=== PATIENT | male | born 1950 | race African-American/Black ===

== ENCOUNTER 2017-06-16 17:49 | Inpatient (IN) | payer MEDICAID, OTHER ==
[~2017-06-16] VITALS: Ht 182.9 cm; Wt 95.0 kg
[2017-06-16] VITALS (16 sets, daily range): BP systolic 156–216; BP diastolic 71–97; PULSE 94–122; RESP 14–18; TEMP 98.1; O2SAT 94–100
[~2017-06-16 17:49] MED LIST: CUTI0.05 TOP; PROT40TA PO; Z.0.NO CURRENT MEDS
[2017-06-16] MEDS ORDERED: IOHEXOL 350 MG/ML 10 ML VIAL (for RAD DIAG) IVCONTRAST ONE (17:50)
[2017-06-16] MEDS ORDERED: SODIUM CHLOR 0.9% 1000 ML INJ 1,000 ML IV ONE (17:59)
--- NOTE | 2017-06-16 18:22 | RADRPT ---
EXAM DATE/TIME: 06/16/2017 17:58 [facility] COMPARISON: No previous studies available for comparison. INDICATIONS : Found unresponsive left side gaze RADIATION DOSE: 56.35 CTDIvol (mGy) This report was called by Dr. Pérez to Dr. Beltran at 6: 19 PM MEDICAL HISTORY : Non-responsive. SURGICAL HISTORY : Non-responsive. ENCOUNTER: Initial ACUITY: 1 day PAIN SCALE: Non-responsive LOCATION: cranial TECHNIQUE: Multiple contiguous axial images were obtained of the head. Using automated exposure control and adj ustment of the mA and/or kV according to patient size, radiation dose was kept as low as reasonably a chievable to obtain optimal diagnostic quality images. DICOM format image data is available electro nically for review and comparison. FINDINGS: CEREBRUM: There is low density seen throughout the left middle cerebral artery territory involving portions of the left frontal, temporal, and parietal lobes. There is effacement of the sulci in these regions. Si gnificant mass effect on the ventricles or midline shift is not seen. No hemorrhage is seen. There is an old area of infarction seen in the right parietal lobe. No extra-axial fluid collections are seen . POSTERIOR FOSSA: The cerebellum and brainstem are intact. The 4th ventricle is midline. The cerebellopontine angle i s unremarkable. EXTRACRANIAL: The visualized portion of the orbits is intact. SKULL: The calvaria is intact. No evidence of skull fracture. CONCLUSION: Recent acute to subacute area of infarction involving the left middle cerebral artery territory. No h emorrhage is seen. Polo Pérez MD on June 16, 2017 at 18:15 Board Certified Radiologist. This report was verified electronically.
[2017-06-16 18:39] LABS: APTT (PATIENT) 25.1 SEC (24.3-30.1); PROTHROMBIN TIME - PATIENT 11.2 SEC (9.8-11.6)
[2017-06-16 18:42] LABS: AUTOMATED NEUTROPHIL # 12.5 TH/MM3 (1.8-7.7); BASOPHIL % 0.3 % (0.0-2.0); HEMATOCRIT 43.1 % (39.0-51.0); HEMO FLAGS DIFF FINAL; LYMPH % 7.8 % (9.0-44.0); LYMPHOCYTE # 1.1 TH/MM3 (1.0-4.8); MEAN CELL VOLUME 79.8 FL (80.0-100.0); MEAN CORPUSCULAR HEMOGLOBIN 25.8 PG (27.0-34.0); MEAN CORPUSCULAR HGB CONC 32.3 % (32.0-36.0); MONO % 5.6 % (0.0-8.0); NEUT % 86.3 % (16.0-70.0); PLATELET COUNT 147 TH/MM3 (150-450); WHITE BLOOD COUNT 14.4 TH/MM3 (4.0-11.0)
--- NOTE | 2017-06-16 18:49 | RADRPT ---
EXAM DATE/TIME: 06/16/2017 18:13 [facility] COMPARISON: CT BRAIN W/O CONTRAST, September 07, 2012, 4:18. CT BRAIN W/O CONTRAST, June 16, 2017, 17:58. INDICATIONS : Found unresponsive. IV CONTRAST: 89 cc Omnipaque 350 (iohexol) IV ; Cumulative dose for multiple exams. RADIATION DOSE: 16.02 CTDIvol (mGy) ; Combined studies MEDICAL HISTORY : Non-responsive. SURGICAL HISTORY : Non-responsive. ENCOUNTER: Initial ACUITY: 1 day PAIN SCALE: Non-responsive LOCATION: CTA HEAD TECHNIQUE: Volumetric scanning was performed using a multi-row detector CT scanner. The data was post processed with a variety of visualization algorithms including full volume maximum intensity projection, multi -planar sliding thin slab reformation, curved planar reformation, and surface rendering techniques. Using automated exposure control and adjustment of the mA and/or kV according to patient size, radiat ion dose was kept as low as reasonably achievable to obtain optimal diagnostic quality images. DICO M format image data is available electronically for review and comparison. FINDINGS: There is excellent visualization of the major intracranial arteries out to the second-order branch ve ssels. There is no evidence for aneurysm, vessel truncation or stenosis, and no evidence for vascula r malformation. Calcifications are seen at the supraclinoid portions of the internal carotid arteries bilaterally. Th e internal carotid arteries are seen to bifurcate into the anterior and middle cerebral arteries. The right A1 segment appears small, this is a normal variant. The A2 segments appear symmetric. The midd le cerebral arteries appear symmetric. There is increased flow on the left side which may reflect selma e hyperperfusion following an infarct. There is a subacute infarct seen on recent CT examination in t he left middle cerebral artery territory. The basilar is formed from the 2 vertebral arteries. The ba silar artery is seen to normally bifurcate into the posterior cerebral arteries. CONCLUSION: No area of occlusion is seen. There appears to be hyperperfusion in the left middle cerebral artery t erritory. There is a subacute area of infarction seen on the recent CT examination. Polo Pérez MD on June 16, 2017 at 18:42 Board Certified Radiologist. This report was verified electronically.
[2017-06-16 18:57] LABS: CKMB 12.2 NG/ML (0.5-3.6)
[2017-06-16 19:10] LABS: BLOOD, URINE NEG (NEG); GLUCOSE,URINE NEG (NEG); KETONE, URINE 10 mg/dL (NEG); NITRITE,URINE NEG (NEG); PH, URINE 5.5 (5.0-8.5); URINE COLOR YELLOW (YELLW/STRAW)
--- NOTE | 2017-06-16 19:20 | PD ---
HPI Chief Complaint: Altered Mental Status Time Seen by Provider: 17:57 Travel History International Travel<30 days: No Contact w/Intl Traveler<30days: No Traveled to known affect area: No History of Present Illness HPI This is a 66-year-old male with a history of reported polysubstance abuse, who presents here with altered mental status. When paramedics arrived, they found the patient to be obtunded with a GCS of 11. Friends who are at the patient's residence stated that they last saw him at 3:30. The patient arrived at roughly 5 PM. Patient was made a stroke alert as he was still in the window. Patient was unable to give any history regarding his visits secondary to his altered mental status. Patient had a left sided gaze with spasticity to his right upper extremity and clonus of his right lower shimmy. PFSH Past Medical History Asthma: No Autoimmune Disease: No Blood Disorders: No Cancer: No Cardiovascular Problems: No Chemotherapy: No COPD: No Cerebrovascular Accident: Yes Endocrine: No Gastrointestinal Disorders: No Genitourinary: No Immune Disorder: No Musculoskeletal: No Neurologic: Yes Psychiatric: No Reproductive: No Respiratory: No Radiation Therapy: No Sleep Apnea: No ?: Unknown Past Surgical History AICD: No Arteriovenous Shunt: No Insulin Pump: No Joint Replacement: No Pacemaker: No Other Surgery: Yes Social History Alcohol Use: Yes (2 BEERS A DAY) Tobacco Use: Yes (3-4 CIGARETTS A DAY) Substance Use: Yes (CRACK PIPE IN POCKET) Allergies-Medications (Allergen,Severity, Reaction): Coded Allergies: No Known Allergies (Verified , 03/22/15) Reported Meds & Prescriptions Reported Meds & Active Scripts Active Cutivate (Fluticasone Propionate) 0.05 % Cre 0.05 % TOP TID Reported Protonix (Pantoprazole Sodium) 40 Mg Tabdr 40 Mg PO BID No Current Meds (Miscellaneous Medication) Misc Review of Systems ROS Limitations: Clinical Condition (unable to obtain review of systems) Except as stated in HPI: all other systems reviewed are Neg Physical Exam Narrative GENERAL: Well-developed male in no obvious respiratory distress. The patient had a left sided lateral gaze. He would not answer questions or follow commands. SKIN: Focused skin assessment warm/dry. HEAD: Atraumatic. Normocephalic. EYES: Pupils appeared to be 2 bilaterally No scleral icterus. No injection or drainage. ENT: No nasal bleeding or discharge. Mucous membranes pink and moist. NECK: Trachea midline. No JVD. CARDIOVASCULAR: Regular rate and rhythm. No murmur appreciated. RESPIRATORY: No accessory muscle use. Clear to auscultation. Breath sounds equal bilaterally. GASTROINTESTINAL: Abdomen soft, non-tender, nondistended. No pulsatile masses were appreciated. MUSCULOSKELETAL: No obvious deformities. No clubbing. No cyanosis. No edema. NEUROLOGICAL: Awake with a left lateral gaze. Patient was observed moving his left upper and left lower extremity however not to command. The patient had spasticity and rigidity to his right upper extremity. There was clonus appreciated in his right lower extremity. GCS was estimated at roughly a 10-11. Data Data Last Documented VS Vital Signs Date Time Temp Pulse Resp B/P (MAP) Pulse Ox O2 Delivery O2 Flow Rate FiO2 06/16/17 18:51 103 18 177/84 (115) 99 Nasal Cannula 3.00 06/16/17 17:56 98.1 Orders Orders Diet Npo (06/16/17 Dinner) Activity Bed Rest (06/16/17 ) Electrocardiogram (06/16/17 ) I-Stat Creatinine (06/16/17 17:59) I-Stat Profile (06/16/17 17:59) Prothrombin Time / Inr (Pt) (06/16/17 17:59) Act Partial Throm Time (Ptt) (06/16/17 17:59) Complete Blood Count With Diff (06/16/17 17:59) Fibrinogen (06/16/17 17:59) Creatine Kinase (Cpk) (06/16/17 17:59) Troponin I (06/16/17 17:59) Ua Includes Microscopic (06/16/17 17:59) Drug Screen, Random Urine (06/16/17 17:59) Type And Screen (06/16/17 17:59) Ct Brain W/O Iv Contrast(Rout) (06/16/17 ) Cta Brain W Iv Contrast W 3d (06/16/17 17:59) Consult Neurology (06/16/17 ) Blood Glucose (06/16/17 17:59) Ecg Monitoring (06/16/17 17:59) Neuro Checks Q2HX12,Q4H (06/16/17 17:59) Nursing Bedside Swallow Assess .ONCE (06/16/17 17:59) Iv Access Insert/Monitor (06/16/17 17:59) NPO (06/16/17 17:59) Oximetry (06/16/17 17:59) Oxygen Administration (06/16/17 17:59) Sodium Chlor 0.9% 1000 Ml Inj (Ns 1000 M (06/16/17 17:59) Resp Oxygen [place] C Titrat 1-4 L (06/16/17 17:59) Cath For Specimen (06/16/17 17:59) Cta Neck W Iv Contrast W 3d (06/16/17 18:19) Iohexol 350 Inj (Omnipaque 350 Inj) (06/16/17 17:50) CKMB (06/16/17 17:57) CKMB% (06/16/17 17:57) Labs Laboratory Tests Test 06/16/17 17:57 06/16/17 19:00 White Blood Count 14.4 TH/MM3 Red Blood Count 5.40 MIL/MM3 Hemoglobin 13.9 GM/DL Bedside Hemoglobin 15.6 G/DL Hematocrit 43.1 % Bedside Hematocrit 46.0 % Mean Corpuscular Volume 79.8 FL Mean Corpuscular Hemoglobin 25.8 PG Mean Corpuscular Hemoglobin Concent 32.3 % Red Cell Distribution Width 15.0 % Platelet Count 147 TH/MM3 Mean Platelet Volume 9.0 FL Neutrophils (%) (Auto) 86.3 % Lymphocytes (%) (Auto) 7.8 % Monocytes (%) (Auto) 5.6 % Eosinophils (%) (Auto) 0.0 % Basophils (%) (Auto) 0.3 % Neutrophils # (Auto) 12.5 TH/MM3 Lymphocytes # (Auto) 1.1 TH/MM3 Monocytes # (Auto) 0.8 TH/MM3 Eosinophils # (Auto) 0.0 TH/MM3 Basophils # (Auto) 0.0 TH/MM3 CBC Comment DIFF FINAL Differential Comment Prothrombin Time 11.2 SEC Prothromb Time International Ratio 1.0 RATIO Activated Partial Thromboplast Time 25.1 SEC Fibrinogen 284 mg/dL Bedside Sodium 139 MMOL/L Bedside Potassium 5.0 MMOL/L Bedside Chloride 107 MMOL/L Bedside Blood Urea Nitrogen 25 MG/DL Bedside Creatinine 1.2 MG/DL Bedside Glucose 150 MG/DL Total Creatine Kinase 733 U/L Creatine Kinase MB 12.2 NG/ML Creatine Kinase MB % 1.7 % Troponin I 0.02 NG/ML Urine Color YELLOW Urine Turbidity CLEAR Urine pH 5.5 Urine Specific [place] 1.032 Urine Protein TRACE mg/dL Urine Glucose (UA) NEG mg/dL Urine Ketones 10 mg/dL Urine Occult Blood NEG Urine Nitrite NEG Urine Bilirubin NEG Urine Urobilinogen LESS THAN 2.0 MG/DL Urine Leukocyte Esterase NEG Urine WBC 1 /hpf MDM Medical Screen Exam Complete: Yes Emergency Medical Condition: Yes Differential Diagnosis Hemorrhagic versus embolic stroke versus metabolic derangement Narrative Course 66-year-old male presents with altered mental status. The patient was made a stroke alert when he arrived here. The patient's NIH stroke scale was definitely greater than 22. He had left sided gaze, spasticity/rigidity of his right upper extremity. There is clonus noted in his right lower extremity. The radiologist called me and stated he had a large left sided MCA stroke. He states it was definitely greater than 6 hours if not close to 12 hours old. Given this, the patient will not be a TPA candidate. The case was discussed with Dr. Siddiqi originally when he arrived. She is in agreement that he is not a stroke alert TPA candidate. Given his findings, he is also not a interventional radiology candidate. The patient be admitted to the intensive care unit. He's been discussed with Dr. Zaldivar, avionics shop supervisor to admit the patient to the intensive care service. Critical Care Narrative Aggregate critical care time was 45 minutes. Time to perform other separately billable procedures was not included in the critical care time. My time did not include minutes spent treating any other patients simultaneously or on activities that did not directly contribute to the patient's treatment. The services I provided to this patient were to treat and/or prevent clinically significant deterioration that could result in: I provided critical care services requiring my management, as noted below: Chart data review, documentation time, medication orders and management, vital sign assessments/reviewing monitor data, ordering and reviewing lab tests, ordering and interpreting/reviewing x-rays and diagnostic studies, care of the patient and discussion of the patient with the admitting physicians. Stroke Alert NIHSS NIH Stroke Scale Result: 25 NIHSS Time Completed: 17:00 Diagnosis Diagnosis: Primary Impression: large left MCA stroke Walter Hearn MD Jun 16, 2017 19:20
--- NOTE | 2017-06-16 19:35 | RADRPT ---
EXAM DATE/TIME: 06/16/2017 18:11 [facility] COMPARISON: No previous studies available for comparison. INDICATIONS : Found unresponsive IV CONTRAST: 89 cc Omnipaque 350 (iohexol) IV ; Cumulative dose for multiple exams. RADIATION DOSE: 16.02 CTDIvol (mGy) ; Combined studies MEDICAL HISTORY : Non-responsive. SURGICAL HISTORY : Non-responsive. ENCOUNTER: Initial ACUITY: 1 day PAIN SCALE: Non-responsive LOCATION: CTA NECK Elevated flow velocities and ICA/CCA ratios have been found to correlate with increased degrees of vessel stenosis, calculated as percentage of diameter relative to a normal segment of distal ICA/CCA. TECHNIQUE: Volumetric scanning was performed using a multirow detector CT scanner. The data was post processed with a variety of visualization algorithms including full-volume maximum intensity projection, multip lanar sliding thin-slab reformation, curved-planar reformation, and surface-rendering techniques. Us ing automated exposure control and adjustment of the mA and/or kV according to patient size, radiatio n dose was kept as low as reasonably achievable to obtain optimal diagnostic quality images. DICOM f ormat image data is available electronically for review and comparison. FINDINGS: AORTIC ARCH: There is a three-vessel origin of the great vessels from the aorta. No evidence of ostial narrowing. RIGHT CAROTID: The common carotid artery is intact. The carotid bulb has a normal configuration without ulceration o r narrowing. The internal carotid artery lumen is smooth without stenosis. The external carotid merrill ry is intact. LEFT CAROTID: The common carotid artery is intact. The carotid bulb has a normal configuration without ulceration or narrowing. The internal carotid artery lumen is smooth without stenosis. There is a mild calcifi ed plaque of the proximal left internal carotid artery without significant stenosis. The external car otid artery is intact. VERTEBRALS: The vertebral arteries have a symmetric diameter. No stenotic lesions are seen. OTHER: There is a focal area of low density seen between the hyoid bone and thyroid cartilage measuring 2.8 x 2.5 x 2.5 cm. In this location, a thyroglossal duct cyst should be suspected. CONCLUSION: No significant stenosis is seen. Polo Pérez MD on June 16, 2017 at 19:27 Board Certified Radiologist. This report was verified electronically.
[2017-06-16] MEDS ORDERED: PROPOFOL 1000 MG/100 ML INJ 100 ML ONE (20:10)
[2017-06-16] MEDS ORDERED: MIDAZOLAM HCL 5 MG/ML VIAL (1 ML) ONE (20:11)
[2017-06-16] MEDS ORDERED: CHLORHEXIDINE GLUCONATE 2 % 1 PACK (2 CLOTHS) TOP PRN (20:15)
[2017-06-16] MEDS ORDERED: MISCELLANEOUS NURSING INFORMATION XX SCH (20:15)
[2017-06-16] MEDS ORDERED: SODIUM CHLORIDE 0.9% FLUSH 10 ML FLUSH IV FLUSH PRN (20:15)
[2017-06-16] MEDS ORDERED: ONDANSETRON HCL 4 MG/2 ML VIAL IV PUSH PRN (20:15)
[2017-06-16] MEDS ORDERED: LACTULOSE SYRUP 20 GM/30 ML CUP PO PRN (20:15)
[2017-06-16] MEDS ORDERED: MAGNESIUM HYDROXIDE SUSP 30 ML CUP PO PRN (20:15)
[2017-06-16] MEDS ORDERED: MORPHINE SULFATE 4 MG/ML INJ IV PUSH PRN (20:15)
[2017-06-16] MEDS ORDERED: SENNOSIDES 8.6 MG TAB PO PRN (20:15)
[2017-06-16] MEDS ORDERED: MIDAZOLAM HCL 2 MG/2 ML VIAL IV PUSH PRN (20:15)
[2017-06-16] MEDS ORDERED: BISACODYL 10 MG SUPP RECTAL PRN (20:15)
[2017-06-16] MEDS: SODIUM CHLOR 0.9% 1000 ML INJ 1,000 ML IV SCH (20:20)
[2017-06-16] MEDS ORDERED: ROCURONIUM INJ 50 MG/5 ML VIAL ONE (20:34)
[2017-06-16] MEDS: DOCUSATE SODIUM 50 MG/SENNA 8.6 MG TAB PO SCH (21:00)
[2017-06-16] MEDS ORDERED: levETIRAcetam 1000 MG INJ 100 ML IV ONE (21:30)
[2017-06-16] MEDS: PROPOFOL 1000 MG/100 ML INJ 100 ML IV PRN (21:47)
[2017-06-16] MEDS: HEPARIN SODIUM - SQ 10,000 UNITS/ML VIAL SQ SCH (21:48)
[2017-06-16] MEDS: SODIUM CHLORIDE 0.9% FLUSH 10 ML FLUSH IV FLUSH SCH (21:50)
[2017-06-16] MEDS: RESP: ALBUTEROL 2.5 MG/IPRATROPIUM 0.5 MG NEB (SCH) INH (22:07)
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
--- NOTE | 2017-06-16 23:09 | PD.PROCEDR ---
Procedure Note Procedure Endotracheal Intubation A time-out was completed verifying correct patient, procedure, site, positioning , and special equipment if applicable. The patient was placed in a flat position. Sedation was obtained using Etomidate 20mg. The patient was easily ventilated using an ambu bag. The [employer]/ MAC 4 BLADE was used and inserted into the oropharynx at which time there was a Grade 1 view of the vocal cords. A 8-welsh endotracheal tube was inserted and visualized going through the vocal cords. The stylette was removed. Colorimetric change was visualized on the CO2 meter. Breath sounds were heard in both lung mcbride equally. The endotracheal tube was placed at 23 cm, measured at the teeth. A chest x-ray was ordered to assess for pneumothorax and verify endotrachealtube placement. Estimated Blood Loss: 0 The patient tolerated the procedure well and there were no complications. Henrik Zaldivar MD Jun 16, 2017 23:09
--- NOTE | 2017-06-16 23:10 | PD.PROCEDR ---
Procedure Note Procedure Centerline placement A time-out was completed verifying correct patient, procedure, site, positioning , and special equipment if applicable. The patient was placed in a dependent position appropriate for central line placement based on the vein to be cannulated. The patients right neck was prepped and draped in sterile fashion. 1% Lidocaine was used to anesthetize the surrounding skin area. A triple lumen 9 -[place] Cordis catheter was introduced into the the internal jugular vein using the Seldinger technique and under ultrasound guidance. The catheter was threaded smoothly over the guide wire and appropriate blood return was obtained. Each lumen of the catheter was evacuated of air and flushed with sterile saline. The catheter was then sutured in place to the skin and a sterile dressing applied. Perfusion to the extremity distal to the point of catheter insertion was checked and found to be adequate. Estimated Blood Loss: 1ml The patient tolerated the procedure well and there were no complications. Henrik Zaldivar MD Jun 16, 2017 23:10
[2017-06-16] MEDS ORDERED: POTASSIUM PHOSPHATE MONOBASIC 500 MG TAB PO PRN (23:15)
[2017-06-16] MEDS ORDERED: POTASSIUM CHLORIDE 25 MEQ EFFERVESCENT TAB PO PRN (23:15)
[2017-06-16] MEDS ORDERED: MAGNESIUM SULFATE INJ 2 GM in SODIUM CHLORIDE 0.9% INJ 96 ML IV PRN (23:15)
[2017-06-16] MEDS ORDERED: POTASSIUM CHLOR 40 MEQ PREMIX 100 ML IV PRN ×2 (23:15)
[2017-06-16] MEDS ORDERED: POTASSIUM PHOSPHATE MONOBASIC 500 MG TAB PO/TUBE PRN (23:15)
[2017-06-16] MEDS ORDERED: MAGNESIUM OXIDE 400 MG TAB PO PRN (23:15)
[2017-06-16] MEDS ORDERED: MAGNESIUM SULFATE INJ 4 GM in SODIUM CHLORIDE 0.9% INJ 92 ML IV PRN (23:15)
[2017-06-16] MEDS ORDERED: SODIUM PHOSPHATE INJ 30 MMOL in SODIUM CHLOR 0.9% 250 ML INJ 240 ML IV PRN (23:15)
[2017-06-16] MEDS ORDERED: POTASSIUM PHOSPHATE INJ 30 MMOL in SODIUM CHLOR 0.9% 250 ML INJ 250 ML IV PRN (23:15)
[2017-06-16] MEDS ORDERED: POTASSIUM CHLOR 20 MEQ PREMIX 100 ML IV PRN ×2 (23:15)
--- NOTE | 2017-06-16 23:39 | RADRPT ---
EXAM DATE/TIME: 06/16/2017 23:32 [facility] COMPARISON: No previous studies available for comparison. INDICATIONS : Post central line placement. MEDICAL HISTORY : Unresponsive. SURGICAL HISTORY : Unresponsive. ENCOUNTER: Initial ACUITY: 1 day PAIN SCORE: Non-responsive. LOCATION: Bilateral chest FINDINGS: Mild, basilar predominant bilateral parenchymal consolidation noted. Small, bilateral pleural effusio ns are also suspected. I don't see a pneumothorax. Heart size upper limits of normal. Endotracheal tube tip is approximately 4 cm above the joe. Nasogastric tube has its tip in the sto mach, sidehole just below the GE junction. There is a right internal jugular central venous catheter with tip at atriocaval junction. CONCLUSION: Mild bibasilar consolidation and small effusions. Line and tube positions as above. No pneumothorax. Polo Sosa MD on June 16, 2017 at 23:36 Board Certified Radiologist. This report was verified electronically.
[2017-06-16 23:47] LABS: ALT (GPT) 42 U/L (12-78); ANION GAP 7 MEQ/L (5-15); AST (GOT) 67 U/L (15-37); BICARBONATE 21.8 MEQ/L (21.0-32.0); BLOOD UREA NITROGEN 18 MG/DL (7-18); CHLORIDE 108 MEQ/L (98-107); GLOMERULAR FILTRATION RATE 77 ML/MIN (>89); POTASSIUM 4.2 MEQ/L (3.5-5.1); SODIUM (NA) 137 MEQ/L (136-145)
[2017-06-16 23:48] LABS: ALKALINE PHOSPHATASE 62 U/L (45-117); CREATINE KINASE 675 U/L (39-308); TOTAL BILIRUBIN ADULT 0.5 MG/DL (0.2-1.0)
[2017-06-17] VITALS (26 sets, daily range): BP systolic 106–166; BP diastolic 56–86; PULSE 88–119; RESP 19–38; TEMP 99.5–102.7; O2SAT 95–100
[2017-06-17 00:05] LABS: CKMB 9.1 NG/ML (0.5-3.6)
[2017-06-17 00:17] LABS: BLOOD GAS CARBOXYHEMOGLOBIN 0.6 % (0-4); BLOOD GAS HCO3 24 mmol/L (22-26); BLOOD GAS METHEMOGLOBIN 0.8 % (0-2); BLOOD GAS O2 HGB SATURATION 98 % (90-100); BLOOD GAS PCO2 34 mmHg (38-42); BLOOD GAS PO2 228 mmHG (61-120); BLOOD GAS TOTAL HGB 13.4 G/DL (12.0-16.0); CRITICAL VALUE NO; OXYGEN DEVICE VENT; TEMP CORR TO 98.6
[2017-06-17 00:18] LABS: DRAW SITE RT RADIAL; FIO2 100 %; NUMBER OF ARTERIAL PUNCTURES 1
[2017-06-17 00:19] LABS: STAT YES; ULNAR PULSE PRESENT
[2017-06-17] MEDS: CHLORHEXIDINE GLUCONATE 2 % 1 PACK (2 CLOTHS) TOP SCH (04:00)
[2017-06-17] MEDS: RESP: ALBUTEROL 2.5 MG/IPRATROPIUM 0.5 MG NEB (SCH) INH ×4 (04:17→20:15)
[2017-06-17] MEDS: HEPARIN SODIUM - SQ 10,000 UNITS/ML VIAL SQ SCH ×3 (05:11→20:59)
[2017-06-17 07:15] LABS: BLOOD GAS BASE EXCESS -2.4 mmol/L (-2-2); BLOOD GAS HCO3 20 mmol/L (22-26); BLOOD GAS METHEMOGLOBIN 1.4 % (0-2); BLOOD GAS O2 HGB SATURATION 96 % (90-100); BLOOD GAS OXYGEN CONTENT 17.8 Vol % (12.0-20.0); BLOOD GAS PCO2 25 mmHg (38-42); BLOOD GAS PO2 94 mmHg (61-120); BLOOD GAS TOTAL HGB 13.2 G/DL (12.0-16.0); CRITICAL VALUE YES; OXYGEN DEVICE VENTILATOR; TEMP CORR TO 98.6
[2017-06-17 07:16] LABS: DRAW SITE RT RADIAL; FIO2 80 %; NUMBER OF ARTERIAL PUNCTURES 1; STAT NO; ULNAR PULSE PRESENT; VENT SETTINGS 550/14/+5
[2017-06-17] MEDS: PROPOFOL 1000 MG/100 ML INJ 100 ML IV PRN ×5 (07:41→23:33)
[2017-06-17] MEDS ORDERED: MULTIVITAMIN INJ 10 ML, THIAMINE INJ 100 MG, FOLIC ACID INJ 1 MG in SODIUM CHLOR 0.45% ... IV ONE (07:45)
[2017-06-17] MEDS: levETIRAcetam 1000 MG INJ 100 ML IV SCH ×2 (09:00→20:58)
[2017-06-17] MEDS: ARTIFICIAL TEARS OPTH SOLN 15 ML BTL EACH EYE SCH ×3 (09:00→18:00)
[2017-06-17] MEDS: SODIUM CHLORIDE 0.9% FLUSH 10 ML FLUSH IV FLUSH SCH ×2 (09:00→20:58)
[2017-06-17] MEDS: DOCUSATE SODIUM 50 MG/SENNA 8.6 MG TAB PO SCH ×2 (09:00→20:59)
[2017-06-17] MEDS: SODIUM CHLOR 0.9% 1000 ML INJ 1,000 ML IV SCH ×2 (09:00→20:59)
--- NOTE | 2017-06-17 11:04 | RADRPT ---
EXAM DATE/TIME: 06/17/2017 10:46 [facility] COMPARISON: CTA BRAIN W 3D RECON, June 16, 2017, 18:13. CT BRAIN W/O CONTRAST, June 16, 2017, 17:58. INDICATIONS : Follow up for stroke. RADIATION DOSE: 64.32 CTDIvol (mGy) MEDICAL HISTORY : Stroke. SURGICAL HISTORY : None. ENCOUNTER: Subsequent ACUITY: 2 days PAIN SCALE: Non-responsive LOCATION: cranial TECHNIQUE: Multiple contiguous axial images were obtained of the head. Using automated exposure control and adj ustment of the mA and/or kV according to patient size, radiation dose was kept as low as reasonably a chievable to obtain optimal diagnostic quality images. DICOM format image data is available electro nically for review and comparison. FINDINGS: Evolving left MCA and DAIN stroke is again noted. There is moderate effacement of hemispheric cortical sulci. No significant brain shift. Minimal compressive deformity of the left lateral ventricle. Basa l cisterns are patent. An old high convexity right parietal occipital stroke is again noted. There ar e patchy areas of spontaneous increased density within the left MCA territory consistent with petechi al parenchymal hemorrhage. No drainable hemorrhagic collection is noted. CONCLUSION: Evolving left MCA and DAIN stroke as described Polo Mathur MD on June 17, 2017 at 10:59 Board Certified Radiologist. This report was verified electronically.
[2017-06-17] MEDS: fentaNYL 2,500 MCG/NS 250 ML IV PRN ×2 (12:14→23:31)
[2017-06-17] MEDS: ACETAMINOPHEN 325 MG TAB PO PRN (12:27)
[2017-06-17 12:28] LABS: AUTOMATED NEUTROPHIL # 4.9 TH/MM3 (1.8-7.7); BASOPHIL % 0.1 % (0.0-2.0); HEMATOCRIT 39.4 % (39.0-51.0); HEMO FLAGS DIFF FINAL; LYMPH % 12.2 % (9.0-44.0); LYMPHOCYTE # 0.7 TH/MM3 (1.0-4.8); MEAN CELL VOLUME 78.3 FL (80.0-100.0); MEAN CORPUSCULAR HEMOGLOBIN 25.1 PG (27.0-34.0); NEUT % 79.7 % (16.0-70.0); PLATELET COUNT 130 TH/MM3 (150-450); RED BLOOD COUNT 5.04 MIL/MM3 (4.50-5.90); RED CELL DISTRIBUTION WIDTH 14.1 % (11.6-17.2); WHITE BLOOD COUNT 6.2 TH/MM3 (4.0-11.0)
[2017-06-17 13:06] LABS: ALT (GPT) 40 U/L (12-78); ANION GAP 11 MEQ/L (5-15); AST (GOT) 59 U/L (15-37); BICARBONATE 20.9 MEQ/L (21.0-32.0); BLOOD UREA NITROGEN 16 MG/DL (7-18); CHLORIDE 107 MEQ/L (98-107); GLOMERULAR FILTRATION RATE 85 ML/MIN (>89); POTASSIUM 3.9 MEQ/L (3.5-5.1); SODIUM (NA) 139 MEQ/L (136-145)
[2017-06-17 13:08] LABS: ALKALINE PHOSPHATASE 50 U/L (45-117); TOTAL BILIRUBIN ADULT 0.5 MG/DL (0.2-1.0)
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
--- NOTE | 2017-06-17 14:18 | EKG ---
Date Performed: 06/16/2017 Time Performed: 20:09:36 PTAGE: 66 years EKG: Sinus rhythm POSSIBLE RIGHT ATRIAL ENLARGEMENT POSSIBLE LEFT ATRIAL ENLARGEMENT POSSIBLE RIGHT VENTRICULAR CONDUC TION DELAY NONSPECIFIC T-WAVE ABNORMALITY BORDERLINE ECG PREVIOUS TRACING : 09/07/2012 17.28 Since prior tracing, sinus rate is slower. DOCTOR: Joon Escobedo Interpretating Date/Time 06/17/2017 14:16:52
--- NOTE | 2017-06-17 14:19 | HHI.HCSW ---
Casing Tier Visit Advance Directive Asked by palliative BUSINESS OPERATIONS MANAGER for assistance to locate patient's sister to identify health care proxy decision maker. Step father, Chandra Prajapati ([phone]) reports Mr. Thompson has a sister, Liset Prajapati, last known in the [facility]. Step father has no contact information for Liset. Google search produced potential match ([phone]-- just rings and -- same number as sathya nieves). Accurints requested to better identify potential contact information so appropriate health care proxy can be established. Awaiting results. . Yasemin Amezquita, UI DEVELOPER WITH ANGULAR JS Jun 17, 2017 14:19
--- NOTE | 2017-06-17 14:53 | HHI.CCPN ---
Subjective Remarks/Hospital Course 06/16: 66-year-old unfortunate gentleman with a history of polysubstance abuse, presents here with altered mental status. When paramedics arrived, they found the patient to be obtunded with a GCS of 11. Friends who are at the patient's residence stated that they last saw him at 3:30. The patient arrived at roughly 5 PM. Patient was made a stroke alert as he was still in the window. Patient was unable to give any history regarding his visits secondary to his altered mental status. Patient had a left sided gaze with spasticity to his right upper extremity and clonus of his right lower shimmy. The CT of the head showed acute/subacute CVA at the left MCA territory and decision and not to administer TPA was made. While in the emergency department patient developed tonic-clonic seizures and was intubated by me for an airway protection. 06/17: Remains sedated, orally intubated on mechanical ventilation. Objective Vital Signs Date Time Temp Pulse Resp B/P (MAP) Pulse Ox O2 Delivery O2 Flow Rate FiO2 06/17/17 12:00 101.4 119 37 137/69 (91) 96 06/17/17 12:00 50 06/17/17 01:35 Ventilator 06/16/17 18:51 3.00 Intake and Output 06/17/17 06/17/17 06/18/17 08:00 16:00 00:00 Intake Total 234 ml 674 ml Output Total 700 ml Balance -466 ml 674 ml Result Diagram: 06/17/17 1200 06/17/17 1200 Other Results Laboratory Tests Test 06/16/17 23:58 06/17/17 06:55 Blood Gas Puncture Site RT RADIAL RT RADIAL Blood Gas Patient Temperature 98.6 98.6 Blood Gas HCO3 24 mmol/L (22-26) 20 mmol/L (22-26) Blood Gas Base Excess 0.0 mmol/L (-2-2) -2.4 mmol/L (-2-2) Blood Gas Oxygen Saturation 98 % (90-100) 96 % (90-100) Arterial Blood pH 7.45 (7.380-7.420) 7.52 (7.380-7.420) Arterial Blood Partial Pressure CO2 34 mmHg (38-42) 25 mmHg (38-42) Arterial Blood Partial Pressure O2 228 mmHG (61-120) 94 mmHg (61-120) Arterial Blood Oxygen Content 19.0 Vol % (12.0-20.0) 17.8 Vol % (12.0-20.0) Arterial Blood Carboxyhemoglobin 0.6 % (0-4) 1.0 % (0-4) Arterial Blood Methemoglobin 0.8 % (0-2) 1.4 % (0-2) Blood Gas Hemoglobin 13.4 G/DL (12.0-16.0) 13.2 G/DL (12.0-16.0) Oxygen Delivery Device VENT VENTILATOR Blood Gas Ventilator Setting 550/14/+5 Blood Gas Inspired Oxygen 100 % 80 % Imaging Last Impressions Head CT 06/17/17 1000 Signed Impressions: Service Date/Time: June 10:46 - CONCLUSION: Evolving left MCA and DAIN stroke as described Polo Mathur MD Neck CTA 06/16/17 1819 Signed Impressions: Service Date/Time: Friday, June 16, 2017 18:11 - CONCLUSION: No significant stenosis is seen. Polo Pérez MD Head CTA 06/16/17 1759 Signed Impressions: Service Date/Time: Friday, June 16, 2017 18:13 - CONCLUSION: No area of occlusion is seen. There appears to be hyperperfusion in the left middle cerebral artery territory. There is a subacute area of infarction seen on the recent CT examination. Polo Pérez MD Chest X-Ray 06/16/17 0000 Signed Impressions: Service Date/Time: Friday, June 16, 2017 23:32 - CONCLUSION: Mild bibasilar consolidation and small effusions. Line and tube positions as above. No pneumothorax. Polo Sosa MD Objective Remarks GENERAL: Elderly appearing gentleman sedated and intubated SKIN: Warm and dry. HEAD: Normocephalic.Left sided gaze EYES: No scleral icterus. No injection or drainage. NECK: Supple, trachea midline. No JVD or lymphadenopathy. CARDIOVASCULAR: Regular rate and rhythm without murmurs, gallops, or rubs. RESPIRATORY: Breath sounds equal bilaterally. No accessory muscle use. GASTROINTESTINAL: Abdomen soft, non-tender, nondistended. MUSCULOSKELETAL: No cyanosis, or edema. Spasticity to his right upper extremity and clonus of his right lower shimmy BACK: Nontender without obvious deformity. NEURO EXAM: GCS: M 5 on left V T E4 Mental Status: The patient is sedated and intubated Pupils are round, reactive to light. spasticity to his right upper extremity and clonus of his right lower extremity A/P Assessment and Plan Respiratory failure - Intubated for airway protection - No weaning until neurologically improved - Palliative care consult - Most likely will need a trach and peg if family requests aggressive management Acute CVA - Left MCA territory - Extremely poor prognosis - Not a candidate for TPA - MRI brain stroke protocol - Repeat CT head if indicated - Aspirin and Plavix - Neurology consult - PT and OT treatment as tolerated Hypertension - Hydralazine and labetalol when necessary to keep SBP less than 220 - Three-day permissive hypertension Peptic ulcer disease/GERD - IV Pepcid Alcohol and polysubstance abuse - Thiamine folate and multivitamins - Monitor for withdrawal History of Hepatitis C positive - Supportive care Seizure - Keppra DVT GI prophylaxis - Teds SCDs - Subcutaneous heparin - IV Pepcid Critical Care: The total critical care time was 35 minutes. Time to perform other separately billable procedures was not included in the critical care time. Dewey Cartwright MD Jun 17, 2017 14:53
--- NOTE | 2017-06-17 15:05 | ECHRPT ---
Indication: cva/tia CONCLUSIONS The left ventricular systolic function is moderately reduced with an estimated ejection fraction in the range of 40-45%. Normal left ventricular size. Trace mitral valve regurgitation. There is mild tricuspid valve regurgitation. The estimated pulmonary arterial pressure is 39.4 mmHg. BP: / HR: Rhythm: MEASUREMENTS (Male / Female) Normal Values Technical Quality:Fair 2D ECHO LV Diastolic Diameter PLAX 4.8 cm 4.2 - 5.9 / 3.9 - 5.3 cm LV Systolic Diameter PLAX 3.9 cm IVS Diastolic Thickness 1.2 cm 0.6 - 1.0 / 0.6 - 0.9 cm LVPW Diastolic Thickness 1.3 cm 0.6 - 1.0 / 0.6 - 0.9 cm LV Relative Wall Thickness 0.5 RV Internal Dim ED PLAX 1.9 cm M-MODE Aortic Root Diameter MM 3.1 cm LA Systolic Diameter MM 3.1 cm LA Ao Ratio MM 1.0 AV Cusp Separation MM 2.3 cm DOPPLER Mitral E Point Velocity 55.8 cm/s Mitral A Point Velocity 71.1 cm/s Mitral E to A Ratio 0.8 LV E' Lateral Velocity 5.4 cm/s Mitral E to LV E' Lateral Ratio 10.4 LV E' Septal Velocity 6.5 cm/s Mitral E to LV E' Septal Ratio 8.5 TR Peak Velocity 271.0 cm/s TR Peak Gradient 29.4 mmHg Right Atrial Pressure 10.0 mmHg Pulmonary Artery Systolic Pressu 39.4 mmHg Right Ventricular Systolic Press 39.4 mmHg FINDINGS LEFT VENTRICLE The left ventricular systolic function is moderately reduced with an estimated ejection fraction in the range of 40-45%. Normal left ventricular size. RIGHT VENTRICLE Normal right ventricular size and systolic function. LEFT ATRIUM The left atrial size is normal. RIGHT ATRIUM The right atrial size is normal. ATRIAL SEPTUM Normal atrial septal thickness without atrial level shunting by limited color doppler interrogation. AORTA The aortic root and proximal ascending aorta are normal in size on limited imaging. MITRAL VALVE Structurally normal mitral valve. Trace mitral valve regurgitation. AORTIC VALVE Trileaflet aortic valve. No aortic valve stenosis or regurgitation. TRICUSPID VALVE Structurally normal tricuspid valve. There is mild tricuspid valve regurgitation. The estimated pulmonary arterial pressure is 39.4 mmHg. PULMONARY VALVE No pulmonary valve regurgitation or stenosis. VESSELS The inferior vena cava is normal in size. PERICARDIUM No pericardial effusion. Miguel Lantigua MD, FACC (Electronically Signed) Final Date:17 June 2017 15:04
[2017-06-17] MEDS ORDERED: SODIUM CHLORIDE 0.9% FLUSH 5 ML FLUSH IV FLUSH PRN (19:00)
[2017-06-17] MEDS ORDERED: DEXTROSE 50% IN WATER 50 ML SYRINGE IV PUSH PRN (19:00)
[2017-06-17] MEDS ORDERED: GLUCAGON 1 MG/ML VIAL OTHER PRN (19:00)
--- NOTE | 2017-06-17 20:32 | MB ---
cc: LAURA BOLAND PHD DATE OF CONSULTATION 06/17/17 REASON FOR CONSULTATION Stroke HISTORY OF PRESENT ILLNESS Mr. Thompson is a 66-year-old man who came into the emergency room yesterday as a stroke alert. At that time, he was found to have left gaze. He was obtunded and was spastic in the right upper extremity and right lower extremity. CT scan of brain revealed a large left MCA stroke which appeared to be greater than six hours old, if not close was 12 hours old. Therefore was not considered a TPA candidate. He also underwent CT angiogram to see if there was any LVO and this was unremarkable. The neck CTA was normal. The brain CTA was negative for LVO. MEDICATIONS Current 1. Fentanyl. 2. Keppra 500 mg b.i.d. 3. Chlorhexidine potassium. 4. Magnesium sulfate. 5. Albuterol neb. 6. Heparin 5000 units subcu q.8 h 7. Propofol. 8. Tylenol. 9. Morphine p.r.n. 10. Zofran p.r.n. 11. Versed. NEUROLOGIC EXAMINATION Patient is sedated. Blood pressure is 114/56, pulse is 105, respirations are 25, temperature is 102 degrees. Higher cortical function - he is sedated. Cranial nerves: He has a left gaze. The pupils are equal and reactive. On motor exam, he does not withdraw the right side but does withdraw the left according to the nurse, but I could not get withdrawal at this time. Reflexes are symmetric. IMAGING STUDIES CT of the brain done today shows an evolving left MCA and DAIN stroke. No evidence of any hemorrhage is identified. There is effacement of the cortical sulci. There is no [id number]-[id number] shift. There is an old right parietal occipital stroke as well. LABORATORY DATA The white count is 6200, hemoglobin 12.6, hematocrit 39%, platelet count 130,000. Sodium is 139, potassium 3.9, chloride 107,even, CO2 20. The BUN is 25, creatinine 1.16, AST 67, ALT 42. Tox screen positive for cocaine and cannabis. IMPRESSION Large left MCA stroke. I agree that the patient was not a TPA candidate given the age of the infarct and the completed nature of the infarct on the CT scan. Furthermore, there is no evidence for any LVO that could be amendable to endovascular therapy. RECOMMENDATIONS Would start aspirin suppository 3 mg rectally. Check lipid panel and echocardiogram. MD BRIAN Boyle/ /6:55 PM /8:19 PM
[2017-06-17] MEDS: SODIUM CHLORIDE 0.9% FLUSH 5 ML FLUSH IV FLUSH SCH (20:58)
[2017-06-17] MEDS: INSULIN ASPART SUPPLEMENTAL SCALE SQ SCH (21:00)
[2017-06-17] MEDS: ASPIRIN 300 MG SUPP RECTAL SCH (21:21)
[2017-06-18] VITALS (20 sets, daily range): BP systolic 87–119; BP diastolic 51–61; PULSE 82–122; RESP 15–19; TEMP 98.7–100; O2SAT 91–100
[2017-06-18] MEDS: RESP: ALBUTEROL 2.5 MG/IPRATROPIUM 0.5 MG NEB (SCH) INH ×4 (03:31→20:35)
[2017-06-18] MEDS: CHLORHEXIDINE GLUCONATE 2 % 1 PACK (2 CLOTHS) TOP SCH ×2 (04:00→21:04)
[2017-06-18] MEDS: HEPARIN SODIUM - SQ 10,000 UNITS/ML VIAL SQ SCH ×3 (05:27→21:08)
[2017-06-18] MEDS: PROPOFOL 1000 MG/100 ML INJ 100 ML IV PRN ×4 (05:27→21:09)
[2017-06-18 05:45] LABS: HDL CHOLESTEROL 50.8 MG/DL (40.0-60.0)
[2017-06-18] MEDS: INSULIN ASPART SUPPLEMENTAL SCALE SQ SCH ×4 (08:00→21:00)
[2017-06-18] MEDS: ASPIRIN 300 MG SUPP RECTAL SCH (08:23)
[2017-06-18] MEDS: levETIRAcetam 1000 MG INJ 100 ML IV SCH ×2 (08:23→21:06)
[2017-06-18] MEDS: DOCUSATE SODIUM 50 MG/SENNA 8.6 MG TAB PO SCH ×2 (08:23→21:00)
[2017-06-18] MEDS: ARTIFICIAL TEARS OPTH SOLN 15 ML BTL EACH EYE SCH ×3 (08:24→17:04)
[2017-06-18] MEDS: SODIUM CHLORIDE 0.9% FLUSH 10 ML FLUSH IV FLUSH SCH ×2 (08:24→21:07)
[2017-06-18] MEDS: SODIUM CHLOR 0.9% 1000 ML INJ 1,000 ML IV SCH ×2 (08:45→20:40)
[2017-06-18] MEDS: fentaNYL 2,500 MCG/NS 250 ML IV PRN ×2 (08:59→22:01)
[2017-06-18] MEDS: SODIUM CHLORIDE 0.9% FLUSH 5 ML FLUSH IV FLUSH SCH ×2 (09:00→21:00)
[2017-06-18 11:35] LABS: HEMOGLOBIN A1a 1.4 %; HEMOGLOBIN A1b 1.6 %; HEMOGLOBIN F 0.4 %
--- NOTE | 2017-06-18 11:51 | HHI.HCPN ---
Reason for visit a. To assist with evaluation and management of symptoms including: dyspnea, encephalopathy, pain b. To assist medical decision maker(s) with: better understanding of current medical conditions; weighing benefits/burdens of medical treatment options; making medical treatment decisions. . Subjective/Interval History Patient is a 66 year old male who presented to the ED via EVAC on 06/16/17 for altered mental status, patient's last known well time was approximately 1530, the patient arrived to the ED at 1700 and was deemed a stroke alert. Upon arrival patient had a left sided gaze with spasticity to his right upper extremity and clonus in his right lower extremity. CT head: Recent acute to subacute area of infarction involving the left middle cerebral artery. CXR: Mild bibasilar consolidation and small effusions.06/17/17: Follow up Head CT: Evolving left MCA and DAIN stroek noted. There is moderate effacement of hemispheric cortical sulci. No significant brain shift. An old high convexity occipital stroke again noted. There are patchy areas of spontaneous increased density within the left MCA territory consistent with petechial parenchymal hemorrhage. Patient remains intubated, mechanically ventilated, sedated on propofol and fentanyl. Per RN sedation has been reduced in half today. Ventilator settings: AC/Rate 14/ FiO2 40%/Tidal Volume 500/PEEP 5. Patient sedated, occasionally withdraws to deep noxious stimuli. Family update via telephone. Family plans to visit patient tomorrow to further discuss goals of care. Palliative care consulted to assist with goals of care to provide support/ guidance regarding medical treatment benefit/burden medical treatment options. Family/friend interactions Telephone conversation with patient's brother Chandra Prajapati Jr., followed by a separate phone call update to patient's brother Kashif Thompson. Both were updated on: * Palliative care role, purpose, approach * Patient/family understanding of the current medical problems * Patient/family understanding of prognosis * Current medical treatment options and benefits/burdens of those options * Questions answered to the best of my ability * Palliative care contact information provided Advance Directives Living Will: Never completed Health Care Surrogate: Never completed Durable Power of Upper Shaper: Never completed Objective Vital Signs Date Time Temp Pulse Resp B/P (MAP) Pulse Ox O2 Delivery O2 Flow Rate FiO2 06/18/17 10:57 100 40 06/18/17 10:00 97 06/18/17 08:00 97 06/18/17 08:00 99.2 97 17 95/53 (67) 100 06/18/17 08:00 40 06/18/17 07:54 99 40 06/18/17 07:31 99 Ventilator 40 06/18/17 06:00 109 06/18/17 04:00 98.7 106 18 99/60 (73) 97 06/18/17 04:00 106 06/18/17 04:00 50 06/18/17 03:29 94 40 06/18/17 02:00 114 06/18/17 00:05 94 40 06/18/17 00:00 100.0 122 15 119/61 (80) 93 06/18/17 00:00 122 06/18/17 00:00 50 06/17/17 22:22 98 40 06/17/17 22:00 117 06/17/17 20:00 102.7 116 19 126/63 (84) 96 06/17/17 20:00 95 50 06/17/17 20:00 50 06/17/17 20:00 116 06/17/17 18:00 114 06/17/17 16:00 105 06/17/17 16:00 102.1 105 25 114/56 (75) 97 06/17/17 16:00 50 06/17/17 15:32 97 50 06/17/17 15:00 116 33 148/75 (99) 96 06/17/17 14:00 110 06/17/17 14:00 110 26 130/62 (84) 97 06/17/17 13:00 106 28 137/70 (92) 95 06/17/17 12:00 101.4 119 37 137/69 (91) 96 06/17/17 12:00 50 06/17/17 12:00 119 06/17/17 11:54 96 50 Intake & Output 06/18/17 06/18/17 07:00 19:00 Intake Total 1382 ml Output Total 400 ml Balance 982 ml Intake IV Total 1382 ml Output Urine Total 400 ml # Bowel Movements 0 . Physical Exam CONSTITUTIONAL/GENERAL: This is an elderly male patient, intubated, mechanically ventilated, and sedated. TUBES/LINES/DRAINS: ETT, CLV RIJ, PIV x 1, soft wrist restraints, abebe catheter SKIN: No jaundice, rashes, or lesions. No wounds seen anteriorly. Skin temperature appropriate. Not diaphoretic. EYES: Pupils equal and round and reactive. No injection or drainage. Fundi not examined. ENT: Unable to assess secondary to clinical condition. Nose without bleeding or purulent drainage. CARDIOVASCULAR: Tachycardic, without murmurs, gallops, or rubs. No JVD. Peripheral pulses symmetric. RESPIRATORY/CHEST: Symmetric, mechanically ventilated. Clear, diminished to auscultation. Breath sounds equal bilaterally. No wheezes, rales, or rhonchi. GASTROINTESTINAL: Abdomen soft, nondistended. Bowel sounds present. GENITOURINARY: Without palpable bladder distension. Abebe catheter in place. MUSCULOSKELETAL: Extremities without clubbing, cyanosis, or edema. No mottling or clubbing. NEUROLOGICAL: Sedated and intubated. Withdraws to noxious stimuli. PSYCHIATRIC: Unable to assess secondary to clinical condition. . Diagnostic Tests Laboratory Laboratory Tests Test 06/16/17 17:57 06/16/17 19:00 06/16/17 22:55 06/16/17 23:58 White Blood Count 14.4 TH/MM3 (4.0-11.0) Red Blood Count 5.40 MIL/MM3 (4.50-5.90) Hemoglobin 13.9 GM/DL (13.0-17.0) Bedside Hemoglobin 15.6 G/DL (12.0-17.0) Hematocrit 43.1 % (39.0-51.0) Bedside Hematocrit 46.0 % (38.0-51.0) Mean Corpuscular Volume 79.8 FL (80.0-100.0) Mean Corpuscular Hemoglobin 25.8 PG (27.0-34.0) Mean Corpuscular Hemoglobin Concent 32.3 % (32.0-36.0) Red Cell Distribution Width 15.0 % (11.6-17.2) Platelet Count 147 TH/MM3 (150-450) Mean Platelet Volume 9.0 FL (7.0-11.0) Neutrophils (%) (Auto) 86.3 % (16.0-70.0) Lymphocytes (%) (Auto) 7.8 % (9.0-44.0) Monocytes (%) (Auto) 5.6 % (0.0-8.0) Eosinophils (%) (Auto) 0.0 % (0.0-4.0) Basophils (%) (Auto) 0.3 % (0.0-2.0) Neutrophils # (Auto) 12.5 TH/MM3 (1.8-7.7) Lymphocytes # (Auto) 1.1 TH/MM3 (1.0-4.8) Monocytes # (Auto) 0.8 TH/MM3 (0-0.9) Eosinophils # (Auto) 0.0 TH/MM3 (0-0.4) Basophils # (Auto) 0.0 TH/MM3 (0-0.2) CBC Comment DIFF FINAL Differential Comment Prothrombin Time 11.2 SEC (9.8-11.6) Prothromb Time International Ratio 1.0 RATIO Activated Partial Thromboplast Time 25.1 SEC (24.3-30.1) Fibrinogen 284 mg/dL (227-377) Bedside Sodium 139 MMOL/L (138-146) Bedside Potassium 5.0 MMOL/L (3.5-4.9) Bedside Chloride 107 MMOL/L (98-109) Bedside Blood Urea Nitrogen 25 MG/DL (8-26) Bedside Creatinine 1.2 MG/DL (0.8-1.3) Bedside Glucose 150 MG/DL (60-95) Total Creatine Kinase 733 U/L (39-308) 675 U/L (39-308) Creatine Kinase MB 12.2 NG/ML (0.5-3.6) 9.1 NG/ML (0.5-3.6) Creatine Kinase MB % 1.7 % (0.0-4.0) 1.3 % (0.0-4.0) Troponin I 0.02 NG/ML (0.02-0.05) Urine Color YELLOW (YELLW/STRAW) Urine Turbidity CLEAR (CLEAR) Urine pH 5.5 (5.0-8.5) Urine Specific [place] 1.032 (1.002-1.035) Urine Protein TRACE mg/dL (NEG-TRACE) Urine Glucose (UA) NEG mg/dL (NEG) Urine Ketones 10 mg/dL (NEG) Urine Occult Blood NEG (NEG) Urine Nitrite NEG (NEG) Urine Bilirubin NEG (NEG) Urine Urobilinogen LESS THAN 2.0 MG/DL (LESS Urine Leukocyte Esterase NEG (NEG) Urine WBC 1 /hpf (0-5) Urine Opiates Screen NEG (NEG) Urine Barbiturates Screen NEG (NEG) Urine Amphetamines Screen NEG (NEG) Urine Benzodiazepines Screen NEG (NEG) Urine Cocaine Screen POS (NEG) Urine Cannabinoids Screen POS (NEG) Blood Urea Nitrogen 18 MG/DL (7-18) Creatinine 1.16 MG/DL (0.60-1.30) Random Glucose 120 MG/DL (74-106) Total Protein 7.6 GM/DL (6.4-8.2) Albumin 2.9 GM/DL (3.4-5.0) Calcium Level 8.5 MG/DL (8.5-10.1) Phosphorus Level 2.6 MG/DL (2.5-4.9) Magnesium Level 2.0 MG/DL (1.5-2.5) Alkaline Phosphatase 62 U/L (45-117) Aspartate Amino Transf (AST/SGOT) 67 U/L (15-37) Alanine Aminotransferase (ALT/SGPT) 42 U/L (12-78) Total Bilirubin 0.5 MG/DL (0.2-1.0) Sodium Level 137 MEQ/L (136-145) Potassium Level 4.2 MEQ/L (3.5-5.1) Chloride Level 108 MEQ/L (98-107) Carbon Dioxide Level 21.8 MEQ/L (21.0-32.0) Anion Gap 7 MEQ/L (5-15) Estimat Glomerular Filtration Rate 77 ML/MIN (>89) Blood Gas Puncture Site RT RADIAL Blood Gas Patient Temperature 98.6 Blood Gas HCO3 24 mmol/L (22-26) Blood Gas Base Excess 0.0 mmol/L (-2-2) Blood Gas Oxygen Saturation 98 % (90-100) Arterial Blood pH 7.45 (7.380-7.420) Arterial Blood Partial Pressure CO2 34 mmHg (38-42) Arterial Blood Partial Pressure O2 228 mmHG (61-120) Arterial Blood Oxygen Content 19.0 Vol % (12.0-20.0) Arterial Blood Carboxyhemoglobin 0.6 % (0-4) Arterial Blood Methemoglobin 0.8 % (0-2) Blood Gas Hemoglobin 13.4 G/DL (12.0-16.0) Oxygen Delivery Device VENT Blood Gas Ventilator Setting Blood Gas Inspired Oxygen 100 % Test 06/17/17 01:30 06/17/17 06:55 06/17/17 12:00 06/18/17 04:45 Nasal Screen MRSA (PCR) MRSA NOT DETECTED (NOT Blood Gas Puncture Site RT RADIAL Blood Gas Patient Temperature 98.6 Blood Gas HCO3 20 mmol/L (22-26) Blood Gas Base Excess -2.4 mmol/L (-2-2) Blood Gas Oxygen Saturation 96 % (90-100) Arterial Blood pH 7.52 (7.380-7.420) Arterial Blood Partial Pressure CO2 25 mmHg (38-42) Arterial Blood Partial Pressure O2 94 mmHg (61-120) Arterial Blood Oxygen Content 17.8 Vol % (12.0-20.0) Arterial Blood Carboxyhemoglobin 1.0 % (0-4) Arterial Blood Methemoglobin 1.4 % (0-2) Blood Gas Hemoglobin 13.2 G/DL (12.0-16.0) Oxygen Delivery Device VENTILATOR Blood Gas Ventilator Setting 550/14/+5 Blood Gas Inspired Oxygen 80 % White Blood Count 6.2 TH/MM3 (4.0-11.0) Red Blood Count 5.04 MIL/MM3 (4.50-5.90) Hemoglobin 12.6 GM/DL (13.0-17.0) Hematocrit 39.4 % (39.0-51.0) Mean Corpuscular Volume 78.3 FL (80.0-100.0) Mean Corpuscular Hemoglobin 25.1 PG (27.0-34.0) Mean Corpuscular Hemoglobin Concent 32.0 % (32.0-36.0) Red Cell Distribution Width 14.1 % (11.6-17.2) Platelet Count 130 TH/MM3 (150-450) Mean Platelet Volume 8.5 FL (7.0-11.0) Neutrophils (%) (Auto) 79.7 % (16.0-70.0) Lymphocytes (%) (Auto) 12.2 % (9.0-44.0) Monocytes (%) (Auto) 8.0 % (0.0-8.0) Eosinophils (%) (Auto) 0.0 % (0.0-4.0) Basophils (%) (Auto) 0.1 % (0.0-2.0) Neutrophils # (Auto) 4.9 TH/MM3 (1.8-7.7) Lymphocytes # (Auto) 0.7 TH/MM3 (1.0-4.8) Monocytes # (Auto) 0.5 TH/MM3 (0-0.9) Eosinophils # (Auto) 0.0 TH/MM3 (0-0.4) Basophils # (Auto) 0.0 TH/MM3 (0-0.2) CBC Comment DIFF FINAL Differential Comment Blood Urea Nitrogen 16 MG/DL (7-18) Creatinine 1.06 MG/DL (0.60-1.30) Random Glucose 124 MG/DL (74-106) Total Protein 7.1 GM/DL (6.4-8.2) Albumin 2.8 GM/DL (3.4-5.0) Calcium Level 8.0 MG/DL (8.5-10.1) Phosphorus Level 2.3 MG/DL (2.5-4.9) Magnesium Level 2.0 MG/DL (1.5-2.5) Alkaline Phosphatase 50 U/L (45-117) Aspartate Amino Transf (AST/SGOT) 59 U/L (15-37) Alanine Aminotransferase (ALT/SGPT) 40 U/L (12-78) Total Bilirubin 0.5 MG/DL (0.2-1.0) Sodium Level 139 MEQ/L (136-145) Potassium Level 3.9 MEQ/L (3.5-5.1) Chloride Level 107 MEQ/L (98-107) Carbon Dioxide Level 20.9 MEQ/L (21.0-32.0) Anion Gap 11 MEQ/L (5-15) Estimat Glomerular Filtration Rate 85 ML/MIN (>89) Triglycerides Level 109 MG/DL (42-150) Cholesterol Level 81 MG/DL (120-200) LDL Cholesterol 8 MG/DL (0-99) HDL Cholesterol 50.8 MG/DL (40.0-60.0) Cholesterol/HDL Ratio 1.59 RATIO Result Diagram: 06/17/17 1200 06/17/17 1200 Imaging Last [address] 06/17/17 1000 Signed Impressions: Service Date/Time: June 10:46 - CONCLUSION: Evolving left MCA and DAIN stroke as described Polo Mathur MD Neck CTA 06/16/17 1819 Signed Impressions: Service Date/Time: Friday, June 16, 2017 18:11 - CONCLUSION: No significant stenosis is seen. Polo Pérez MD Head CTA 06/16/17 1759 Signed Impressions: Service Date/Time: Friday, June 16, 2017 18:13 - CONCLUSION: No area of occlusion is seen. There appears to be hyperperfusion in the left middle cerebral artery territory. There is a subacute area of infarction seen on the recent CT examination. Polo Pérez MD Head CT 06/16/17 0000 Signed Impressions: Service Date/Time: Friday, June 16, 2017 17:58 - CONCLUSION: Recent acute to subacute area of infarction involving the left middle cerebral artery territory. No hemorrhage is seen. Polo Pérez MD Chest X-Ray 06/16/17 0000 Signed Impressions: Service Date/Time: Friday, June 16, 2017 23:32 - CONCLUSION: Mild bibasilar consolidation and small effusions. Line and tube positions as above. No pneumothorax. Polo Sosa MD Assessment and Plan Disease Oriented Problem List: (1) CVA (cerebral vascular accident) (2) Hypertension (3) Polysubstance abuse (4) Seizure Symptom Scale: (1) Encephalopathy (2) Dyspnea (3) Pain Pertinent Non-Medical Issues Psychosocial: Spiritual: Judaism. Legal: Unable to locate any family to designate legal decision maker at this time. Ethical issues impacting care: None known. Important Contacts Chandra Prajapati Jr (brother):[phone] Kashif Thompson(brother): [phone] Liset Alo (sister): [phone] Shawna Delia (friend) [phone] Chandra Prajapati (step father) [phone] Prognosis Patient admitted for large MCA stroke, unfortunately he was not a candidate for TPA due to prolonged time duration before presentation to the ED. The patient experienced tonic-clonic seizures during the ED course and was intubated for airway protection. Patient has a history of a previous CVA, seizures, polysubstance abuse, and hepatitis C. Patient is at an ongoing risk for complications and setbacks secondary to current clinical status and past medical history. . Code Status: Full Code Plan * Legal decision maker: Patient does not have the capacity to make his own health care decisions. It is unclear at this time if he will regain the capacity to make his own health care decisions. Patient potentially has a son although it has not been confirmed, legal decision making would first fall to the patient's adult children since he is no longer , pending locating son 's information. In absence of adult children legal decision making would fall to the patient's siblings Chandra Prajapati Jr, Liset Prajapati, and Kashif Thompson as the patient has no living biological parents. * * Patient has a son Naman Thompson who is somewhere in his late 30s early 40s, last known residence was in [place], car[facility] center report to locate son in process. Patient has been estranged from his son for some time, patient's family was unable to provide any contact information. * Brief bedside meeting with patient's step father Chandra Prajapati, who provided limited information regarding the patient, he stated the patient is not , his mother is , the patient does have a sister, and could potentially have adult children. Mr. Prajapati was unable to provide any telephone numbers for any family contacts. Contact Shawna Lin was contacted regarding patient, it was stated she was the niece of the patient however, upon further conversation she stated she is not related to the patient and is a friend to the patient. * CODE STATUS: FULL CODE. * GOALS: Pending confirmation of HCP/legal decision maker. * Telephone conference with patient's brother Chandra Prajapati Jr, updated on patient 's clinical status, educated on the process to determine legal decision maker in the setting where an individual is unable to make informed health care decisions independently. Mr. Prajapati is still awaiting a return call from his sister Liset Prajapati, he has updated their brother Kashif, all siblings plan to visit Mr. Thompson tomorrow, WednesdayJune 19. * Voicemail message left for Liset Prajapati [phone] and palliative contact information provided. * SYMPTOM MANAGEMENT: * --pain: Patient at ongoing risk for pain secondary to intubation, mechanical ventilation, and bedbound status. Patient is currently sedated on propofol and fentanyl. No recommendations at this time, further recommendations pending hospital course. * --dyspnea: Patient is intubated and mechanically ventilated, duonebs q 2hr PRN ordered. No recommendations at this time. * --encephalopathy: Secondary to recent MCA stroke, history of previous CVA, history of polysubstance abuse, now with active seizures. Continue to monitor, no recommendations at this time. * Palliative care will continue to follow during hospital course as condition evolves, to assist patient/family/decision-maker with understanding of medical conditions, weighing benefit/burdens of treatment options, for clarification of goals of treatment. Additionally will assist with symptoms of palliative concern. Attestation To help prompt me to consider important information that might be impacting today's encounter and assessment, information from prior notes written by myself or my colleagues may have been "brought forward" into today's note. My signature on this note, however, is an attestation that I personally performed the exam, history, and/or decision-making noted today, and, unless otherwise indicated, the interactions with patient, family, and staff as well as the review of records all occurred today. I also attest that the listed assessment and stated plan reflect my best clinical judgment today based on the combination of historical information, prior notes, and today's exam/ interactions. When time spent is documented, it refers only to time spent today by the signer, or if indicated, combined time spent today by collaborating physician/nurse practitioner. Ellyn Mercado Jun 18, 2017 11:51
--- NOTE | 2017-06-18 17:05 | HHI.PR ---
Review/Management Diagnosis large left MCA stroke prognosis guarded. Diagnosis/Plan: Subjective Subjective Comments No acute events reported Active Medications Current Medications Medications (Trade) Dose Ordered Sig/[place] Route Start Time Stop Time Status Last Admin Sodium Chloride 1,000 ml @ 84 mls/hr [id number] IV 06/16/17 21:00 06/18/17 08:45 (NS Flush) 2 ml UNSCH PRN IV FLUSH 06/16/17 20:15 (NS Flush) 2 ml BID IV FLUSH 06/16/17 21:00 06/18/17 08:24 (Tylenol) 650 mg Q6H PRN PO 06/16/17 20:15 06/17/17 12:27 (Morphine Inj) 2 mg Q2H PRN IV PUSH 06/16/17 20:15 (Versed Inj) 2 mg Q1H PRN IV PUSH 06/16/17 20:15 06/16/17 21:51 (Tears Naturale Opth Soln) 1 drop TID EACH EYE 06/17/17 09:00 06/18/17 12:48 (Zofran Inj) 4 mg Q6H PRN IV PUSH 06/16/17 20:15 (Duoneb Neb) 1 ampule Q6HR NEB INH 06/16/17 22:00 06/18/17 14:40 (Duoneb Neb) 1 ampule Q2HR NEB PRN INH 06/16/17 20:15 (Heparin Inj) 5,000 units Q8H SQ 06/16/17 21:00 06/18/17 12:48 Miscellaneous Information 1 [id number] XX 06/16/17 20:15 (Chlorhexidine 2% Cloth) 3 pack Taper DAILY@04 TOP 06/17/17 04:00 06/13/18 03:59 06/18/17 04:00 (Chlorhexidine 2% Cloth) 3 pack UNSCH PRN TOP 06/16/17 20:15 (Cheryl-Colace) 1 tab BID PO 06/16/17 21:00 06/18/17 08:23 (Milk Of Magnesia Liq) 30 ml Q12H PRN PO 06/16/17 20:15 (Senokot) 17.2 mg Q12H PRN PO 06/16/17 20:15 (Dulcolax Supp) 10 mg DAILY PRN RECTAL 06/16/17 20:15 (Lactulose Liq) 30 ml DAILY PRN PO 06/16/17 20:15 Propofol 100 ml @ 2.106 mls/ hr TITRATE PRN IV 06/16/17 21:00 06/18/17 16:34 Levetriacetam 100 ml @ 400 mls/hr Q12HR IV 06/17/17 09:00 06/18/17 08:23 Potassium Chloride 100 ml @ 50 mls/hr Q2H PRN IV 06/16/17 23:15 Potassium Chloride 100 ml @ 50 mls/hr Q2H PRN IV 06/16/17 23:15 (K-Lyte Cl Eff) 50 meq UNSCH PRN PO 06/16/17 23:15 Potassium Chloride 100 ml @ 25 mls/hr UNSCH PRN IV 06/16/17 23:15 Potassium Chloride 100 ml @ 50 mls/hr Q2H PRN IV 06/16/17 23:15 Magnesium Sulfate 4 gm/Sodium Chloride 100 ml @ 50 mls/hr UNSCH PRN IV 06/16/17 23:15 (Mag-Ox) 800 mg UNSCH PRN PO 06/16/17 23:15 Magnesium Sulfate 2 gm/Sodium Chloride 100 ml @ 50 mls/hr UNSCH PRN IV 06/16/17 23:15 (K-Phos) 2,000 mg Q4H PRN PO 06/16/17 23:15 Sodium Phosphate 30 mmol/Sodium Chloride 250 ml @ 42 mls/hr UNSCH PRN IV 06/16/17 23:15 06/17/17 14:51 (K-Phos) 2,000 mg UNSCH PRN PO/TUBE 06/16/17 23:15 Potassium Phosphate 30 mmol/ Sodium Chloride 260 ml @ 42 mls/hr UNSCH PRN IV 06/16/17 23:15 Fentanyl Citrate 250 ml @ 5 mls/hr TITRATE PRN IV 06/17/17 12:15 06/18/17 08:59 (NS Flush) 2 ml BID IV FLUSH 06/17/17 21:00 (NS Flush) 2 ml UNSCH PRN IV FLUSH 06/17/17 19:00 (Aspirin Supp) 300 mg DAILY RECTAL 06/17/17 19:00 06/18/17 08:23 (NovoLOG SUPPLEMENTAL SCALE) 1 ACHS SQ 06/17/17 21:00 (D50w (Syr) Inj) 50 ml UNSCH PRN IV PUSH 06/17/17 19:00 (Glucagon Inj) 1 mg UNSCH PRN OTHER 06/17/17 19:00 Allergies Allergies Coded Allergies No Known Allergies (Verified03/22/15) Exam I&O / VS 06/18/17 06/18/17 06/19/17 15:00 23:00 07:00 Intake Total 100 ml Balance 100 ml Intake IV Total 100 ml Vital Signs Date Time Temp Pulse Resp B/P (MAP) Pulse Ox O2 Delivery O2 Flow Rate FiO2 06/18/17 16:00 95 06/18/17 16:00 40 06/18/17 16:00 99.3 95 18 87/51 (63) 96 06/18/17 14:40 100 40 06/18/17 14:00 91 06/18/17 12:00 40 06/18/17 12:00 91 06/18/17 12:00 99.8 91 19 99/55 (70) 91 06/18/17 10:57 100 40 06/18/17 10:00 97 06/18/17 08:00 97 06/18/17 08:00 99.2 97 17 95/53 (67) 100 06/18/17 08:00 40 06/18/17 07:54 99 40 06/18/17 07:31 99 Ventilator 40 06/18/17 06:00 109 06/18/17 04:00 98.7 106 18 99/60 (73) 97 06/18/17 04:00 106 06/18/17 04:00 50 06/18/17 03:29 94 40 06/18/17 02:00 114 06/18/17 00:05 94 40 06/18/17 00:00 100.0 122 15 119/61 (80) 93 06/18/17 00:00 122 06/18/17 00:00 50 06/17/17 22:22 98 40 06/17/17 22:00 117 06/17/17 20:00 102.7 116 19 126/63 (84) 96 06/17/17 20:00 95 50 06/17/17 20:00 50 06/17/17 20:00 116 06/17/17 18:00 114 Exam Comments sedated on ventilator pupils 2 mm bialterally , eom intact motor--no spontaneous limb movement and no withdrawal Objective Micro and Labs Laboratory Tests Test 06/18/17 04:45 Triglycerides Level 109 Cholesterol Level 81 LDL Cholesterol 8 HDL Cholesterol 50.8 Cholesterol/HDL Ratio 1.59 Diagnostic Tests ECHO --EF 40-45 % Cas Powell PhD Jun 18, 2017 17:05
--- NOTE | 2017-06-18 19:52 | HHI.CCPN ---
Subjective Remarks/Hospital Course 06/16: 66-year-old unfortunate gentleman with a history of polysubstance abuse, presents here with altered mental status. When paramedics arrived, they found the patient to be obtunded with a GCS of 11. Friends who are at the patient's residence stated that they last saw him at 3:30. The patient arrived at roughly 5 PM. Patient was made a stroke alert as he was still in the window. Patient was unable to give any history regarding his visits secondary to his altered mental status. Patient had a left sided gaze with spasticity to his right upper extremity and clonus of his right lower shimmy. The CT of the head showed acute/subacute CVA at the left MCA territory and decision and not to administer TPA was made. While in the emergency department patient developed tonic-clonic seizures and was intubated by me for an airway protection. 06/17: Remains sedated, orally intubated on mechanical ventilation. 06/18: Remains sedated, orally intubated on mechanical ventilation. Objective Vital Signs Date Time Temp Pulse Resp B/P (MAP) Pulse Ox O2 Delivery O2 Flow Rate FiO2 06/18/17 19:33 100 40 06/18/17 18:00 95 06/18/17 16:00 99.3 18 87/51 (63) 06/18/17 07:31 Ventilator 06/16/17 18:51 3.00 Intake and Output 06/18/17 06/18/17 06/19/17 08:00 16:00 00:00 Intake Total 1282 ml 100 ml 1706 ml Output Total 400 ml 650 ml Balance 882 ml 100 ml 1056 ml Result Diagram: 06/17/17 1200 06/17/17 1200 Imaging Last Impressions Head CT 06/17/17 1000 Signed Impressions: Service Date/Time: June 10:46 - CONCLUSION: Evolving left MCA and DAIN stroke as described Polo Mathur MD Neck CTA 06/16/171818 Signed Impressions: Service Date/Time: Friday, June 16, 2017 18:11 - CONCLUSION: No significant stenosis is seen. Polo Pérez MD Head CTA 06/16/17 1701 Signed Impressions: Service Date/Time: Friday, June 16, 2017 18:13 - CONCLUSION: No area of occlusion is seen. There appears to be hyperperfusion in the left middle cerebral artery territory. There is a subacute area of infarction seen on the recent CT examination. Polo Pérez MD Chest X-Ray 06/16/17 0000 Signed Impressions: Service Date/Time: Friday, June 16, 2017 23:32 - CONCLUSION: Mild bibasilar consolidation and small effusions. Line and tube positions as above. No pneumothorax. Polo Sosa MD Objective Remarks GENERAL: Elderly appearing gentleman sedated and intubated SKIN: Warm and dry. HEAD: Normocephalic.Left sided gaze EYES: No scleral icterus. No injection or drainage. NECK: Supple, trachea midline. No JVD or lymphadenopathy. CARDIOVASCULAR: Regular rate and rhythm without murmurs, gallops, or rubs. RESPIRATORY: Breath sounds equal bilaterally. No accessory muscle use. GASTROINTESTINAL: Abdomen soft, non-tender, nondistended. MUSCULOSKELETAL: No cyanosis, or edema. Spasticity to his right upper extremity and clonus of his right lower shimmy BACK: Nontender without obvious deformity. NEURO EXAM: GCS: M 5 on left V T E4 Mental Status: The patient is sedated and intubated Pupils are round, reactive to light. spasticity to his right upper extremity and clonus of his right lower extremity A/P Assessment and Plan Acute Respiratory failure on mechanical ventilation - Intubated for airway protection - No weaning until neurologically improved - Palliative care consult - Most likely will need a trach and peg if family requests aggressive management Acute CVA - Left MCA territory - Extremely poor prognosis - Not a candidate for TPA - MRI brain stroke protocol - Repeat CT head if indicated - Aspirin and Plavix - Neurology consult - PT and OT treatment as tolerated Hypertension - Hydralazine and labetalol when necessary to keep SBP less than 220 - Three-day permissive hypertension Peptic ulcer disease/GERD - IV Pepcid Alcohol and polysubstance abuse - Thiamine folate and multivitamins - Monitor for withdrawal History of Hepatitis C positive - Supportive care Seizure - Keppra DVT GI prophylaxis - Teds SCDs - Subcutaneous heparin - IV Pepcid Critical Care: The total critical care time was 35 minutes. Time to perform other separately billable procedures was not included in the critical care time. Dewey Cartwright MD Jun 18, 2017 19:52
[2017-06-19] VITALS (15 sets, daily range): BP systolic 100–148; BP diastolic 40–79; PULSE 79–110; RESP 16–18; TEMP 98.5–101.9; O2SAT 94–100
[2017-06-19] MEDS: RESP: ALBUTEROL 2.5 MG/IPRATROPIUM 0.5 MG NEB (SCH) INH ×4 (03:03→19:49)
[2017-06-19] MEDS: HEPARIN SODIUM - SQ 10,000 UNITS/ML VIAL SQ SCH ×3 (05:39→20:35)
[2017-06-19] MEDS: INSULIN ASPART SUPPLEMENTAL SCALE SQ SCH ×4 (08:00→21:00)
[2017-06-19] MEDS: fentaNYL 2,500 MCG/NS 250 ML IV PRN ×2 (08:10→21:44)
[2017-06-19] MEDS: PROPOFOL 1000 MG/100 ML INJ 100 ML IV PRN ×3 (08:11→21:43)
[2017-06-19] MEDS: SODIUM CHLOR 0.9% 1000 ML INJ 1,000 ML IV SCH ×3 (08:35→17:42)
[2017-06-19] MEDS: SODIUM CHLORIDE 0.9% FLUSH 5 ML FLUSH IV FLUSH SCH ×2 (09:00→20:36)
[2017-06-19] MEDS: ASPIRIN 300 MG SUPP RECTAL SCH (09:59)
[2017-06-19] MEDS: DOCUSATE SODIUM 50 MG/SENNA 8.6 MG TAB PO SCH ×2 (09:59→20:35)
[2017-06-19] MEDS: levETIRAcetam 1000 MG INJ 100 ML IV SCH ×2 (09:59→20:36)
[2017-06-19] MEDS: SODIUM CHLORIDE 0.9% FLUSH 10 ML FLUSH IV FLUSH SCH ×2 (10:00→20:35)
[2017-06-19] MEDS: ARTIFICIAL TEARS OPTH SOLN 15 ML BTL EACH EYE SCH ×3 (10:01→17:43)
--- NOTE | 2017-06-19 14:17 | HHI.CCPN ---
Subjective Remarks/Hospital Course 06/16: 66-year-old unfortunate gentleman with a history of polysubstance abuse, presents here with altered mental status. When paramedics arrived, they found the patient to be obtunded with a GCS of 11. Friends who are at the patient's residence stated that they last saw him at 3:30. The patient arrived at roughly 5 PM. Patient was made a stroke alert as he was still in the window. Patient was unable to give any history regarding his visits secondary to his altered mental status. Patient had a left sided gaze with spasticity to his right upper extremity and clonus of his right lower shimmy. The CT of the head showed acute/subacute CVA at the left MCA territory and decision and not to administer TPA was made. While in the emergency department patient developed tonic-clonic seizures and was intubated by me for an airway protection. 06/17: Remains sedated, orally intubated on mechanical ventilation. 06/18: Remains sedated, orally intubated on mechanical ventilation. 06/19: no improvements. remains encephalopathic. intubated and mechanically ventilated. Objective Vital Signs Date Time Temp Pulse Resp B/P (MAP) Pulse Ox O2 Delivery O2 Flow Rate FiO2 06/19/17 12:00 50 06/19/17 10:39 98 06/19/17 08:30 101.9 06/19/17 06:00 88 06/19/17 04:00 18 100/40 (60) 06/18/17 07:31 Ventilator 06/16/17 18:51 3.00 Intake and Output 06/19/17 06/19/17 06/20/17 08:00 16:00 00:00 Intake Total 1007 ml Output Total 450 ml Balance 557 ml Result Diagram: 06/17/17 1200 06/17/17 1200 Imaging Last Impressions Head CT 06/17/17 1000 Signed Impressions: Service Date/Time: June 10:46 - CONCLUSION: Evolving left MCA and DAIN stroke as described Polo Mathur MD Neck CTA 06/16/171818 Signed Impressions: Service Date/Time: Friday, June 16, 2017 18:11 - CONCLUSION: No significant stenosis is seen. Polo Pérez MD Head CTA 06/16/17 5331 Signed Impressions: Service Date/Time: Friday, June 16, 2017 18:13 - CONCLUSION: No area of occlusion is seen. There appears to be hyperperfusion in the left middle cerebral artery territory. There is a subacute area of infarction seen on the recent CT examination. Polo Pérez MD Chest X-Ray 06/16/17 0000 Signed Impressions: Service Date/Time: Friday, June 16, 2017 23:32 - CONCLUSION: Mild bibasilar consolidation and small effusions. Line and tube positions as above. No pneumothorax. Polo Sosa MD Objective Remarks GENERAL: Elderly appearing gentleman sedated and intubated SKIN: Warm and dry. HEAD: Normocephalic.Left sided gaze EYES: No scleral icterus. No injection or drainage. NECK: trachea midline. No JVD CARDIOVASCULAR: Regular rate and rhythm RESPIRATORY: Breath sounds equal bilaterally. No accessory muscle use. GASTROINTESTINAL: Abdomen soft, non-tender, nondistended. MUSCULOSKELETAL: No cyanosis, or edema. Spasticity to his right upper extremity and clonus of his right lower extremity NEURO EXAM: RASS -4, w/d to pain on left. right contracted. minimal cough and gag. A/P Assessment and Plan Assessment: 66yM with massive Left MCA infarct with associated severe encephalopathy and deficits, along with acute hypoxic and hypercarbic respiratory failure. Poor prognosis. palliative care following. Acute Hypoxic and Hypercarbic Respiratory failure on mechanical ventilation - No weaning until neurologically improved - Palliative care consult - Most likely will need a trach and peg if family requests aggressive management Acute Left MCA CVA - Left MCA territory - Extremely poor prognosis - Not a candidate for TPA - Aspirin and Plavix - Neurology consult - PT and OT treatment as tolerated Hypertension - Hydralazine and labetalol when necessary to keep SBP less than 220 - Three-day permissive hypertension, today is day 3 of 3. Peptic ulcer disease/GERD - IV Pepcid Alcohol and polysubstance abuse - Thiamine folate and multivitamins - Monitor for withdrawal History of Hepatitis C positive - Supportive care Seizure - Keppra DVT GI prophylaxis - Teds SCDs - Subcutaneous heparin - IV Pepcid Atul Adames MD Jun 19, 2017 14:17
[2017-06-19] MEDS: ACETAMINOPHEN 325 MG TAB PO PRN (20:37)
[2017-06-20] VITALS (12 sets, daily range): BP systolic 107–111; BP diastolic 56–57; PULSE 71–93; RESP 14–16; TEMP 99.3; O2SAT 93–100
[2017-06-20] MEDS: RESP: ALBUTEROL 2.5 MG/IPRATROPIUM 0.5 MG NEB (SCH) INH ×4 (03:45→19:46)
[2017-06-20] MEDS: CHLORHEXIDINE GLUCONATE 2 % 1 PACK (2 CLOTHS) TOP SCH (04:00)
[2017-06-20] MEDS: PROPOFOL 1000 MG/100 ML INJ 100 ML IV PRN ×2 (04:42→10:33)
[2017-06-20] MEDS: HEPARIN SODIUM - SQ 10,000 UNITS/ML VIAL SQ SCH ×3 (04:43→22:19)
[2017-06-20] MEDS: fentaNYL 2,500 MCG/NS 250 ML IV PRN (06:52)
[2017-06-20] MEDS: INSULIN ASPART SUPPLEMENTAL SCALE SQ SCH ×4 (08:00→21:00)
[2017-06-20] MEDS: SODIUM CHLORIDE 0.9% FLUSH 5 ML FLUSH IV FLUSH SCH ×2 (09:00→21:00)
[2017-06-20] MEDS: ARTIFICIAL TEARS OPTH SOLN 15 ML BTL EACH EYE SCH ×3 (10:34→18:00)
[2017-06-20] MEDS: levETIRAcetam 1000 MG INJ 100 ML IV SCH ×2 (10:34→22:19)
[2017-06-20] MEDS: DOCUSATE SODIUM 50 MG/SENNA 8.6 MG TAB PO SCH ×2 (10:35→22:19)
[2017-06-20] MEDS: SODIUM CHLORIDE 0.9% FLUSH 10 ML FLUSH IV FLUSH SCH ×2 (10:35→22:20)
[2017-06-20] MEDS: ASPIRIN 300 MG SUPP RECTAL SCH (10:36)
[2017-06-20] MEDS: SODIUM CHLOR 0.9% 1000 ML INJ 1,000 ML IV SCH (10:36)
--- NOTE | 2017-06-20 10:37 | HHI.CCPN ---
Subjective Remarks/Hospital Course 06/16: 66-year-old unfortunate gentleman with a history of polysubstance abuse, presents here with altered mental status. When paramedics arrived, they found the patient to be obtunded with a GCS of 11. Friends who are at the patient's residence stated that they last saw him at 3:30. The patient arrived at roughly 5 PM. Patient was made a stroke alert as he was still in the window. Patient was unable to give any history regarding his visits secondary to his altered mental status. Patient had a left sided gaze with spasticity to his right upper extremity and clonus of his right lower shimmy. The CT of the head showed acute/subacute CVA at the left MCA territory and decision and not to administer TPA was made. While in the emergency department patient developed tonic-clonic seizures and was intubated by me for an airway protection. 06/17: Remains sedated, orally intubated on mechanical ventilation. 06/18: Remains sedated, orally intubated on mechanical ventilation. 06/19: no improvements. remains encephalopathic. intubated and mechanically ventilated. 06/20: no improvements in severe encephalopathy. 2 brothers at bedside yesterday and I had a long discussion about his poor prognosis and likely devastating persistent deficits. family stated "that's no way to live" but then stated "we don't believe in DNR or anything like that." They are likely pursuing aggressive medical management. Objective Vital Signs Date Time Temp Pulse Resp B/P (MAP) Pulse Ox O2 Delivery O2 Flow Rate FiO2 06/20/17 09:28 98 40 06/20/17 06:00 93 06/20/17 04:00 99.3 14 111/57 (75) 06/18/17 07:31 Ventilator 06/16/17 18:51 3.00 Intake and Output 06/20/17 06/20/17 06/21/17 08:00 16:00 00:00 Output Total 800 ml Balance -800 ml Result Diagram: 06/17/17 1200 06/17/17 1200 Imaging Last Impressions Head CT 06/17/17 1000 Signed Impressions: Service Date/Time: June 10:46 - CONCLUSION: Evolving left MCA and DAIN stroke as described Polo Mathur MD Neck CTA 06/16/171818 Signed Impressions: Service Date/Time: Friday, June 16, 2017 18:11 - CONCLUSION: No significant stenosis is seen. Polo Pérez MD Head CTA 06/16/17 1759 Signed Impressions: Service Date/Time: Friday, June 16, 2017 18:13 - CONCLUSION: No area of occlusion is seen. There appears to be hyperperfusion in the left middle cerebral artery territory. There is a subacute area of infarction seen on the recent CT examination. Polo Pérez MD Chest X-Ray 06/16/17 0000 Signed Impressions: Service Date/Time: Friday, June 16, 2017 23:32 - CONCLUSION: Mild bibasilar consolidation and small effusions. Line and tube positions as above. No pneumothorax. Polo Sosa MD Objective Remarks GENERAL: Elderly appearing gentleman sedated and intubated SKIN: Warm and dry. HEAD: Normocephalic.Left sided gaze EYES: No scleral icterus. No injection or drainage. NECK: trachea midline. No JVD CARDIOVASCULAR: Regular rate and rhythm RESPIRATORY: Breath sounds equal bilaterally. No accessory muscle use. GASTROINTESTINAL: Abdomen soft, non-tender, nondistended. MUSCULOSKELETAL: No cyanosis, or edema. Spasticity to his right upper extremity and clonus of his right lower extremity NEURO EXAM: RASS -4, w/d to pain on left. right contracted. minimal cough and gag. A/P Assessment and Plan Assessment: 66yM with massive Left MCA and DAIN infarct with associated severe encephalopathy and deficits, along with acute hypoxic and hypercarbic respiratory failure. Poor prognosis. palliative care following. Acute Hypoxic and Hypercarbic Respiratory failure on mechanical ventilation - No weaning until neurologically improved - Palliative care consult - Most likely will need a trach and peg if family requests aggressive management Acute Left MCA and DAIN CVA - Left MCA and DAIN territory - Extremely poor prognosis - Not a candidate for TPA - Aspirin and Plavix - Neurology consult - PT and OT treatment as tolerated Hypertension - Hydralazine and labetalol when necessary to keep SBP less than 180 - increase blood pressure control today, out of edema window. Peptic ulcer disease/GERD - IV Pepcid Alcohol and polysubstance abuse - Thiamine folate and multivitamins - Monitor for withdrawal History of Hepatitis C positive - Supportive care Seizure - Keppra - repeat EEG today. DVT GI prophylaxis - Teds SCDs - Subcutaneous heparin - IV Pepcid Adames,Atul S MD Jun 20, 2017 10:37
[2017-06-20] MEDS: MODAFINIL 200 MG TAB PO SCH (13:04)
[2017-06-20 18:24] LABS: HEMATOCRIT 34.7 % (39.0-51.0); MEAN CELL VOLUME 79.4 FL (80.0-100.0); MEAN CORPUSCULAR HEMOGLOBIN 25.2 PG (27.0-34.0); MEAN CORPUSCULAR HGB CONC 31.8 % (32.0-36.0); PLATELET COUNT 137 TH/MM3 (150-450); RED BLOOD COUNT 4.37 MIL/MM3 (4.50-5.90); RED CELL DISTRIBUTION WIDTH 14.3 % (11.6-17.2); REVIEW FLAG FINAL; WHITE BLOOD COUNT 9.9 TH/MM3 (4.0-11.0)
[2017-06-20 18:56] LABS: BICARBONATE 21.1 MEQ/L (21.0-32.0); POTASSIUM 3.8 MEQ/L (3.5-5.1)
--- NOTE | 2017-06-20 21:47 | MG ---
cc: DAMON ESQUEDA MD Lab No: Date: 06/20/2017 Age: Sex: M Race: ELECTROENCEPHALOGRAM RECORD NUMBER [id number] DATE OF 1950 DESCRIPTION Fentanyl turned off followed by propofol during the study. Generalized 1-3 Hz delta activity, 20-50 microvolts occurring. Mild EEG variability. No driving with photic stimulation. Some reactivity as well towards the end of the recording, slight increment 3-5 Hz. Single lead EKG showing sinus rhythm with premature contractions. INTERPRETATION Moderate encephalopathy. Clinical correlation. aDmon Esqueda MD MG/KK /9:12 PM /9:33 PM
[2017-06-21] VITALS (19 sets, daily range): BP systolic 131–175; BP diastolic 63–82; PULSE 74–96; RESP 14–27; TEMP 99.5–102.6; O2SAT 92–100
[2017-06-21] MEDS: ACETAMINOPHEN 325 MG TAB PO PRN ×3 (00:20→22:44)
[2017-06-21] MEDS: RESP: ALBUTEROL 2.5 MG/IPRATROPIUM 0.5 MG NEB (SCH) INH ×4 (03:30→23:23)
[2017-06-21] MEDS: CHLORHEXIDINE GLUCONATE 2 % 1 PACK (2 CLOTHS) TOP SCH (04:00)
[2017-06-21 04:05] LABS: HEMATOCRIT 33.4 % (39.0-51.0); MEAN CELL VOLUME 78.5 FL (80.0-100.0); MEAN CORPUSCULAR HEMOGLOBIN 25.7 PG (27.0-34.0); MEAN CORPUSCULAR HGB CONC 32.7 % (32.0-36.0); PLATELET COUNT 135 TH/MM3 (150-450); RED BLOOD COUNT 4.25 MIL/MM3 (4.50-5.90); RED CELL DISTRIBUTION WIDTH 13.9 % (11.6-17.2); REVIEW FLAG FINAL; WHITE BLOOD COUNT 10.4 TH/MM3 (4.0-11.0)
[2017-06-21 04:36] LABS: BICARBONATE 21.3 MEQ/L (21.0-32.0); POTASSIUM 3.7 MEQ/L (3.5-5.1)
[2017-06-21] MEDS: HEPARIN SODIUM - SQ 10,000 UNITS/ML VIAL SQ SCH ×3 (04:39→22:31)
[2017-06-21] MEDS: PROPOFOL 1000 MG/100 ML INJ 100 ML IV PRN ×2 (05:24→17:43)
[2017-06-21] MEDS: SODIUM CHLOR 0.9% 1000 ML INJ 1,000 ML IV SCH ×2 (05:26→22:31)
[2017-06-21] MEDS: INSULIN ASPART SUPPLEMENTAL SCALE SQ SCH ×4 (08:00→21:00)
[2017-06-21] MEDS ORDERED: VANCOMYCIN INJ 1,100 MG in SODIUM CHLOR 0.9% 250 ML INJ 250 ML IV SCH (08:15)
[2017-06-21] MEDS ORDERED: Vancomycin Consult Pharmacy 1 EA OTHER SCH (08:15)
[2017-06-21] MEDS: MODAFINIL 200 MG TAB PO SCH (08:58)
[2017-06-21] MEDS: DOCUSATE SODIUM 50 MG/SENNA 8.6 MG TAB PO SCH ×2 (08:58→22:31)
[2017-06-21] MEDS: ARTIFICIAL TEARS OPTH SOLN 15 ML BTL EACH EYE SCH ×3 (08:59→17:38)
[2017-06-21] MEDS: levETIRAcetam 1000 MG INJ 100 ML IV SCH ×2 (08:59→22:30)
[2017-06-21] MEDS: ASPIRIN 300 MG SUPP RECTAL SCH (09:00)
[2017-06-21] MEDS: SODIUM CHLORIDE 0.9% FLUSH 5 ML FLUSH IV FLUSH SCH ×2 (09:00→21:00)
[2017-06-21] MEDS: VANCOMYCIN 1,000 MG/NS 250 ML IV SCH ×4 (10:38→22:30)
--- NOTE | 2017-06-21 10:47 | RADRPT ---
EXAM DATE/TIME: 06/21/2017 09:07 [facility] COMPARISON: CHEST SINGLE AP, June 16, 2017, 23:32. INDICATIONS : Respiratory disease. MEDICAL HISTORY : Stroke. SURGICAL HISTORY : None. ENCOUNTER: Subsequent ACUITY: 4 - 6 days PAIN SCORE: Non-responsive. LOCATION: chest FINDINGS: ET tube nasogastric tube are in good position. Central venous catheter in good position. Patchy air space disease is present in both lungs worse in the left upper lobe, increasing in the interval. CONCLUSION: Decreased airspace disease both lungs. Brian Gallardo MD FACR on June 21, 2017 at 10:45 Board Certified Radiologist. This report was verified electronically.
[2017-06-21] MEDS: PIPERACIL-TAZO 4.5 GM PREMIX 100 ML IV SCH ×3 (11:08→22:30)
[2017-06-21 12:17] LABS: BACTERIA, URINE MOD /hpf; BLOOD, URINE NEG (NEG); COMMENT (UR) CATH-CULTURE IND; CULTURE IF INDICATED CATH CULTURE IND; GLUCOSE,URINE NEG (NEG); HYALINE CAST, URINE 1 /lpf (RARE); KETONE, URINE 10 mg/dL (NEG); MUCUS URINE FEW /lpf (OCC); NITRITE,URINE POS (NEG); SQUAMOUS EPITHELIAL CELL URINE 2 /hpf (0-5); URINE COLOR YELLOW (YELLW/STRAW)
--- NOTE | 2017-06-21 14:16 | HHI.HCPN ---
Reason for visit a. To assist with evaluation and management of symptoms including: dyspnea, encephalopathy, pain b. To assist medical decision maker(s) with: better understanding of current medical conditions; weighing benefits/burdens of medical treatment options; making medical treatment decisions. . Subjective/Interval History Patient is a 66 year old male who presented to the ED via EVAC on 06/16/17 for altered mental status, patient's last known well time was approximately 1530, the patient arrived to the ED at 1700 and was deemed a stroke alert. Patient suffered an acte left MCA and DAIN CVA. Patient intubated, mechanically ventilated, sedation on hold during exam. Ventilator settings: AC/Rate 14/ FiO2 55%/Tidal Volume 500/PEEP 5. Patient is minimally responsive to noxious stimuli, minimal cough and gag reflex. Patient has been febrile, Tmax 102.6 in the past 24 hours. Palliative care consulted to assist with goals of care to provide support/ guidance regarding medical treatment benefit/burden medical treatment options. Family/friend interactions Telephone conference with patient's brother Chandra Prajapati Jr. updated on patient' s current clinical status. Advance Directives Living Will: Never completed Health Care Surrogate: Never completed Durable Power of Computer Hardware Developer: Never completed Objective Vital Signs Date Time Temp Pulse Resp B/P (MAP) Pulse Ox O2 Delivery O2 Flow Rate FiO2 06/21/17 12:00 99.9 85 23 158/74 (102) 95 06/21/17 12:00 55 06/21/17 12:00 85 06/21/17 11:23 96 50 06/21/17 10:00 85 06/21/17 08:00 79 06/21/17 08:00 102.6 79 20 138/65 (89) 97 06/21/17 08:00 55 06/21/17 07:34 96 50 06/21/17 06:00 74 06/21/17 04:00 74 06/21/17 04:00 55 06/21/17 04:00 99.8 74 16 131/63 (85) 98 06/21/17 03:30 96 55 06/21/17 02:00 79 06/21/17 01:20 14 06/21/17 00:00 55 06/21/17 00:00 100.1 82 14 141/68 (92) 96 06/21/17 00:00 82 06/20/17 23:26 99 55 06/20/17 22:00 79 06/20/17 20:00 81 06/20/17 20:00 55 06/20/17 19:46 98 55 06/20/17 16:00 55 06/20/17 15:07 93 50 Intake & Output 06/21/17 06/21/17 07:00 19:00 Intake Total 100 ml Output Total 850 ml Balance -750 ml Intake IV Total 100 ml Output Urine Total 850 ml # Bowel Movements 0 Physical Exam CONSTITUTIONAL/GENERAL: This is an elderly male patient, intubated, mechanically ventilated. TUBES/LINES/DRAINS: ETT, CLV RIJ, PIV x 1, soft wrist restraints, abebe catheter SKIN: No jaundice, rashes, or lesions. No wounds seen anteriorly. Skin temperature appropriate. Not diaphoretic. EYES: Left sided gaze. No injection or drainage. Fundi not examined. CARDIOVASCULAR: Regular rate and rhythm, without murmurs, gallops, or rubs. No JVD. Peripheral pulses symmetric. RESPIRATORY/CHEST: Symmetric, mechanically ventilated. Clear, diminished to auscultation. Breath sounds equal bilaterally. No wheezes, rales, or rhonchi. GASTROINTESTINAL: Abdomen soft, nondistended. Bowel sounds present. GENITOURINARY: Without palpable bladder distension. Abebe catheter in place. MUSCULOSKELETAL: Extremities without clubbing, cyanosis, or edema. No mottling or clubbing. NEUROLOGICAL:Intubated. Sedation on hold during exam. Minimal response to noxious stimuli. Minimal cough/gag. PSYCHIATRIC: Unable to assess secondary to clinical condition. . Diagnostic Tests Laboratory Laboratory Tests Test 06/20/17 17:45 06/21/17 03:00 06/21/17 11:00 White Blood Count 9.9 TH/MM3 (4.0-11.0) 10.4 TH/MM3 (4.0-11.0) Red Blood Count 4.37 MIL/MM3 (4.50-5.90) 4.25 MIL/MM3 (4.50-5.90) Hemoglobin 11.0 GM/DL (13.0-17.0) 10.9 GM/DL (13.0-17.0) Hematocrit 34.7 % (39.0-51.0) 33.4 % (39.0-51.0) Mean Corpuscular Volume 79.4 FL (80.0-100.0) 78.5 FL (80.0-100.0) Mean Corpuscular Hemoglobin 25.2 PG (27.0-34.0) 25.7 PG (27.0-34.0) Mean Corpuscular Hemoglobin Concent 31.8 % (32.0-36.0) 32.7 % (32.0-36.0) Red Cell Distribution Width 14.3 % (11.6-17.2) 13.9 % (11.6-17.2) Platelet Count 137 TH/MM3 (150-450) 135 TH/MM3 (150-450) Mean Platelet Volume 9.2 FL (7.0-11.0) 9.4 FL (7.0-11.0) Blood Urea Nitrogen 17 MG/DL (7-18) 18 MG/DL (7-18) Creatinine 0.86 MG/DL (0.60-1.30) 0.85 MG/DL (0.60-1.30) Random Glucose 87 MG/DL (74-106) 94 MG/DL (74-106) Calcium Level 8.2 MG/DL (8.5-10.1) 7.8 MG/DL (8.5-10.1) Sodium Level 144 MEQ/L (136-145) 146 MEQ/L (136-145) Potassium Level 3.8 MEQ/L (3.5-5.1) 3.7 MEQ/L (3.5-5.1) Chloride Level 113 MEQ/L (98-107) 116 MEQ/L (98-107) Carbon Dioxide Level 21.1 MEQ/L (21.0-32.0) 21.3 MEQ/L (21.0-32.0) Anion Gap 10 MEQ/L (5-15) 9 MEQ/L (5-15) Estimat Glomerular Filtration Rate 109 ML/MIN (>89) 110 ML/MIN (>89) Urine Color YELLOW (YELLW/STRAW) Urine Turbidity HAZY (CLEAR) Urine pH 6.0 (5.0-8.5) Urine Specific [place] 1.029 (1.002-1.035) Urine Protein 30 mg/dL (NEG-TRACE) Urine Glucose (UA) NEG mg/dL (NEG) Urine Ketones 10 mg/dL (NEG) Urine Occult Blood NEG (NEG) Urine Nitrite POS (NEG) Urine Bilirubin NEG (NEG) Urine Urobilinogen 2.0 MG/DL (LESS THAN Urine Leukocyte Esterase LARGE (NEG) Urine RBC 2 /hpf (0-3) Urine WBC 5 /hpf (0-5) Urine Squamous Epithelial Cells 2 /hpf (0-5) Urine Bacteria MOD /hpf (NONE) Urine Hyaline Casts 1 /lpf (RARE) Urine Mucus FEW /lpf (OCC) Microscopic Urinalysis Comment CATH-CULTURE IND Result Diagram: 06/21/17 0300 06/21/17 0300 Microbiology Microbiology Date/Time Source Procedure Growth Status 06/21/17 10:40 Sputum Endotracheal Gram Stain Pending Received 06/21/17 10:40 Sputum Endotracheal Sputum Culture Pending Received 06/21/17 11:00 Urine Catheterized Urine Urine Culture Pending Received 06/21/17 11:00 Urine Catheterized Urine Legionella Antigen Pending Received 06/21/17 11:00 Urine Catheterized Urine Streptococcus pneumoniae Antigen (M Pending Received Assessment and Plan Disease Oriented Problem List: (1) CVA (cerebral vascular accident) (2) Hypertension (3) Polysubstance abuse (4) Seizure Symptom Scale: (1) Encephalopathy (2) Dyspnea (3) Pain Pertinent Non-Medical Issues Psychosocial: Spiritual: Muslim. Legal: Unable to locate any family to designate legal decision maker at this time. Ethical issues impacting care: None known. Important Contacts Chandra Prajapati Jr (brother):[phone] Kashif Thompson(brother): [phone] Liset Alo (sister): [phone] Shawna Delia (friend) [phone] Chandra Prajapati (step father) [phone] Prognosis Patient admitted for large MCA stroke, unfortunately he was not a candidate for TPA due to prolonged time duration before presentation to the ED. The patient experienced tonic-clonic seizures during the ED course and was intubated for airway protection. Patient has a history of a previous CVA, seizures, polysubstance abuse, and hepatitis C. Patient is at an ongoing risk for complications and setbacks secondary to current clinical status and past medical history. . Code Status: Full Code Plan * Legal decision maker: Patient does not have the capacity to make his own health care decisions. It is unclear at this time if he will regain the capacity to make his own health care decisions. Patient potentially has a son although it has not been confirmed, legal decision making would first fall to the patient's adult children since he is no longer , pending locating son 's information. In absence of adult children legal decision making would fall to the patient's siblings Chandra Prajapati Jr, Liset Prajapati, and Kashif Thompson as the patient has no living biological parents. * Awaiting [employer] report to locate patient's son. Patient's family does not have any contact information for the patient's son. * Patient has a son Naman Thompson who is somewhere in his late 30s early 40s, last known residence was in [place], [employer] report to locate son in process. Patient has been estranged from his son for some time, patient's family was unable to provide any contact information. * * Discussed with bedside RN, RN reported patient's son was visiting the patient earlier today, Palliative contact information provided and requested son's contact information to be obtained if he visits again as well as to provide Palliative contact information to the patient's son. * CODE STATUS: FULL CODE. Patient's brother Chandra Prajapati indicated today that the family had a chance to sit down and speak over the weekend, they all agreed that they would like to change the patient's code status to a DNR, however per [place] statutes legal decision making would fall to the patient's son. Palliative attempting to make contact with the son to confirm his decision to participate in decision making or opt out. * GOALS: Pending further discussion with patient's family, pending locating patient's son who would be the legal decision maker/HCP. Apparently patient's son has arrived into town today, however no family members have his contact information. Awaiting return call from patient's brother Chandra Prajapati with this information, he was informed again today that legal decision making would fall to the patient's son Naman Thompson. * SYMPTOM MANAGEMENT: * --pain: Patient at ongoing risk for pain secondary to intubation, mechanical ventilation, and bedbound status. No recommendations at this time, further recommendations pending hospital course. * --dyspnea: Patient is intubated and mechanically ventilated, duonebs q 2hr PRN ordered. No recommendations at this time. * --encephalopathy: Secondary to recent MCA stroke, history of previous CVA, history of polysubstance abuse, now with active seizures. Continue to monitor, no recommendations at this time. * Palliative care will continue to follow during hospital course as condition evolves, to assist patient/family/decision-maker with understanding of medical conditions, weighing benefit/burdens of treatment options, for clarification of goals of treatment. Additionally will assist with symptoms of palliative concern. Attestation To help prompt me to consider important information that might be impacting today's encounter and assessment, information from prior notes written by myself or my colleagues may have been "brought forward" into today's note. My signature on this note, however, is an attestation that I personally performed the exam, history, and/or decision-making noted today, and, unless otherwise indicated, the interactions with patient, family, and staff as well as the review of records all occurred today. I also attest that the listed assessment and stated plan reflect my best clinical judgment today based on the combination of historical information, prior notes, and today's exam/ interactions. When time spent is documented, it refers only to time spent today by the signer, or if indicated, combined time spent today by collaborating physician/nurse practitioner. Ellyn Mercado Jun 21, 2017 14:16
--- NOTE | 2017-06-21 19:36 | HHI.CCPN ---
Subjective Remarks/Hospital Course 06/16: 66-year-old unfortunate gentleman with a history of polysubstance abuse, presents here with altered mental status. When paramedics arrived, they found the patient to be obtunded with a GCS of 11. Friends who are at the patient's residence stated that they last saw him at 3:30. The patient arrived at roughly 5 PM. Patient was made a stroke alert as he was still in the window. Patient was unable to give any history regarding his visits secondary to his altered mental status. Patient had a left sided gaze with spasticity to his right upper extremity and clonus of his right lower shimmy. The CT of the head showed acute/subacute CVA at the left MCA territory and decision and not to administer TPA was made. While in the emergency department patient developed tonic-clonic seizures and was intubated by me for an airway protection. 06/17: Remains sedated, orally intubated on mechanical ventilation. 06/18: Remains sedated, orally intubated on mechanical ventilation. 06/19: no improvements. remains encephalopathic. intubated and mechanically ventilated. 06/20: no improvements in severe encephalopathy. 2 brothers at bedside yesterday and I had a long discussion about his poor prognosis and likely devastating persistent deficits. family stated "that's no way to live" but then stated "we don't believe in DNR or anything like that." They are likely pursuing aggressive medical management. 06/21: Remains encephalopathic off sedation, orally intubated on mechanical ventilation. Developed fevers over the weekend. Ordered pancultures and chest x-ray today which revealed significant bilateral pneumonia. Objective Vital Signs Date Time Temp Pulse Resp B/P (MAP) Pulse Ox O2 Delivery O2 Flow Rate FiO2 06/21/17 18:00 90 06/21/17 16:00 55 06/21/17 16:00 99.5 24 163/79 (107) 94 06/18/17 07:31 Ventilator Intake and Output 06/21/17 06/21/17 06/22/17 08:00 16:00 00:00 Intake Total 550 ml 120 ml Output Total 450 ml 450 ml Balance -450 ml 550 ml -330 ml Result Diagram: 06/21/17 0300 06/21/17 0300 Other Results Microbiology Date/Time Source Procedure Growth Status 06/21/17 11:00 Urine Catheterized Urine Legionella Antigen - Final PRESUMPTIVE NEGATIVE FOR LEGIONELLA P... Complete 06/21/17 11:00 Urine Catheterized Urine Streptococcus pneumoniae Antigen (M - Final PRESUMPTIVE NEGATIVE FOR STREPTOCOCCU... Complete Imaging Last 48 hours Impressions Chest X-Ray 06/21/17 0000 Signed Impressions: Service Date/Time: Wednesday, June 21, 2017 09:07 - CONCLUSION: Decreased airspace disease both lungs. Brian Gallardo MD FACR Last Impressions Head CT 06/17/17 1000 Signed Impressions: Service Date/Time: June 10:46 - CONCLUSION: Evolving left MCA and DAIN stroke as described Polo Mathur MD Neck CTA 06/16/17 1819 Signed Impressions: Service Date/Time: Friday, June 16, 2017 18:11 - CONCLUSION: No significant stenosis is seen. Polo Pérez MD Head CTA 06/16/17 1759 Signed Impressions: Service Date/Time: Friday, June 16, 2017 18:13 - CONCLUSION: No area of occlusion is seen. There appears to be hyperperfusion in the left middle cerebral artery territory. There is a subacute area of infarction seen on the recent CT examination. Polo Pérez MD Chest X-Ray 06/16/17 0000 Signed Impressions: Service Date/Time: Friday, June 16, 2017 23:32 - CONCLUSION: Mild bibasilar consolidation and small effusions. Line and tube positions as above. No pneumothorax. Polo Sosa MD Objective Remarks GENERAL: Elderly appearing gentleman sedated and intubated SKIN: Warm and dry. HEAD: Normocephalic.Left sided gaze EYES: No scleral icterus. No injection or drainage. NECK: trachea midline. No JVD CARDIOVASCULAR: Regular rate and rhythm RESPIRATORY: Breath sounds equal bilaterally. No accessory muscle use. GASTROINTESTINAL: Abdomen soft, non-tender, nondistended. MUSCULOSKELETAL: No cyanosis, or edema. Spasticity to his right upper extremity and clonus of his right lower extremity NEURO EXAM: RASS -4, w/d to pain on left. right contracted. minimal cough and gag. A/P Assessment and Plan Assessment: 66yM with massive Left MCA and DAIN infarct with associated severe encephalopathy and deficits, along with acute hypoxic and hypercarbic respiratory failure. Poor prognosis. palliative care following. Acute Hypoxic and Hypercarbic Respiratory failure on mechanical ventilation Pneumonia Sepsis - No weaning until neurologically improved - Palliative care consult - Most likely will need a trach and peg if family requests aggressive management - Pancultures ordered and started empiric Zosyn and vancomycin IV on 06/21 Acute Left MCA and DAIN CVA - Left MCA and DAIN territory - Extremely poor prognosis - Not a candidate for TPA - Aspirin and Plavix - Neurology consult - PT and OT treatment as tolerated - Repeat head CT to follow-up on stroke 06/21 Hypertension - Hydralazine and labetalol when necessary to keep SBP less than 180 - increase blood pressure control today, out of edema window. Peptic ulcer disease/GERD - IV Pepcid Alcohol and polysubstance abuse - Thiamine folate and multivitamins - Monitor for withdrawal History of Hepatitis C positive - Supportive care Seizure - Keppra -Follow up EEG DVT GI prophylaxis - Teds SCDs - Subcutaneous heparin - IV Pepcid Condition remains critical. Palliative care following to assist with deciding goals of therapy. Family at this point insists on full CODE STATUS. Time spent on critical care excluding procedures 35 minutes Dewey Cartwright MD Jun 21, 2017 19:36
--- NOTE | 2017-06-21 19:41 | HHI.PR ---
Review/Management Diagnosis large left MCA stroke prognosis for recovery of function very poor. I discussed with family in detail. Diagnosis/Plan: Subjective Subjective Comments No acute events reported Active Medications Current Medications Medications (Trade) Dose Ordered Sig/[place] Route Start Time Stop Time Status Last Admin Sodium Chloride 1,000 ml @ 84 mls/hr [id number] IV 06/16/17 21:00 06/21/17 05:26 (Tylenol) 650 mg Q6H PRN PO 06/16/17 20:15 06/21/17 10:14 (Tears Naturale Opth Soln) 1 drop TID EACH EYE 06/17/17 09:00 06/21/17 17:38 (Zofran Inj) 4 mg Q6H PRN IV PUSH 06/16/17 20:15 (Duoneb Neb) 1 ampule Q2HR NEB PRN INH 06/16/17 20:15 (Heparin Inj) 5,000 units Q8H SQ 06/16/17 21:00 06/21/17 14:31 Miscellaneous Information 1 [id number] XX 06/16/17 20:15 (Chlorhexidine 2% Cloth) 3 pack Taper DAILY@04 TOP 06/17/17 04:00 06/13/18 03:59 06/21/17 04:00 (Chlorhexidine 2% Cloth) 3 pack UNSCH PRN TOP 06/16/17 20:15 (Cheryl-Colace) 1 tab BID PO 06/16/17 21:00 06/21/17 08:58 (Milk Of Magnesia Liq) 30 ml Q12H PRN PO 06/16/17 20:15 (Senokot) 17.2 mg Q12H PRN PO 06/16/17 20:15 (Dulcolax Supp) 10 mg DAILY PRN RECTAL 06/16/17 20:15 (Lactulose Liq) 30 ml DAILY PRN PO 06/16/17 20:15 Propofol 100 ml @ 2.106 mls/ hr TITRATE PRN IV 06/16/17 21:00 06/21/17 17:43 Levetriacetam 100 ml @ 400 mls/hr Q12HR IV 06/17/17 09:00 06/21/17 08:59 Potassium Chloride 100 ml @ 50 mls/hr Q2H PRN IV 06/16/17 23:15 Potassium Chloride 100 ml @ 50 mls/hr Q2H PRN IV 06/16/17 23:15 (K-Lyte Cl Eff) 50 meq UNSCH PRN PO 06/16/17 23:15 Potassium Chloride 100 ml @ 25 mls/hr UNSCH PRN IV 06/16/17 23:15 Potassium Chloride 100 ml @ 50 mls/hr Q2H PRN IV 06/16/17 23:15 Magnesium Sulfate 4 gm/Sodium Chloride 100 ml @ 50 mls/hr UNSCH PRN IV 06/16/17 23:15 (Mag-Ox) 800 mg UNSCH PRN PO 06/16/17 23:15 Magnesium Sulfate 2 gm/Sodium Chloride 100 ml @ 50 mls/hr UNSCH PRN IV 06/16/17 23:15 (K-Phos) 2,000 mg Q4H PRN PO 06/16/17 23:15 Sodium Phosphate 30 mmol/Sodium Chloride 250 ml @ 42 mls/hr UNSCH PRN IV 06/16/17 23:15 06/17/17 14:51 (K-Phos) 2,000 mg UNSCH PRN PO/TUBE 06/16/17 23:15 Potassium Phosphate 30 mmol/ Sodium Chloride 260 ml @ 42 mls/hr UNSCH PRN IV 06/16/17 23:15 Fentanyl Citrate 250 ml @ 5 mls/hr TITRATE PRN IV 06/17/17 12:15 06/20/17 06:52 (NS Flush) 2 ml BID IV FLUSH 06/17/17 21:00 06/21/17 09:00 (NS Flush) 2 ml UNSCH PRN IV FLUSH 06/17/17 19:00 (Aspirin Supp) 300 mg DAILY RECTAL 06/17/17 19:00 06/21/17 09:00 (NovoLOG SUPPLEMENTAL SCALE) 1 ACHS SQ 06/17/17 21:00 (D50w (Syr) Inj) 50 ml UNSCH PRN IV PUSH 06/17/17 19:00 (Glucagon Inj) 1 mg UNSCH PRN OTHER 06/17/17 19:00 (Duoneb Neb) 1 ampule Q6HR NEB INH 06/20/17 16:00 06/21/17 15:04 (Haldol Inj) 5 mg Q4H PRN IV 06/20/17 10:30 (Provigil) 200 mg DAILY PO 06/20/17 11:00 06/21/17 08:58 Piperacillin Sod/ Tazobactam Sod 100 ml @ 200 mls/hr Q6H IV 06/21/17 09:00 06/21/17 14:31 Pharmacy Profile Note 0 ml @ 0 mls/hr UNSCH OTHER 06/21/17 08:15 Vancomycin HCl 1000 mg/Sodium Chloride 250 ml @ 250 mls/hr Q12H IV 06/21/17 10:00 06/21/17 10:38 Miscellaneous Information SPECIFIC LAB TO BE CONNOR... ONCE ONCE .XX 06/22/17 21:45 06/22/17 21:46 Allergies Allergies Coded Allergies No Known Allergies (Verified03/22/15) Exam I&O / VS 06/21/17 06/21/17 06/22/17 15:00 23:00 07:00 Intake Total 550 ml 120 ml Output Total 450 ml Balance 550 ml -330 ml Intake IV Total 550 ml Other 120 ml Output Urine Total 450 ml # Bowel Movements 0 Vital Signs Date Time Temp Pulse Resp B/P (MAP) Pulse Ox O2 Delivery O2 Flow Rate FiO2 06/21/17 18:00 90 06/21/17 16:00 55 06/21/17 16:00 99.5 77 24 163/79 (107) 94 06/21/17 16:00 77 06/21/17 15:05 92 50 06/21/17 14:00 78 06/21/17 12:00 99.9 85 23 158/74 (102) 95 06/21/17 12:00 55 06/21/17 12:00 85 06/21/17 11:23 96 50 06/21/17 10:00 85 06/21/17 08:00 79 06/21/17 08:00 102.6 79 20 138/65 (89) 97 06/21/17 08:00 55 06/21/17 07:34 96 50 06/21/17 06:00 74 06/21/17 04:00 74 06/21/17 04:00 55 06/21/17 04:00 99.8 74 16 131/63 (85) 98 06/21/17 03:30 96 55 06/21/17 02:00 79 06/21/17 01:20 14 06/21/17 00:00 55 06/21/17 00:00 100.1 82 14 141/68 (92) 96 06/21/17 00:00 82 06/20/17 23:26 99 55 06/20/17 22:00 79 06/20/17 20:00 81 06/20/17 20:00 55 06/20/17 19:46 98 55 Exam Comments nonresponsive pupils 2 mm bilateral , eom intact motor--no spontaneous limb movement and no withdrawal Objective Micro and Labs Laboratory Tests Test 06/21/17 03:00 06/21/17 11:00 White Blood Count 10.4 Red Blood Count 4.25 Hemoglobin 10.9 Hematocrit 33.4 Mean Corpuscular Volume 78.5 Mean Corpuscular Hemoglobin 25.7 Mean Corpuscular Hemoglobin Concent 32.7 Red Cell Distribution Width 13.9 Platelet Count 135 Mean Platelet Volume 9.4 Blood Urea Nitrogen 18 Creatinine 0.85 Random Glucose 94 Calcium Level 7.8 Sodium Level 146 Potassium Level 3.7 Chloride Level 116 Carbon Dioxide Level 21.3 Anion Gap 9 Estimat Glomerular Filtration Rate 110 Urine Color YELLOW Urine Turbidity HAZY Urine pH 6.0 Urine Specific [place] 1.029 Urine Protein 30 Urine Glucose (UA) NEG Urine Ketones 10 Urine Occult Blood NEG Urine Nitrite POS Urine Bilirubin NEG Urine Urobilinogen 2.0 Urine Leukocyte Esterase LARGE Urine RBC 2 Urine WBC 5 Urine Squamous Epithelial Cells 2 Urine Bacteria MOD Urine Hyaline Casts 1 Urine Mucus FEW Microscopic Urinalysis Comment CATH-CULTURE IND Date/Time Source Procedure Growth Status 06/21/17 10:40 Sputum Endotracheal Gram Stain - Final Resulted 06/21/17 10:40 Sputum Endotracheal Sputum Culture Pending Resulted 06/21/17 11:00 Urine Catheterized Urine Urine Culture Pending Received Diagnostic Tests EEG----generalized slowing Cas Powell PhD MD Jun 21, 2017 19:41
--- NOTE | 2017-06-21 20:40 | RADRPT ---
EXAM DATE/TIME: 06/21/2017 20:22 [facility] COMPARISON: CT BRAIN W/O CONTRAST, June 17, 2017, 10:46. INDICATIONS : Follow up stroke. RADIATION DOSE: 51.60 CTDIvol (mGy) MEDICAL HISTORY : Cerebrovascular disease. SURGICAL HISTORY : Non-responsive. ENCOUNTER: Subsequent ACUITY: 4 - 6 days PAIN SCALE: Non-responsive LOCATION: cranial TECHNIQUE: Multiple contiguous axial images were obtained of the head. Using automated exposure control and adj ustment of the mA and/or kV according to patient size, radiation dose was kept as low as reasonably a chievable to obtain optimal diagnostic quality images. DICOM format image data is available electro nically for review and comparison. FINDINGS: There is continued evolution of the hemorrhagic infarct involving the left middle cerebral artery dis tribution with ischemic infarct involving the anterior cerebral artery. There is minimal mass effect and midline shift but no evidence of herniation. There is also hypodensity in the head of the caudate on the left characteristic of infarction. Posterior fossa structures are unremarkable. CONCLUSION: 1. Continued evolution of hemorrhagic infarct in the left hemisphere with mass effect and minimal mid line shift but no signs of herniation. No acute hemorrhage is identified Que Alfonso MD on June 21, 2017 at 20:33 Board Certified Radiologist. This report was verified electronically.
[2017-06-22] VITALS (34 sets, daily range): BP systolic 113–165; BP diastolic 57–82; PULSE 74–83; RESP 21–25; TEMP 98.9–101.6; O2SAT 84–100
[2017-06-22] MEDS: PROPOFOL 1000 MG/100 ML INJ 100 ML IV PRN ×5 (00:02→22:02)
[2017-06-22] MEDS: RESP: ALBUTEROL 2.5 MG/IPRATROPIUM 0.5 MG NEB (SCH) INH ×4 (03:58→19:50)
[2017-06-22] MEDS: CHLORHEXIDINE GLUCONATE 2 % 1 PACK (2 CLOTHS) TOP SCH (04:00)
[2017-06-22 04:07] LABS: HEMATOCRIT 34.4 % (39.0-51.0); MEAN CELL VOLUME 78.3 FL (80.0-100.0); MEAN CORPUSCULAR HEMOGLOBIN 24.9 PG (27.0-34.0); MEAN CORPUSCULAR HGB CONC 31.8 % (32.0-36.0); PLATELET COUNT 168 TH/MM3 (150-450); RED BLOOD COUNT 4.39 MIL/MM3 (4.50-5.90); RED CELL DISTRIBUTION WIDTH 13.9 % (11.6-17.2); REVIEW FLAG FINAL; WHITE BLOOD COUNT 12.1 TH/MM3 (4.0-11.0)
[2017-06-22] MEDS: HEPARIN SODIUM - SQ 10,000 UNITS/ML VIAL SQ SCH ×3 (04:37→20:26)
[2017-06-22] MEDS: PIPERACIL-TAZO 4.5 GM PREMIX 100 ML IV SCH ×4 (04:37→20:26)
[2017-06-22 04:46] LABS: BICARBONATE 21.1 MEQ/L (21.0-32.0); POTASSIUM 3.5 MEQ/L (3.5-5.1)
[2017-06-22] MEDS: INSULIN ASPART SUPPLEMENTAL SCALE SQ SCH ×4 (08:00→20:26)
[2017-06-22] MEDS: SODIUM CHLOR 0.9% 1000 ML INJ 1,000 ML IV SCH (08:05)
[2017-06-22] MEDS: SODIUM CHLORIDE 0.9% FLUSH 5 ML FLUSH IV FLUSH SCH ×2 (09:00→20:26)
[2017-06-22] MEDS: ARTIFICIAL TEARS OPTH SOLN 15 ML BTL EACH EYE SCH ×3 (09:18→18:02)
[2017-06-22] MEDS: DOCUSATE SODIUM 50 MG/SENNA 8.6 MG TAB PO SCH ×2 (09:18→20:26)
[2017-06-22] MEDS: MODAFINIL 200 MG TAB PO SCH (09:18)
[2017-06-22] MEDS: levETIRAcetam 1000 MG INJ 100 ML IV SCH ×2 (09:18→20:25)
[2017-06-22] MEDS: ASPIRIN 300 MG SUPP RECTAL SCH (09:19)
[2017-06-22] MEDS: VANCOMYCIN 1,000 MG/NS 250 ML IV SCH ×4 (10:08→22:02)
[2017-06-22] MEDS: SODIUM CHLOR 0.45% 1000 ML INJ 1,000 ML IV SCH (12:00)
--- NOTE | 2017-06-22 12:13 | HHI.HCPN ---
Reason for visit a. To assist with evaluation and management of symptoms including: dyspnea, encephalopathy, pain b. To assist medical decision maker(s) with: better understanding of current medical conditions; weighing benefits/burdens of medical treatment options; making medical treatment decisions. . Subjective/Interval History Patient is a 66 year old male who presented to the ED via EVAC on 06/16/17 for altered mental status, patient's last known well time was approximately 1530, the patient arrived to the ED at 1700 and was deemed a stroke alert. Patient suffered an acte left MCA and DAIN CVA. Patient remains intubated, mechanically ventilated, no sedation during the time of exam. Patient withdraws to noxious stimuli on BLE, no response/withdrawal to noxious stimuli on BUE. 06/21/17 chest CXR: patchy airspace disease is present in both lungs worse in left upper lobe, increasing in the interval. Decreased airspace disease both lungs. Patient has been febrile, WBC:12.1 today, pancultures ordered yesterday by nurse quality. Repeat head CT on 06/21/17: Continued evolution of hemorrhagic infarct in the left hemisphere with mass effect and minimal midline shift but no signs of herniation. Palliative care consulted to assist with goals of care to provide support/ guidance regarding medical treatment benefit/burden medical treatment options. Family/friend interactions Telephone conference with patient's brother Chandra Jr. Alo, provided medical update. Telephone conference with patient's son Naman Thompson, provided medical update , discussed goals of care, code status, current medical treatment options and benefits/burdens of these options, likely scenarios comparing ongoing aggressive care with a transition to "comfort measures only". Questions answered to the best of my ability. Advance Directives Living Will: Never completed Health Care Surrogate: Never completed Durable Power of Audio Production Instructor: Never completed Objective Vital Signs Date Time Temp Pulse Resp B/P (MAP) Pulse Ox O2 Delivery O2 Flow Rate FiO2 06/22/17 11:00 84 50 06/22/17 07:23 97 45 06/22/17 06:00 80 06/22/17 04:00 99 45 06/22/17 04:00 99.2 80 21 132/65 (87) 99 06/22/17 04:00 45 06/22/17 04:00 80 06/22/17 02:00 79 06/22/17 00:00 98.9 83 25 140/68 (92) 97 06/22/17 00:00 83 06/22/17 00:00 45 06/21/17 23:50 98 45 06/21/17 22:00 87 06/21/17 20:23 100 06/21/17 20:00 45 06/21/17 20:00 102.1 96 27 175/82 (113) 100 06/21/17 20:00 96 06/21/17 19:57 100 50 06/21/17 18:00 90 06/21/17 16:00 55 06/21/17 16:00 99.5 77 24 163/79 (107) 94 06/21/17 16:00 77 06/21/17 15:05 92 50 06/21/17 14:00 78 06/21/17 12:00 99.9 85 23 158/74 (102) 95 06/21/17 12:00 55 06/21/17 12:00 85 Intake & Output 06/22/17 06/22/17 07:00 19:00 Intake Total 2350 ml Output Total 900 ml Balance 1450 ml Intake IV Total 2350 ml Output Urine Total 900 ml Physical Exam CONSTITUTIONAL/GENERAL: This is an elderly male patient, intubated, mechanically ventilated. TUBES/LINES/DRAINS: ETT, OGT, CLV RIJ, PIV x 1, soft wrist restraints, abebe catheter SKIN: No jaundice, rashes, or lesions. No wounds seen anteriorly. Skin temperature appropriate. Not diaphoretic. EYES: Left sided gaze. No injection or drainage. Fundi not examined. CARDIOVASCULAR: Regular rate and rhythm, without murmurs, gallops, or rubs. No JVD. Peripheral pulses symmetric. RESPIRATORY/CHEST: Symmetric, mechanically ventilated. Course crackles, breath sounds equal bilaterally. GASTROINTESTINAL: Abdomen soft, nondistended. Bowel sounds present. GENITOURINARY: Without palpable bladder distension. Abebe catheter in place. MUSCULOSKELETAL: Extremities without clubbing, cyanosis, or edema. No mottling or clubbing. NEUROLOGICAL:Intubated. Withdraws to noxious stimuli in BLE, no response/ withdrawal to noxious stimuli in BUE. PSYCHIATRIC: Unable to assess secondary to clinical condition. . Diagnostic Tests Laboratory Laboratory Tests Test 06/20/17 17:45 06/21/17 03:00 06/21/17 11:00 06/22/17 03:52 White Blood Count 9.9 TH/MM3 (4.0-11.0) 10.4 TH/MM3 (4.0-11.0) 12.1 TH/MM3 (4.0-11.0) Red Blood Count 4.37 MIL/MM3 (4.50-5.90) 4.25 MIL/MM3 (4.50-5.90) 4.39 MIL/MM3 (4.50-5.90) Hemoglobin 11.0 GM/DL (13.0-17.0) 10.9 GM/DL (13.0-17.0) 10.9 GM/DL (13.0-17.0) Hematocrit 34.7 % (39.0-51.0) 33.4 % (39.0-51.0) 34.4 % (39.0-51.0) Mean Corpuscular Volume 79.4 FL (80.0-100.0) 78.5 FL (80.0-100.0) 78.3 FL (80.0-100.0) Mean Corpuscular Hemoglobin 25.2 PG (27.0-34.0) 25.7 PG (27.0-34.0) 24.9 PG (27.0-34.0) Mean Corpuscular Hemoglobin Concent 31.8 % (32.0-36.0) 32.7 % (32.0-36.0) 31.8 % (32.0-36.0) Red Cell Distribution Width 14.3 % (11.6-17.2) 13.9 % (11.6-17.2) 13.9 % (11.6-17.2) Platelet Count 137 TH/MM3 (150-450) 135 TH/MM3 (150-450) 168 TH/MM3 (150-450) Mean Platelet Volume 9.2 FL (7.0-11.0) 9.4 FL (7.0-11.0) 9.0 FL (7.0-11.0) Blood Urea Nitrogen 17 MG/DL (7-18) 18 MG/DL (7-18) 19 MG/DL (7-18) Creatinine 0.86 MG/DL (0.60-1.30) 0.85 MG/DL (0.60-1.30) 0.77 MG/DL (0.60-1.30) Random Glucose 87 MG/DL (74-106) 94 MG/DL (74-106) 107 MG/DL (74-106) Calcium Level 8.2 MG/DL (8.5-10.1) 7.8 MG/DL (8.5-10.1) 7.9 MG/DL (8.5-10.1) Sodium Level 144 MEQ/L (136-145) 146 MEQ/L (136-145) 149 MEQ/L (136-145) Potassium Level 3.8 MEQ/L (3.5-5.1) 3.7 MEQ/L (3.5-5.1) 3.5 MEQ/L (3.5-5.1) Chloride Level 113 MEQ/L (98-107) 116 MEQ/L (98-107) 116 MEQ/L (98-107) Carbon Dioxide Level 21.1 MEQ/L (21.0-32.0) 21.3 MEQ/L (21.0-32.0) 21.1 MEQ/L (21.0-32.0) Anion Gap 10 MEQ/L (5-15) 9 MEQ/L (5-15) 12 MEQ/L (5-15) Estimat Glomerular Filtration Rate 109 ML/MIN (>89) 110 ML/MIN (>89) 123 ML/MIN (>89) Urine Color YELLOW (YELLW/STRAW) Urine Turbidity HAZY (CLEAR) Urine pH 6.0 (5.0-8.5) Urine Specific [place] 1.029 (1.002-1.035) Urine Protein 30 mg/dL (NEG-TRACE) Urine Glucose (UA) NEG mg/dL (NEG) Urine Ketones 10 mg/dL (NEG) Urine Occult Blood NEG (NEG) Urine Nitrite POS (NEG) Urine Bilirubin NEG (NEG) Urine Urobilinogen 2.0 MG/DL (LESS THAN Urine Leukocyte Esterase LARGE (NEG) Urine RBC 2 /hpf (0-3) Urine WBC 5 /hpf (0-5) Urine Squamous Epithelial Cells 2 /hpf (0-5) Urine Bacteria MOD /hpf (NONE) Urine Hyaline Casts 1 /lpf (RARE) Urine Mucus FEW /lpf (OCC) Microscopic Urinalysis Comment CATH-CULTURE IND Result Diagram: 06/22/17 0352 06/22/17 0352 Microbiology Microbiology Date/Time Source Procedure Growth Status 06/22/17 08:53 Blood Peripheral Aerobic Blood Culture Pending Received 06/22/17 08:53 Blood Peripheral Anaerobic Blood Culture Pending Received 06/22/17 03:52 Blood Peripheral Aerobic Blood Culture Pending Received 06/22/17 03:52 Blood Peripheral Anaerobic Blood Culture Pending Received 06/21/17 10:40 Sputum Endotracheal Gram Stain - Final Resulted 06/21/17 10:40 Sputum Endotracheal Sputum Culture Pending Resulted 06/21/17 11:00 Urine Catheterized Urine Urine Culture Pending Received 06/21/17 11:00 Urine Catheterized Urine Legionella Antigen - Final PRESUMPTIVE NEGATIVE FOR LEGIONELLA P... Complete 06/21/17 11:00 Urine Catheterized Urine Streptococcus pneumoniae Antigen (M - Final PRESUMPTIVE NEGATIVE FOR STREPTOCOCCU... Complete Imaging Last [address] 06/21/17 0000 Signed Impressions: Service Date/Time: Wednesday, June 21, 2017 20:22 - CONCLUSION: 1. Continued evolution of hemorrhagic infarct in the left hemisphere with mass effect and minimal midline shift but no signs of herniation. No acute hemorrhage is identified Que Alfonso MD Chest X-Ray 06/21/17 0000 Signed Impressions: Service Date/Time: Wednesday, June 21, 2017 09:07 - CONCLUSION: Decreased airspace disease both lungs. Brian Gallardo MD FACR Assessment and Plan Disease Oriented Problem List: (1) CVA (cerebral vascular accident) (2) Hypertension (3) Polysubstance abuse (4) Seizure Symptom Scale: (1) Encephalopathy (2) Dyspnea (3) Pain Pertinent Non-Medical Issues Psychosocial: Patient is , has one adult son Naman Thompson. Patient is a of the [employer]. Per previous records: 05/04/2010: Patient was living in [place], [facility]. Patient has a long standing history of polysubstance abuse. Spiritual: Buddhist. Legal: None known. Ethical issues impacting care: None known. Important Contacts Naman Thompson (son, HCP) , email:[email or web address]. Chandra Prajapati Jr (brother):[phone] Kashif Thompson(brother): [phone] Liset Prajapati (sister): [phone] Shawna Lin (friend) [phone] Chandra Prajapati (step father) [phone] Prognosis Patient admitted for large MCA stroke, unfortunately he was not a candidate for TPA due to prolonged time duration before presentation to the ED. The patient experienced tonic-clonic seizures during the ED course and was intubated for airway protection. Patient has a history of a previous CVA, seizures, polysubstance abuse, and hepatitis C. Patient is at an ongoing risk for complications and setbacks secondary to current clinical status and past medical history. . Code Status: Full Code Plan * Legal decision maker: Patient does not have the capacity to make his own health care decisions. It is unclear at this time if he will regain the capacity to make his own health care decisions. Per [place] statutes health care decision making would fall to the patient's son Naman Thompson , email:[email or web address]. During telephone conference today Naman agreed to serve as HCP for his father Mr. Thompson. * Discussed case with bedside RN. * CODE STATUS: FULL CODE. Addressed code status today with patient's son/HCP Naman during telephone conversation, discussed risks, benefits and limitations of CPR. Naman endorsed that he would like his father to remain a full code. * GOALS: Aggressive. Patient's son/HCP verbalized desire to move forward with aggressive goals and he would be amenable to moving forward with trach/PEG. * SYMPTOM MANAGEMENT: * --pain: Patient at ongoing risk for pain secondary to intubation, mechanical ventilation, and bedbound status. No recommendations at this time, further recommendations pending hospital course. * --dyspnea: Patient is intubated and mechanically ventilated, duonebs q 2hr PRN ordered. No recommendations at this time. * --encephalopathy: Secondary to recent MCA stroke, history of previous CVA, history of polysubstance abuse. No recommendations at this time. * Palliative care will continue to follow during hospital course as condition evolves, to assist patient/family/decision-maker with understanding of medical conditions, weighing benefit/burdens of treatment options, for clarification of goals of treatment. Additionally will assist with symptoms of palliative concern. Attestation To help prompt me to consider important information that might be impacting today's encounter and assessment, information from prior notes written by myself or my colleagues may have been "brought forward" into today's note. My signature on this note, however, is an attestation that I personally performed the exam, history, and/or decision-making noted today, and, unless otherwise indicated, the interactions with patient, family, and staff as well as the review of records all occurred today. I also attest that the listed assessment and stated plan reflect my best clinical judgment today based on the combination of historical information, prior notes, and today's exam/ interactions. When time spent is documented, it refers only to time spent today by the signer, or if indicated, combined time spent today by collaborating physician/nurse practitioner. Ellyn Mercado Jun 22, 2017 12:13
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
[2017-06-22] MEDS: ACETAMINOPHEN 325 MG TAB PO PRN (12:38)
--- NOTE | 2017-06-22 14:37 | HHI.CCPN ---
Subjective Remarks/Hospital Course 06/16: 66-year-old unfortunate gentleman with a history of polysubstance abuse, presents here with altered mental status. When paramedics arrived, they found the patient to be obtunded with a GCS of 11. Friends who are at the patient's residence stated that they last saw him at 3:30. The patient arrived at roughly 5 PM. Patient was made a stroke alert as he was still in the window. Patient was unable to give any history regarding his visits secondary to his altered mental status. Patient had a left sided gaze with spasticity to his right upper extremity and clonus of his right lower shimmy. The CT of the head showed acute/subacute CVA at the left MCA territory and decision and not to administer TPA was made. While in the emergency department patient developed tonic-clonic seizures and was intubated by me for an airway protection. 06/17: Remains sedated, orally intubated on mechanical ventilation. 06/18: Remains sedated, orally intubated on mechanical ventilation. 06/19: no improvements. remains encephalopathic. intubated and mechanically ventilated. 06/20: no improvements in severe encephalopathy. 2 brothers at bedside yesterday and I had a long discussion about his poor prognosis and likely devastating persistent deficits. family stated "that's no way to live" but then stated "we don't believe in DNR or anything like that." They are likely pursuing aggressive medical management. 06/21: Remains encephalopathic off sedation, orally intubated on mechanical ventilation. Developed fevers over the weekend. Ordered pancultures and chest x-ray today which revealed significant bilateral pneumonia. 06/22: Remains encephalopathic off sedation, orally intubated on mechanical ventilation. Objective Vital Signs Date Time Temp Pulse Resp B/P (MAP) Pulse Ox O2 Delivery O2 Flow Rate FiO2 06/22/17 13:00 81 131/68 (89) 95 06/22/17 12:00 50 06/22/17 12:00 101.6 06/22/17 04:00 21 06/18/17 07:31 Ventilator Intake and Output 06/22/17 06/22/17 06/23/17 08:00 16:00 00:00 Intake Total 800 ml Output Total 900 ml Balance -100 ml Result Diagram: 06/22/17 0352 06/22/17 0352 Other Results Microbiology Date/Time Source Procedure Growth Status 06/21/17 11:00 Urine Catheterized Urine Legionella Antigen - Final PRESUMPTIVE NEGATIVE FOR LEGIONELLA P... Complete 06/21/17 11:00 Urine Catheterized Urine Streptococcus pneumoniae Antigen (M - Final PRESUMPTIVE NEGATIVE FOR STREPTOCOCCU... Complete Imaging Last 48 hours Impressions Chest X-Ray 06/21/17 0000 Signed Impressions: Service Date/Time: Wednesday, June 21, 2017 09:07 - CONCLUSION: Decreased airspace disease both lungs. Brian Gallardo MD FACR Last Impressions Head CT 06/17/17 1000 Signed Impressions: Service Date/Time: June 10:46 - CONCLUSION: Evolving left MCA and DAIN stroke as described Polo Mathur MD Neck CTA 06/16/17 1819 Signed Impressions: Service Date/Time: Friday, June 16, 2017 18:11 - CONCLUSION: No significant stenosis is seen. Polo Pérez MD Head CTA 06/16/17 1759 Signed Impressions: Service Date/Time: Friday, June 16, 2017 18:13 - CONCLUSION: No area of occlusion is seen. There appears to be hyperperfusion in the left middle cerebral artery territory. There is a subacute area of infarction seen on the recent CT examination. Polo Pérez MD Chest X-Ray 06/16/17 0000 Signed Impressions: Service Date/Time: Friday, June 16, 2017 23:32 - CONCLUSION: Mild bibasilar consolidation and small effusions. Line and tube positions as above. No pneumothorax. Polo Sosa MD Objective Remarks GENERAL: Elderly appearing gentleman sedated and intubated SKIN: Warm and dry. HEAD: Normocephalic.Left sided gaze EYES: No scleral icterus. No injection or drainage. NECK: trachea midline. No JVD CARDIOVASCULAR: Regular rate and rhythm RESPIRATORY: Breath sounds equal bilaterally. No accessory muscle use. GASTROINTESTINAL: Abdomen soft, non-tender, nondistended. MUSCULOSKELETAL: No cyanosis, or edema. Spasticity to his right upper extremity and clonus of his right lower extremity NEURO EXAM: RASS -4, w/d to pain on left. right contracted. minimal cough and gag. A/P Assessment and Plan Assessment: 66yM with massive Left MCA and DAIN infarct with associated severe encephalopathy and deficits, along with acute hypoxic and hypercarbic respiratory failure. Poor prognosis. palliative care following. Acute Hypoxic and Hypercarbic Respiratory failure on mechanical ventilation Pneumonia Sepsis UTI - No weaning until neurologically improved - Palliative care consult - Most likely will need a trach and peg if family requests aggressive management - Pancultures ordered and started empiric Zosyn and vancomycin IV on 06/21 Acute Left MCA and DAIN CVA - Left MCA and DAIN territory - Extremely poor prognosis - Not a candidate for TPA - Aspirin and Plavix -hold in v/o hemorrhagic areas per radiology on CT Head done on 06/21 - Neurology consult - PT and OT treatment as tolerated - Repeat head CT to follow-up on stroke 06/21 showed hemorrhagic areas left MCA territory. Hypertension - Hydralazine and labetalol when necessary to keep SBP less than 180 - increase blood pressure control today, out of edema window. Peptic ulcer disease/GERD - IV Pepcid Alcohol and polysubstance abuse - Thiamine folate and multivitamins - Monitor for withdrawal History of Hepatitis C positive - Supportive care Seizure - Keppra -Follow up EEG DVT GI prophylaxis - Teds SCDs - Subcutaneous heparin - IV Pepcid Condition remains critical. Palliative care following to assist with deciding goals of therapy. Family at this point insists on full CODE STATUS. Time spent on critical care excluding procedures 35 minutes Dewey Cartwright MD Jun 22, 2017 14:37
[2017-06-22] MEDS ORDERED: PHARMACY ORDERED LAB ONE (21:45)
[2017-06-23] VITALS (19 sets, daily range): BP systolic 95–149; BP diastolic 54–75; PULSE 67–90; RESP 21–34; TEMP 98.5–102; O2SAT 94–100
[2017-06-23] MEDS: SODIUM CHLOR 0.45% 1000 ML INJ 1,000 ML IV SCH ×2 (00:10→11:50)
[2017-06-23] MEDS: PROPOFOL 1000 MG/100 ML INJ 100 ML IV PRN ×4 (00:10→23:19)
[2017-06-23] MEDS: fentaNYL 2,500 MCG/NS 250 ML IV PRN ×2 (02:35→21:49)
[2017-06-23] MEDS: RESP: ALBUTEROL 2.5 MG/IPRATROPIUM 0.5 MG NEB (SCH) INH ×4 (03:16→20:52)
[2017-06-23] MEDS: CHLORHEXIDINE GLUCONATE 2 % 1 PACK (2 CLOTHS) TOP SCH (04:00)
[2017-06-23] MEDS: PIPERACIL-TAZO 4.5 GM PREMIX 100 ML IV SCH ×4 (04:12→21:00)
[2017-06-23] MEDS: ACETAMINOPHEN 325 MG TAB PO PRN ×2 (04:12→16:39)
[2017-06-23] MEDS: HEPARIN SODIUM - SQ 10,000 UNITS/ML VIAL SQ SCH (04:12)
[2017-06-23 06:12] LABS: HEMATOCRIT 35.5 % (39.0-51.0); MEAN CELL VOLUME 78.5 FL (80.0-100.0); MEAN CORPUSCULAR HEMOGLOBIN 25.1 PG (27.0-34.0); MEAN CORPUSCULAR HGB CONC 31.9 % (32.0-36.0); PLATELET COUNT 209 TH/MM3 (150-450); RED BLOOD COUNT 4.52 MIL/MM3 (4.50-5.90); RED CELL DISTRIBUTION WIDTH 14.1 % (11.6-17.2); REVIEW FLAG FINAL; WHITE BLOOD COUNT 17.4 TH/MM3 (4.0-11.0)
[2017-06-23 06:46] LABS: BICARBONATE 20.7 MEQ/L (21.0-32.0); POTASSIUM 3.9 MEQ/L (3.5-5.1)
[2017-06-23 07:08] LABS: CALCIUM-PROTEIN CORRECTED 7.9 MG/DL (8.5-10.1)
[2017-06-23] MEDS: ARTIFICIAL TEARS OPTH SOLN 15 ML BTL EACH EYE SCH ×3 (07:45→17:22)
[2017-06-23] MEDS: INSULIN ASPART SUPPLEMENTAL SCALE SQ SCH ×4 (07:45→21:08)
[2017-06-23] MEDS: DOCUSATE SODIUM 50 MG/SENNA 8.6 MG TAB PO SCH ×2 (07:46→20:32)
[2017-06-23] MEDS: SODIUM CHLORIDE 0.9% FLUSH 5 ML FLUSH IV FLUSH SCH ×2 (07:46→20:35)
[2017-06-23] MEDS: levETIRAcetam 1000 MG INJ 100 ML IV SCH ×2 (07:46→20:35)
[2017-06-23] MEDS: MODAFINIL 200 MG TAB PO SCH (07:47)
[2017-06-23] MEDS ORDERED: FOSPHENYTOIN INJ 1,000 MGPE in SODIUM CHLORIDE 0.9% INJ 50 ML IV ONE (09:30)
[2017-06-23] MEDS ORDERED: 3% SALINE INJ 500 ML IV ONE (09:30)
[2017-06-23] MEDS ORDERED: LORazepam 2 MG/ML VIAL IV ONE (09:30)
[2017-06-23] MEDS ORDERED: VANCOMYCIN INJ 1,750 MG in SODIUM CHLORID 0.9% 500 ML INJ 500 ML IV SCH (10:00)
[2017-06-23] MEDS: VANCOMYCIN INJ 1,500 MG in SODIUM CHLORID 0.9% 500 ML INJ 500 ML IV SCH ×2 (10:14→21:58)
--- NOTE | 2017-06-23 10:58 | HHI.HCPN ---
Reason for visit a. To assist with evaluation and management of symptoms including: dyspnea, encephalopathy, pain b. To assist medical decision maker(s) with: better understanding of current medical conditions; weighing benefits/burdens of medical treatment options; making medical treatment decisions. . Subjective/Interval History Patient is a 66 year old male who presented to the ED via [facility] on 06/16/17 for altered mental status, patient's last known well time was approximately 1530, the patient arrived to the ED at 1700 and was deemed a stroke alert. Patient suffered an acte left MCA and DAIN CVA. Patient remains intubated, mechanically ventilated. Per RN sedation was reinitiated due to increased respiratory rate, agitation, and tremors. Patient currently sedated with propfol and fentanyl. Fosphenytoin ordered for tremors/ seizure activity, EEG ordered, 3% NS initiated along with serial Na levels. Patient withdraws to noxious stimuli on RLE only today, no response withdrawal LLE or BUE. Repeat head CT ordered again for tomorrow for follow up evaluation of evolution of hemorrhagic infarct. Neurology consulted to neurosurgery to rule out spreading mass effect. Palliative care consulted to assist with goals of care to provide support/ guidance regarding medical treatment benefit/burden medical treatment options. Advance Directives Living Will: Never completed Health Care Surrogate: Never completed Durable Power of Office Associate: Never completed Objective Vital Signs Date Time Temp Pulse Resp B/P (MAP) Pulse Ox O2 Delivery O2 Flow Rate FiO2 06/23/17 07:53 95 50 06/23/17 06:00 80 06/23/17 06:00 98.8 80 27 121/58 (79) 95 06/23/17 04:05 97 40 06/23/17 04:00 84 06/23/17 04:00 40 06/23/17 04:00 102.0 84 27 141/64 (89) 98 06/23/17 02:00 75 06/23/17 00:27 100 40 06/23/17 00:00 40 06/23/17 00:00 84 06/23/17 00:00 100.6 84 22 149/74 (99) 99 06/22/17 22:00 79 06/22/17 20:00 99.9 77 24 157/82 (107) 100 06/22/17 20:00 40 06/22/17 20:00 75 06/22/17 19:50 97 40 06/22/17 18:00 74 06/22/17 17:30 80 06/22/17 17:01 78 06/22/17 17:01 78 165/74 (104) 100 06/22/17 16:30 75 134/67 (89) 100 06/22/17 16:30 75 06/22/17 16:00 75 06/22/17 16:00 99.5 75 147/77 (100) 100 06/22/17 16:00 50 06/22/17 15:55 100 50 06/22/17 15:30 75 147/75 (99) 100 06/22/17 15:00 75 06/22/17 15:00 75 113/57 (75) 96 06/22/17 14:30 78 128/64 (85) 92 06/22/17 14:00 80 132/64 (86) 94 06/22/17 14:00 80 06/22/17 13:00 81 131/68 (89) 95 06/22/17 13:00 81 06/22/17 12:30 80 151/73 (99) 95 06/22/17 12:00 50 06/22/17 12:00 101.6 82 133/63 (86) 96 06/22/17 12:00 82 06/22/17 11:30 83 132/64 (86) 96 06/22/17 11:00 84 50 06/22/17 11:00 82 136/65 (88) 96 Intake & Output 06/23/17 06/23/17 06:59 18:59 Intake Total 1715 ml Output Total 550 ml Balance 1165 ml Intake IV Total 1185 ml Tube Feeding 380 ml Tube Irrigant 150 ml Output Urine Total 550 ml Bladder Scan Volume Amount 530 ml # Bowel Movements 2 . Physical Exam CONSTITUTIONAL/GENERAL: This is an elderly male patient, intubated, mechanically ventilated. TUBES/LINES/DRAINS: ETT, OGT, CVL RIJ, PIV x 1, soft wrist restraints, abebe catheter SKIN: No jaundice, rashes, or lesions. No wounds seen anteriorly. Skin temperature appropriate. Not diaphoretic. EYES: Left sided gaze. No injection or drainage. Fundi not examined. CARDIOVASCULAR: Regular rate and rhythm, without murmurs, gallops, or rubs. No JVD. Peripheral pulses symmetric. RESPIRATORY/CHEST: Symmetric, mechanically ventilated. Course crackles, breath sounds equal bilaterally. GASTROINTESTINAL: Abdomen soft, nondistended. Bowel sounds present. GENITOURINARY: Without palpable bladder distension. Abebe catheter in place. MUSCULOSKELETAL: Extremities without clubbing, cyanosis, or edema. No mottling or clubbing. NEUROLOGICAL:Intubated. Withdraws to noxious stimuli in RLE, no response/ withdrawal to noxious stimuli in LLE and BUE. PSYCHIATRIC: Unable to assess secondary to clinical condition. . Diagnostic Tests Laboratory Laboratory Tests Test 06/20/17 17:45 06/21/17 03:00 06/21/17 11:00 06/22/17 03:52 White Blood Count 9.9 TH/MM3 (4.0-11.0) 10.4 TH/MM3 (4.0-11.0) 12.1 TH/MM3 (4.0-11.0) Red Blood Count 4.37 MIL/MM3 (4.50-5.90) 4.25 MIL/MM3 (4.50-5.90) 4.39 MIL/MM3 (4.50-5.90) Hemoglobin 11.0 GM/DL (13.0-17.0) 10.9 GM/DL (13.0-17.0) 10.9 GM/DL (13.0-17.0) Hematocrit 34.7 % (39.0-51.0) 33.4 % (39.0-51.0) 34.4 % (39.0-51.0) Mean Corpuscular Volume 79.4 FL (80.0-100.0) 78.5 FL (80.0-100.0) 78.3 FL (80.0-100.0) Mean Corpuscular Hemoglobin 25.2 PG (27.0-34.0) 25.7 PG (27.0-34.0) 24.9 PG (27.0-34.0) Mean Corpuscular Hemoglobin Concent 31.8 % (32.0-36.0) 32.7 % (32.0-36.0) 31.8 % (32.0-36.0) Red Cell Distribution Width 14.3 % (11.6-17.2) 13.9 % (11.6-17.2) 13.9 % (11.6-17.2) Platelet Count 137 TH/MM3 (150-450) 135 TH/MM3 (150-450) 168 TH/MM3 (150-450) Mean Platelet Volume 9.2 FL (7.0-11.0) 9.4 FL (7.0-11.0) 9.0 FL (7.0-11.0) Blood Urea Nitrogen 17 MG/DL (7-18) 18 MG/DL (7-18) 19 MG/DL (7-18) Creatinine 0.86 MG/DL (0.60-1.30) 0.85 MG/DL (0.60-1.30) 0.77 MG/DL (0.60-1.30) Random Glucose 87 MG/DL (74-106) 94 MG/DL (74-106) 107 MG/DL (74-106) Calcium Level 8.2 MG/DL (8.5-10.1) 7.8 MG/DL (8.5-10.1) 7.9 MG/DL (8.5-10.1) Sodium Level 144 MEQ/L (136-145) 146 MEQ/L (136-145) 149 MEQ/L (136-145) Potassium Level 3.8 MEQ/L (3.5-5.1) 3.7 MEQ/L (3.5-5.1) 3.5 MEQ/L (3.5-5.1) Chloride Level 113 MEQ/L (98-107) 116 MEQ/L (98-107) 116 MEQ/L (98-107) Carbon Dioxide Level 21.1 MEQ/L (21.0-32.0) 21.3 MEQ/L (21.0-32.0) 21.1 MEQ/L (21.0-32.0) Anion Gap 10 MEQ/L (5-15) 9 MEQ/L (5-15) 12 MEQ/L (5-15) Estimat Glomerular Filtration Rate 109 ML/MIN (>89) 110 ML/MIN (>89) 123 ML/MIN (>89) Urine Color YELLOW (YELLW/STRAW) Urine Turbidity HAZY (CLEAR) Urine pH 6.0 (5.0-8.5) Urine Specific Miles 1.029 (1.002-1.035) Urine Protein 30 mg/dL (NEG-TRACE) Urine Glucose (UA) NEG mg/dL (NEG) Urine Ketones 10 mg/dL (NEG) Urine Occult Blood NEG (NEG) Urine Nitrite POS (NEG) Urine Bilirubin NEG (NEG) Urine Urobilinogen 2.0 MG/DL (LESS THAN Urine Leukocyte Esterase LARGE (NEG) Urine RBC 2 /hpf (0-3) Urine WBC 5 /hpf (0-5) Urine Squamous Epithelial Cells 2 /hpf (0-5) Urine Bacteria MOD /hpf (NONE) Urine Hyaline Casts 1 /lpf (RARE) Urine Mucus FEW /lpf (OCC) Microscopic Urinalysis Comment CATH-CULTURE IND Test 06/22/17 21:45 06/23/17 04:10 06/23/17 10:13 Vancomycin Level Trough 10.9 MCG/ML (5.0-10.0) White Blood Count 17.4 TH/MM3 (4.0-11.0) Red Blood Count 4.52 MIL/MM3 (4.50-5.90) Hemoglobin 11.3 GM/DL (13.0-17.0) Hematocrit 35.5 % (39.0-51.0) Mean Corpuscular Volume 78.5 FL (80.0-100.0) Mean Corpuscular Hemoglobin 25.1 PG (27.0-34.0) Mean Corpuscular Hemoglobin Concent 31.9 % (32.0-36.0) Red Cell Distribution Width 14.1 % (11.6-17.2) Platelet Count 209 TH/MM3 (150-450) Mean Platelet Volume 9.4 FL (7.0-11.0) Blood Urea Nitrogen 17 MG/DL (7-18) Creatinine 0.80 MG/DL (0.60-1.30) Random Glucose 106 MG/DL (74-106) Total Protein 6.0 GM/DL (6.4-8.2) Calcium Level 7.3 MG/DL (8.5-10.1) Sodium Level 145 MEQ/L (136-145) Potassium Level 3.9 MEQ/L (3.5-5.1) Chloride Level 114 MEQ/L (98-107) Carbon Dioxide Level 20.7 MEQ/L (21.0-32.0) Anion Gap 10 MEQ/L (5-15) Estimat Glomerular Filtration Rate 118 ML/MIN (>89) Protein Corrected Calcium 7.9 MG/DL (8.5-10.1) . Result Diagram: 06/23/17 0410 06/23/17 0410 Microbiology Microbiology Date/Time Source Procedure Growth Status 06/22/17 08:53 Blood Peripheral Aerobic Blood Culture - Preliminary Gram Positive Rods Resulted 06/22/17 08:53 Blood Peripheral Anaerobic Blood Culture Pending Resulted 06/22/17 03:52 Blood Peripheral Aerobic Blood Culture Pending Worksheet 06/22/17 03:52 Blood Peripheral Anaerobic Blood Culture Pending Worksheet 06/21/17 10:40 Sputum Endotracheal Gram Stain - Final Resulted 06/21/17 10:40 Sputum Culture - Preliminary Staphylococcus Aureus Resulted 06/21/17 11:00 Urine Catheterized Urine Urine Culture - Preliminary Gram Negative Selvin [employer] D Enterococcus Resulted 06/21/17 11:00 Urine Catheterized Urine Legionella Antigen - Final PRESUMPTIVE NEGATIVE FOR LEGIONELLA P... Complete 06/21/17 11:00 Urine Catheterized Urine Streptococcus pneumoniae Antigen (M - Final PRESUMPTIVE NEGATIVE FOR STREPTOCOCCU... Complete Imaging Last [address] 06/21/17 0000 Signed Impressions: Service Date/Time: Wednesday, June 21, 2017 20:22 - CONCLUSION: 1. Continued evolution of hemorrhagic infarct in the left hemisphere with mass effect and minimal midline shift but no signs of herniation. No acute hemorrhage is identified Que Alfonso MD Chest X-Ray 06/21/17 0000 Signed Impressions: Service Date/Time: Wednesday, June 21, 2017 09:07 - CONCLUSION: Decreased airspace disease both lungs. Brian Gallardo MD FACR Assessment and Plan Disease Oriented Problem List: (1) CVA (cerebral vascular accident) (2) Hypertension (3) Polysubstance abuse (4) Seizure Symptom Scale: (1) Encephalopathy (2) Dyspnea (3) Pain Pertinent Non-Medical Issues Psychosocial: Patient is , has one adult son Naman Thompson. Patient is a of the [employer]. Per previous records: 05/04/2010: Patient was living in [place], [facility]. Patient has a long standing history of polysubstance abuse. Spiritual: Worship. Legal: None known. Ethical issues impacting care: None known. Important Contacts Naman Thompson (son, HCP) , email: . Chandra Prajapati Jr (brother):[phone] Kashif Thompson(brother): [phone] Liset Prajapati (sister): [phone] Shawna Lin (friend) [phone] Chandra Prajapati (step father) [phone] Prognosis Patient admitted for large MCA stroke, unfortunately he was not a candidate for TPA due to prolonged time duration before presentation to the ED. The patient experienced tonic-clonic seizures during the ED course and was intubated for airway protection. Patient has a history of a previous CVA, seizures, polysubstance abuse, and hepatitis C. Patient is at an ongoing risk for complications and setbacks secondary to current clinical status and past medical history. . Code Status: Full Code Plan * Legal decision maker: Patient does not have the capacity to make his own health care decisions. It is unclear at this time if he will regain the capacity to make his own health care decisions. Per [place] statutes health care decision making would fall to the patient's son Naman Thompson , email: . Naman has agreed to serve as HCP for his father Mr. Thompson. * Discussed case with bedside RN. * CODE STATUS: FULL CODE. * GOALS: Pending. Telephone conference with patient's son Naman (HCP), he stated he would like more time to decide to move forward with aggressive care or transition to comfort. Plan to meet face to face tomorrow afternoon to discuss patient's current clinical status and likely trajectories, aggressive goals versus comfort focused goals in further detail. Patient's brother Chandra ( who has been the main point of contact since the beginning of the patient's hospitalization) states that the remainder of the patient's family is in agreement to transition to comfort focused goals and elect to make the patient a DNR. Patient's brother Chandra stated "my brother would not want to live in a long term, that is no way to live". Unfortunately there is a conflict between the son and family regarding the decision and legally the son is the decision maker. * SYMPTOM MANAGEMENT: * --pain: Patient at ongoing risk for pain secondary to intubation, mechanical ventilation, and bedbound status. No recommendations at this time, further recommendations pending hospital course. * --dyspnea: Patient is intubated and mechanically ventilated, duonebs q 2hr PRN ordered. No recommendations at this time. * --encephalopathy: Secondary to recent MCA stroke, history of previous CVA, history of polysubstance abuse. No recommendations at this time. * Palliative care will continue to follow during hospital course as condition evolves, to assist patient/family/decision-maker with understanding of medical conditions, weighing benefit/burdens of treatment options, for clarification of goals of treatment. Additionally will assist with symptoms of palliative concern. Attestation To help prompt me to consider important information that might be impacting today's encounter and assessment, information from prior notes written by myself or my colleagues may have been "brought forward" into today's note. My signature on this note, however, is an attestation that I personally performed the exam, history, and/or decision-making noted today, and, unless otherwise indicated, the interactions with patient, family, and staff as well as the review of records all occurred today. I also attest that the listed assessment and stated plan reflect my best clinical judgment today based on the combination of historical information, prior notes, and today's exam/ interactions. When time spent is documented, it refers only to time spent today by the signer, or if indicated, combined time spent today by collaborating physician/nurse practitioner. Ellyn Mercado Jun 23, 2017 10:58
--- NOTE | 2017-06-23 14:15 | PD.OP ---
Operative Report Surgeon: Julian Ghosh MD Jun 23, 2017 14:15
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
[2017-06-23] MEDS ORDERED: NOREPINEPHRINE 4 MG/4 ML AMP ONE (17:14)
[2017-06-23] MEDS ORDERED: TERBUTALINE INJ 1 MG/ML AMP SQ PRN (17:15)
[2017-06-23] MEDS: FOSPHENYTOIN SODIUM 100 MG PE/2 ML VIAL IV SCH (17:36)
--- NOTE | 2017-06-23 17:50 | HHI.CCPN ---
Subjective Remarks/Hospital Course 06/16: 66-year-old unfortunate gentleman with a history of polysubstance abuse, presents here with altered mental status. When paramedics arrived, they found the patient to be obtunded with a GCS of 11. Friends who are at the patient's residence stated that they last saw him at 3:30. The patient arrived at roughly 5 PM. Patient was made a stroke alert as he was still in the window. Patient was unable to give any history regarding his visits secondary to his altered mental status. Patient had a left sided gaze with spasticity to his right upper extremity and clonus of his right lower shimmy. The CT of the head showed acute/subacute CVA at the left MCA territory and decision and not to administer TPA was made. While in the emergency department patient developed tonic-clonic seizures and was intubated by me for an airway protection. 06/17: Remains sedated, orally intubated on mechanical ventilation. 06/18: Remains sedated, orally intubated on mechanical ventilation. 06/19: no improvements. remains encephalopathic. intubated and mechanically ventilated. 06/20: no improvements in severe encephalopathy. 2 brothers at bedside yesterday and I had a long discussion about his poor prognosis and likely devastating persistent deficits. family stated "that's no way to live" but then stated "we don't believe in DNR or anything like that." They are likely pursuing aggressive medical management. 06/21: Remains encephalopathic off sedation, orally intubated on mechanical ventilation. Developed fevers over the weekend. Ordered pancultures and chest x-ray today which revealed significant bilateral pneumonia. 06/22: Remains encephalopathic off sedation, orally intubated on mechanical ventilation. 06/23: Remains encephalopathic on holding sedation, orally intubated on mechanical ventilation. CT head done yesterday showed some hemorrhagic conversion hence aspirin was stopped. Neurosurgery consulted today in view of some mass effect noted on head CT. Patient was started on 3% saline. Has been tolerating tube feeds. Objective Vital Signs Date Time Temp Pulse Resp B/P (MAP) Pulse Ox O2 Delivery O2 Flow Rate FiO2 06/23/17 17:14 73 98/55 06/23/17 16:00 50 06/23/17 16:00 101.6 34 96 Intake and Output 06/23/17 06/23/17 06/23/17 07:59 15:59 23:59 Intake Total 1265 ml Output Total 550 ml Balance 715 ml Result Diagram: 06/23/17 0410 06/23/17 1454 Other Results Microbiology Date/Time Source Procedure Growth Status 06/21/17 11:00 Urine Catheterized Urine Legionella Antigen - Final PRESUMPTIVE NEGATIVE FOR LEGIONELLA P... Complete 06/21/17 11:00 Urine Catheterized Urine Streptococcus pneumoniae Antigen (M - Final PRESUMPTIVE NEGATIVE FOR STREPTOCOCCU... Complete Imaging Last 48 hours Impressions Chest X-Ray 06/21/17 0000 Signed Impressions: Service Date/Time: Wednesday, June 21, 2017 09:07 - CONCLUSION: Decreased airspace disease both lungs. Brian Gallardo MD FACR Last Impressions Head CT 06/17/17 1000 Signed Impressions: Service Date/Time: June 10:46 - CONCLUSION: Evolving left MCA and DAIN stroke as described Polo Mathur MD Neck CTA 06/16/17 1819 Signed Impressions: Service Date/Time: Friday, June 16, 2017 18:11 - CONCLUSION: No significant stenosis is seen. Polo Pérez MD Head CTA 06/16/17 1759 Signed Impressions: Service Date/Time: Friday, June 16, 2017 18:13 - CONCLUSION: No area of occlusion is seen. There appears to be hyperperfusion in the left middle cerebral artery territory. There is a subacute area of infarction seen on the recent CT examination. Polo Pérez MD Chest X-Ray 06/16/17 0000 Signed Impressions: Service Date/Time: Friday, June 16, 2017 23:32 - CONCLUSION: Mild bibasilar consolidation and small effusions. Line and tube positions as above. No pneumothorax. Polo Sosa MD Objective Remarks GENERAL: Elderly appearing gentleman sedated and intubated SKIN: Warm and dry. HEAD: Normocephalic.Left sided gaze EYES: No scleral icterus. No injection or drainage. NECK: trachea midline. No JVD CARDIOVASCULAR: Regular rate and rhythm RESPIRATORY: Orally intubated on mechanical ventilation Breath sounds equal bilaterally. No accessory muscle use. GASTROINTESTINAL: Abdomen soft, non-tender, nondistended. MUSCULOSKELETAL: No cyanosis, or edema. Spasticity to his right upper extremity and clonus of his right lower extremity NEURO EXAM: Pupils 2mm constricted, equal, reacting to light. RASS -4, w/d to pain on left. right contracted. minimal cough and gag. A/P Assessment and Plan Assessment: 66yM with massive Left MCA and DAIN infarct with some hemorrhagic conversion and associated severe encephalopathy and deficits, along with acute hypoxic and hypercarbic respiratory failure. Poor prognosis. palliative care following. Acute Hypoxic and Hypercarbic Respiratory failure on mechanical ventilation Pneumonia Sepsis UTI - No weaning until neurologically improved - Palliative care consult - Most likely will need a trach and peg if family requests aggressive management - Pancultures ordered and started empiric Zosyn and vancomycin IV on 06/21 Acute Left MCA and DAIN CVA - Left MCA and DAIN territory - Extremely poor prognosis - Not a candidate for TPA - Aspirin and Plavix -hold in v/o hemorrhagic areas per radiology on CT Head done on 06/21 - Neurology following. Neurosurgery consulted. Started on 3% saline 06/23 for mass effect seen on head CT. Follow serial sodium - PT and OT treatment as tolerated Hypertension - Hydralazine and labetalol when necessary to keep SBP less than 150 Peptic ulcer disease/GERD - IV Pepcid Alcohol and polysubstance abuse - Thiamine folate and multivitamins - Monitor for withdrawal History of Hepatitis C positive - Supportive care Seizure - Keppra -Follow up EEG DVT GI prophylaxis - Teds SCDs - Subcutaneous heparin - IV Pepcid Condition remains critical. Palliative care following to assist with deciding goals of therapy. Family at this point insists on full CODE STATUS. Time spent on critical care excluding procedures 35 minutes Dewey Cartwright MD Jun 23, 2017 17:50
[2017-06-23] MEDS ORDERED: hydrALAZINE HCL 20 MG/ML VIAL IV PUSH PRN (18:00)
--- NOTE | 2017-06-23 18:02 | HHI.PR ---
Review/Management Diagnosis large left MCA stroke with small hemorrhagic component secondary focal sz. Plan continue cerebyx and keppra check phenytoin level in am Diagnosis/Plan: Subjective Subjective Comments developed jerking of the right arm and leg--looked like focal seizure earlier today. Has stopped since cerebyx added. remains on keppra as well Active Medications Current Medications Medications (Trade) Dose Ordered Sig/[place] Route Start Time Stop Time Status Last Admin (Tylenol) 650 mg Q6H PRN PO 06/16/17 20:15 06/23/17 16:39 (Tears Naturale Opth Soln) 1 drop TID EACH EYE 06/17/17 09:00 06/23/17 17:22 (Zofran Inj) 4 mg Q6H PRN IV PUSH 06/16/17 20:15 (Duoneb Neb) 1 ampule Q2HR NEB PRN INH 06/16/17 20:15 Miscellaneous Information 1 Q361D XX 06/16/17 20:15 (Chlorhexidine 2% Cloth) Taper DAILY@04 TOP 06/17/17 04:00 06/13/18 03:59 06/23/17 04:00 (Chlorhexidine 2% Cloth) 3 pack UNSCH PRN TOP 06/16/17 20:15 (Cheryl-Colace) 1 tab BID PO 06/16/17 21:00 06/22/17 20:26 (Milk Of Magnesia Liq) 30 ml Q12H PRN PO 06/16/17 20:15 (Senokot) 17.2 mg Q12H PRN PO 06/16/17 20:15 (Dulcolax Supp) 10 mg DAILY PRN RECTAL 06/16/17 20:15 (Lactulose Liq) 30 ml DAILY PRN PO 06/16/17 20:15 Propofol 100 ml @ 2.106 mls/ hr TITRATE PRN IV 06/16/17 21:00 06/23/17 16:39 Levetriacetam 100 ml @ 400 mls/hr Q12HR IV 06/17/17 09:00 06/23/17 07:46 Potassium Chloride 100 ml @ 50 mls/hr Q2H PRN IV 06/16/17 23:15 Potassium Chloride 100 ml @ 50 mls/hr Q2H PRN IV 06/16/17 23:15 (K-Lyte Cl Eff) 50 meq UNSCH PRN PO 06/16/17 23:15 Potassium Chloride 100 ml @ 25 mls/hr UNSCH PRN IV 06/16/17 23:15 Potassium Chloride 100 ml @ 50 mls/hr Q2H PRN IV 06/16/17 23:15 Magnesium Sulfate 4 gm/Sodium Chloride 100 ml @ 50 mls/hr UNSCH PRN IV 06/16/17 23:15 (Mag-Ox) 800 mg UNSCH PRN PO 06/16/17 23:15 Magnesium Sulfate 2 gm/Sodium Chloride 100 ml @ 50 mls/hr UNSCH PRN IV 06/16/17 23:15 (K-Phos) 2,000 mg Q4H PRN PO 06/16/17 23:15 Sodium Phosphate 30 mmol/Sodium Chloride 250 ml @ 42 mls/hr UNSCH PRN IV 06/16/17 23:15 06/17/17 14:51 (K-Phos) 2,000 mg UNSCH PRN PO/TUBE 06/16/17 23:15 Potassium Phosphate 30 mmol/ Sodium Chloride 260 ml @ 42 mls/hr UNSCH PRN IV 06/16/17 23:15 Fentanyl Citrate 250 ml @ 5 mls/hr TITRATE PRN IV 06/17/17 12:15 06/23/17 02:35 (NS Flush) 2 ml BID IV FLUSH 06/17/17 21:00 06/23/17 07:46 (NS Flush) 2 ml UNSCH PRN IV FLUSH 06/17/17 19:00 (NovoLOG SUPPLEMENTAL SCALE) 1 ACHS SQ 06/17/17 21:00 06/23/17 17:00 (D50w (Syr) Inj) 50 ml UNSCH PRN IV PUSH 06/17/17 19:00 (Glucagon Inj) 1 mg UNSCH PRN OTHER 06/17/17 19:00 (Duoneb Neb) 1 ampule Q6HR NEB INH 06/20/17 16:00 06/23/17 15:02 (Haldol Inj) 5 mg Q4H PRN IV 06/20/17 10:30 (Provigil) 200 mg DAILY PO 06/20/17 11:00 06/23/17 07:47 Piperacillin Sod/ Tazobactam Sod 100 ml @ 200 mls/hr Q6H IV 06/21/17 09:00 06/23/17 14:29 Pharmacy Profile Note 0 ml @ 0 mls/hr UNSCH OTHER 06/21/17 08:15 Sodium Chloride 500 ml @ 20 mls/hr ONCE ONCE IV 06/23/17 09:30 06/24/17 10:29 06/23/17 10:14 (Cerebyx Inj) 100 mgpe Q8H IV 06/23/17 18:00 06/23/17 17:36 Miscellaneous Information SPECIFIC LAB TO BE DRAWN:VANCOMYCIN TROUGH DATE TO... ONCE ONCE .XX 06/25/17 09:45 06/25/17 09:46 Vancomycin HCl 1500 mg/Sodium Chloride 515 ml @ 250 mls/hr Q12H IV 06/23/17 10:00 06/23/17 10:14 Norepinephrine Bitartrate 4 mg/ Sodium Chloride 250 ml @ 7.5 mls/hr TITRATE PRN IV 06/23/17 17:15 (Brethine Inj) 1 mg UNSCH PRN SQ 06/23/17 17:15 (Apresoline Inj) 20 mg Q4H PRN IV PUSH 06/23/17 18:00 UNV Allergies Allergies Coded Allergies No Known Allergies (Verified03/22/15) Exam I&O / VS Vital Signs Date Time Temp Pulse Resp B/P (MAP) Pulse Ox O2 Delivery O2 Flow Rate FiO2 06/23/17 17:14 73 98/55 06/23/17 16:30 90 06/23/17 16:00 50 06/23/17 16:00 101.6 83 34 125/60 (81) 96 06/23/17 15:33 98 50 06/23/17 14:00 69 06/23/17 12:00 75 06/23/17 12:00 98.7 75 21 95/54 (68) 95 06/23/17 12:00 50 06/23/17 11:34 97 50 06/23/17 10:00 74 06/23/17 08:00 50 06/23/17 08:00 98.5 80 32 146/75 (98) 94 06/23/17 08:00 80 06/23/17 07:53 95 50 06/23/17 06:00 80 06/23/17 06:00 98.8 80 27 121/58 (79) 95 06/23/17 04:05 97 40 06/23/17 04:00 84 06/23/17 04:00 40 06/23/17 04:00 102.0 84 27 141/64 (89) 98 06/23/17 02:00 75 06/23/17 00:27 100 40 06/23/17 00:00 40 06/23/17 00:00 84 06/23/17 00:00 100.6 84 22 149/74 (99) 99 06/22/17 22:00 79 06/22/17 20:00 99.9 77 24 157/82 (107) 100 06/22/17 20:00 40 06/22/17 20:00 75 06/22/17 19:50 97 40 Respiratory: BS equal, Coarse breath sounds Cardiology: Normal rate, Regular Rhythm Musculoskeletal: ROM (grossly within normal limits) Exam Comments nonresponsive pupils 2 mm bilateral , eom intact motor--no spontaneous limb movement and no withdrawal. No sz activity at present Objective Radiology Results CT brain 06/21--evolution of left MCA cva with small area of hemorrhage Micro and Labs Laboratory Tests Test 06/22/17 21:45 06/23/17 04:10 06/23/17 10:13 06/23/17 14:54 Vancomycin Level Trough 10.9 White Blood Count 17.4 Red Blood Count 4.52 Hemoglobin 11.3 Hematocrit 35.5 Mean Corpuscular Volume 78.5 Mean Corpuscular Hemoglobin 25.1 Mean Corpuscular Hemoglobin Concent 31.9 Red Cell Distribution Width 14.1 Platelet Count 209 Mean Platelet Volume 9.4 Blood Urea Nitrogen 17 Creatinine 0.80 Random Glucose 106 Total Protein 6.0 Calcium Level 7.3 Sodium Level 145 146 146 Potassium Level 3.9 Chloride Level 114 Carbon Dioxide Level 20.7 Anion Gap 10 Estimat Glomerular Filtration Rate 118 Protein Corrected Calcium 7.9 Date/Time Source Procedure Growth Status 06/22/17 08:53 Blood Peripheral Aerobic Blood Culture - Preliminary Gram Positive Rods Resulted 06/22/17 08:53 Blood Peripheral Anaerobic Blood Culture - Preliminary NO GROWTH IN 1 DAY Resulted 06/21/17 10:40 Sputum Endotracheal Gram Stain - Final Resulted 06/21/17 10:40 Sputum Culture - Preliminary Staphylococcus Aureus Gram Negative Selvin Resulted 06/21/17 11:00 Urine Catheterized Urine Urine Culture - Preliminary Gram Negative Selvin Group D Enterococcus Resulted Cas Powell PhD Jun 23, 2017 18:02
--- NOTE | 2017-06-23 20:33 | MG ---
cc: REHAN CASTANEDA M.D. Lab No: Date: 06/23/2017 Age: Sex: M Race: REQUESTING PHYSICIAN Dr. Cartwright. INTRODUCTION An EEG was obtained on this 66-year-old, intubated and sedated on Diprivan and fentanyl. DESCRIPTION The EEG shows bilateral abnormalities continually. There is attenuation bilaterally and there are somewhat higher amplitude rhythms on the right than left. There are theta, delta and some beta rhythms but there is a lack of alpha activity. Photic stimulation disclosed no significant change. With deep tactile stimulation, there is no obvious EEG change. INTERPRETATION Abnormal EEG because of bilateral abnormalities including attenuation and higher amplitude rhythms on the right than left. It is difficult to determine which hemisphere is less abnormal on the basis of this EEG alone. No ictal or epileptiform features present. Clinical and imaging correlation. Rehan Castaneda MD [facility]/KK /6:17 PM /8:20 PM
[2017-06-24] VITALS (22 sets, daily range): BP systolic 104–146; BP diastolic 54–75; PULSE 65–89; RESP 22–30; TEMP 100.1–101.6; O2SAT 83–99
[2017-06-24] MEDS: RESP: ALBUTEROL 2.5 MG/IPRATROPIUM 0.5 MG NEB (SCH) INH ×3 (01:11→15:36)
[2017-06-24] MEDS: FOSPHENYTOIN SODIUM 100 MG PE/2 ML VIAL IV SCH ×3 (02:09→17:19)
[2017-06-24] MEDS: PIPERACIL-TAZO 4.5 GM PREMIX 100 ML IV SCH ×4 (02:09→22:21)
[2017-06-24] MEDS: ACETAMINOPHEN 325 MG TAB PO PRN ×2 (03:22→14:18)
[2017-06-24] MEDS: CHLORHEXIDINE GLUCONATE 2 % 1 PACK (2 CLOTHS) TOP SCH (03:23)
[2017-06-24 04:13] LABS: HEMATOCRIT 32.5 % (39.0-51.0); MEAN CELL VOLUME 78.2 FL (80.0-100.0); MEAN CORPUSCULAR HEMOGLOBIN 24.7 PG (27.0-34.0); MEAN CORPUSCULAR HGB CONC 31.6 % (32.0-36.0); PLATELET COUNT 244 TH/MM3 (150-450); RED BLOOD COUNT 4.15 MIL/MM3 (4.50-5.90); RED CELL DISTRIBUTION WIDTH 14.2 % (11.6-17.2); REVIEW FLAG FINAL; WHITE BLOOD COUNT 19.8 TH/MM3 (4.0-11.0)
[2017-06-24 04:38] LABS: BICARBONATE 23.5 MEQ/L (21.0-32.0); POTASSIUM 3.3 MEQ/L (3.5-5.1)
[2017-06-24 04:53] LABS: CALCIUM-PROTEIN CORRECTED 8.2 MG/DL (8.5-10.1)
--- NOTE | 2017-06-24 06:04 | RADRPT ---
EXAM DATE/TIME: 06/24/2017 05:46 [facility] COMPARISON: CT BRAIN W/O CONTRAST, June 21, 2017, 20:22. INDICATIONS : Follow up stroke. RADIATION DOSE: 60.55 CTDIvol (mGy) ; Tabletop CT Head MEDICAL HISTORY : Cerebrovascular disease. SURGICAL HISTORY : None. ENCOUNTER: Subsequent ACUITY: 1 week PAIN SCALE: Non-responsive LOCATION: cranial TECHNIQUE: Multiple contiguous axial images were obtained of the head. Using automated exposure control and adj ustment of the mA and/or kV according to patient size, radiation dose was kept as low as reasonably a chievable to obtain optimal diagnostic quality images. DICOM format image data is available electro nically for review and comparison. FINDINGS: Evolving left DAIN and MCA stroke is again noted. Moderate regional effacement of cortical sulci again identified. Mild compression of the ipsilateral left lateral ventricle frontal horn. Minimal subfalc ine shift. No drainable hemorrhagic collection. Stable high convexity right parietal ablation. CONCLUSION: Evolving left anterior circulation stroke. Polo Mathur MD on June 24, 2017 at 5:59 Board Certified Radiologist. This report was verified electronically.
[2017-06-24] MEDS: INSULIN ASPART SUPPLEMENTAL SCALE SQ SCH ×4 (08:00→21:00)
[2017-06-24] MEDS: ARTIFICIAL TEARS OPTH SOLN 15 ML BTL EACH EYE SCH ×3 (08:23→17:20)
[2017-06-24] MEDS: MODAFINIL 200 MG TAB PO SCH (08:24)
[2017-06-24] MEDS: DOCUSATE SODIUM 50 MG/SENNA 8.6 MG TAB PO SCH ×2 (08:24→21:00)
[2017-06-24] MEDS: levETIRAcetam 1000 MG INJ 100 ML IV SCH ×2 (08:25→22:17)
[2017-06-24] MEDS: SODIUM CHLORIDE 0.9% FLUSH 5 ML FLUSH IV FLUSH SCH ×2 (08:25→21:00)
[2017-06-24] MEDS: fentaNYL 2,500 MCG/NS 250 ML IV PRN ×2 (08:26→18:37)
--- NOTE | 2017-06-24 09:36 | HHI.NSPN ---
(Kathie Crespo) Note Status Status: Progress Note (Kathie Crespo) Interval History Interval History Mr. Thompson is a 66 year old male who presented to [facility] 06/16/17 with gaze deficits, and was found to have a large left MCA ischemic stroke. He was evaluated by Dr. Powell and patient was not a candidate for TPA. He is intubated and sedated on fentanyl and Diprivan. He was placed on heparin drip and started on aspirin therapy. A CT Brain 06/21/17 shows hemorrhagic conversion within the ischemic bed with mild mass effect but no significant midline shift. He is on hypertonic saline. A neurosurgical evaluation was requested. 06/24: f/u CT Brain completed this morning, remains intubated and sedated. (Kathie Crespo) Labs, Micro, & Vital Signs Results Date Time Temp Pulse Resp B/P (MAP) Pulse Ox O2 Delivery O2 Flow Rate FiO2 06/24/17 09:23 94 60 06/24/17 07:29 94 Ventilator 60 06/24/17 06:00 70 06/24/17 04:00 65 06/24/17 04:00 101.4 65 22 104/54 (71) 94 06/24/17 04:00 60 06/24/17 03:25 93 60 06/24/17 02:00 71 06/24/17 01:11 95 60 06/24/17 00:00 100.2 71 22 123/59 (80) 98 06/24/17 00:00 71 06/24/17 00:00 60 06/23/17 22:00 67 06/23/17 20:52 97 60 06/23/17 20:00 98.9 72 23 127/63 (84) 96 06/23/17 20:00 72 06/23/17 20:00 60 06/23/17 18:00 69 06/23/17 17:14 73 98/55 06/23/17 16:30 90 06/23/17 16:00 50 06/23/17 16:00 101.6 83 34 125/60 (81) 96 06/23/17 15:33 98 50 06/23/17 14:00 69 06/23/17 12:00 75 06/23/17 12:00 98.7 75 21 95/54 (68) 95 06/23/17 12:00 50 06/23/17 11:34 97 50 06/23/17 10:00 74 06/25/17 06:59 Intake Total 350 ml Balance 350 ml Constitutional Vital Signs Date Time Temp Pulse Resp B/P (MAP) Pulse Ox O2 Delivery O2 Flow Rate FiO2 06/24/17 09:23 94 60 06/24/17 07:29 94 Ventilator 60 06/24/17 06:00 70 06/24/17 04:00 65 06/24/17 04:00 101.4 65 22 104/54 (71) 94 06/24/17 04:00 60 06/24/17 03:25 93 60 06/24/17 02:00 71 06/24/17 01:11 95 60 06/24/17 00:00 100.2 71 22 123/59 (80) 98 06/24/17 00:00 71 06/24/17 00:00 60 06/23/17 22:00 67 06/23/17 20:52 97 60 06/23/17 20:00 98.9 72 23 127/63 (84) 96 06/23/17 20:00 72 06/23/17 20:00 60 06/23/17 18:00 69 06/23/17 17:14 73 98/55 06/23/17 16:30 90 06/23/17 16:00 50 06/23/17 16:00 101.6 83 34 125/60 (81) 96 06/23/17 15:33 98 50 06/23/17 14:00 69 06/23/17 12:00 75 06/23/17 12:00 98.7 75 21 95/54 (68) 95 06/23/17 12:00 50 06/23/17 11:34 97 50 06/23/17 10:00 74 06/25/17 06:59 Intake Total 350 ml Balance 350 ml (Kathie Crespo) Review of Systems ROS Limitations: Clinical Condition, Intubated, Altered Mental Status (Kathie Crespo) Physical Exam Mr. Thompson is intubated and sedated on diprivan drip. He does not open eyes, not following commands. Cranial Nerves: Pupils pinpoint nonreactive to light. Eyes appear conjugated. Cervical Spine: His neck is soft, supple, without nuchal rigidity. Motor: does not follow commands for testing Sensory: no withdrawals to local stimuli x 4 Reflexes: trace throughout. positive right Babinski response, neutral on left Cerebellar: cannot assess due to the patient's neurological condition. (Kathie Crespo) Mr. Thompson is intubated and sedated. He does not open eyes, not following commands. Cranial Nerves: Pupils pinpoint nonreactive to light. Eyes appear conjugated. Cervical Spine: His neck is soft, supple, without nuchal rigidity. Motor: does not follow commands for testing Sensory: no withdrawals to local stimuli x 4 Reflexes: trace throughout. positive right Babinski response, neutral on left Cerebellar: cannot assess due to the patient's neurological condition. (Julian Charles MD) Medications Current Medications Current Medications Medications (Trade) Dose Ordered Sig/[place] Route PRN Reason Start Time Stop Time Status Last Admin Dose Admin Acetaminophen (Tylenol) 650 mg Q6H PRN PO PAIN 1-10 AND/OR FEVER >101F 06/16/17 20:15 06/24/17 03:22 Artificial Tears (Tears Naturale Opth Soln) 1 drop TID EACH EYE 06/17/17 09:00 06/24/17 08:23 Ondansetron HCl (Zofran Inj) 4 mg Q6H PRN IV PUSH NAUSEA OR VOMITING 06/16/17 20:15 Albuterol/ Ipratropium (Duoneb Neb) 1 ampule Q2HR NEB PRN INH WHEEZING 06/16/17 20:15 Miscellaneous Information 1 Q361D XX 06/16/17 20:15 Chlorhexidine Gluconate (Chlorhexidine 2% Cloth) Taper DAILY@04 TOP 06/17/17 04:00 06/13/18 03:59 06/23/17 04:00 Chlorhexidine Gluconate (Chlorhexidine 2% Cloth) 3 pack UNSCH PRN TOP HYGIENIC CARE 06/16/17 20:15 Senna/Docusate Sodium (Cheryl-Colace) 1 tab BID PO 06/16/17 21:00 06/24/17 08:24 Magnesium Hydroxide (Milk Of Magnesia Liq) 30 ml Q12H PRN PO MILD - MODERATE CONSTIPATION 06/16/17 20:15 Sennosides (Senokot) 17.2 mg Q12H PRN PO MODERATE - SEVERE CONSTIPATION 06/16/17 20:15 Bisacodyl (Dulcolax Supp) 10 mg DAILY PRN RECTAL SEVERE CONSITIPATION 06/16/17 20:15 Lactulose (Lactulose Liq) 30 ml DAILY PRN PO SEVERE CONSITIPATION 06/16/17 20:15 Propofol 100 ml @ 2.106 mls/ hr TITRATE PRN IV SEDATION 06/16/17 21:00 06/23/17 23:19 Levetriacetam 100 ml @ 400 mls/hr Q12HR IV 06/17/17 09:00 06/24/17 08:25 Potassium Chloride 100 ml @ 50 mls/hr Q2H PRN IV For Potassium 2.8 - 3.2 mEq/L 06/16/17 23:15 Potassium Chloride 100 ml @ 50 mls/hr Q2H PRN IV For Potassium 2.8 - 3.2 mEq/L 06/16/17 23:15 Potassium Bicarb/ Potassium Chloride (K-Lyte Cl Eff) 50 meq UNSCH PRN PO For Potassium 3.3 - 3.5 mEq/L 06/16/17 23:15 Potassium Chloride 100 ml @ 25 mls/hr UNSCH PRN IV For Potassium 3.3 - 3.5 mEq/L 06/16/17 23:15 06/24/17 05:13 Potassium Chloride 100 ml @ 50 mls/hr Q2H PRN IV For Potassium 3.3 - 3.5 mEq/L 06/16/17 23:15 Magnesium Sulfate 4 gm/Sodium Chloride 100 ml @ 50 mls/hr UNSCH PRN IV For Magnesium 0.9 - 1.1 mg/dL 06/16/17 23:15 Magnesium Oxide (Mag-Ox) 800 mg UNSCH PRN PO For Magnesium 1.2 - 1.6 mg/dL 06/16/17 23:15 Magnesium Sulfate 2 gm/Sodium Chloride 100 ml @ 50 mls/hr UNSCH PRN IV For Magnesium 1.2 - 1.6 mg/dL 06/16/17 23:15 Potassium Phosphate (K-Phos) 2,000 mg Q4H PRN PO For Phosphorus < 2.5 mg/dL 06/16/17 23:15 Sodium Phosphate 30 mmol/Sodium Chloride 250 ml @ 42 mls/hr UNSCH PRN IV For Phosphorus < 2.5 mg/dL 06/16/17 23:15 06/17/17 14:51 Potassium Phosphate (K-Phos) 2,000 mg UNSCH PRN PO/TUBE SEE LABEL COMMENTS 06/16/17 23:15 Potassium Phosphate 30 mmol/ Sodium Chloride 260 ml @ 42 mls/hr UNSCH PRN IV SEE LABEL COMMENTS 06/16/17 23:15 Fentanyl Citrate 250 ml @ 5 mls/hr TITRATE PRN IV Sedation 06/17/17 12:15 06/24/17 08:26 IV Flush (NS Flush) 2 ml BID IV FLUSH 06/17/17 21:00 06/23/17 20:35 IV Flush (NS Flush) 2 ml UNSCH PRN IV FLUSH FLUSH AFTER USING IV ACCESS 06/17/17 19:00 Insulin Aspart (NovoLOG SUPPLEMENTAL SCALE) 1 ACHS SQ 06/17/17 21:00 06/23/17 21:08 Dextrose (D50w (Syr) Inj) 50 ml UNSCH PRN IV PUSH HYPOGLYCEMIA-SEE COMMENTS 06/17/17 19:00 Glucagon (Glucagon Inj) 1 mg UNSCH PRN OTHER HYPOGLYCEMIA-SEE COMMENTS 06/17/17 19:00 Albuterol/ Ipratropium (Duoneb Neb) 1 ampule Q6HR NEB INH 06/20/17 16:00 06/24/17 07:29 Haloperidol Lactate (Haldol Inj) 5 mg Q4H PRN IV agitation 06/20/17 10:30 Modafinil (Provigil) 200 mg DAILY PO 06/20/17 11:00 06/24/17 08:24 Piperacillin Sod/ Tazobactam Sod 100 ml @ 200 mls/hr Q6H IV 06/21/17 09:00 06/24/17 08:24 Pharmacy Profile Note 0 ml @ 0 mls/hr UNSCH OTHER 06/21/17 08:15 Sodium Chloride 500 ml @ 20 mls/hr ONCE ONCE IV 06/23/17 09:30 06/24/17 10:29 06/23/17 10:14 Fosphenytoin Sodium (Cerebyx Inj) 100 mgpe Q8H IV 06/23/17 18:00 06/24/17 02:09 Miscellaneous Information SPECIFIC LAB TO BE DRAWN:VANCOMYCIN TROUGH DATE TO... ONCE ONCE .XX 06/25/17 09:45 06/25/17 09:46 Vancomycin HCl 1500 mg/Sodium Chloride 515 ml @ 250 mls/hr Q12H IV 06/23/17 10:00 06/23/17 21:58 Norepinephrine Bitartrate 4 mg/ Sodium Chloride 250 ml @ 7.5 mls/hr TITRATE PRN IV Blood pressure management 06/23/17 17:15 Terbutaline Sulfate (Brethine Inj) 1 mg UNSCH PRN SQ For Extravasation 06/23/17 17:15 Hydralazine HCl (Apresoline Inj) 20 mg Q4H PRN IV PUSH SBP greater than 150mm Hg 06/23/17 18:00 (Kathie Crespo) Current Medications Current Medications Sodium Chloride 1,000 ml @ 70 mls/hr [id number] ONCE IV Last administered on 06/16 18:56; Start 06/16/17 at 17:59; Stop 06/16/17 at 20:14; Status DC Iohexol (Omnipaque 350 Inj) 89 ml STK-MED ONCE IVCONTRAST Last administered on 06/16/17 17:50; Start 06/16/17 at 17:50; Stop 06/16/17 at 18:42; Status DC Sodium Chloride 1,000 ml @ 84 mls/hr [id number] IV Last administered on 22:31; Start 06/16/17 at 21:00; Stop 06/22/17 at 12:07; Status DC Sodium Chloride (NS Flush) 2 ml UNSCH PRN IV FLUSH FLUSH AFTER USING IV ACCESS Last administered on 06/19/17 10:02; Start 06/16/17 at 20:15; Stop 06/21/17 at 08:22; Status DC Sodium Chloride (NS Flush) 2 ml BID IV FLUSH Last administered on 06/20/17 22: 20; Start 06/16/17 at 21:00; Stop 06/21/17 at 08:22; Status DC Acetaminophen (Tylenol) 650 mg Q6H PRN PO PAIN 1-10 AND/OR FEVER >101F Last administered on 06/24/17 14:18; Start 06/16/17 at 20:15 Morphine Sulfate (Morphine Inj) 2 mg Q2H PRN IV PUSH PAIN SCALE 6 TO 10; Start 06/16/17 at 20:15; Stop 06/20/17 at 10:29; Status DC Midazolam HCl (Versed Inj) 2 mg Q1H PRN IV PUSH SEDATION Last administered on 06/16/17 21:51; Start 06/16/17 at 20:15; Stop 06/20/17 at 10:29; Status DC Artificial Tears (Tears Naturale Opth Soln) 1 drop TID EACH EYE Last administered on 06/24/17 14:03; Start 06/17/17 at 09:00 Ondansetron HCl (Zofran Inj) 4 mg Q6H PRN IV PUSH NAUSEA OR VOMITING; Start at 20:15 Albuterol/ Ipratropium (Duoneb Neb) 1 ampule Q6HR NEB INH Last administered on 06/20/17 08:29; Start 06/16/17 at 22:00; Stop 06/20/17 at 10:29; Status DC Albuterol/ Ipratropium (Duoneb Neb) 1 ampule Q2HR NEB PRN INH WHEEZING; Start 06/16/17 at 20:15 Heparin Sodium (Porcine) (Heparin Inj) 5,000 units Q8H SQ Last administered on 06/23/17 04:12; Start 06/16/17 at 21:00; Stop 06/23/17 at 09:21; Status DC Miscellaneous Information 1 Q361D XX ; Start 06/16/17 at 20:15 Chlorhexidine Gluconate (Chlorhexidine 2% Cloth) Taper DAILY@04 TOP Last administered on 06/23/17 04:00; Start 06/17/17 at 04:00; Stop 06/13/18 at 03: 59 Chlorhexidine Gluconate (Chlorhexidine 2% Cloth) 3 pack UNSCH PRN TOP HYGIENIC CARE; Start 06/16/17 at 20:15 Senna/Docusate Sodium (Cheryl-Colace) 1 tab BID PO Last administered on 08:24; Start 06/16/17 at 21:00 Magnesium Hydroxide (Milk Of Magnesia Liq) 30 ml Q12H PRN PO MILD - MODERATE CONSTIPATION; Start 06/16/17 at 20:15 Sennosides (Senokot) 17.2 mg Q12H PRN PO MODERATE - SEVERE CONSTIPATION; Start 06/16/17 at 20:15 Bisacodyl (Dulcolax Supp) 10 mg DAILY PRN RECTAL SEVERE CONSITIPATION; Start 06/16/17 at 20:15 Lactulose (Lactulose Liq) 30 ml DAILY PRN PO SEVERE CONSITIPATION; Start at 20:15 Propofol 100 ml @ As Directed STK-MED ONCE .ROUTE ; Start 06/16/17 at 20:10; Stop 06/16/17 at 20:11; Status DC Midazolam HCl (Versed Inj) 5 mg STK-MED ONCE .ROUTE ; Start 06/16/17 at 20:11; Stop 06/16/17 at 20:12; Status DC Fentanyl Citrate (fentaNYL INJ) 100 mcg STK-MED ONCE .ROUTE ; Start 06/16/17 at 20:12; Stop 06/16/17 at 20:13; Status DC Rocuronium [place] (Zemuron Inj) 50 mg STK-MED ONCE .ROUTE Last administered on 06/16/17 21:51; Start 06/16/17 at 20:34; Stop 06/16/17 at 20:35; Status DC Propofol 100 ml @ 2.106 mls/ hr TITRATE PRN IV SEDATION Last administered on 06/24/17 09:49; Start 06/16/17 at 21:00 Levetriacetam 100 ml @ 400 mls/hr BOLUS ONCE IV Last administered on 22:15; Start 06/16/17 at 21:30; Stop 06/16/17 at 21:44; Status DC Levetriacetam 100 ml @ 400 mls/hr Q12HR IV Last administered on 06/24/17 08: 25; Start 06/17/17 at 09:00 Potassium Chloride 100 ml @ 50 mls/hr Q2H PRN IV For Potassium 2.8 - 3.2 mEq/L ; Start 06/16/17 at 23:15 Potassium Chloride 100 ml @ 50 mls/hr Q2H PRN IV For Potassium 2.8 - 3.2 mEq/L ; Start 06/16/17 at 23:15 Potassium Bicarb/ Potassium Chloride (K-Lyte Cl Eff) 50 meq UNSCH PRN PO For Potassium 3.3 - 3.5 mEq/L; Start 06/16/17 at 23:15 Potassium Chloride 100 ml @ 25 mls/hr UNSCH PRN IV For Potassium 3.3 - 3.5 mEq /L Last administered on 06/24/17 05:13; Start 06/16/17 at 23:15 Potassium Chloride 100 ml @ 50 mls/hr Q2H PRN IV For Potassium 3.3 - 3.5 mEq/L ; Start 06/16/17 at 23:15 Magnesium Sulfate 4 gm/Sodium Chloride 100 ml @ 50 mls/hr UNSCH PRN IV For Magnesium 0.9 - 1.1 mg/dL; Start 06/16/17 at 23:15 Magnesium Oxide (Mag-Ox) 800 mg UNSCH PRN PO For Magnesium 1.2 - 1.6 mg/dL; Start 06/16/17 at 23:15 Magnesium Sulfate 2 gm/Sodium Chloride 100 ml @ 50 mls/hr UNSCH PRN IV For Magnesium 1.2 - 1.6 mg/dL; Start 06/16/17 at 23:15 Potassium Phosphate (K-Phos) 2,000 mg Q4H PRN PO For Phosphorus < 2.5 mg/dL; Start 06/16/17 at 23:15 Sodium Phosphate 30 mmol/Sodium Chloride 250 ml @ 42 mls/hr UNSCH PRN IV For Phosphorus < 2.5 mg/dL Last administered on 06/17/17 14:51; Start 06/16/17 at 23:15 Potassium Phosphate (K-Phos) 2,000 mg UNSCH PRN PO/TUBE SEE LABEL COMMENTS; Start 06/16/17 at 23:15 Potassium Phosphate 30 mmol/ Sodium Chloride 260 ml @ 42 mls/hr UNSCH PRN IV SEE LABEL COMMENTS; Start 06/16/17 at 23:15 Multivitamins 10 ml/Thiamine HCl 100 mg/Folic Acid 1 mg/Sodium Chloride 511.2 ml @ 125 mls/hr ONCE ONCE IV Last administered on 06/17/17 07:42; Start 06/17/17 at 07:45; Stop 06/17/17 at 11:50; Status DC Fentanyl Citrate 250 ml @ 5 mls/hr TITRATE PRN IV Sedation Last administered on 06/24/17 08:26; Start 06/17/17 at 12:15 Fentanyl Citrate (fentaNYL INJ) 100 mcg ONCE ONCE IV PUSH Last administered on 06/17/17 12:13; Start 06/17/17 at 12:15; Stop 06/17/17 at 12:16; Status DC IV Flush (NS Flush) 2 ml BID IV FLUSH Last administered on 06/23/17 20:35; Start 06/17/17 at 21:00 IV Flush (NS Flush) 2 ml UNSCH PRN IV FLUSH FLUSH AFTER USING IV ACCESS; Start 06/17/17 at 19:00 Aspirin (Aspirin Supp) 300 mg DAILY RECTAL Last administered on 06/22/17 09: 19; Start 06/17/17 at 19:00; Stop 06/22/17 at 14:32; Status DC Insulin Aspart (NovoLOG SUPPLEMENTAL SCALE) 1 ACHS SQ Last administered on 21:08; Start 06/17/17 at 21:00 Dextrose (D50w (Syr) Inj) 50 ml UNSCH PRN IV PUSH HYPOGLYCEMIA-SEE COMMENTS; Start 06/17/17 at 19:00 Glucagon (Glucagon Inj) 1 mg UNSCH PRN OTHER HYPOGLYCEMIA-SEE COMMENTS; Start 06/17/17 at 19:00 Albuterol/ Ipratropium (Duoneb Neb) 1 ampule Q6HR NEB INH Last administered on 06/24/17 15:36; Start 06/20/17 at 16:00; Stop 06/24/17 at 15:59; Status DC Haloperidol Lactate (Haldol Inj) 5 mg Q4H PRN IV agitation; Start 06/20/17 at 10:30 Modafinil (Provigil) 200 mg DAILY PO Last administered on 06/24/17 08:24; Start 06/20/17 at 11:00 Piperacillin Sod/ Tazobactam Sod 100 ml @ 200 mls/hr Q6H IV Last administered on 06/24/17 14:02; Start 06/21/17 at 09:00 Vancomycin HCl 1100 mg/Sodium Chloride 261 ml @ 250 mls/hr Q12H IV ; Start 06/21/17 at 08:15; Stop 06/21/17 at 08:23; Status DC Pharmacy Profile Note 0 ml @ 0 mls/hr UNSCH OTHER ; Start 06/21/17 at 08:15 Vancomycin HCl 1000 mg/Sodium Chloride 250 ml @ 250 mls/hr Q12H IV Last administered on 06/22/17 22:02; Start 06/21/17 at 10:00; Stop 06/23/17 at 09: 34; Status DC Miscellaneous Information SPECIFIC LAB TO BE CONNOR... ONCE ONCE .XX ; Start 06/29 at 21:45; Stop 06/22/17 at 21:46; Status DC Sodium Chloride 1,000 ml @ 84 mls/hr [id number] IV Last administered on 00:10; Start 06/22/17 at 12:00; Stop 06/23/17 at 15:51; Status DC Lorazepam (Ativan Inj) 1 mg NOW ONCE IV ; Start 06/23/17 at 09:30; Stop 06/23 at 09:31; Status DC Fosphenytoin Sodium 1000 mgpe/ Sodium Chloride 70 ml @ 140 mls/hr NOW ONCE IV Last administered on 06/23/17 10:18; Start 06/23/17 at 09:30; Stop at 09:59; Status DC Sodium Chloride 500 ml @ 20 mls/hr ONCE ONCE IV Last administered on 10:14; Start 06/23/17 at 09:30; Stop 06/24/17 at 10:29; Status DC Fosphenytoin Sodium (Cerebyx Inj) 100 mgpe Q8H IV Last administered on 09:46; Start 06/23/17 at 18:00 Vancomycin HCl 1750 mg/Sodium Chloride 517.5 ml @ 250 mls/hr Q12H IV ; Start 06/23/17 at 10:00; Stop 06/23/17 at 10:00; Status DC Miscellaneous Information SPECIFIC LAB TO BE DRAWN:VANCOMYCIN TROUGH DATE TO... ONCE ONCE .XX ; Start 06/25/17 at 09:45; Stop 06/25/17 at 09:46 Vancomycin HCl 1500 mg/Sodium Chloride 515 ml @ 250 mls/hr Q12H IV Last administered on 06/24/17 09:45; Start 06/23/17 at 10:00 Norepinephrine Bitartrate 4 mg/ Sodium Chloride 250 ml @ 7.5 mls/hr TITRATE PRN IV Blood pressure management; Start 06/23/17 at 17:15 Terbutaline Sulfate (Brethine Inj) 1 mg UNSCH PRN SQ For Extravasation; Start 06/23/17 at 17:15 Norepinephrine Bitartrate (Levophed Inj) 4 mg STK-MED ONCE .ROUTE Last administered on 06/23/17t 17:14; Start 06/23/17 at 17:14; Stop 06/23/17 at 17 :15; Status DC Hydralazine HCl (Apresoline Inj) 20 mg Q4H PRN IV PUSH SBP greater than 150mm Hg; Start 06/23/17 at 18:00 (Julian Charles MD) Medical Decision Making MDM Remarks 66 year old male with large left ischemic stroke with hemorrhagic conversion on CT Brain 06/21, f/u CT Head 06/24 with improved hemorrhage, minimal midline shift (Kathie Crespo) MDM Remarks Last [address] 06/24/17 0000 Signed Impressions: Service Date/Time: June 05:46 - CONCLUSION: Evolving left anterior circulation stroke. Polo Mathur MD Chest X-Ray 06/24/17 0000 Signed Impressions: Service Date/Time: June 13:53 - CONCLUSION: Extensive and progressing airspace disease both lungs. Ruperto Casillas MD (Julian Charles MD) Plan Plan Remarks cont critical care, sedation weaning serial neuro checks clear for aspirin, Dr. Charles to defer restarting of Heparin to neurology (Kathie Crespo) Attending Statement His Ct was reviewed. hemorrhage has resolved Continue neuro checks EEG Deferred to Dr. Powell Pulmonary. Continue mechanical ventilation Continue aggressive pulmonary toilette, nasotracheal suction, and breathing treatments with nebulizers. Daily PT and OT Nutrition. Tolerating Oral diet Renal. Continue to monitor closely urine output, BUN and creatinine Endocrine. Continue to Monitor serial Acu checks and SSI as needed in detail ID continue to monitor for signs of infection Continue Protonix for stress ulcer prophylaxis Continue Shashi hose and SCD's for DVT prophylaxis The exam, history, and the medical decision-making described in the above note were completed with the assistance of the mid-level provider. I reviewed and agree with the findings presented. I attest that I had a [id number] encounter with the patient on the same day, and personally performed and documented my assessment and findings in the medical record. (Julian Charles MD) Kathie Crespo Jun 24, 2017 09:35 Julian Charles MD Jun 24, 2017 17:05
[2017-06-24] MEDS: VANCOMYCIN INJ 1,500 MG in SODIUM CHLORID 0.9% 500 ML INJ 500 ML IV SCH ×2 (09:45→22:17)
[2017-06-24] MEDS: PROPOFOL 1000 MG/100 ML INJ 100 ML IV PRN ×3 (09:49→23:02)
--- NOTE | 2017-06-24 11:06 | HHI.CCPN ---
Subjective Remarks/Hospital Course 06/16: 66-year-old unfortunate gentleman with a history of polysubstance abuse, presents here with altered mental status. When paramedics arrived, they found the patient to be obtunded with a GCS of 11. Friends who are at the patient's residence stated that they last saw him at 3:30. The patient arrived at roughly 5 PM. Patient was made a stroke alert as he was still in the window. Patient was unable to give any history regarding his visits secondary to his altered mental status. Patient had a left sided gaze with spasticity to his right upper extremity and clonus of his right lower shimmy. The CT of the head showed acute/subacute CVA at the left MCA territory and decision and not to administer TPA was made. While in the emergency department patient developed tonic-clonic seizures and was intubated by me for an airway protection. 06/17: Remains sedated, orally intubated on mechanical ventilation. 06/18: Remains sedated, orally intubated on mechanical ventilation. 06/19: no improvements. remains encephalopathic. intubated and mechanically ventilated. 06/20: no improvements in severe encephalopathy. 2 brothers at bedside yesterday and I had a long discussion about his poor prognosis and likely devastating persistent deficits. family stated "that's no way to live" but then stated "we don't believe in DNR or anything like that." They are likely pursuing aggressive medical management. 06/21: Remains encephalopathic off sedation, orally intubated on mechanical ventilation. Developed fevers over the weekend. Ordered pancultures and chest x-ray today which revealed significant bilateral pneumonia. 06/22: Remains encephalopathic off sedation, orally intubated on mechanical ventilation. 06/23: Remains encephalopathic on holding sedation, orally intubated on mechanical ventilation. CT head done yesterday showed some hemorrhagic conversion hence aspirin was stopped. Neurosurgery consulted today in view of some mass effect noted on head CT. Patient was started on 3% saline. Has been tolerating tube feeds. 06/24: Remains encephalopathic, orally intubated on mechanical ventilation. Remains on 3% saline. Tolerating tube feeds. Objective Vital Signs Date Time Temp Pulse Resp B/P (MAP) Pulse Ox O2 Delivery O2 Flow Rate FiO2 06/24/17 09:23 94 60 06/24/17 07:29 Ventilator 06/24/17 06:00 70 10/12/17 04:00 101.4 22 104/54 (71) Intake and Output 06/24/17 06/24/17 06/25/17 08:00 16:00 00:00 Intake Total 940 ml 546 ml Output Total 550 ml Balance 390 ml 546 ml Result Diagram: 06/24/17 0400 06/24/17 0400 Other Results Microbiology Date/Time Source Procedure Growth Status 06/21/17 11:00 Urine Catheterized Urine Legionella Antigen - Final PRESUMPTIVE NEGATIVE FOR LEGIONELLA P... Complete 06/21/17 11:00 Urine Catheterized Urine Streptococcus pneumoniae Antigen (M - Final PRESUMPTIVE NEGATIVE FOR STREPTOCOCCU... Complete Imaging Last [address] 06/24/17 0000 Signed Impressions: Service Date/Time: June 05:46 - CONCLUSION: Evolving left anterior circulation stroke. Polo Mathur MD Last 48 hours Impressions Chest X-Ray 06/21/17 0000 Signed Impressions: Service Date/Time: Wednesday, June 21, 2017 09:07 - CONCLUSION: Decreased airspace disease both lungs. Brian Gallardo MD FACR Last Impressions Head CT 06/17/17 1000 Signed Impressions: Service Date/Time: June 10:46 - CONCLUSION: Evolving left MCA and DAIN stroke as described Polo Mathur MD Neck CTA 06/16/17 1819 Signed Impressions: Service Date/Time: Friday, June 16, 2017 18:11 - CONCLUSION: No significant stenosis is seen. Polo Pérez MD Head CTA 06/16/17 1759 Signed Impressions: Service Date/Time: Friday, June 16, 2017 18:13 - CONCLUSION: No area of occlusion is seen. There appears to be hyperperfusion in the left middle cerebral artery territory. There is a subacute area of infarction seen on the recent CT examination. Polo Pérez MD Chest X-Ray 06/16/17 0000 Signed Impressions: Service Date/Time: Friday, June 16, 2017 23:32 - CONCLUSION: Mild bibasilar consolidation and small effusions. Line and tube positions as above. No pneumothorax. Polo Sosa MD Objective Remarks GENERAL: Elderly appearing gentleman sedated and intubated SKIN: Warm and dry. HEAD: Normocephalic.Left sided gaze EYES: No scleral icterus. No injection or drainage. NECK: trachea midline. No JVD CARDIOVASCULAR: Regular rate and rhythm RESPIRATORY: Orally intubated on mechanical ventilation Breath sounds equal bilaterally. Scattered rhonchi, no wheezing GASTROINTESTINAL: Abdomen soft, non-tender, nondistended. MUSCULOSKELETAL: No cyanosis, or edema. Spasticity to his right upper extremity and clonus of his right lower extremity NEURO EXAM: Pupils 2mm constricted, equal, reacting to light. RASS -4, w/d to pain on left. right contracted. minimal cough and gag. A/P Assessment and Plan Assessment: 66yM with massive Left MCA and DAIN infarct with some hemorrhagic conversion and associated severe encephalopathy and deficits, along with acute hypoxic and hypercarbic respiratory failure. Poor prognosis. palliative care following. Acute Hypoxic and Hypercarbic Respiratory failure on mechanical ventilation Pneumonia Sepsis UTI - No weaning until neurologically improved - Palliative care consult - Most likely will need a trach and peg if family requests aggressive management - Pancultures ordered and started empiric Zosyn and vancomycin IV on 06/21 Acute Left MCA and DANI CVA - Left MCA and DAIN territory - Extremely poor prognosis - Not a candidate for TPA - Aspirin and Plavix -hold in v/o hemorrhagic areas per radiology on CT Head done on 06/21. - Neurology following. Neurosurgery consulted. Started on 3% saline 06/23 for mass effect seen on head CT. Follow serial sodium -Follow up head CT per neurosurgery and neurology. Hypertension - Hydralazine when necessary to keep SBP less than 150 Peptic ulcer disease/GERD - IV Pepcid Alcohol and polysubstance abuse - Thiamine folate and multivitamins - Monitor for withdrawal History of Hepatitis C positive - Supportive care Seizure - Keppra, Fosphenytoin -Follow up EEG DVT GI prophylaxis - Teds SCDs - Subcutaneous heparin - IV Pepcid Condition remains critical. Palliative care following to assist with deciding goals of therapy. Family at this point insists on full CODE STATUS. Time spent on critical care excluding procedures 35 minutes Dewey Cartwright MD Jun 24, 2017 11:06
[2017-06-24 12:29] LABS: BLOOD GAS BASE EXCESS -3.4 mmol/L (-2-2); BLOOD GAS CARBOXYHEMOGLOBIN 0.7 % (0-4); BLOOD GAS HCO3 21 mmol/L (22-26); BLOOD GAS METHEMOGLOBIN 0.7 % (0-2); BLOOD GAS O2 HGB SATURATION 90 % (90-100); BLOOD GAS PCO2 38 mmHg (38-42); BLOOD GAS PO2 65 mmHg (61-120); BLOOD GAS TOTAL HGB 11.1 G/DL (12.0-16.0); CRITICAL VALUE NO; DRAW SITE RT RADIAL; FIO2 65 %; NUMBER OF ARTERIAL PUNCTURES 1; OXYGEN DEVICE VENTILATOR; STAT NO; TEMP CORR TO 98.6; ULNAR PULSE PRESENT
--- NOTE | 2017-06-24 14:25 | RADRPT ---
EXAM DATE/TIME: 06/24/2017 13:53 [facility] COMPARISON: CHEST SINGLE AP, June 21, 2017, 9:07. INDICATIONS : Respiratory distress. MEDICAL HISTORY : Stroke. SURGICAL HISTORY : None. ENCOUNTER: Subsequent ACUITY: 1 week PAIN SCORE: Non-responsive. LOCATION: Bilateral chest FINDINGS: Extensive and progressing airspace disease is present throughout both lungs. Heart and mediastinal structures are stable. Supportive devices which include an endotracheal tube, nasogastric tube and right jugular central melba ous catheter are in stable position. CONCLUSION: Extensive and progressing airspace disease both lungs. Ruperto Casillas MD on June 24, 2017 at 14:22 Board Certified Radiologist. This report was verified electronically.
--- NOTE | 2017-06-24 15:08 | HHI.HCPN ---
Reason for visit a. To assist with evaluation and management of symptoms including: dyspnea, encephalopathy, pain b. To assist medical decision maker(s) with: better understanding of current medical conditions; weighing benefits/burdens of medical treatment options; making medical treatment decisions. . Subjective/Interval History Patient examined today, son at bedside. Patient remains intubated, mechanically ventilated, and sedated. Repeat head CT today revealed evolving left DAIN and MCA with no drainable hemorrhagic collection. 06/24/17 Chest CXR: Extensive and progressing airspace disease both lungs. Worsening leukocytosis, WBC:19.8 today from 17.4 yesterday, febrile tmax:101.4 in the past 24 hours. Family/friend interactions Telephone conference with patient's son this morning, followed by bedside meeting this afternoon. Advance Directives Living Will: Never completed Health Care Surrogate: Never completed Durable Power of Hazardous Waste Management Specialist: Never completed Objective Vital Signs Date Time Temp Pulse Resp B/P (MAP) Pulse Ox O2 Delivery O2 Flow Rate FiO2 06/24/17 12:11 90 65 06/24/17 12:00 84 06/24/17 10:00 74 06/24/17 09:23 94 60 06/24/17 08:00 80 06/24/17 08:00 60 06/24/17 07:29 94 Ventilator 60 06/24/17 06:00 70 06/24/17 04:00 65 06/24/17 04:00 101.4 65 22 104/54 (71) 94 06/24/17 04:00 60 06/24/17 03:25 93 60 06/24/17 02:00 71 06/24/17 01:11 95 60 06/24/17 00:00 100.2 71 22 123/59 (80) 98 06/24/17 00:00 71 06/24/17 00:00 60 06/23/17 22:00 67 06/23/17 20:52 97 60 06/23/17 20:00 98.9 72 23 127/63 (84) 96 06/23/17 20:00 72 06/23/17 20:00 60 06/23/17 18:00 69 06/23/17 17:14 73 98/55 06/23/17 16:30 90 06/23/17 16:00 50 06/23/17 16:00 101.6 83 34 125/60 (81) 96 06/23/17 15:33 98 50 Intake & Output 06/24/17 06/24/17 07:00 19:00 Intake Total 2005 ml 1046 ml Output Total 550 ml Balance 1455 ml 1046 ml Intake IV Total 1165 ml 1046 ml Tube Feeding 720 ml Other 120 ml Output Urine Total 550 ml Tube Feeding Residual Discard 0 ml # Bowel Movements 0 . Physical Exam CONSTITUTIONAL/GENERAL: This is an elderly male patient, intubated, mechanically ventilated. TUBES/LINES/DRAINS: ETT, OGT, CVL RIJ, PIV x 1, soft wrist restraints, abebe catheter SKIN: No jaundice, rashes, or lesions. No wounds seen anteriorly. Skin temperature appropriate. Not diaphoretic. CARDIOVASCULAR: Regular rate and rhythm, without murmurs, gallops, or rubs. No JVD. Peripheral pulses symmetric. RESPIRATORY/CHEST: Symmetric, mechanically ventilated. Course crackles, breath sounds equal bilaterally. GASTROINTESTINAL: Abdomen soft, nondistended. Bowel sounds present. GENITOURINARY: Without palpable bladder distension. Abebe catheter in place. MUSCULOSKELETAL: Extremities without clubbing, cyanosis, or edema. No mottling or clubbing. NEUROLOGICAL: Sedated. Does not withdraw to noxious stimuli. PSYCHIATRIC: Unable to assess secondary to clinical condition. . Diagnostic Tests Laboratory Laboratory Tests Test 06/22/17 03:52 06/22/17 21:45 06/23/17 04:10 06/23/17 10:13 White Blood Count 12.1 TH/MM3 (4.0-11.0) 17.4 TH/MM3 (4.0-11.0) Red Blood Count 4.39 MIL/MM3 (4.50-5.90) 4.52 MIL/MM3 (4.50-5.90) Hemoglobin 10.9 GM/DL (13.0-17.0) 11.3 GM/DL (13.0-17.0) Hematocrit 34.4 % (39.0-51.0) 35.5 % (39.0-51.0) Mean Corpuscular Volume 78.3 FL (80.0-100.0) 78.5 FL (80.0-100.0) Mean Corpuscular Hemoglobin 24.9 PG (27.0-34.0) 25.1 PG (27.0-34.0) Mean Corpuscular Hemoglobin Concent 31.8 % (32.0-36.0) 31.9 % (32.0-36.0) Red Cell Distribution Width 13.9 % (11.6-17.2) 14.1 % (11.6-17.2) Platelet Count 168 TH/MM3 (150-450) 209 TH/MM3 (150-450) Mean Platelet Volume 9.0 FL (7.0-11.0) 9.4 FL (7.0-11.0) Blood Urea Nitrogen 19 MG/DL (7-18) 17 MG/DL (7-18) Creatinine 0.77 MG/DL (0.60-1.30) 0.80 MG/DL (0.60-1.30) Random Glucose 107 MG/DL (74-106) 106 MG/DL (74-106) Calcium Level 7.9 MG/DL (8.5-10.1) 7.3 MG/DL (8.5-10.1) Sodium Level 149 MEQ/L (136-145) 145 MEQ/L (136-145) 146 MEQ/L (136-145) Potassium Level 3.5 MEQ/L (3.5-5.1) 3.9 MEQ/L (3.5-5.1) Chloride Level 116 MEQ/L (98-107) 114 MEQ/L (98-107) Carbon Dioxide Level 21.1 MEQ/L (21.0-32.0) 20.7 MEQ/L (21.0-32.0) Anion Gap 12 MEQ/L (5-15) 10 MEQ/L (5-15) Estimat Glomerular Filtration Rate 123 ML/MIN (>89) 118 ML/MIN (>89) Vancomycin Level Trough 10.9 MCG/ML (5.0-10.0) Total Protein 6.0 GM/DL (6.4-8.2) Protein Corrected Calcium 7.9 MG/DL (8.5-10.1) Test 06/23/17 14:54 06/23/17 16:30 06/23/17 21:55 06/24/17 04:00 Sodium Level 146 MEQ/L (136-145) 148 MEQ/L (136-145) 149 MEQ/L (136-145) Nasal Screen MRSA (PCR) MRSA NOT DETECTED (NOT White Blood Count 19.8 TH/MM3 (4.0-11.0) Red Blood Count 4.15 MIL/MM3 (4.50-5.90) Hemoglobin 10.3 GM/DL (13.0-17.0) Hematocrit 32.5 % (39.0-51.0) Mean Corpuscular Volume 78.2 FL (80.0-100.0) Mean Corpuscular Hemoglobin 24.7 PG (27.0-34.0) Mean Corpuscular Hemoglobin Concent 31.6 % (32.0-36.0) Red Cell Distribution Width 14.2 % (11.6-17.2) Platelet Count 244 TH/MM3 (150-450) Mean Platelet Volume 8.9 FL (7.0-11.0) Blood Urea Nitrogen 17 MG/DL (7-18) Creatinine 0.91 MG/DL (0.60-1.30) Random Glucose 153 MG/DL (74-106) Total Protein 5.6 GM/DL (6.4-8.2) Calcium Level 7.4 MG/DL (8.5-10.1) Potassium Level 3.3 MEQ/L (3.5-5.1) Chloride Level 119 MEQ/L (98-107) Carbon Dioxide Level 23.5 MEQ/L (21.0-32.0) Anion Gap 7 MEQ/L (5-15) Estimat Glomerular Filtration Rate 102 ML/MIN (>89) Protein Corrected Calcium 8.2 MG/DL (8.5-10.1) Phenytoin (Dilantin) Level 5.2 MCG/ML (10.0-20.0) Test 06/24/17 12:20 Blood Gas Puncture Site RT RADIAL Blood Gas Patient Temperature 98.6 Blood Gas HCO3 21 mmol/L (22-26) Blood Gas Base Excess -3.4 mmol/L (-2-2) Blood Gas Oxygen Saturation 90 % (90-100) Arterial Blood pH 7.36 (7.380-7.420) Arterial Blood Partial Pressure CO2 38 mmHg (38-42) Arterial Blood Partial Pressure O2 65 mmHg (61-120) Arterial Blood Oxygen Content 14.0 Vol % (12.0-20.0) Arterial Blood Carboxyhemoglobin 0.7 % (0-4) Arterial Blood Methemoglobin 0.7 % (0-2) Blood Gas Hemoglobin 11.1 G/DL (12.0-16.0) Oxygen Delivery Device VENTILATOR Blood Gas Ventilator Setting AC,18,500,PEEP10 Blood Gas Inspired Oxygen 65 % . Result Diagram: 06/24/1739906/24/17399 Microbiology Microbiology Date/Time Source Procedure Growth Status 06/22/17 08:53 Blood Peripheral Aerobic Blood Culture - Final Bacillus Species Not Anthracis Staph Sp Coagulase Negative Resulted 06/22/17 08:53 Blood Peripheral Anaerobic Blood Culture - Preliminary NO GROWTH IN 2 DAYS Resulted 06/22/17 03:52 Blood Peripheral Aerobic Blood Culture - Preliminary NO GROWTH IN 2 DAYS Resulted 06/22/17 03:52 Blood Peripheral Anaerobic Blood Culture - Preliminary NO GROWTH IN 2 DAYS Resulted Imaging Last [address] 06/24/17 0000 Signed Impressions: Service Date/Time: , June 24, 2017 05:46 - CONCLUSION: Evolving left anterior circulation stroke. Polo Mathur MD Chest X-Ray 06/24/17 0000 Signed Impressions: Service Date/Time: , June 24, 2017 13:53 - CONCLUSION: Extensive and progressing airspace disease both lungs. Ruperto Casillas MD Assessment and Plan Disease Oriented Problem List: (1) CVA (cerebral vascular accident) (2) Hypertension (3) Polysubstance abuse (4) Seizure Symptom Scale: (1) Encephalopathy (2) Dyspnea (3) Pain Pertinent Non-Medical Issues Psychosocial: Patient is , has one adult son Naman Thompson. Patient is a of the [employer]. Per previous records: 05/04/2010: Patient was living in [place], [facility]. Patient has a long standing history of polysubstance abuse. Spiritual: Hoahaoism. Legal: None known. Ethical issues impacting care: None known. Important Contacts Naman Thompson (son, HCP) , email:[email or web address]. Chandra Prajapati Jr (brother):[phone] Kashif Thompson(brother): [phone] Liset Prajapati (sister): [phone] Shawnakemar Lin (friend) [phone] Chandra Prajapati (step father) [phone] Prognosis Patient admitted for large MCA stroke, unfortunately he was not a candidate for TPA due to prolonged time duration before presentation to the ED. The patient experienced tonic-clonic seizures during the ED course and was intubated for airway protection. Patient has a history of a previous CVA, seizures, polysubstance abuse, and hepatitis C. Patient is at an ongoing risk for complications and setbacks secondary to current clinical status and past medical history. . Code Status: Alternative Code (Intubation only) Plan * Legal decision maker: Patient does not have the capacity to make his own health care decisions. It is unclear at this time if he will regain the capacity to make his own health care decisions. Per [place] statutes health care decision making would fall to the patient's son Naman Thompson , email:[email or web address]. Naman has agreed to serve as HCP for his father Mr. Thompson. * Discussed case with bedside RN. * CODE STATUS: Alternative code. Discussed risks, benefits and limitations of CPR.. Patient's son Naman has opted to change the patient's code status to an alternative code and does not desire any chest compressions, shock, or ACLS protocol to be initiated in the event of a cardiac arrest. * GOALS: Pending. Patient's son struggling with the decision to move forward with trach/PEG versus comfort focused goals. Layla Prajapati (patient's brother) has been extremely supportive throughout this process and has been an invaluable hearing health technician regarding communication/guidance for his nephew Naman Thompson. The majority of the patient's family agree to move forward with comfort focused goals and are attempting to support the son in arriving to this decision. Awaiting confirmation phone call tomorrow to decide on a day that the family can all arrive from out of town to proceed with withdrawal of artificial life support. * From bedside meeting @ approximately 1515. Aggressive short of CPR. Patient's son would like to move forward with aggressive goals and proceed with a tracheostomy and PEG. 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 He stated he does not feel comfortable making the decision to just "pull the tube out". Discussed in detail the likely/typical statistical outcomes regarding termite exterminator helper ventilator requirements, bed bound status, and total assistance with ADLs. Again Mr. Thompson stated he would like to "give his dad a chance". * SYMPTOM MANAGEMENT: * --pain: Patient at ongoing risk for pain secondary to intubation, mechanical ventilation, and bedbound status. No recommendations at this time, further recommendations pending hospital course. * --dyspnea: Patient is intubated and mechanically ventilated, duonebs q 2hr PRN ordered. No recommendations at this time. * --encephalopathy: Secondary to recent MCA stroke, history of previous CVA, history of polysubstance abuse. No recommendations at this time. * Palliative care will continue to follow during hospital course as condition evolves, to assist patient/family/decision-maker with understanding of medical conditions, weighing benefit/burdens of treatment options, for clarification of goals of treatment. Additionally will assist with symptoms of palliative concern. Attestation To help prompt me to consider important information that might be impacting today's encounter and assessment, information from prior notes written by myself or my colleagues may have been "brought forward" into today's note. My signature on this note, however, is an attestation that I personally performed the exam, history, and/or decision-making noted today, and, unless otherwise indicated, the interactions with patient, family, and staff as well as the review of records all occurred today. I also attest that the listed assessment and stated plan reflect my best clinical judgment today based on the combination of historical information, prior notes, and today's exam/ interactions. When time spent is documented, it refers only to time spent today by the signer, or if indicated, combined time spent today by collaborating physician/nurse practitioner. Ellyn Mercado Jun 24, 2017 15:08
[2017-06-24] MEDS ORDERED: FUROSEMIDE 100 MG/10 ML VIAL IV PUSH STA (18:08)
[2017-06-24] MEDS ORDERED: 3% SALINE INJ 500 ML IV ONE (18:30)
[2017-06-25] VITALS (21 sets, daily range): BP systolic 103–158; BP diastolic 51–76; PULSE 69–103; RESP 19–25; TEMP 98.8–102.4; O2SAT 95–100
[2017-06-25] MEDS: FOSPHENYTOIN SODIUM 100 MG PE/2 ML VIAL IV SCH ×3 (02:38→17:14)
[2017-06-25] MEDS: PIPERACIL-TAZO 4.5 GM PREMIX 100 ML IV SCH ×4 (02:38→20:41)
--- NOTE | 2017-06-25 03:23 | RADRPT ---
EXAM DATE/TIME: 06/25/2017 02:01 [facility] COMPARISON: CHEST SINGLE AP, June 24, 2017, 13:53. INDICATIONS : Respiratory failure post stroke MEDICAL HISTORY : Stroke. SURGICAL HISTORY : None. ENCOUNTER: Subsequent ACUITY: 1 week PAIN SCORE: Non-responsive. LOCATION: Bilateral chest FINDINGS: A single view of the chest demonstrates endotracheal tube in good position. Nasogastric tube traverse s the esophagus. Right central line in superior vena cava. Bilateral airspace consolidation, predomin antly perihilar. CONCLUSION: 1. Support apparatus in good position. Bilateral air space consolidation not significantly changed si nce May 25. Jose Ramon Gregory MD on June 25, 2017 at 3:20 Board Certified Radiologist. This report was verified electronically.
[2017-06-25] MEDS: CHLORHEXIDINE GLUCONATE 2 % 1 PACK (2 CLOTHS) TOP SCH (04:00)
[2017-06-25] MEDS: PROPOFOL 1000 MG/100 ML INJ 100 ML IV PRN (04:29)
[2017-06-25] MEDS: fentaNYL 2,500 MCG/NS 250 ML IV PRN (04:30)
[2017-06-25 06:05] LABS: HEMATOCRIT 30.7 % (39.0-51.0); MEAN CELL VOLUME 78.5 FL (80.0-100.0); MEAN CORPUSCULAR HEMOGLOBIN 24.6 PG (27.0-34.0); MEAN CORPUSCULAR HGB CONC 31.4 % (32.0-36.0); PLATELET COUNT 276 TH/MM3 (150-450); RED BLOOD COUNT 3.91 MIL/MM3 (4.50-5.90); RED CELL DISTRIBUTION WIDTH 13.9 % (11.6-17.2); REVIEW FLAG FINAL; WHITE BLOOD COUNT 19.7 TH/MM3 (4.0-11.0)
[2017-06-25] MEDS: INSULIN ASPART SUPPLEMENTAL SCALE SQ SCH ×4 (08:00→20:35)
--- NOTE | 2017-06-25 08:39 | HHI.CCPN ---
Subjective Remarks/Hospital Course 06/16: 66-year-old unfortunate gentleman with a history of polysubstance abuse, presents here with altered mental status. When paramedics arrived, they found the patient to be obtunded with a GCS of 11. Friends who are at the patient's residence stated that they last saw him at 3:30. The patient arrived at roughly 5 PM. Patient was made a stroke alert as he was still in the window. Patient was unable to give any history regarding his visits secondary to his altered mental status. Patient had a left sided gaze with spasticity to his right upper extremity and clonus of his right lower shimmy. The CT of the head showed acute/subacute CVA at the left MCA territory and decision and not to administer TPA was made. While in the emergency department patient developed tonic-clonic seizures and was intubated by me for an airway protection. 06/17: Remains sedated, orally intubated on mechanical ventilation. 06/18: Remains sedated, orally intubated on mechanical ventilation. 06/19: no improvements. remains encephalopathic. intubated and mechanically ventilated. 06/20: no improvements in severe encephalopathy. 2 brothers at bedside yesterday and I had a long discussion about his poor prognosis and likely devastating persistent deficits. family stated "that's no way to live" but then stated "we don't believe in DNR or anything like that." They are likely pursuing aggressive medical management. 06/21: Remains encephalopathic off sedation, orally intubated on mechanical ventilation. Developed fevers over the weekend. Ordered pancultures and chest x-ray today which revealed significant bilateral pneumonia. 06/22: Remains encephalopathic off sedation, orally intubated on mechanical ventilation. 06/23: Remains encephalopathic on holding sedation, orally intubated on mechanical ventilation. CT head done yesterday showed some hemorrhagic conversion hence aspirin was stopped. Neurosurgery consulted today in view of some mass effect noted on head CT. Patient was started on 3% saline. Has been tolerating tube feeds. 06/24: Remains encephalopathic, orally intubated on mechanical ventilation. Remains on 3% saline. Tolerating tube feeds. 06/25: Osmolality acceptable. Diffuse lung infiltrates are infectious in etiology though some signs of venous congestion. No improvement in neurological condition. Objective Vital Signs Date Time Temp Pulse Resp B/P (MAP) Pulse Ox O2 Delivery O2 Flow Rate FiO2 10/13/17 08:09 98 60 06/25/17 06:00 77 06/25/17 04:00 99.3 23 103/54 (70) 06/25/17 00:22 Ventilator Intake and Output 06/25/17 06/25/17 06/26/17 08:00 16:00 00:00 Intake Total 1066 ml Output Total 3500 ml Balance -2434 ml Result Diagram: 06/25/17 0545 06/24/17 2300 Other Results Laboratory Tests Test 06/24/17 12:20 Blood Gas Puncture Site RT RADIAL Blood Gas Patient Temperature 98.6 Blood Gas HCO3 21 mmol/L (22-26) Blood Gas Base Excess -3.4 mmol/L (-2-2) Blood Gas Oxygen Saturation 90 % (90-100) Arterial Blood pH 7.36 (7.380-7.420) Arterial Blood Partial Pressure CO2 38 mmHg (38-42) Arterial Blood Partial Pressure O2 65 mmHg (61-120) Arterial Blood Oxygen Content 14.0 Vol % (12.0-20.0) Arterial Blood Carboxyhemoglobin 0.7 % (0-4) Arterial Blood Methemoglobin 0.7 % (0-2) Blood Gas Hemoglobin 11.1 G/DL (12.0-16.0) Oxygen Delivery Device VENTILATOR Blood Gas Ventilator Setting AC,18,500,PEEP10 Blood Gas Inspired Oxygen 65 % Imaging Last [address] 06/24/17 0000 Signed Impressions: Service Date/Time: June 05:46 - CONCLUSION: Evolving left anterior circulation stroke. Polo Mathur MD Last 48 hours Impressions Chest X-Ray 06/21/17 0000 Signed Impressions: Service Date/Time: Wednesday, June 21, 2017 09:07 - CONCLUSION: Decreased airspace disease both lungs. Brian Gallardo MD FACR Last Impressions Head CT 06/17/17 1000 Signed Impressions: Service Date/Time: June 10:46 - CONCLUSION: Evolving left MCA and DAIN stroke as described Polo Mathur MD Neck CTA 06/16/17 8449 Signed Impressions: Service Date/Time: Friday, June 16, 2017 18:11 - CONCLUSION: No significant stenosis is seen. Polo Pérez MD Head CTA 06/16/17 3513 Signed Impressions: Service Date/Time: Friday, June 16, 2017 18:13 - CONCLUSION: No area of occlusion is seen. There appears to be hyperperfusion in the left middle cerebral artery territory. There is a subacute area of infarction seen on the recent CT examination. Polo Pérez MD Chest X-Ray 06/16/17 0000 Signed Impressions: Service Date/Time: Friday, June 16, 2017 23:32 - CONCLUSION: Mild bibasilar consolidation and small effusions. Line and tube positions as above. No pneumothorax. Polo Sosa MD Objective Remarks GENERAL: Elderly appearing gentleman sedated and intubated SKIN: Warm and dry. HEAD: Normocephalic.Left sided gaze EYES: No scleral icterus. No injection or drainage. NECK: trachea midline. Orally intubated. CARDIOVASCULAR: Regular rate and rhythm. Neck veins are full. RESPIRATORY: Mechanical ventilation. Breath sounds equal bilaterally. Scattered rhonchi persist, no wheezing GASTROINTESTINAL: Abdomen soft, non-tender, nondistended. BS active. MUSCULOSKELETAL: No cyanosis, or edema. Spasticity to his right upper extremity and clonus of his right lower extremity. Withdraws left arm. NEURO EXAM: Pupils 2mm, equal, reacting to light. RASS -4, w/d to pain on left. right contracted. minimal cough and gag. A/P Assessment and Plan Assessment: 66yM with massive Left MCA and DAIN infarct with some hemorrhagic conversion and associated severe encephalopathy and deficits, along with acute hypoxic and hypercarbic respiratory failure. Poor prognosis. palliative care following. Acute Hypoxic and Hypercarbic Respiratory failure on mechanical ventilation Pneumonia Sepsis UTI - No weaning until neurologically improved - Palliative care consult - Most likely will need a trach and peg if family requests aggressive management - Pancultures ordered and started empiric Zosyn and vancomycin IV on 06/21 Acute Left MCA and DAIN CVA - Left MCA and DAIN territory - Extremely poor prognosis - Not a candidate for TPA - Aspirin and Plavix -hold in v/o hemorrhagic areas per radiology on CT Head done on 06/21. - Neurology following. Neurosurgery consulted. Started on 3% saline 06/23 for mass effect seen on head CT. Follow serial sodium -Follow up head CT per neurosurgery and neurology. Hypertension - Hydralazine when necessary to keep SBP less than 150 Peptic ulcer disease/GERD - IV Pepcid Alcohol and polysubstance abuse - Thiamine folate and multivitamins - Monitor for withdrawal History of Hepatitis C positive - Supportive care Seizure - Keppra, Fosphenytoin -Follow up EEG DVT GI prophylaxis - Teds SCDs - Subcutaneous heparin - IV Pepcid Condition remains critical. Palliative care following to assist with deciding goals of therapy. Overall impression: Devastating stroke. Systemic sepsis. Prognosis poor. Walter Rodriguez MD Jun 25, 2017 08:38
[2017-06-25 08:45] LABS: BICARBONATE 23.4 MEQ/L (21.0-32.0); POTASSIUM 3.6 MEQ/L (3.5-5.1)
[2017-06-25] MEDS: SODIUM CHLORIDE 0.9% FLUSH 5 ML FLUSH IV FLUSH SCH ×2 (09:00→20:42)
[2017-06-25] MEDS: DOCUSATE SODIUM 50 MG/SENNA 8.6 MG TAB PO SCH ×2 (09:00→20:41)
[2017-06-25] MEDS: ARTIFICIAL TEARS OPTH SOLN 15 ML BTL EACH EYE SCH ×3 (09:00→17:14)
[2017-06-25] MEDS: NOREPINEPHRINE INJ 4 MG in SODIUM CHLOR 0.9% 250 ML INJ 246 ML IV PRN (09:41)
[2017-06-25] MEDS ORDERED: PHARMACY ORDERED LAB ONE (09:45)
[2017-06-25] MEDS: MODAFINIL 200 MG TAB PO SCH (09:54)
[2017-06-25] MEDS: VANCOMYCIN INJ 1,500 MG in SODIUM CHLORID 0.9% 500 ML INJ 500 ML IV SCH ×2 (09:55→20:42)
[2017-06-25] MEDS: levETIRAcetam 1000 MG INJ 100 ML IV SCH ×2 (09:55→20:41)
[2017-06-25] MEDS: ACETAMINOPHEN 325 MG TAB PO PRN (12:15)
--- NOTE | 2017-06-25 12:37 | HHI.HCPN ---
Reason for visit a. To assist with evaluation and management of symptoms including: dyspnea, encephalopathy, pain b. To assist medical decision maker(s) with: better understanding of current medical conditions; weighing benefits/burdens of medical treatment options; making medical treatment decisions. . Subjective/Interval History Patient examined today, remains intubated, mechanically ventilated, sedated on propofol and fentanyl. Patient does not respond to noxious stimuli, remains encephalopathic. CXR today unchanged from yesterday with persistent airspace disease. Persistent leukocytosis, WBC:19.7 today, Tmax in the past 24 hours 100.2, intravenous antimicrobial therapy initiated 06/21/17, sputum culture positive for staphylococcus aureus and klebsiella pneumoniae, urine positive for Providencia rettgeri and enterococcus faecalis. Family/friend interactions Telephone conference with patient's son Naman Thompson, discussed goals of care , transition to comfort focused goals, and withdrawal of life support. . Advance Directives Living Will: Never completed Health Care Surrogate: Never completed Durable Power of Dead Mail Checker: Never completed Objective Vital Signs Date Time Temp Pulse Resp B/P (MAP) Pulse Ox O2 Delivery O2 Flow Rate FiO2 06/25/17 10:57 98 50 06/25/17 10:00 77 06/25/17 09:41 77 109/59 06/25/17 08:09 98 60 06/25/17 08:00 81 06/25/17 08:00 60 06/25/17 08:00 98.8 80 23 107/62 (77) 97 06/25/17 06:00 77 06/25/17 04:00 79 06/25/17 04:00 60 06/25/17 04:00 99.3 81 23 103/54 (70) 97 06/25/17 03:47 97 60 06/25/17 02:00 81 06/25/17 00:22 99 Ventilator 06/25/17 00:13 96 70 06/25/17 00:00 99.7 85 25 103/51 (68) 95 06/25/17 00:00 60 06/25/17 00:00 78 06/24/17 20:56 99 90 06/24/17 20:08 83 100 06/24/17 20:00 60 06/24/17 20:00 80 06/24/17 20:00 100.2 80 23 129/75 (93) 92 06/24/17 18:00 75 06/24/17 17:41 89 100 06/24/17 17:16 94 80 06/24/17 16:30 86 100 06/24/17 16:00 100.1 79 27 136/73 (94) 93 06/24/17 16:00 79 06/24/17 16:00 60 06/24/17 15:36 95 65 06/24/17 14:00 89 Intake & Output 06/25/17 06/25/17 07:00 19:00 Intake Total 1166 ml Output Total 3500 ml Balance -2334 ml Intake IV Total 550 ml Tube Feeding 556 ml Other 60 ml Output Urine Total 3500 ml # Bowel Movements 0 . Physical Exam CONSTITUTIONAL/GENERAL: This is an elderly male patient, intubated, mechanically ventilated. TUBES/LINES/DRAINS: ETT, OGT, CVL RIJ, PIV x 1, soft wrist restraints, abebe catheter SKIN: No jaundice, rashes, or lesions. No wounds seen anteriorly. Skin temperature appropriate. Not diaphoretic. CARDIOVASCULAR: Regular rate and rhythm, without murmurs, gallops, or rubs. No JVD. Peripheral pulses symmetric. RESPIRATORY/CHEST: Symmetric, mechanically ventilated. Course crackles, breath sounds equal bilaterally. GASTROINTESTINAL: Abdomen soft, nondistended. Bowel sounds present. GENITOURINARY: Without palpable bladder distension. Abebe catheter in place. MUSCULOSKELETAL: Extremities without clubbing, cyanosis, or edema. No mottling or clubbing. NEUROLOGICAL: Sedated. Does not withdraw to noxious stimuli. PSYCHIATRIC: Unable to assess secondary to clinical condition. . Diagnostic Tests Laboratory Laboratory Tests Test 06/22/17 21:45 06/23/17 04:10 06/23/17 10:13 06/23/17 14:54 Vancomycin Level Trough 10.9 MCG/ML (5.0-10.0) White Blood Count 17.4 TH/MM3 (4.0-11.0) Red Blood Count 4.52 MIL/MM3 (4.50-5.90) Hemoglobin 11.3 GM/DL (13.0-17.0) Hematocrit 35.5 % (39.0-51.0) Mean Corpuscular Volume 78.5 FL (80.0-100.0) Mean Corpuscular Hemoglobin 25.1 PG (27.0-34.0) Mean Corpuscular Hemoglobin Concent 31.9 % (32.0-36.0) Red Cell Distribution Width 14.1 % (11.6-17.2) Platelet Count 209 TH/MM3 (150-450) Mean Platelet Volume 9.4 FL (7.0-11.0) Blood Urea Nitrogen 17 MG/DL (7-18) Creatinine 0.80 MG/DL (0.60-1.30) Random Glucose 106 MG/DL (74-106) Total Protein 6.0 GM/DL (6.4-8.2) Calcium Level 7.3 MG/DL (8.5-10.1) Sodium Level 145 MEQ/L (136-145) 146 MEQ/L (136-145) 146 MEQ/L (136-145) Potassium Level 3.9 MEQ/L (3.5-5.1) Chloride Level 114 MEQ/L (98-107) Carbon Dioxide Level 20.7 MEQ/L (21.0-32.0) Anion Gap 10 MEQ/L (5-15) Estimat Glomerular Filtration Rate 118 ML/MIN (>89) Protein Corrected Calcium 7.9 MG/DL (8.5-10.1) Test 06/23/17 16:30 06/23/17 21:55 06/24/17 04:00 06/24/17 12:20 Nasal Screen MRSA (PCR) MRSA NOT DETECTED (NOT Sodium Level 148 MEQ/L (136-145) 149 MEQ/L (136-145) White Blood Count 19.8 TH/MM3 (4.0-11.0) Red Blood Count 4.15 MIL/MM3 (4.50-5.90) Hemoglobin 10.3 GM/DL (13.0-17.0) Hematocrit 32.5 % (39.0-51.0) Mean Corpuscular Volume 78.2 FL (80.0-100.0) Mean Corpuscular Hemoglobin 24.7 PG (27.0-34.0) Mean Corpuscular Hemoglobin Concent 31.6 % (32.0-36.0) Red Cell Distribution Width 14.2 % (11.6-17.2) Platelet Count 244 TH/MM3 (150-450) Mean Platelet Volume 8.9 FL (7.0-11.0) Blood Urea Nitrogen 17 MG/DL (7-18) Creatinine 0.91 MG/DL (0.60-1.30) Random Glucose 153 MG/DL (74-106) Total Protein 5.6 GM/DL (6.4-8.2) Calcium Level 7.4 MG/DL (8.5-10.1) Potassium Level 3.3 MEQ/L (3.5-5.1) Chloride Level 119 MEQ/L (98-107) Carbon Dioxide Level 23.5 MEQ/L (21.0-32.0) Anion Gap 7 MEQ/L (5-15) Estimat Glomerular Filtration Rate 102 ML/MIN (>89) Protein Corrected Calcium 8.2 MG/DL (8.5-10.1) Phenytoin (Dilantin) Level 5.2 MCG/ML (10.0-20.0) Blood Gas Puncture Site RT RADIAL Blood Gas Patient Temperature 98.6 Blood Gas HCO3 21 mmol/L (22-26) Blood Gas Base Excess -3.4 mmol/L (-2-2) Blood Gas Oxygen Saturation 90 % (90-100) Arterial Blood pH 7.36 (7.380-7.420) Arterial Blood Partial Pressure CO2 38 mmHg (38-42) Arterial Blood Partial Pressure O2 65 mmHg (61-120) Arterial Blood Oxygen Content 14.0 Vol % (12.0-20.0) Arterial Blood Carboxyhemoglobin 0.7 % (0-4) Arterial Blood Methemoglobin 0.7 % (0-2) Blood Gas Hemoglobin 11.1 G/DL (12.0-16.0) Oxygen Delivery Device VENTILATOR Blood Gas Ventilator Setting AC,18,500,PEEP10 Blood Gas Inspired Oxygen 65 % Test 06/24/17 15:53 06/24/17 23:00 06/25/17 05:45 06/25/17 09:30 Sodium Level 151 MEQ/L (136-145) 150 MEQ/L (136-145) 152 MEQ/L (136-145) 153 MEQ/L (136-145) Potassium Level 3.8 MEQ/L (3.5-5.1) 3.6 MEQ/L (3.5-5.1) White Blood Count 19.7 TH/MM3 (4.0-11.0) Red Blood Count 3.91 MIL/MM3 (4.50-5.90) Hemoglobin 9.6 GM/DL (13.0-17.0) Hematocrit 30.7 % (39.0-51.0) Mean Corpuscular Volume 78.5 FL (80.0-100.0) Mean Corpuscular Hemoglobin 24.6 PG (27.0-34.0) Mean Corpuscular Hemoglobin Concent 31.4 % (32.0-36.0) Red Cell Distribution Width 13.9 % (11.6-17.2) Platelet Count 276 TH/MM3 (150-450) Mean Platelet Volume 8.9 FL (7.0-11.0) Blood Urea Nitrogen 15 MG/DL (7-18) Creatinine 1.14 MG/DL (0.60-1.30) Random Glucose 137 MG/DL (74-106) Calcium Level 7.9 MG/DL (8.5-10.1) Chloride Level 120 MEQ/L (98-107) Carbon Dioxide Level 23.4 MEQ/L (21.0-32.0) Anion Gap 9 MEQ/L (5-15) Estimat Glomerular Filtration Rate 78 ML/MIN (>89) Vancomycin Level Trough 16.9 MCG/ML (5.0-10.0) Result Diagram: 06/25/17 0545 06/25/17 0930 Imaging Last 72 hours Impressions Chest X-Ray 06/25/17 0600 Signed Impressions: Service Date/Time: Sunday, June 25, 2017 02:01 - CONCLUSION: 1. Support apparatus in good position. Bilateral air space consolidation not significantly changed since May 25. Jose Ramon Gregory MD Head CT 06/24/17 0000 Signed Impressions: Service Date/Time: June 05:46 - CONCLUSION: Evolving left anterior circulation stroke. Polo Mathur MD Chest X-Ray 06/24/17 0000 Signed Impressions: Service Date/Time: June 13:53 - CONCLUSION: Extensive and progressing airspace disease both lungs. Ruperto Casillas MD Assessment and Plan Disease Oriented Problem List: (1) CVA (cerebral vascular accident) (2) Hypertension (3) Polysubstance abuse (4) Seizure Symptom Scale: (1) Encephalopathy (2) Dyspnea (3) Pain Pertinent Non-Medical Issues Psychosocial: Patient is , has one adult son Naman Thompson. Patient is a of the [employer]. Per previous records: 05/04/2010: [facility] [place] Patient has a long standing history of polysubstance abuse. Spiritual: Catholic. Legal: None known. Ethical issues impacting care: None known. Important Contacts Naman Thompson (son, HCP) , email:[email or web address] Chandra Prajapati Jr (brother):[phone] Kashif Thompson(brother): [phone] Liset Prajapati (sister): [phone] Shawna Lin (friend) [phone] Chandra Prajapati (step father) [phone] Prognosis Patient admitted for large MCA stroke, unfortunately he was not a candidate for TPA due to prolonged time duration before presentation to the ED. The patient experienced tonic-clonic seizures during the ED course and was intubated for airway protection. Patient has a history of a previous CVA, seizures, polysubstance abuse, and hepatitis C. Patient is at an ongoing risk for complications and setbacks secondary to current clinical status and past medical history. . Code Status: Alternative Code (Intubation only) Plan * Legal decision maker: Patient does not have the capacity to make his own health care decisions. It is unclear at this time if he will regain the capacity to make his own health care decisions. Per [place] statutes health care decision making would fall to the patient's son Naman Thompson , email:[email or web address]. Naman has agreed to serve as HCP for his father Mr. Thompson. * Discussed case with bedside RN. * CODE STATUS: Alternative code. * GOALS: Comfort focuse. Patient's son Naman plans to come tomorrow to sign exhibits for withdrawal of artificial life support. Awaiting confirmation from the remainder of the patient's family for an actual planned date and time to proceed with withdrawal of artificial life support as they have to coordinate coming in from out of town. * SYMPTOM MANAGEMENT: * --pain: Patient at ongoing risk for pain secondary to intubation, mechanical ventilation, and bedbound status. Sedated on propofol and fentanyl. No recommendations at this time, further recommendations pending hospital course. * --dyspnea: Patient is intubated and mechanically ventilated, duonebs q 2hr PRN ordered. No recommendations at this time. * --encephalopathy: Secondary to recent MCA stroke, history of previous CVA, history of polysubstance abuse. No recommendations at this time. * Palliative care will continue to follow during hospital course as condition evolves, to assist patient/family/decision-maker with understanding of medical conditions, weighing benefit/burdens of treatment options, for clarification of goals of treatment. Additionally will assist with symptoms of palliative concern. Attestation To help prompt me to consider important information that might be impacting today's encounter and assessment, information from prior notes written by myself or my colleagues may have been "brought forward" into today's note. My signature on this note, however, is an attestation that I personally performed the exam, history, and/or decision-making noted today, and, unless otherwise indicated, the interactions with patient, family, and staff as well as the review of records all occurred today. I also attest that the listed assessment and stated plan reflect my best clinical judgment today based on the combination of historical information, prior notes, and today's exam/ interactions. When time spent is documented, it refers only to time spent today by the signer, or if indicated, combined time spent today by collaborating physician/nurse practitioner. Ellyn Mercado Jun 25, 2017 12:37
--- NOTE | 2017-06-25 15:29 | HHI.NSPN ---
(Ihsan Vaughan) History Chief Complaint: Pt intubated. Large left CVA. (Ihsan Vaughan) Interval History Mr. Thompson is a 66 year old male who presented to [facility] 06/16/17 with gaze deficits, and was found to have a large left MCA ischemic stroke. He was evaluated by Dr. Powell and patient was not a candidate for TPA. He is intubated and sedated on fentanyl and Diprivan. He was placed on heparin drip and started on aspirin therapy. A CT Brain 06/21/17 shows hemorrhagic conversion within the ischemic bed with mild mass effect but no significant midline shift. He is on hypertonic saline. A neurosurgical evaluation was requested. 06/24: f/u CT Brain completed this morning, remains intubated and sedated. 06/25: Pt sedated and intubated. Pupils remain pinpoint. No changes clinically. (Ihsan Vaughan) System Review Comments Not able to obtain given clinical condition. (Ihsan Vaughan) Exam Results Vital Signs Date Time Temp Pulse Resp B/P (MAP) Pulse Ox O2 Delivery O2 Flow Rate FiO2 06/25/17 14:40 95 50 06/25/17 14:00 103 06/25/17 12:00 102.4 21 114/59 (77) 06/25/17 00:22 Ventilator Intake and Output 06/25/17 06/25/17 06/26/17 08:00 16:00 00:00 Intake Total 1066 ml 700 ml Output Total 3500 ml Balance -2434 ml 700 ml (Ihsan Vaughan) Physical Examination Resp: Intubated. PRVC A/C rate 12. RR 10. FiO2 50%. Heart: NSR no murmurs Abd: Soft positive bs Skin: No cyanosis or erythema Muscle: Not following commands for muscle testing. Slight withdrawal LUE to pain per RN when sedation held for 30 minutes. Neuro: Pt sedated on Diprivan and Fentanyl drips. Not opening eyes. No response to pain when on sedation and slight withdrawal LUE to pain . Pupils pinpoint. (Ihsan Vaughan) Lab, Micro, Other Results Laboratory Tests Test 06/24/17 15:53 06/24/17 23:00 06/25/17 05:45 06/25/17 09:30 Sodium Level 151 MEQ/L 150 MEQ/L 152 MEQ/L 153 MEQ/L Potassium Level 3.8 MEQ/L 3.6 MEQ/L White Blood Count 19.7 TH/MM3 Red Blood Count 3.91 MIL/MM3 Hemoglobin 9.6 GM/DL Hematocrit 30.7 % Mean Corpuscular Volume 78.5 FL Mean Corpuscular Hemoglobin 24.6 PG Mean Corpuscular Hemoglobin Concent 31.4 % Red Cell Distribution Width 13.9 % Platelet Count 276 TH/MM3 Mean Platelet Volume 8.9 FL Blood Urea Nitrogen 15 MG/DL Creatinine 1.14 MG/DL Random Glucose 137 MG/DL Calcium Level 7.9 MG/DL Chloride Level 120 MEQ/L Carbon Dioxide Level 23.4 MEQ/L Anion Gap 9 MEQ/L Estimat Glomerular Filtration Rate 78 ML/MIN Vancomycin Level Trough 16.9 MCG/ML Test 06/25/17 14:30 06/25/17 06/25/17 06/26/17 15:00 23:00 07:00 Intake Total 700 ml Balance 700 ml Intake IV Total 700 ml (Ihsan Vaughan) Medical Decision Making Impression and Plan A: 66 y/o M66 year old male with large left ischemic stroke with hemorrhagic conversion on CT Brain 06/21, f/u CT Head 06/24 with improved hemorrhage, minimal midline shift Plan Plan Plan Remarks cont critical care, sedation weaning serial neuro checks Rehabilitation efforts Palliative care following Discussed plan with RN. (Ihsan Vaughan) Attending Statement The exam, history, and the medical decision-making described in the above note were completed with the assistance of the mid-level provider. I reviewed and agree with the findings presented. I attest that I had a [id number] encounter with the patient on the same day, and personally performed and documented my assessment and findings in the medical record. Intubated but opens eyes. Does not follow commands or track. Given the large nature of dominant left hemisphere stroke he is going to have significant neurologic deficits with weakness and speech deficits in particular even if he does improve further. Discussed with the nursing staff at bedside. (Gunner Latham MD) Ihsan Vaughan Jun 25, 2017 15:29 Gunner Latham MD Jun 25, 2017 16:01
[2017-06-25] MEDS ORDERED: 3% SALINE INJ 500 ML IV ONE (18:00)
--- NOTE | 2017-06-25 19:28 | HHI.PR ---
Review/Management Diagnosis large left MCA stroke with small hemorrhagic component secondary focal sz. prognosis very poor given large size of the stroke Plan continue cerebyx and keppra Diagnosis/Plan: Subjective Subjective Comments No acute events reported Active Medications Current Medications Medications (Trade) Dose Ordered Sig/[place] Route Start Time Stop Time Status Last Admin (Tylenol) 650 mg Q6H PRN PO 06/16/17 20:15 06/25/17 12:15 (Tears Naturale Opth Soln) 1 drop TID EACH EYE 06/17/17 09:00 06/25/17 17:14 (Zofran Inj) 4 mg Q6H PRN IV PUSH 06/16/17 20:15 (Duoneb Neb) 1 ampule Q2HR NEB PRN INH 06/16/17 20:15 Miscellaneous Information 1 Q361D XX 06/16/17 20:15 (Chlorhexidine 2% Cloth) Taper DAILY@04 TOP 06/17/17 04:00 06/13/18 03:59 06/23/17 04:00 (Chlorhexidine 2% Cloth) 3 pack UNSCH PRN TOP 06/16/17 20:15 (Cheryl-Colace) 1 tab BID PO 06/16/17 21:00 06/25/17 09:00 (Milk Of Magnesia Liq) 30 ml Q12H PRN PO 06/16/17 20:15 (Senokot) 17.2 mg Q12H PRN PO 06/16/17 20:15 (Dulcolax Supp) 10 mg DAILY PRN RECTAL 06/16/17 20:15 (Lactulose Liq) 30 ml DAILY PRN PO 06/16/17 20:15 Propofol 100 ml @ 2.106 mls/ hr TITRATE PRN IV 06/16/17 21:00 06/25/17 04:29 Levetriacetam 100 ml @ 400 mls/hr Q12HR IV 06/17/17 09:00 06/25/17 09:55 Potassium Chloride 100 ml @ 50 mls/hr Q2H PRN IV 06/16/17 23:15 Potassium Chloride 100 ml @ 50 mls/hr Q2H PRN IV 06/16/17 23:15 (K-Lyte Cl Eff) 50 meq UNSCH PRN PO 06/16/17 23:15 Potassium Chloride 100 ml @ 25 mls/hr UNSCH PRN IV 06/16/17 23:15 06/24/17 05:13 Potassium Chloride 100 ml @ 50 mls/hr Q2H PRN IV 06/16/17 23:15 Magnesium Sulfate 4 gm/Sodium Chloride 100 ml @ 50 mls/hr UNSCH PRN IV 06/16/17 23:15 (Mag-Ox) 800 mg UNSCH PRN PO 06/16/17 23:15 Magnesium Sulfate 2 gm/Sodium Chloride 100 ml @ 50 mls/hr UNSCH PRN IV 06/16/17 23:15 (K-Phos) 2,000 mg Q4H PRN PO 06/16/17 23:15 Sodium Phosphate 30 mmol/Sodium Chloride 250 ml @ 42 mls/hr UNSCH PRN IV 06/16/17 23:15 06/17/17 14:51 (K-Phos) 2,000 mg UNSCH PRN PO/TUBE 06/16/17 23:15 Potassium Phosphate 30 mmol/ Sodium Chloride 260 ml @ 42 mls/hr UNSCH PRN IV 06/16/17 23:15 Fentanyl Citrate 250 ml @ 5 mls/hr TITRATE PRN IV 06/17/17 12:15 06/25/17 04:30 (NS Flush) 2 ml BID IV FLUSH 06/17/17 21:00 06/25/17 09:00 (NS Flush) 2 ml UNSCH PRN IV FLUSH 06/17/17 19:00 (NovoLOG SUPPLEMENTAL SCALE) 1 ACHS SQ 06/17/17 21:00 06/23/17 21:08 (D50w (Syr) Inj) 50 ml UNSCH PRN IV PUSH 06/17/17 19:00 (Glucagon Inj) 1 mg UNSCH PRN OTHER 06/17/17 19:00 (Haldol Inj) 5 mg Q4H PRN IV 06/20/17 10:30 (Provigil) 200 mg DAILY PO 06/20/17 11:00 06/25/17 09:54 Piperacillin Sod/ Tazobactam Sod 100 ml @ 200 mls/hr Q6H IV 06/21/17 09:00 06/25/17 14:02 Pharmacy Profile Note 0 ml @ 0 mls/hr UNSCH OTHER 06/21/17 08:15 (Cerebyx Inj) 100 mgpe Q8H IV 06/23/17 18:00 06/25/17 17:14 Vancomycin HCl 1500 mg/Sodium Chloride 515 ml @ 250 mls/hr Q12H IV 06/23/17 10:00 06/25/17 09:55 Norepinephrine Bitartrate 4 mg/ Sodium Chloride 250 ml @ 7.5 mls/hr TITRATE PRN IV 06/23/17 17:15 06/25/17 09:41 (Brethine Inj) 1 mg UNSCH PRN SQ 06/23/17 17:15 (Apresoline Inj) 20 mg Q4H PRN IV PUSH 06/23/17 18:00 Miscellaneous Information SPECIFIC LAB TO BE CONNOR... ONCE ONCE .XX 06/26/17 21:45 06/26/17 21:46 Sodium Chloride 500 ml @ 10 mls/hr ONCE ONCE IV 06/25/17 18:00 06/27/17 19:59 06/25/17 18:00 Allergies Allergies Coded Allergies No Known Allergies (Verified03/22/15) Exam I&O / VS 06/25/17 06/25/17 06/26/17 15:00 23:00 07:00 Intake Total 700 ml 2063 ml Output Total 460 ml Balance 700 ml 1603 ml Intake IV Total 700 ml 1890 ml Tube Feeding 173 ml Output Urine Total 460 ml # Bowel Movements 0 Vital Signs Date Time Temp Pulse Resp B/P (MAP) Pulse Ox O2 Delivery O2 Flow Rate FiO2 06/25/17 18:00 69 06/25/17 16:01 96 50 06/25/17 16:00 99.2 71 21 105/56 (72) 96 06/25/17 16:00 71 06/25/17 16:00 60 06/25/17 14:40 95 50 06/25/17 14:00 103 06/25/17 12:00 82 06/25/17 12:00 60 06/25/17 12:00 102.4 82 21 114/59 (77) 97 06/25/17 10:57 98 50 06/25/17 10:00 77 06/25/17 09:41 77 109/59 06/25/17 08:09 98 60 06/25/17 08:00 81 06/25/17 08:00 60 06/25/17 08:00 98.8 80 23 107/62 (77) 97 06/25/17 06:00 77 06/25/17 04:00 79 06/25/17 04:00 60 06/25/17 04:00 99.3 81 23 103/54 (70) 97 06/25/17 03:47 97 60 06/25/17 02:00 81 06/25/17 00:22 99 Ventilator 06/25/17 00:13 96 70 06/25/17 00:00 99.7 85 25 103/51 (68) 95 06/25/17 00:00 60 06/25/17 00:00 78 06/24/17 20:56 99 90 06/24/17 20:08 83 100 06/24/17 20:00 60 06/24/17 20:00 80 06/24/17 20:00 100.2 80 23 129/75 (93) 92 Respiratory: BS equal, Coarse breath sounds Cardiology: Normal rate, Regular Rhythm Musculoskeletal: ROM (grossly within normal limits) Exam Comments nonresponsive pupils 2 mm bilateral , eom intact motor--no spontaneous limb movement and no withdrawal. No sz activity at present Objective Micro and Labs Laboratory Tests Test 06/24/17 23:00 06/25/17 05:45 06/25/17 09:30 06/25/17 14:30 Sodium Level 150 152 153 153 White Blood Count 19.7 Red Blood Count 3.91 Hemoglobin 9.6 Hematocrit 30.7 Mean Corpuscular Volume 78.5 Mean Corpuscular Hemoglobin 24.6 Mean Corpuscular Hemoglobin Concent 31.4 Red Cell Distribution Width 13.9 Platelet Count 276 Mean Platelet Volume 8.9 Blood Urea Nitrogen 15 Creatinine 1.14 Random Glucose 137 Calcium Level 7.9 Potassium Level 3.6 Chloride Level 120 Carbon Dioxide Level 23.4 Anion Gap 9 Estimat Glomerular Filtration Rate 78 Vancomycin Level Trough 16.9 Date/Time Source Procedure Growth Status 06/22/17 08:53 Blood Peripheral Aerobic Blood Culture - Final Bacillus Species Not Anthracis Staph Sp Coagulase Negative Resulted 06/22/17 08:53 Blood Peripheral Anaerobic Blood Culture - Preliminary NO GROWTH IN 3 DAYS Resulted 06/21/17 10:40 Sputum Endotracheal Gram Stain - Final Complete 06/21/17 10:40 Sputum Culture - Final Staphylococcus Aureus Klebsiella Pneumoniae Complete 06/21/17 11:00 Urine Catheterized Urine Urine Culture - Final Providencia Rettgeri Enterococcus Faecalis Complete Cas Powell PhD Jun 25, 2017 19:28
[2017-06-26] VITALS (19 sets, daily range): BP systolic 120–138; BP diastolic 57–65; PULSE 66–85; RESP 17–26; TEMP 98.8–100.3; O2SAT 92–100
[2017-06-26] MEDS: PIPERACIL-TAZO 4.5 GM PREMIX 100 ML IV SCH ×4 (02:20→22:02)
[2017-06-26] MEDS: FOSPHENYTOIN SODIUM 100 MG PE/2 ML VIAL IV SCH ×5 (02:21→23:45)
[2017-06-26] MEDS: CHLORHEXIDINE GLUCONATE 2 % 1 PACK (2 CLOTHS) TOP SCH (02:21)
[2017-06-26] MEDS: fentaNYL 2,500 MCG/NS 250 ML IV PRN ×2 (03:55→10:22)
[2017-06-26] MEDS: HALOPERIDOL LACTATE 5 MG/ML AMP IV PRN ×2 (05:04→23:44)
[2017-06-26 05:09] LABS: HEMATOCRIT 30.6 % (39.0-51.0); MEAN CELL VOLUME 77.5 FL (80.0-100.0); MEAN CORPUSCULAR HGB CONC 32.2 % (32.0-36.0); PLATELET COUNT 310 TH/MM3 (150-450); RED BLOOD COUNT 3.95 MIL/MM3 (4.50-5.90); REVIEW FLAG FINAL
[2017-06-26 05:23] LABS: BICARBONATE 25.1 MEQ/L (21.0-32.0); POTASSIUM 3.5 MEQ/L (3.5-5.1)
[2017-06-26] MEDS: INSULIN ASPART SUPPLEMENTAL SCALE SQ SCH ×4 (08:00→21:00)
--- NOTE | 2017-06-26 08:05 | HHI.CCPN ---
Subjective Remarks/Hospital Course 06/16: 66-year-old unfortunate gentleman with a history of polysubstance abuse, presents here with altered mental status. When paramedics arrived, they found the patient to be obtunded with a GCS of 11. Friends who are at the patient's residence stated that they last saw him at 3:30. The patient arrived at roughly 5 PM. Patient was made a stroke alert as he was still in the window. Patient was unable to give any history regarding his visits secondary to his altered mental status. Patient had a left sided gaze with spasticity to his right upper extremity and clonus of his right lower shimmy. The CT of the head showed acute/subacute CVA at the left MCA territory and decision and not to administer TPA was made. While in the emergency department patient developed tonic-clonic seizures and was intubated by me for an airway protection. 06/17: Remains sedated, orally intubated on mechanical ventilation. 06/18: Remains sedated, orally intubated on mechanical ventilation. 06/19: no improvements. remains encephalopathic. intubated and mechanically ventilated. 06/20: no improvements in severe encephalopathy. 2 brothers at bedside yesterday and I had a long discussion about his poor prognosis and likely devastating persistent deficits. family stated "that's no way to live" but then stated "we don't believe in DNR or anything like that." They are likely pursuing aggressive medical management. 06/21: Remains encephalopathic off sedation, orally intubated on mechanical ventilation. Developed fevers over the weekend. Ordered pancultures and chest x-ray today which revealed significant bilateral pneumonia. 06/22: Remains encephalopathic off sedation, orally intubated on mechanical ventilation. 06/23: Remains encephalopathic on holding sedation, orally intubated on mechanical ventilation. CT head done yesterday showed some hemorrhagic conversion hence aspirin was stopped. Neurosurgery consulted today in view of some mass effect noted on head CT. Patient was started on 3% saline. Has been tolerating tube feeds. 06/24: Remains encephalopathic, orally intubated on mechanical ventilation. Remains on 3% saline. Tolerating tube feeds. 06/25: Osmolality acceptable. Diffuse lung infiltrates are infectious in etiology though some signs of venous congestion. No improvement in neurological condition. 06/26: Serum well concentrated. No neurological improvement. Objective Vital Signs Date Time Temp Pulse Resp B/P (MAP) Pulse Ox O2 Delivery O2 Flow Rate FiO2 06/26/17 06:00 71 06/26/17 04:50 100 Ventilator 06/26/17 04:45 50 06/26/17 00:00 98.8 120/57 (78) 06/25/17 20:00 19 Intake and Output 06/26/17 06/26/17 06/27/17 08:00 16:00 00:00 Intake Total 505 ml Output Total 800 ml Balance -295 ml Result Diagram: 06/26/17 0425 06/26/17 0425 Imaging Last [address] 06/24/17 0000 Signed Impressions: Service Date/Time: June 05:46 - CONCLUSION: Evolving left anterior circulation stroke. Polo Mathur MD Last 48 hours Impressions Chest X-Ray 06/21/17 0000 Signed Impressions: Service Date/Time: Wednesday, June 21, 2017 09:07 - CONCLUSION: Decreased airspace disease both lungs. Brian Gallardo MD FACR Last Impressions Head CT 06/17/17 1000 Signed Impressions: Service Date/Time: June 10:46 - CONCLUSION: Evolving left MCA and DAIN stroke as described Polo Mathur MD Neck CTA 06/16/17 1819 Signed Impressions: Service Date/Time: Friday, June 16, 2017 18:11 - CONCLUSION: No significant stenosis is seen. Polo Pérez MD Head CTA 06/16/17 1759 Signed Impressions: Service Date/Time: Friday, June 16, 2017 18:13 - CONCLUSION: No area of occlusion is seen. There appears to be hyperperfusion in the left middle cerebral artery territory. There is a subacute area of infarction seen on the recent CT examination. Polo Pérez MD Chest X-Ray 06/16/17 0000 Signed Impressions: Service Date/Time: Friday, June 16, 2017 23:32 - CONCLUSION: Mild bibasilar consolidation and small effusions. Line and tube positions as above. No pneumothorax. Polo Sosa MD Objective Remarks GENERAL: Elderly appearing gentleman sedated and intubated SKIN: Warm and dry. HEAD: Normocephalic.Left sided gaze EYES: No scleral icterus. No injection or drainage. NECK: trachea midline. Orally intubated. CARDIOVASCULAR: Regular rate and rhythm. Neck veins are full. RESPIRATORY: Mechanical ventilation. Breath sounds equal bilaterally. Scattered rhonchi persist, no wheezing GASTROINTESTINAL: Abdomen soft, non-tender, nondistended. BS active. MUSCULOSKELETAL: No cyanosis, or edema. Spasticity to his right upper extremity and clonus of his right lower extremity. Withdraws left arm. NEURO EXAM: Pupils 2mm, equal, reacting to light. RASS -4, w/d to pain on left. right contracted. minimal cough and gag. A/P Assessment and Plan Assessment: 66yM with massive Left MCA and DAIN infarct with some hemorrhagic conversion and associated severe encephalopathy and deficits, along with acute hypoxic and hypercarbic respiratory failure. Poor prognosis. palliative care following. Acute Hypoxic and Hypercarbic Respiratory failure on mechanical ventilation Pneumonia Sepsis UTI - No weaning until neurologically improved - Palliative care consult - Most likely will need a trach and peg if family requests aggressive management - Pancultures ordered and started empiric Zosyn and vancomycin IV on 06/21 Acute Left MCA and DAIN CVA - Left MCA and DAIN territory - Extremely poor prognosis - Not a candidate for TPA - Aspirin and Plavix -hold in v/o hemorrhagic areas per radiology on CT Head done on 06/21. - Neurology following. Neurosurgery consulted. Started on 3% saline 06/23 for mass effect seen on head CT. Follow serial sodium -Follow up head CT per neurosurgery and neurology. Hypertension - Hydralazine when necessary to keep SBP less than 150 Peptic ulcer disease/GERD - IV Pepcid Alcohol and polysubstance abuse - Thiamine folate and multivitamins - Monitor for withdrawal History of Hepatitis C positive - Supportive care Seizure - Keppra, Fosphenytoin -Follow up EEG DVT GI prophylaxis - Teds SCDs - Subcutaneous heparin - IV Pepcid Condition remains critical. Palliative care following to assist with deciding goals of therapy. Overall impression: Devastating stroke. Systemic infection. Prognosis poor. Walter Rodriguez MD Jun 26, 2017 08:05
[2017-06-26] MEDS: SODIUM CHLORIDE 0.9% FLUSH 5 ML FLUSH IV FLUSH SCH ×2 (09:00→21:00)
[2017-06-26] MEDS: DOCUSATE SODIUM 50 MG/SENNA 8.6 MG TAB PO SCH ×2 (09:00→21:00)
--- NOTE | 2017-06-26 10:19 | HHI.NSPN ---
(Ihsan Vaughan) History Chief Complaint: Pt intubated. Large left CVA. (Ihsan Vaughan) Interval History Mr. Thompson is a 66 year old male who presented to [place] 06/16/17 with gaze deficits, and was found to have a large left MCA ischemic stroke. He was evaluated by Dr. Powell and patient was not a candidate for TPA. He is intubated and sedated on fentanyl and Diprivan. He was placed on heparin drip and started on aspirin therapy. A CT Brain 06/21/17 shows hemorrhagic conversion within the ischemic bed with mild mass effect but no significant midline shift. He is on hypertonic saline. A neurosurgical evaluation was requested. 06/24: f/u CT Brain completed this morning, remains intubated and sedated. 06/25: Pt sedated and intubated. Pupils remain pinpoint. No changes clinically. 06/26: Patient not opening eyes. Pupils pinpoint. Patient only Levophed drip. Patient sedated on fentanyl. Withdraws lower extremities to pain. (Ihsan Vaughan) System Review Comments Not able to obtain given clinical condition. (Ihsan Vaughan) Exam Results Vital Signs Date Time Temp Pulse Resp B/P (MAP) Pulse Ox O2 Delivery O2 Flow Rate FiO2 06/26/17 08:03 96 50 06/26/17 06:00 71 06/26/17 04:50 Ventilator 06/26/17 00:00 98.8 120/57 (78) 06/25/17 20:00 19 Intake and Output 06/26/17 06/26/17 06/27/17 08:00 16:00 00:00 Intake Total 505 ml Output Total 800 ml Balance -295 ml (Ihsan Vaughan) Physical Examination Resp: Intubated. PRVC A/C rate 12. RR 10. FiO2 50%. Peep 10. Heart: NSR no murmurs Abd: Soft diminished bs. OG TFs 20 ml/hr. Skin: No cyanosis or erythema Muscle: Not following commands for muscle testing. Slight withdrawal of the left upper extremity and withdraws left lower extremity to pain. Right hemiparesis Neuro: Pt sedated on Fentanyl drips. Not opening eyes. Pupils pinpoint. Slight withdrawal of left upper extremity to pain withdraws the left lower extremity to pain, right hemiparesis. (Ihsan Vaughan) Lab, Micro, Other Results Last Impressions Chest X-Ray 06/25/17 0600 Signed Impressions: Service Date/Time: Sunday, June 25, 2017 02:01 - CONCLUSION: 1. Support apparatus in good position. Bilateral air space consolidation not significantly changed since May 25. Jose Ramon Gregory MD Head CT 06/24/17 0000 Signed Impressions: Service Date/Time: June 05:46 - CONCLUSION: Evolving left anterior circulation stroke. Polo Mathur MD Neck CTA 06/16/17 1819 Signed Impressions: Service Date/Time: Friday, June 16, 2017 18:11 - CONCLUSION: No significant stenosis is seen. Polo Pérez MD Head CTA 06/16/17 1759 Signed Impressions: Service Date/Time: Friday, June 16, 2017 18:13 - CONCLUSION: No area of occlusion is seen. There appears to be hyperperfusion in the left middle cerebral artery territory. There is a subacute area of infarction seen on the recent CT examination. Polo Pérez MD Laboratory Tests Test 06/25/17 14:30 06/25/17 22:20 06/26/17 04:25 Sodium Level 153 MEQ/L 154 MEQ/L 154 MEQ/L White Blood Count 18.0 TH/MM3 Red Blood Count 3.95 MIL/MM3 Hemoglobin 9.9 GM/DL Hematocrit 30.6 % Mean Corpuscular Volume 77.5 FL Mean Corpuscular Hemoglobin 25.0 PG Mean Corpuscular Hemoglobin Concent 32.2 % Red Cell Distribution Width 14.0 % Platelet Count 310 TH/MM3 Mean Platelet Volume 9.4 FL Blood Urea Nitrogen 16 MG/DL Creatinine 1.01 MG/DL Random Glucose 111 MG/DL Calcium Level 7.8 MG/DL Potassium Level 3.5 MEQ/L Chloride Level 122 MEQ/L Carbon Dioxide Level 25.1 MEQ/L Anion Gap 7 MEQ/L Estimat Glomerular Filtration Rate 90 ML/MIN (Ihsan Vaughan) Medical Decision Making Impression and Plan A: 66 y/o M66 year old male with large left ischemic stroke with hemorrhagic conversion on CT Brain 06/21, f/u CT Head 06/24 with improved hemorrhage, minimal midline shift Plan Plan Plan Remarks cont critical care, sedation weaning serial neuro checks Rehabilitation efforts Palliative care following, Family discussing possible withdrawal. (Ihsan Vaughan) Attending Statement The exam, history, and the medical decision-making described in the above note were completed with the assistance of the mid-level provider. I reviewed and agree with the findings presented. I attest that I had a [id number] encounter with the patient on the same day, and personally performed and documented my assessment and findings in the medical record. (Gunner Latham MD) Ihasn Vaughan Jun 26, 2017 10:19 Gunner Latham MD Jun 26, 2017 10:38
[2017-06-26] MEDS: levETIRAcetam 1000 MG INJ 100 ML IV SCH ×2 (10:21→22:02)
[2017-06-26] MEDS: MODAFINIL 200 MG TAB PO SCH (10:21)
[2017-06-26] MEDS: ARTIFICIAL TEARS OPTH SOLN 15 ML BTL EACH EYE SCH ×3 (10:22→16:59)
[2017-06-26] MEDS: VANCOMYCIN INJ 1,500 MG in SODIUM CHLORID 0.9% 500 ML INJ 500 ML IV SCH ×2 (11:41→22:02)
[2017-06-26] MEDS ORDERED: PHARMACY ORDERED LAB ONE (21:45)
[2017-06-27] VITALS (18 sets, daily range): BP systolic 103–164; BP diastolic 52–71; PULSE 64–95; RESP 18–44; TEMP 98.7–103; O2SAT 92–100
[2017-06-27] MEDS: PROPOFOL 1000 MG/100 ML INJ 100 ML IV PRN ×7 (00:56→21:25)
[2017-06-27] MEDS: PIPERACIL-TAZO 4.5 GM PREMIX 100 ML IV SCH ×4 (03:09→21:26)
[2017-06-27] MEDS: fentaNYL 2,500 MCG/NS 250 ML IV PRN ×4 (03:09→23:44)
[2017-06-27] MEDS: CHLORHEXIDINE GLUCONATE 2 % 1 PACK (2 CLOTHS) TOP SCH ×2 (04:00→19:55)
[2017-06-27] MEDS: FOSPHENYTOIN SODIUM 100 MG PE/2 ML VIAL IV SCH ×4 (04:49→23:44)
[2017-06-27 06:10] LABS: HEMATOCRIT 28.5 % (39.0-51.0); MEAN CELL VOLUME 78.6 FL (80.0-100.0); MEAN CORPUSCULAR HEMOGLOBIN 24.5 PG (27.0-34.0); MEAN CORPUSCULAR HGB CONC 31.2 % (32.0-36.0); PLATELET COUNT 337 TH/MM3 (150-450); RED BLOOD COUNT 3.62 MIL/MM3 (4.50-5.90); RED CELL DISTRIBUTION WIDTH 13.8 % (11.6-17.2); REVIEW FLAG FINAL
[2017-06-27 06:39] LABS: BICARBONATE 24.4 MEQ/L (21.0-32.0); POTASSIUM 3.3 MEQ/L (3.5-5.1)
--- NOTE | 2017-06-27 07:38 | HHI.NSPN ---
(Ihsan Vaughan) History Chief Complaint: Pt intubated. Large left CVA. (Ihsan Vaughan) Interval History Mr. Thompson is a 66 year old male who presented to [place] 06/16/17 with gaze deficits, and was found to have a large left MCA ischemic stroke. He was evaluated by Dr. Powell and patient was not a candidate for TPA. He is intubated and sedated on fentanyl and Diprivan. He was placed on heparin drip and started on aspirin therapy. A CT Brain 06/21/17 shows hemorrhagic conversion within the ischemic bed with mild mass effect but no significant midline shift. He is on hypertonic saline. A neurosurgical evaluation was requested. 06/24: f/u CT Brain completed this morning, remains intubated and sedated. 06/25: Pt sedated and intubated. Pupils remain pinpoint. No changes clinically. 06/26: Patient not opening eyes. Pupils pinpoint. Patient on Levophed drip. Patient sedated on fentanyl. Withdraws lower extremities to pain. 06/27: Pt not opening eyes. Not following commands. Pt sedated on Fentanyl and diprivan drips. On Levophed drip. Pupils pinpoint. No withdrawal this morning with sedation. (Ihsan Vaughan) System Review Comments Not able to obtain given clinical condition. (Ihsan Vaughan) Exam Results Vital Signs Date Time Temp Pulse Resp B/P (MAP) Pulse Ox O2 Delivery O2 Flow Rate FiO2 06/27/17 06:00 68 06/27/17 04:01 96 40 06/27/17 04:00 98.7 19 103/52 (69) 06/26/17 04:50 Ventilator Intake and Output 06/27/17 06/27/17 06/28/17 08:00 16:00 00:00 Intake Total 1121 ml Output Total 450 ml Balance 671 ml (Ihsan Vaughan) Physical Examination Resp: Intubated. PRVC A/C rate 12. RR 10. FiO2 40%. Peep 10. Heart: NSR no murmurs. Pt on Levophed drip. Abd: Soft diminished bs. OG TFs 20 ml/hr. Skin: No cyanosis or erythema Muscle: Not following commands for muscle testing. Slight withdrawal of the left upper extremity and withdraws left lower extremity to pain. Right hemiparesis Neuro: Pt sedated on Diprivan and Fentanyl drips. Not opening eyes. Pupils pinpoint. Slight withdrawal of left upper extremity to pain withdraws the left lower extremity to pain, right hemiparesis. (Ihsan Vaughan) Lab, Micro, Other Results Last Impressions Chest X-Ray 06/25/17 0600 Signed Impressions: Service Date/Time: Sunday, June 25, 2017 02:01 - CONCLUSION: 1. Support apparatus in good position. Bilateral air space consolidation not significantly changed since May 25. Jose Ramon Gregory MD Head CT 06/24/17 0000 Signed Impressions: Service Date/Time: June 05:46 - CONCLUSION: Evolving left anterior circulation stroke. Polo Mathur MD Neck CTA 06/16/17 1819 Signed Impressions: Service Date/Time: Friday, June 16, 2017 18:11 - CONCLUSION: No significant stenosis is seen. Polo Pérez MD Head CTA 06/16/17 8689 Signed Impressions: Service Date/Time: Friday, June 16, 2017 18:13 - CONCLUSION: No area of occlusion is seen. There appears to be hyperperfusion in the left middle cerebral artery territory. There is a subacute area of infarction seen on the recent CT examination. Polo Pérez MD Laboratory Tests Test 06/27/17 05:35 White Blood Count 13.0 TH/MM3 Red Blood Count 3.62 MIL/MM3 Hemoglobin 8.9 GM/DL Hematocrit 28.5 % Mean Corpuscular Volume 78.6 FL Mean Corpuscular Hemoglobin 24.5 PG Mean Corpuscular Hemoglobin Concent 31.2 % Red Cell Distribution Width 13.8 % Platelet Count 337 TH/MM3 Mean Platelet Volume 9.3 FL Blood Urea Nitrogen 18 MG/DL Creatinine 1.05 MG/DL Random Glucose 122 MG/DL Calcium Level 7.8 MG/DL Sodium Level 155 MEQ/L Potassium Level 3.3 MEQ/L Chloride Level 123 MEQ/L Carbon Dioxide Level 24.4 MEQ/L Anion Gap 8 MEQ/L Estimat Glomerular Filtration Rate 86 ML/MIN (Ihsan Vaughan) Medical Decision Making Impression and Plan A: 66 year old male with large left ischemic stroke with hemorrhagic conversion on CT Brain 06/21, f/u CT Head 06/24 with improved hemorrhage, minimal midline shift Plan Plan Plan Remarks cont critical care, sedation weaning serial neuro checks Rehabilitation efforts Palliative care following, Family discussing possible withdrawal. (hIsan Vaughan) Attending Statement The exam, history, and the medical decision-making described in the above note were completed with the assistance of the mid-level provider. I reviewed and agree with the findings presented. I attest that I had a [id number] encounter with the patient on the same day, and personally performed and documented my assessment and findings in the medical record. No improvement in exam. Family contemplating withdrawl of care with comfort measures. (Gunner Latham MD) Ihsan Vaughan Jun 27, 2017 07:38 Gunner Latham MD Jun 27, 2017 20:36
[2017-06-27] MEDS: INSULIN ASPART SUPPLEMENTAL SCALE SQ SCH ×4 (08:00→21:00)
[2017-06-27] MEDS: ARTIFICIAL TEARS OPTH SOLN 15 ML BTL EACH EYE SCH ×3 (08:40→17:17)
[2017-06-27] MEDS: DOCUSATE SODIUM 50 MG/SENNA 8.6 MG TAB PO SCH ×2 (08:40→21:00)
[2017-06-27] MEDS: levETIRAcetam 1000 MG INJ 100 ML IV SCH ×2 (08:40→21:26)
[2017-06-27] MEDS: MODAFINIL 200 MG TAB PO SCH (08:40)
[2017-06-27] MEDS: SODIUM CHLORIDE 0.9% FLUSH 5 ML FLUSH IV FLUSH SCH ×2 (08:41→21:00)
[2017-06-27] MEDS: NOREPINEPHRINE INJ 4 MG in SODIUM CHLOR 0.9% 250 ML INJ 246 ML IV PRN ×2 (09:25→19:50)
[2017-06-27] MEDS ORDERED: PHARMACY ORDERED LAB ONE (09:45)
--- NOTE | 2017-06-27 10:04 | HHI.CCPN ---
Subjective Remarks/Hospital Course 06/16: 66-year-old unfortunate gentleman with a history of polysubstance abuse, presents here with altered mental status. When paramedics arrived, they found the patient to be obtunded with a GCS of 11. Friends who are at the patient's residence stated that they last saw him at 3:30. The patient arrived at roughly 5 PM. Patient was made a stroke alert as he was still in the window. Patient was unable to give any history regarding his visits secondary to his altered mental status. Patient had a left sided gaze with spasticity to his right upper extremity and clonus of his right lower shimmy. The CT of the head showed acute/subacute CVA at the left MCA territory and decision and not to administer TPA was made. While in the emergency department patient developed tonic-clonic seizures and was intubated by me for an airway protection. 06/17: Remains sedated, orally intubated on mechanical ventilation. 06/18: Remains sedated, orally intubated on mechanical ventilation. 06/19: no improvements. remains encephalopathic. intubated and mechanically ventilated. 06/20: no improvements in severe encephalopathy. 2 brothers at bedside yesterday and I had a long discussion about his poor prognosis and likely devastating persistent deficits. family stated "that's no way to live" but then stated "we don't believe in DNR or anything like that." They are likely pursuing aggressive medical management. 06/21: Remains encephalopathic off sedation, orally intubated on mechanical ventilation. Developed fevers over the weekend. Ordered pancultures and chest x-ray today which revealed significant bilateral pneumonia. 06/22: Remains encephalopathic off sedation, orally intubated on mechanical ventilation. 06/23: Remains encephalopathic on holding sedation, orally intubated on mechanical ventilation. CT head done yesterday showed some hemorrhagic conversion hence aspirin was stopped. Neurosurgery consulted today in view of some mass effect noted on head CT. Patient was started on 3% saline. Has been tolerating tube feeds. 06/24: Remains encephalopathic, orally intubated on mechanical ventilation. Remains on 3% saline. Tolerating tube feeds. 06/25: Osmolality acceptable. Diffuse lung infiltrates are infectious in etiology though some signs of venous congestion. No improvement in neurological condition. 06/26: Serum well concentrated. No neurological improvement. 06/27: Osmolality fine, hold 3% saline. No improvement. Objective Vital Signs Date Time Temp Pulse Resp B/P (MAP) Pulse Ox O2 Delivery O2 Flow Rate FiO2 06/27/17 09:25 67 126/60 06/27/17 08:44 96 40 06/27/17 08:00 99.9 18 06/26/17 04:50 Ventilator Intake and Output 06/27/17 06/27/17 06/28/17 08:00 16:00 00:00 Intake Total 1121 ml Output Total 450 ml Balance 671 ml Result Diagram: 06/27/17 0535 06/27/17 0535 Imaging Last [address] 06/24/17 0000 Signed Impressions: Service Date/Time: June 05:46 - CONCLUSION: Evolving left anterior circulation stroke. Polo Mathur MD Last 48 hours Impressions Chest X-Ray 06/21/17 0000 Signed Impressions: Service Date/Time: Wednesday, June 21, 2017 09:07 - CONCLUSION: Decreased airspace disease both lungs. Brian Gallardo MD FACR Last Impressions Head CT 06/17/17 1000 Signed Impressions: Service Date/Time: June 10:46 - CONCLUSION: Evolving left MCA and DAIN stroke as described Polo Mathur MD Neck CTA 06/16/17 1819 Signed Impressions: Service Date/Time: Friday, June 16, 2017 18:11 - CONCLUSION: No significant stenosis is seen. Polo Pérez MD Head CTA 06/16/17 1759 Signed Impressions: Service Date/Time: Friday, June 16, 2017 18:13 - CONCLUSION: No area of occlusion is seen. There appears to be hyperperfusion in the left middle cerebral artery territory. There is a subacute area of infarction seen on the recent CT examination. Polo Pérez MD Chest X-Ray 06/16/17 0000 Signed Impressions: Service Date/Time: Friday, June 16, 2017 23:32 - CONCLUSION: Mild bibasilar consolidation and small effusions. Line and tube positions as above. No pneumothorax. Polo Sosa MD Objective Remarks GENERAL: Elderly appearing gentleman sedated and intubated SKIN: Warm and dry. HEAD: Normocephalic.Left sided gaze EYES: No scleral icterus. No injection or drainage. NECK: trachea midline. Orally intubated. CARDIOVASCULAR: Regular rate and rhythm. Neck veins are full. RESPIRATORY: Mechanical ventilation. Breath sounds equal bilaterally. Scattered rhonchi persist, no wheezing GASTROINTESTINAL: Abdomen soft, non-tender, nondistended. BS active. MUSCULOSKELETAL: No cyanosis, or edema. Spasticity to his right upper extremity and clonus of his right lower extremity. Withdraws left arm. NEURO EXAM: Pupils 2mm, equal, reacting to light. RASS -4, w/d to pain on left. right contracted. minor cough and gag only. A/P Assessment and Plan Assessment: 66yM with massive Left MCA and DAIN infarct with some hemorrhagic conversion and associated severe encephalopathy and deficits, along with acute hypoxic and hypercarbic respiratory failure. Poor prognosis. palliative care following. Acute Hypoxic and Hypercarbic Respiratory failure on mechanical ventilation Pneumonia Sepsis UTI - No weaning until neurologically improved - Palliative care consult - Most likely will need a trach and peg if family requests aggressive management - Pancultures ordered and started empiric Zosyn and vancomycin IV on 06/21 Acute Left MCA and DAIN CVA - Left MCA and DAIN territory - Extremely poor prognosis - Not a candidate for TPA - Aspirin and Plavix -hold in v/o hemorrhagic areas per radiology on CT Head done on 06/21. - Neurology following. Neurosurgery consulted. Started on 3% saline 06/23 for mass effect seen on head CT. Follow serial sodium -Follow up head CT per neurosurgery and neurology. Hypertension - Hydralazine when necessary to keep SBP less than 150 Peptic ulcer disease/GERD - IV Pepcid Alcohol and polysubstance abuse - Thiamine folate and multivitamins - Monitor for withdrawal History of Hepatitis C positive - Supportive care Seizure - Keppra, Fosphenytoin -Follow up EEG DVT GI prophylaxis - Teds SCDs - Subcutaneous heparin - IV Pepcid Condition remains critical. Palliative care following to assist with deciding goals of therapy. Overall impression: Devastating stroke. Systemic infection. Prognosis poor. Walter Rodriguez MD Jun 27, 2017 10:03
[2017-06-27] MEDS: VANCOMYCIN INJ 1,500 MG in SODIUM CHLORID 0.9% 500 ML INJ 500 ML IV SCH (10:15)
[2017-06-27] MEDS: RESP: ALBUTEROL 2.5 MG/IPRATROPIUM 0.5 MG NEB (PRN) INH (10:41)
[2017-06-27] MEDS: ACETAMINOPHEN 325 MG TAB PO PRN (16:25)
[2017-06-28] VITALS (18 sets, daily range): BP systolic 118–158; BP diastolic 59–74; PULSE 69–83; RESP 24–30; TEMP 99–102.5; O2SAT 90–99
[2017-06-28] MEDS: PROPOFOL 1000 MG/100 ML INJ 100 ML IV PRN ×3 (01:22→23:56)
[2017-06-28] MEDS: NOREPINEPHRINE INJ 4 MG in SODIUM CHLOR 0.9% 250 ML INJ 246 ML IV PRN ×2 (02:18→10:05)
[2017-06-28] MEDS: PIPERACIL-TAZO 4.5 GM PREMIX 100 ML IV SCH ×4 (02:53→22:29)
[2017-06-28] MEDS: ACETAMINOPHEN 325 MG TAB PO PRN ×3 (05:17→18:30)
[2017-06-28] MEDS: FOSPHENYTOIN SODIUM 100 MG PE/2 ML VIAL IV SCH ×4 (05:17→23:55)
[2017-06-28] MEDS: INSULIN ASPART SUPPLEMENTAL SCALE SQ SCH ×4 (08:00→22:00)
[2017-06-28] MEDS: SODIUM CHLORIDE 0.9% FLUSH 5 ML FLUSH IV FLUSH SCH ×2 (08:22→22:00)
[2017-06-28] MEDS: ARTIFICIAL TEARS OPTH SOLN 15 ML BTL EACH EYE SCH ×3 (08:22→22:00)
--- NOTE | 2017-06-28 08:26 | HHI.CCPN ---
Subjective Remarks/Hospital Course 06/16: 66-year-old unfortunate gentleman with a history of polysubstance abuse, presents here with altered mental status. When paramedics arrived, they found the patient to be obtunded with a GCS of 11. Friends who are at the patient's residence stated that they last saw him at 3:30. The patient arrived at roughly 5 PM. Patient was made a stroke alert as he was still in the window. Patient was unable to give any history regarding his visits secondary to his altered mental status. Patient had a left sided gaze with spasticity to his right upper extremity and clonus of his right lower shimmy. The CT of the head showed acute/subacute CVA at the left MCA territory and decision and not to administer TPA was made. While in the emergency department patient developed tonic-clonic seizures and was intubated by me for an airway protection. 06/17: Remains sedated, orally intubated on mechanical ventilation. 06/18: Remains sedated, orally intubated on mechanical ventilation. 06/19: no improvements. remains encephalopathic. intubated and mechanically ventilated. 06/20: no improvements in severe encephalopathy. 2 brothers at bedside yesterday and I had a long discussion about his poor prognosis and likely devastating persistent deficits. family stated "that's no way to live" but then stated "we don't believe in DNR or anything like that." They are likely pursuing aggressive medical management. 06/21: Remains encephalopathic off sedation, orally intubated on mechanical ventilation. Developed fevers over the weekend. Ordered pancultures and chest x-ray today which revealed significant bilateral pneumonia. 06/22: Remains encephalopathic off sedation, orally intubated on mechanical ventilation. 06/23: Remains encephalopathic on holding sedation, orally intubated on mechanical ventilation. CT head done yesterday showed some hemorrhagic conversion hence aspirin was stopped. Neurosurgery consulted today in view of some mass effect noted on head CT. Patient was started on 3% saline. Has been tolerating tube feeds. 06/24: Remains encephalopathic, orally intubated on mechanical ventilation. Remains on 3% saline. Tolerating tube feeds. 06/25: Osmolality acceptable. Diffuse lung infiltrates are infectious in etiology though some signs of venous congestion. No improvement in neurological condition. 06/26: Serum well concentrated. No neurological improvement. 06/27: Osmolality fine, hold 3% saline. No improvement. 06/28: Requiring increased FiO2. Objective Vital Signs Date Time Temp Pulse Resp B/P (MAP) Pulse Ox O2 Delivery O2 Flow Rate FiO2 06/28/17 06:00 75 06/28/17 04:00 50 06/28/17 04:00 101.8 24 139/64 (89) 95 06/26/17 04:50 Ventilator Intake and Output 06/28/17 06/28/17 06/29/17 08:00 16:00 00:00 Intake Total 855 ml Output Total 800 ml Balance 55 ml Result Diagram: 06/27/17 0535 06/27/17 0535 Imaging Last [address] 06/24/17 0000 Signed Impressions: Service Date/Time: June 05:46 - CONCLUSION: Evolving left anterior circulation stroke. Polo Mathur MD Last 48 hours Impressions Chest X-Ray 06/21/17 0000 Signed Impressions: Service Date/Time: Wednesday, June 21, 2017 09:07 - CONCLUSION: Decreased airspace disease both lungs. Brian Gallardo MD FACR Last Impressions Head CT 06/17/17 1000 Signed Impressions: Service Date/Time: June 10:46 - CONCLUSION: Evolving left MCA and DAIN stroke as described Polo Mathur MD Neck CTA 06/16/17 1819 Signed Impressions: Service Date/Time: Friday, June 16, 2017 18:11 - CONCLUSION: No significant stenosis is seen. Polo Pérez MD Head CTA 06/16/17 1759 Signed Impressions: Service Date/Time: Friday, June 16, 2017 18:13 - CONCLUSION: No area of occlusion is seen. There appears to be hyperperfusion in the left middle cerebral artery territory. There is a subacute area of infarction seen on the recent CT examination. Polo Pérez MD Chest X-Ray 06/16/17 0000 Signed Impressions: Service Date/Time: Friday, June 16, 2017 23:32 - CONCLUSION: Mild bibasilar consolidation and small effusions. Line and tube positions as above. No pneumothorax. Polo Sosa MD Objective Remarks GENERAL: Elderly appearing gentleman sedated and intubated SKIN: Warm and dry. HEAD: Normocephalic.Left sided gaze EYES: No scleral icterus. No injection or drainage. NECK: trachea midline. Orally intubated. CARDIOVASCULAR: Regular rate and rhythm. Neck veins are full. RESPIRATORY: Mechanical ventilation. Breath sounds equal bilaterally. Scattered rhonchi persist, no wheezing. Weak cough. GASTROINTESTINAL: Abdomen soft, non-tender, nondistended. BS active. MUSCULOSKELETAL: No cyanosis, or edema. Spasticity to his right upper extremity and clonus of his right lower extremity. Withdraws left arm. NEURO EXAM: Pupils 2mm, equal, reacting to light. RASS -4, w/d to pain on left. right contracted. minor cough and gag only. A/P Assessment and Plan Assessment: 66yM with massive Left MCA and DAIN infarct with some hemorrhagic conversion and associated severe encephalopathy and deficits, along with acute hypoxic and hypercarbic respiratory failure. Poor prognosis. palliative care following. Acute Hypoxic and Hypercarbic Respiratory failure on mechanical ventilation Pneumonia Sepsis UTI - No weaning until neurologically improved - Palliative care consult - Most likely will need a trach and peg if family requests aggressive management - Pancultures ordered and started empiric Zosyn and vancomycin IV on 06/21 Acute Left MCA and DAIN CVA - Left MCA and DAIN territory - Extremely poor prognosis - Not a candidate for TPA - Aspirin and Plavix -hold in v/o hemorrhagic areas per radiology on CT Head done on 06/21. - Neurology following. Neurosurgery consulted. Started on 3% saline 06/23 for mass effect seen on head CT. Follow serial sodium -Follow up head CT per neurosurgery and neurology. Hypertension - Hydralazine when necessary to keep SBP less than 150 Peptic ulcer disease/GERD - IV Pepcid Alcohol and polysubstance abuse - Thiamine folate and multivitamins - Monitor for withdrawal History of Hepatitis C positive - Supportive care Seizure - Keppra, Fosphenytoin -Follow up EEG DVT GI prophylaxis - Teds SCDs - Subcutaneous heparin - IV Pepcid Condition remains critical. Palliative care following to assist with deciding goals of therapy. Overall impression: Devastating stroke. Systemic infection. Prognosis poor. Increasing secretions. Walter Rodriguez MD Jun 28, 2017 08:26
[2017-06-28] MEDS: MODAFINIL 200 MG TAB PO SCH (08:27)
[2017-06-28] MEDS: DOCUSATE SODIUM 50 MG/SENNA 8.6 MG TAB PO SCH ×2 (08:27→21:59)
[2017-06-28] MEDS: levETIRAcetam 1000 MG INJ 100 ML IV SCH ×2 (08:39→22:00)
--- NOTE | 2017-06-28 09:44 | HHI.NSPN ---
(Judson Kramer) History Chief Complaint: Unable to obtain due to patient's clinical condition. (Judson Kramer) Interval History Mr. Thompson is a 66 year old male who presented to [place] 06/16/17 with gaze deficits, and was found to have a large left MCA ischemic stroke. He was evaluated by Dr. Powell and patient was not a candidate for TPA. He is intubated and sedated on fentanyl and Diprivan. He was placed on heparin drip and started on aspirin therapy. A CT Brain 06/21/17 shows hemorrhagic conversion within the ischemic bed with mild mass effect but no significant midline shift. He is on hypertonic saline. A neurosurgical evaluation was requested. 06/24: f/u CT Brain completed this morning, remains intubated and sedated. 06/25: Pt sedated and intubated. Pupils remain pinpoint. No changes clinically. 06/26: Patient not opening eyes. Pupils pinpoint. Patient on Levophed drip. Patient sedated on fentanyl. Withdraws lower extremities to pain. 06/27: Pt not opening eyes. Not following commands. Pt sedated on Fentanyl and diprivan drips. On Levophed drip. Pupils pinpoint. No withdrawal this morning with sedation. 06/28: The patient is comatose this morning. He is sedated with propofol and has fentanyl infusing for pain control. A norepinephrine drip is also infusing. He is intubated and mechanically ventilated. There is no response to stimulation. (Judson Kramer) System Review Comments Unable to obtain due to patient's clinical condition. (Judson Kramer) Exam Results 06/26/17 06/26/17 06/27/17 06/27/17 06/28/17 06/28/17 06:00 18:00 06:00 18:00 06:00 18:00 Intake Total 1269 ml 1565 ml 1221 ml 2527 ml 855 ml Output Total 800 ml 400 ml 450 ml 700 ml 800 ml Balance 469 ml 1165 ml 771 ml 1827 ml 55 ml Intake IV Total 875 ml 1017 ml 550 ml 1693 ml Tube Feeding 274 ml 548 ml 551 ml 834 ml 795 ml Other 120 ml 120 ml 60 ml Output Urine Total 800 ml 400 ml 450 ml 700 ml 800 ml # Bowel Movements 2 0 0 0 0 Vital Signs Date Time Temp Pulse Resp B/P (MAP) Pulse Ox O2 Delivery O2 Flow Rate FiO2 06/28/17 08:34 91 50 06/28/17 08:05 50 06/28/17 06:00 75 06/28/17 04:00 73 06/28/17 04:00 50 06/28/17 04:00 101.8 72 24 139/64 (89) 95 06/28/17 03:25 95 50 06/28/17 02:18 71 139/74 06/28/17 02:00 72 06/28/17 00:15 95 50 06/28/17 00:00 69 06/28/17 00:00 99.0 69 24 132/70 (90) 94 06/28/17 00:00 50 06/27/17 22:00 69 06/27/17 22:00 50 06/27/17 21:40 98 50 06/27/17 20:00 73 06/27/17 20:00 99.6 71 20 123/58 (79) 98 06/27/17 19:50 71 85/46 06/27/17 18:45 73 113/57 06/27/17 18:00 73 06/27/17 17:51 76 103/52 06/27/17 16:00 81 06/27/17 16:00 103.0 81 26 113/57 (75) 97 06/27/17 16:00 50 06/27/17 15:43 100 60 06/27/17 14:12 99 70 06/27/17 14:00 90 06/27/17 12:00 98.8 95 44 154/62 (92) 92 06/27/17 12:00 50 06/27/17 12:00 95 06/27/17 10:47 96 70 06/27/17 10:00 64 06/27/17 09:25 67 126/60 06/27/17 08:44 96 40 06/27/17 08:00 99.9 70 18 110/57 (74) 92 06/27/17 08:00 70 06/27/17 08:00 50 06/27/17 06:00 68 06/27/17 04:01 96 40 06/27/17 04:00 75 06/27/17 04:00 50 06/27/17 04:00 98.7 72 19 103/52 (69) 92 06/27/17 02:00 75 06/27/17 00:00 99.0 93 25 164/71 (102) 99 06/27/17 00:00 50 06/27/17 00:00 85 06/26/17 23:55 98 40 06/26/17 22:00 85 06/26/17 20:00 100 40 06/26/17 20:00 50 06/26/17 20:00 99.1 72 17 134/63 (86) 96 06/26/17 20:00 72 06/26/17 18:39 98 50 06/26/17 18:00 66 06/26/17 16:00 50 06/26/17 16:00 99.4 69 26 128/63 (84) 97 06/26/17 16:00 69 06/26/17 15:00 68 129/64 06/26/17 14:00 73 06/26/17 14:00 73 124/63 06/26/17 12:00 76 06/26/17 12:00 99.8 76 19 138/65 (89) 93 06/26/17 12:00 50 06/26/17 11:48 92 50 06/26/17 10:00 76 06/26/17 08:03 96 50 06/26/17 08:00 100.3 76 20 121/59 (79) 96 06/26/17 08:00 77 06/26/17 08:00 50 06/26/17 06:00 71 06/26/17 04:50 100 Ventilator 06/26/17 04:45 100 50 06/26/17 04:00 70 06/26/17 04:00 50 06/26/17 02:00 75 06/26/17 00:47 100 50 06/26/17 00:00 98.8 72 120/57 (78) 97 06/26/17 00:00 72 06/26/17 00:00 50 06/25/17 22:00 72 06/25/17 20:09 97 Ventilator 06/25/17 20:00 60 06/25/17 20:00 85 06/25/17 20:00 99.8 85 19 158/76 (103) 98 06/25/17 19:59 100 50 06/25/17 18:00 69 06/25/17 16:01 96 50 06/25/17 16:00 99.2 71 21 105/56 (72) 96 06/25/17 16:00 71 06/25/17 16:00 60 06/25/17 14:40 95 50 06/25/17 14:00 103 06/25/17 12:00 82 06/25/17 12:00 60 06/25/17 12:00 102.4 82 21 114/59 (77) 97 06/25/17 10:57 98 50 06/25/17 10:00 77 06/25/17 09:41 77 109/59 (Judson Kramer) Physical Examination GENERAL: Patient obtunded. He is intubated and mechanically ventilated. He is on propofol at 40 mcg/kg/min for sedation and has fentanyl 200 mcg/hr infusing for pain control. HEENT: Normocephalic, atraumatic, pupils are pinpoint bilaterally, orally intubated, OGT. NECK: Nno JVD, trachea midline. RESPIRATORY: Coarse bilaterally, equal excursion, tachypneic, orally intubated and on PRVC A/C. CARDIOVASCULAR: S1S2 slightly irregular w/o M/G/R, radial & pedal pulses 2+ bilaterally, cap refill < 2 sec, 2+ pedal edema on left. Monitor is sinus rhythm w/bifocal ectopy noted. GASTROINTESTINAL: Abdomen soft, positive bowel sounds, OGT w/enteral feeds. INTEGUMENTARY: Slightly hot, dry & intact w/o any evident rashes, ulcerations or edema. MUSCULOSKELETAL: No evident deformity or clubbing. NEUROLOGICAL: Obtunded but sedated with propofol, also with fentanyl for pain control, GCS 3T (E1 V1T M1) No eye opening to verbal or noxious stimulation. No verbal response. Does not follow commands. Pupils pinpoint. No motor response to local or central noxious stimulation. (Judson Kramer) Lab, Micro, Other Results Laboratory Tests Test 06/25/17 09:30 06/25/17 14:30 06/25/17 22:20 06/26/17 04:25 Sodium Level 153 MEQ/L 153 MEQ/L 154 MEQ/L 154 MEQ/L Vancomycin Level Trough 16.9 MCG/ML White Blood Count 18.0 TH/MM3 Red Blood Count 3.95 MIL/MM3 Hemoglobin 9.9 GM/DL Hematocrit 30.6 % Mean Corpuscular Volume 77.5 FL Mean Corpuscular Hemoglobin 25.0 PG Mean Corpuscular Hemoglobin Concent 32.2 % Red Cell Distribution Width 14.0 % Platelet Count 310 TH/MM3 Mean Platelet Volume 9.4 FL Blood Urea Nitrogen 16 MG/DL Creatinine 1.01 MG/DL Random Glucose 111 MG/DL Calcium Level 7.8 MG/DL Potassium Level 3.5 MEQ/L Chloride Level 122 MEQ/L Carbon Dioxide Level 25.1 MEQ/L Anion Gap 7 MEQ/L Estimat Glomerular Filtration Rate 90 ML/MIN Test 06/27/17 05:35 06/27/17 09:45 06/28/17 03:11 White Blood Count 13.0 TH/MM3 Red Blood Count 3.62 MIL/MM3 Hemoglobin 8.9 GM/DL Hematocrit 28.5 % Mean Corpuscular Volume 78.6 FL Mean Corpuscular Hemoglobin 24.5 PG Mean Corpuscular Hemoglobin Concent 31.2 % Red Cell Distribution Width 13.8 % Platelet Count 337 TH/MM3 Mean Platelet Volume 9.3 FL Blood Urea Nitrogen 18 MG/DL Creatinine 1.05 MG/DL Random Glucose 122 MG/DL Calcium Level 7.8 MG/DL Sodium Level 155 MEQ/L Potassium Level 3.3 MEQ/L Chloride Level 123 MEQ/L Carbon Dioxide Level 24.4 MEQ/L Anion Gap 8 MEQ/L Estimat Glomerular Filtration Rate 86 ML/MIN Vancomycin Level Trough 22.7 MCG/ML Random Vancomycin Level 19.2 COMMENT (Judson Kramer) Medical Decision Making Impression and Plan Impression: Large left ischemic stroke with hemorrhagic conversion on CT Brain 06/21, f/u CT Head 06/24 with improved hemorrhage, minimal midline shift Patient is comatose and nonresponsive to any stimulation, prognosis poor. Plan: Critical care management per [employer]. Frequent neuro checks. Wean sedation as tolerated. Continue levetiracetam. Rehabilitation efforts. Palliative care following, family discussing possible withdrawal. (Judson Kramer) Impression and Plan The exam, history, and the medical decision-making described in the above note were completed with the assistance of the mid-level provider. I reviewed and agree with the findings presented. I attest that I had a [id number] encounter with the patient on the same day, and personally performed and documented my assessment and findings in the medical record. On my examination today the patient is intubated, sedated on propofol. He failed CPAP trials this morning. He has mild intermittent twitching of the eyelids and facial musculature. Pupils 2 mm nonreactive Absent oculocephalic movements. Discussed with nursing staff Possible persistent seizure activity Recheck EEG. Continues on Keppra and Cerebyx (Naman Alexis MD) Judson Kramer Jun 28, 2017 09:44 Naman Alexis MD Jun 28, 2017 12:34
--- NOTE | 2017-06-28 14:19 | HHI.HCPN ---
Reason for visit a. To assist with evaluation and management of symptoms including: dyspnea, encephalopathy, pain b. To assist medical decision maker(s) with: better understanding of current medical conditions; weighing benefits/burdens of medical treatment options; making medical treatment decisions. . Subjective/Interval History Patient remains intubated, mechanically ventilated, sedated on propofol and fentanyl. Patient does not respond to noxious stimuli, remains encephalopathic. Tmax in the past 24 hours 102.5, sputum culture positive for staphylococcus aureus and klebsiella pneumoniae, urine positive for Providencia rettgeri and enterococcus faecalis, blood positive for bacillus species not antracis, staph coag negative. Antibiotic therapy with vancomycin and Zosyn ongoing. Now requiring presser support with levophed for hemodynamic instability. Consultations: * Neurosurgery - poor prognosis, comatose, nonresponsive state to any stimulation. * Seismograph Observer - notes increased FiO2 requirements. Notes poor prognosis with devastating ischemic stroke with hemorrhagic conversion. Condition remains critical. Patient remains intubated, and mechanically ventilated and sedated on propofol and fentanyl. He is unresponsive to noxious stimuli. . Family/friend interactions Spoke with son, Naman, via telephone and updated as to patient current status and stated prognosis of specialists. He states he is planning to come to the hospital tomorrow (06/29) to sign the withdrawal exhibited. He states that he would like to have the withdrawal done either Wednesday afternoon or Wednesday morning to allow for assembly of his family members. Exhibits are otherwise signed, excepting family member, and are available on the chart. . Advance Directives Living Will: Never completed Health Care Surrogate: Never completed Durable Power of Insurance Follow Up Rep: Never completed Objective Vital Signs Date Time Temp Pulse Resp B/P (MAP) Pulse Ox O2 Delivery O2 Flow Rate FiO2 06/28/17 12:00 76 06/28/17 12:00 101.1 76 30 134/63 (86) 90 06/28/17 12:00 50 06/28/17 11:53 92 50 06/28/17 10:05 80 118/56 06/28/17 10:00 76 06/28/17 08:34 91 50 06/28/17 08:33 50 06/28/17 08:05 50 06/28/17 08:05 50 06/28/17 08:00 102.5 76 26 134/61 (85) 95 06/28/17 08:00 76 06/28/17 08:00 50 06/28/17 06:00 75 06/28/17 04:00 73 06/28/17 04:00 50 06/28/17 04:00 101.8 72 24 139/64 (89) 95 06/28/17 03:25 95 50 06/28/17 02:18 71 139/74 06/28/17 02:00 72 06/28/17 00:15 95 50 06/28/17 00:00 69 06/28/17 00:00 99.0 69 24 132/70 (90) 94 06/28/17 00:00 50 06/27/17 22:00 69 06/27/17 22:00 50 06/27/17 21:40 98 50 06/27/17 20:00 73 06/27/17 20:00 99.6 71 20 123/58 (79) 98 06/27/17 19:50 71 85/46 06/27/17 18:45 73 113/57 06/27/17 18:00 73 06/27/17 17:51 76 103/52 06/27/17 16:00 81 06/27/17 16:00 103.0 81 26 113/57 (75) 97 06/27/17 16:00 50 06/27/17 15:43 100 60 06/27/17 14:12 99 70 06/27/17 14:00 90 Intake & Output 06/28/17 06/28/17 07:00 19:00 Intake Total 855 ml 450 ml Output Total 800 ml Balance 55 ml 450 ml Intake IV Total 450 ml Tube Feeding 795 ml Other 60 ml Output Urine Total 800 ml # Bowel Movements 0 . Physical Exam CONSTITUTIONAL/GENERAL: This is an elderly male patient, intubated, mechanically ventilated. TUBES/LINES/DRAINS: ETT, OGT, CVL RIJ, PIV x 1, soft wrist restraints, abebe catheter SKIN: No jaundice, rashes, or lesions. No wounds seen anteriorly. Skin temperature warm, dry. Not diaphoretic. CARDIOVASCULAR: Regular rate and rhythm, without murmurs, gallops, or rubs. No JVD. Peripheral pulses symmetric. RESPIRATORY/CHEST: Symmetric, mechanically ventilated. Coarse rhonchi, bibasilar crackles, breath sounds equal bilaterally. Tachypneic. GASTROINTESTINAL: Abdomen soft, nondistended. Bowel sounds present. GENITOURINARY: Without palpable bladder distension. Abebe catheter in place. MUSCULOSKELETAL: Extremities without clubbing, cyanosis, or edema. No mottling or clubbing. NEUROLOGICAL: Sedated. Does not withdraw to noxious stimuli. PSYCHIATRIC: Unable to assess secondary to clinical condition. . Diagnostic Tests Laboratory Laboratory Tests Test 06/25/17 14:30 06/25/17 22:20 06/26/17 04:25 06/27/17 05:35 Sodium Level 153 MEQ/L (136-145) 154 MEQ/L (136-145) 154 MEQ/L (136-145) 155 MEQ/L (136-145) White Blood Count 18.0 TH/MM3 (4.0-11.0) 13.0 TH/MM3 (4.0-11.0) Red Blood Count 3.95 MIL/MM3 (4.50-5.90) 3.62 MIL/MM3 (4.50-5.90) Hemoglobin 9.9 GM/DL (13.0-17.0) 8.9 GM/DL (13.0-17.0) Hematocrit 30.6 % (39.0-51.0) 28.5 % (39.0-51.0) Mean Corpuscular Volume 77.5 FL (80.0-100.0) 78.6 FL (80.0-100.0) Mean Corpuscular Hemoglobin 25.0 PG (27.0-34.0) 24.5 PG (27.0-34.0) Mean Corpuscular Hemoglobin Concent 32.2 % (32.0-36.0) 31.2 % (32.0-36.0) Red Cell Distribution Width 14.0 % (11.6-17.2) 13.8 % (11.6-17.2) Platelet Count 310 TH/MM3 (150-450) 337 TH/MM3 (150-450) Mean Platelet Volume 9.4 FL (7.0-11.0) 9.3 FL (7.0-11.0) Blood Urea Nitrogen 16 MG/DL (7-18) 18 MG/DL (7-18) Creatinine 1.01 MG/DL (0.60-1.30) 1.05 MG/DL (0.60-1.30) Random Glucose 111 MG/DL (74-106) 122 MG/DL (74-106) Calcium Level 7.8 MG/DL (8.5-10.1) 7.8 MG/DL (8.5-10.1) Potassium Level 3.5 MEQ/L (3.5-5.1) 3.3 MEQ/L (3.5-5.1) Chloride Level 122 MEQ/L (98-107) 123 MEQ/L (98-107) Carbon Dioxide Level 25.1 MEQ/L (21.0-32.0) 24.4 MEQ/L (21.0-32.0) Anion Gap 7 MEQ/L (5-15) 8 MEQ/L (5-15) Estimat Glomerular Filtration Rate 90 ML/MIN (>89) 86 ML/MIN (>89) Test 06/27/17 09:45 06/28/17 03:11 Vancomycin Level Trough 22.7 MCG/ML (5.0-10.0) Random Vancomycin Level 19.2 COMMENT . Result Diagram: 06/27/17 0535 06/27/17 0535 Microbiology Microbiology Date/Time Source Procedure Growth Status 06/22/17 08:53 Blood Peripheral Aerobic Blood Culture - Final Bacillus Species Not Anthracis Staph Sp Coagulase Negative Complete 06/22/17 08:53 Blood Peripheral Anaerobic Blood Culture - Final NO GROWTH IN 5 DAYS Complete 06/21/17 10:40 Sputum Endotracheal Gram Stain - Final Complete 06/21/17 10:40 Sputum Culture - Final Staphylococcus Aureus Klebsiella Pneumoniae Complete 06/21/17 11:00 Urine Catheterized Urine Urine Culture - Final Providencia Rettgeri Enterococcus Faecalis Complete Imaging Last Impressions Chest X-Ray 06/25/17 0600 Signed Impressions: Service Date/Time: Sunday, June 25, 2017 02:01 - CONCLUSION: 1. Support apparatus in good position. Bilateral air space consolidation not significantly changed since May 25. Jose Ramon Gregory MD Head CT 06/24/17 0000 Signed Impressions: Service Date/Time: June 05:46 - CONCLUSION: Evolving left anterior circulation stroke. Polo Mathur MD Neck CTA 06/16/17 1819 Signed Impressions: Service Date/Time: Friday, June 16, 2017 18:11 - CONCLUSION: No significant stenosis is seen. Polo Pérez MD Head CTA 06/16/17 1133 Signed Impressions: Service Date/Time: Friday, June 16, 2017 18:13 - CONCLUSION: No area of occlusion is seen. There appears to be hyperperfusion in the left middle cerebral artery territory. There is a subacute area of infarction seen on the recent CT examination. Polo Pérez MD . Procedures 06/16/17 - endotracheal intubation. 06/16/17 - RIJ central line placement. Assessment and Plan Disease Oriented Problem List: (1) CVA (cerebral vascular accident) (2) Hypertension (3) Polysubstance abuse (4) Seizure Symptom Scale: (1) Encephalopathy 0-10 Scale: Unable to quantify (2) Dyspnea 0-10 Scale: Unable to quantify (3) Pain 0-10 Scale: Unable to quantify Pertinent Non-Medical Issues Psychosocial: Patient is , has one adult son Naman Thompson. Patient is a of the [employer]. Per previous records: 05/04/2010: Patient was living in [place], [facility]. Patient has a long standing history of polysubstance abuse. Spiritual: [employer]. Legal: None known. Ethical issues impacting care: None known. Important Contacts Naman Thompson (son, HCP) , email:[email or web address]. Chandra Prajapati Jr (brother):[phone] Kashif Thompson(brother): [phone] Liset Alo (sister): [phone] Shawna Lin (friend) [phone] Chandra Prajapati (step father) [phone] Prognosis Patient admitted for large MCA stroke, unfortunately he was not a candidate for TPA due to prolonged time duration before presentation to the ED. The patient experienced tonic-clonic seizures during the ED course and was intubated for airway protection. Patient has a history of a previous CVA, seizures, polysubstance abuse, and hepatitis C. Patient is at an ongoing risk for complications and setbacks secondary to current clinical status and past medical history. . Code Status: Alternative Code (Intubation only) Plan * Legal decision maker: Patient does not have the capacity to make his own health care decisions. It is unclear at this time if he will regain the capacity to make his own health care decisions. Per [place] statutes health care decision making would fall to the patient's son Naman Thompson , email:[email or web address]. Naman has agreed to serve as HCP for his father Mr. Thompson. * Discussed case with bedside RN. * CODE STATUS: Alternative code. * GOALS: Comfort focused. Patient's son Naman plans to come tomorrow (06/29) to sign exhibits for withdrawal of artificial life support. Planning withdrawal for 07/02- when all family is available. * SYMPTOM MANAGEMENT: * --pain: Patient at ongoing risk for pain secondary to intubation, mechanical ventilation, and bedbound status. Sedated on propofol and fentanyl. No recommendations at this time, further recommendations pending hospital course. * --dyspnea: Patient is intubated and mechanically ventilated, duonebs q 2hr PRN ordered. Requiring increased O2 to 50%, tachypneic to 30 bpm. * --encephalopathy: Secondary to recent MCA ischemic stroke with hemorrhagic conversion, history of previous CVA, history of polysubstance abuse. No recommendations at this time. * Palliative care will continue to follow during hospital course as condition evolves, to assist patient/family/decision-maker with understanding of medical conditions, weighing benefit/burdens of treatment options, for clarification of goals of treatment. Additionally will assist with symptoms of palliative concern. . Attestation To help prompt me to consider important information that might be impacting today's encounter and assessment, information from prior notes written by myself or my colleagues may have been "brought forward" into today's note. My signature on this note, however, is an attestation that I personally performed the exam, history, and/or decision-making noted today, and, unless otherwise indicated, the interactions with patient, family, and staff as well as the review of records all occurred today. I also attest that the listed assessment and stated plan reflect my best clinical judgment today based on the combination of historical information, prior notes, and today's exam/ interactions. When time spent is documented, it refers only to time spent today by the signer, or if indicated, combined time spent today by collaborating physician/nurse practitioner. . Karishma Win Jun 28, 2017 14:19
[2017-06-28] MEDS: VANCOMYCIN INJ 1,500 MG in SODIUM CHLORID 0.9% 500 ML INJ 500 ML IV SCH (17:47)
[2017-06-28] MEDS ORDERED: SODIUM BICARBONATE 8.4% INJ 50 MEQ/50 ML SYR ONE ×2 (19:48→19:49)
[2017-06-29] VITALS (19 sets, daily range): BP systolic 91–152; BP diastolic 54–75; PULSE 66–90; RESP 26–32; TEMP 99.1–102.1; O2SAT 27–100
[2017-06-29] MEDS: PIPERACIL-TAZO 4.5 GM PREMIX 100 ML IV SCH ×4 (02:00→22:54)
[2017-06-29] MEDS: CHLORHEXIDINE GLUCONATE 2 % 1 PACK (2 CLOTHS) TOP SCH (04:00)
[2017-06-29] MEDS: ACETAMINOPHEN 325 MG TAB PO PRN (04:55)
[2017-06-29] MEDS: FOSPHENYTOIN SODIUM 100 MG PE/2 ML VIAL IV SCH ×4 (04:56→23:00)
--- NOTE | 2017-06-29 05:29 | MG ---
cc: WILLIAM ROTHMAN Lab No: Date: 06/28/2017 Age: 66 Sex: M Race: DATE OF [address] Gonzalez MEDICAL HISTORY Stroke Alert with altered mental status, left-sided gaze, spastic right upper extremity clonus, right lower extremity and right upper extremity tremors. History of polysubstance abuse, positive for cocaine and marijuana, alcohol, tobacco and caffeine use with falls. MEDICATIONS 1. Cerebyx. 2. Levetiracetam. 3. Provigil. 4. Insulin aspart. 5. Ventolin. 6. Diprivan. 7. Norepinephrine. 8. Levophed. 9. Apresoline. DESCRIPTION There is generalized slowing on the EEG in the delta range, 2-3 Hz, with low amplitude. The left hemisphere reveals a lower amplitude compared to the right. Hyperventilation was not done due to the condition of the patient. Photic stimulation did not elicit a driving response. There are intermittent sharp-like activity, sharp-like waves in both C4 and T4. No electrographic seizures were evident on the EEG. INTERPRETATION This is an abnormal EEG recording. The left hemisphere reveals a lower amplitude that may indicate a structural abnormality on the left hemisphere. The intermittent sharp-like activity found in the right hemisphere may be epileptogenic in nature. There were no electrographic seizures noted during the recording. Clinical correlation is recommended. MD DEIRDRE Peguero/KACI /8:23 PM /5:14 AM [facility]
[2017-06-29] MEDS: INSULIN ASPART SUPPLEMENTAL SCALE SQ SCH ×4 (08:00→22:59)
[2017-06-29] MEDS: levETIRAcetam 1000 MG INJ 100 ML IV SCH ×2 (08:55→21:09)
[2017-06-29] MEDS: SODIUM CHLORIDE 0.9% FLUSH 5 ML FLUSH IV FLUSH SCH ×2 (08:56→21:09)
[2017-06-29] MEDS: DOCUSATE SODIUM 50 MG/SENNA 8.6 MG TAB PO SCH ×2 (08:56→21:00)
[2017-06-29] MEDS: MODAFINIL 200 MG TAB PO SCH (08:57)
[2017-06-29] MEDS: ARTIFICIAL TEARS OPTH SOLN 15 ML BTL EACH EYE SCH ×3 (08:57→17:24)
--- NOTE | 2017-06-29 09:00 | HHI.NSPN ---
Note Status Status: Progress Note Interval History Interval History Mr. Thompson is a 66 year old male who presented to [facility] 06/16/17 with gaze deficits, and was found to have a large left MCA ischemic stroke. He was evaluated by Dr. Powell and patient was not a candidate for TPA. He is intubated and sedated on fentanyl and Diprivan. He was placed on heparin drip and started on aspirin therapy. A CT Brain 06/21/17 shows hemorrhagic conversion within the ischemic bed with mild mass effect but no significant midline shift. He is on hypertonic saline. A neurosurgical evaluation was requested. 06/24: f/u CT Brain completed this morning, remains intubated and sedated. 06/25: Pt sedated and intubated. Pupils remain pinpoint. No changes clinically. 06/26: Patient not opening eyes. Pupils pinpoint. Patient on Levophed drip. Patient sedated on fentanyl. Withdraws lower extremities to pain. 06/27: Pt not opening eyes. Not following commands. Pt sedated on Fentanyl and diprivan drips. On Levophed drip. Pupils pinpoint. No withdrawal this morning with sedation. 06/28: The patient is comatose this morning. He is sedated with propofol and has fentanyl infusing for pain control. A norepinephrine drip is also infusing. He is intubated and mechanically ventilated. There is no response to stimulation. 06/29: sedated on Diprivan, remains intubated. EEG 06/29 reports intermittent sharp activities Labs, Micro, & Vital Signs Results Date Time Temp Pulse Resp B/P (MAP) Pulse Ox O2 Delivery O2 Flow Rate FiO2 06/29/17 08:48 75 06/29/17 08:46 93 75 06/29/17 08:00 80 06/29/17 06:00 69 06/29/17 04:00 72 06/29/17 04:00 102.1 72 27 118/64 (82) 97 06/29/17 04:00 80 06/29/17 03:32 97 80 06/29/17 02:00 77 06/29/17 00:40 96 80 06/29/17 00:00 100.1 74 31 137/70 (92) 95 06/29/17 00:00 74 06/29/17 00:00 80 06/28/17 22:00 76 06/28/17 21:30 94 90 06/28/17 20:00 80 06/28/17 20:00 76 06/28/17 20:00 102.5 76 29 118/59 (78) 99 06/28/17 18:00 80 06/28/17 16:00 50 06/28/17 16:00 100.4 75 28 158/74 (102) 92 06/28/17 16:00 83 06/28/17 14:57 92 50 06/28/17 14:00 75 06/28/17 12:00 76 06/28/17 12:00 101.1 76 30 134/63 (86) 90 06/28/17 12:00 50 06/28/17 11:53 92 50 06/28/17 10:05 80 118/56 06/28/17 10:00 76 Constitutional Vital Signs Date Time Temp Pulse Resp B/P (MAP) Pulse Ox O2 Delivery O2 Flow Rate FiO2 06/29/17 08:48 75 06/29/17 08:46 93 75 06/29/17 08:00 80 06/29/17 06:00 69 06/29/17 04:00 72 06/29/17 04:00 102.1 72 27 118/64 (82) 97 06/29/17 04:00 80 06/29/17 03:32 97 80 06/29/17 02:00 77 06/29/17 00:40 96 80 06/29/17 00:00 100.1 74 31 137/70 (92) 95 06/29/17 00:00 74 06/29/17 00:00 80 06/28/17 22:00 76 06/28/17 21:30 94 90 06/28/17 20:00 80 06/28/17 20:00 76 06/28/17 20:00 102.5 76 29 118/59 (78) 99 06/28/17 18:00 80 06/28/17 16:00 50 06/28/17 16:00 100.4 75 28 158/74 (102) 92 06/28/17 16:00 83 06/28/17 14:57 92 50 06/28/17 14:00 75 06/28/17 12:00 76 06/28/17 12:00 101.1 76 30 134/63 (86) 90 06/28/17 12:00 50 06/28/17 11:53 92 50 06/28/17 10:05 80 118/56 06/28/17 10:00 76 Review of Systems ROS Limitations: Intubated Physical Exam Mr. Thompson is intubated, mechanically ventilated, and sedated on diprivan. No current seizure like activities noted. Cranial Nerves: Pupils pinpoint bilaterally. Mild left conjugate gaze. Cervical Spine: His neck is soft, supple, without nuchal rigidity. Motor: not following commands for testing, very minimal withdrawal left toes to noxious stimuli Reflexes: Deep tendon reflexes are trace throughout. Plantars silent bilaterally. Sensory: currently minimal withdrawal to left toes, otherwise no significant response to pain x 4 Cerebellar: cannot assess due to the patient's neurological condition Medications Current Medications Current Medications Medications (Trade) Dose Ordered Sig/Medina Route PRN Reason Start Time Stop Time Status Last Admin Dose Admin Acetaminophen (Tylenol) 650 mg Q6H PRN PO PAIN 1-10 AND/OR FEVER >101F 06/16/17 20:15 06/29/17 04:55 Artificial Tears (Tears Naturale Opth Soln) 1 drop TID EACH EYE 06/17/17 09:00 06/28/17 22:00 Ondansetron HCl (Zofran Inj) 4 mg Q6H PRN IV PUSH NAUSEA OR VOMITING 06/16/17 20:15 Albuterol/ Ipratropium (Duoneb Neb) 1 ampule Q2HR NEB PRN INH WHEEZING 06/16/17 20:15 06/27/17 10:41 Miscellaneous Information 1 Q361D XX 06/16/17 20:15 Chlorhexidine Gluconate (Chlorhexidine 2% Cloth) Taper DAILY@04 TOP 06/17/17 04:00 06/13/18 03:59 06/26/17 02:21 Chlorhexidine Gluconate (Chlorhexidine 2% Cloth) 3 pack UNSCH PRN TOP HYGIENIC CARE 06/16/17 20:15 Senna/Docusate Sodium (Cheryl-Colace) 1 tab BID PO 06/16/17 21:00 06/28/17 21:59 Magnesium Hydroxide (Milk Of Magnesia Liq) 30 ml Q12H PRN PO MILD - MODERATE CONSTIPATION 06/16/17 20:15 Sennosides (Senokot) 17.2 mg Q12H PRN PO MODERATE - SEVERE CONSTIPATION 06/16/17 20:15 Bisacodyl (Dulcolax Supp) 10 mg DAILY PRN RECTAL SEVERE CONSITIPATION 06/16/17 20:15 Lactulose (Lactulose Liq) 30 ml DAILY PRN PO SEVERE CONSITIPATION 06/16/17 20:15 Propofol 100 ml @ 2.106 mls/ hr TITRATE PRN IV SEDATION 06/16/17 21:00 06/28/17 23:56 Levetriacetam 100 ml @ 400 mls/hr Q12HR IV 06/17/17 09:00 06/28/17 22:00 Potassium Chloride 100 ml @ 50 mls/hr Q2H PRN IV For Potassium 2.8 - 3.2 mEq/L 06/16/17 23:15 Potassium Chloride 100 ml @ 50 mls/hr Q2H PRN IV For Potassium 2.8 - 3.2 mEq/L 06/16/17 23:15 Potassium Bicarb/ Potassium Chloride (K-Lyte Cl Eff) 50 meq UNSCH PRN PO For Potassium 3.3 - 3.5 mEq/L 06/16/17 23:15 Potassium Chloride 100 ml @ 25 mls/hr UNSCH PRN IV For Potassium 3.3 - 3.5 mEq/L 06/16/17 23:15 06/24/17 05:13 Potassium Chloride 100 ml @ 50 mls/hr Q2H PRN IV For Potassium 3.3 - 3.5 mEq/L 06/16/17 23:15 Magnesium Sulfate 4 gm/Sodium Chloride 100 ml @ 50 mls/hr UNSCH PRN IV For Magnesium 0.9 - 1.1 mg/dL 06/16/17 23:15 Magnesium Oxide (Mag-Ox) 800 mg UNSCH PRN PO For Magnesium 1.2 - 1.6 mg/dL 06/16/17 23:15 Magnesium Sulfate 2 gm/Sodium Chloride 100 ml @ 50 mls/hr UNSCH PRN IV For Magnesium 1.2 - 1.6 mg/dL 06/16/17 23:15 Potassium Phosphate (K-Phos) 2,000 mg Q4H PRN PO For Phosphorus < 2.5 mg/dL 06/16/17 23:15 Sodium Phosphate 30 mmol/Sodium Chloride 250 ml @ 42 mls/hr UNSCH PRN IV For Phosphorus < 2.5 mg/dL 06/16/17 23:15 06/17/17 14:51 Potassium Phosphate (K-Phos) 2,000 mg UNSCH PRN PO/TUBE SEE LABEL COMMENTS 06/16/17 23:15 Potassium Phosphate 30 mmol/ Sodium Chloride 260 ml @ 42 mls/hr UNSCH PRN IV SEE LABEL COMMENTS 06/16/17 23:15 Fentanyl Citrate 250 ml @ 5 mls/hr TITRATE PRN IV Sedation 06/17/17 12:15 06/27/17 23:44 IV Flush (NS Flush) 2 ml BID IV FLUSH 06/17/17 21:00 06/28/17 22:00 IV Flush (NS Flush) 2 ml UNSCH PRN IV FLUSH FLUSH AFTER USING IV ACCESS 06/17/17 19:00 Insulin Aspart (NovoLOG SUPPLEMENTAL SCALE) 1 ACHS SQ 06/17/17 21:00 06/28/17 22:00 Dextrose (D50w (Syr) Inj) 50 ml UNSCH PRN IV PUSH HYPOGLYCEMIA-SEE COMMENTS 06/17/17 19:00 Glucagon (Glucagon Inj) 1 mg UNSCH PRN OTHER HYPOGLYCEMIA-SEE COMMENTS 06/17/17 19:00 Haloperidol Lactate (Haldol Inj) 5 mg Q4H PRN IV agitation 06/20/17 10:30 06/26/17 23:44 Modafinil (Provigil) 200 mg DAILY PO 06/20/17 11:00 06/28/17 08:27 Piperacillin Sod/ Tazobactam Sod 100 ml @ 200 mls/hr Q6H IV 06/21/17 09:00 06/29/17 02:00 Pharmacy Profile Note 0 ml @ 0 mls/hr UNSCH OTHER 06/21/17 08:15 Norepinephrine Bitartrate 4 mg/ Sodium Chloride 250 ml @ 7.5 mls/hr TITRATE PRN IV Blood pressure management 06/23/17 17:15 06/28/17 10:05 Terbutaline Sulfate (Brethine Inj) 1 mg UNSCH PRN SQ For Extravasation 06/23/17 17:15 Hydralazine HCl (Apresoline Inj) 20 mg Q4H PRN IV PUSH SBP greater than 150mm Hg 06/23/17 18:00 Fosphenytoin Sodium (Cerebyx Inj) 100 mgpe Q6HR IV 06/26/17 00:00 06/29/17 04:56 Vancomycin HCl 1500 mg/Sodium Chloride 515 ml @ 250 mls/hr Q18H IV 06/28/17 16:00 06/28/17 17:47 Miscellaneous Information SPECIFIC LAB TO BE DRAWN:VANCOMY... ONCE ONCE .XX 06/30/17 03:45 06/30/17 03:46 Medical Decision Making MDM Remarks 66 year old male with large left ischemic stroke with hemorrhagic conversion on CT Brain 06/21, f/u CT Head 06/24 with improved hemorrhage, minimal midline shift Seizure, EEG 06/29 reports with intermittent sharp activities may be epileptic Plan Plan Remarks cont critical care, cont sedation weaning as tolerated, follow up neuro examination cont current AEDs, defer mgt sz to Neurology-following follow up CT Head tomorrow am Kathie Crespo Jun 29, 2017 09:00
[2017-06-29] MEDS: NOREPINEPHRINE INJ 4 MG in SODIUM CHLOR 0.9% 250 ML INJ 246 ML IV PRN (10:10)
[2017-06-29] MEDS: VANCOMYCIN INJ 1,500 MG in SODIUM CHLORID 0.9% 500 ML INJ 500 ML IV SCH (10:31)
--- NOTE | 2017-06-29 11:35 | HHI.CCPN ---
Subjective Remarks/Hospital Course 06/16: 66-year-old unfortunate gentleman with a history of polysubstance abuse, presents here with altered mental status. When paramedics arrived, they found the patient to be obtunded with a GCS of 11. Friends who are at the patient's residence stated that they last saw him at 3:30. The patient arrived at roughly 5 PM. Patient was made a stroke alert as he was still in the window. Patient was unable to give any history regarding his visits secondary to his altered mental status. Patient had a left sided gaze with spasticity to his right upper extremity and clonus of his right lower shimmy. The CT of the head showed acute/subacute CVA at the left MCA territory and decision and not to administer TPA was made. While in the emergency department patient developed tonic-clonic seizures and was intubated by me for an airway protection. 06/17: Remains sedated, orally intubated on mechanical ventilation. 06/18: Remains sedated, orally intubated on mechanical ventilation. 06/19: no improvements. remains encephalopathic. intubated and mechanically ventilated. 06/20: no improvements in severe encephalopathy. 2 brothers at bedside yesterday and I had a long discussion about his poor prognosis and likely devastating persistent deficits. family stated "that's no way to live" but then stated "we don't believe in DNR or anything like that." They are likely pursuing aggressive medical management. 06/21: Remains encephalopathic off sedation, orally intubated on mechanical ventilation. Developed fevers over the weekend. Ordered pancultures and chest x-ray today which revealed significant bilateral pneumonia. 06/22: Remains encephalopathic off sedation, orally intubated on mechanical ventilation. 06/23: Remains encephalopathic on holding sedation, orally intubated on mechanical ventilation. CT head done yesterday showed some hemorrhagic conversion hence aspirin was stopped. Neurosurgery consulted today in view of some mass effect noted on head CT. Patient was started on 3% saline. Has been tolerating tube feeds. 06/24: Remains encephalopathic, orally intubated on mechanical ventilation. Remains on 3% saline. Tolerating tube feeds. 06/25: Osmolality acceptable. Diffuse lung infiltrates are infectious in etiology though some signs of venous congestion. No improvement in neurological condition. 06/26: Serum well concentrated. No neurological improvement. 06/27: Osmolality fine, hold 3% saline. No improvement. 06/28: Requiring increased FiO2. 06/29: Tachypnea mid 40s, appears to be neurologically driven. Increased Ti to 1.40. No improvement; at best minimal withdrawal of left leg. Objective Vital Signs Date Time Temp Pulse Resp B/P (MAP) Pulse Ox O2 Delivery O2 Flow Rate FiO2 06/29/17 10:10 86 134/68 06/29/17 08:48 75 06/29/17 08:46 93 06/29/17 08:00 99.1 26 06/26/17 04:50 Ventilator Intake and Output 06/29/17 06/29/17 06/30/17 08:00 16:00 00:00 Intake Total 829 ml 100 ml Output Total 775 ml Balance 54 ml 100 ml Result Diagram: 06/27/17 0535 06/27/17 0535 Imaging Last [address] 06/24/17 0000 Signed Impressions: Service Date/Time: June 05:46 - CONCLUSION: Evolving left anterior circulation stroke. Polo Mathur MD Last 48 hours Impressions Chest X-Ray 06/21/17 0000 Signed Impressions: Service Date/Time: Wednesday, June 21, 2017 09:07 - CONCLUSION: Decreased airspace disease both lungs. Brian Gallardo MD FACR Last Impressions Head CT 06/17/17 1000 Signed Impressions: Service Date/Time: June 10:46 - CONCLUSION: Evolving left MCA and DAIN stroke as described Polo Mathur MD Neck CTA 06/16/17 1819 Signed Impressions: Service Date/Time: Friday, June 16, 2017 18:11 - CONCLUSION: No significant stenosis is seen. Polo Pérez MD Head CTA 06/16/17 1979 Signed Impressions: Service Date/Time: Friday, June 16, 2017 18:13 - CONCLUSION: No area of occlusion is seen. There appears to be hyperperfusion in the left middle cerebral artery territory. There is a subacute area of infarction seen on the recent CT examination. Polo Pérez MD Chest X-Ray 06/16/17 0000 Signed Impressions: Service Date/Time: Friday, June 16, 2017 23:32 - CONCLUSION: Mild bibasilar consolidation and small effusions. Line and tube positions as above. No pneumothorax. Polo Sosa MD Objective Remarks GENERAL: Elderly appearing gentleman sedated and intubated SKIN: Warm and dry. HEAD: Normocephalic.Left sided gaze EYES: No scleral icterus. No injection or drainage. NECK: trachea midline. Orally intubated. CARDIOVASCULAR: Regular rate and rhythm. Neck veins are full. RESPIRATORY: Mechanical ventilation. Breath sounds equal bilaterally. Scattered rhonchi persist, no wheezing. Weak cough. GASTROINTESTINAL: Abdomen soft, non-tender, nondistended. BS active. MUSCULOSKELETAL: No cyanosis, or edema. NEURO EXAM: Pupils 2mm, equal, reacting to light. RASS -4, w/d to pain on left. right contracted. minor cough and gag only. Tachypnea, non-physiological. A/P Assessment and Plan Assessment: 66yM with massive Left MCA and DAIN infarct with some hemorrhagic conversion and associated severe encephalopathy and deficits, along with acute hypoxic and hypercarbic respiratory failure. Poor prognosis. palliative care following. Acute Hypoxic and Hypercarbic Respiratory failure on mechanical ventilation Pneumonia Sepsis UTI - No weaning until neurologically improved - Palliative care consult - Most likely will need a trach and peg if family requests aggressive management - Pancultures ordered and started empiric Zosyn and vancomycin IV on 06/21 Acute Left MCA and DAIN CVA - Left MCA and DAIN territory - Extremely poor prognosis - Not a candidate for TPA - Aspirin and Plavix -hold in v/o hemorrhagic areas per radiology on CT Head done on 06/21. - Neurology following. Neurosurgery consulted. Started on 3% saline 06/23 for mass effect seen on head CT. Follow serial sodium -Follow up head CT per neurosurgery and neurology. Hypertension - Hydralazine when necessary to keep SBP less than 150 Peptic ulcer disease/GERD - IV Pepcid Alcohol and polysubstance abuse - Thiamine folate and multivitamins - Monitor for withdrawal History of Hepatitis C positive - Supportive care Seizure - Keppra, Fosphenytoin -Follow up EEG DVT GI prophylaxis - Teds SCDs - Subcutaneous heparin - IV Pepcid Condition remains critical. Palliative care following to assist with deciding goals of therapy. Overall impression: Devastating stroke. Systemic infection. Poor gas exchange. Congested. Prognosis poor. Severely debilitated by stroke. Walter Rodriguez MD Jun 29, 2017 11:35
[2017-06-29] MEDS: PROPOFOL 1000 MG/100 ML INJ 100 ML IV PRN ×2 (12:57→18:45)
--- NOTE | 2017-06-29 15:42 | RADRPT ---
EXAM DATE/TIME: 06/29/2017 15:53 [facility] COMPARISON: CHEST SINGLE AP, June 25, 2017, 2:01. INDICATIONS : Short of breath. MEDICAL HISTORY : None. SURGICAL HISTORY : None. ENCOUNTER: Subsequent ACUITY: 1 week PAIN SCORE: 0/10 LOCATION: Bilateral chest FINDINGS: There has been no change in the diffuse bilateral interstitial and airspace pulmonary infiltrates. No evidence of pneumothorax. Support devices remain in place. CONCLUSION: There continues to be prominent bilateral interstitial and airspace pulmonary infiltrates without sig nificant change compared to the prior exam. Giovanni Campo MD on June 29, 2017 at 15:39 Board Certified Radiologist. This report was verified electronically.
[2017-06-29] MEDS: fentaNYL 2,500 MCG/NS 250 ML IV PRN (22:54)
[2017-06-30] VITALS (18 sets, daily range): BP systolic 108–173; BP diastolic 57–73; PULSE 62–103; RESP 26–40; TEMP 98.7–99.8; O2SAT 92–100
[2017-06-30] MEDS: PIPERACIL-TAZO 4.5 GM PREMIX 100 ML IV SCH ×4 (03:10→20:51)
[2017-06-30] MEDS ORDERED: PHARMACY ORDERED LAB ONE (03:45)
[2017-06-30] MEDS: CHLORHEXIDINE GLUCONATE 2 % 1 PACK (2 CLOTHS) TOP SCH (04:00)
[2017-06-30] MEDS: FOSPHENYTOIN SODIUM 100 MG PE/2 ML VIAL IV SCH ×4 (04:33→23:58)
[2017-06-30 04:42] LABS: BASOPHIL # 0.1 TH/MM3 (0-0.2); BASOPHIL % 0.5 % (0.0-2.0); EOSINOPHIL # 0.4 TH/MM3 (0-0.4); EOSINOPHIL % 2.1 % (0.0-4.0); HEMATOCRIT 32.6 % (39.0-51.0); HEMO FLAGS DIFF FINAL; LYMPHOCYTE # 2.4 TH/MM3 (1.0-4.8); MEAN CELL VOLUME 78.4 FL (80.0-100.0); MEAN CORPUSCULAR HEMOGLOBIN 24.6 PG (27.0-34.0); MEAN CORPUSCULAR HGB CONC 31.4 % (32.0-36.0); MONO % 5.9 % (0.0-8.0); NEUT % 77.5 % (16.0-70.0); PLATELET COUNT 401 TH/MM3 (150-450); RED BLOOD COUNT 4.15 MIL/MM3 (4.50-5.90); RED CELL DISTRIBUTION WIDTH 14.4 % (11.6-17.2); WHITE BLOOD COUNT 16.8 TH/MM3 (4.0-11.0)
[2017-06-30 05:03] LABS: BICARBONATE 27.9 MEQ/L (21.0-32.0); POTASSIUM 3.6 MEQ/L (3.5-5.1)
[2017-06-30] MEDS: VANCOMYCIN INJ 1,500 MG in SODIUM CHLORID 0.9% 500 ML INJ 500 ML IV SCH (06:07)
[2017-06-30] MEDS: NOREPINEPHRINE INJ 4 MG in SODIUM CHLOR 0.9% 250 ML INJ 246 ML IV PRN ×3 (06:08→21:40)
[2017-06-30] MEDS: PROPOFOL 1000 MG/100 ML INJ 100 ML IV PRN ×6 (06:09→23:59)
[2017-06-30] MEDS: INSULIN ASPART SUPPLEMENTAL SCALE SQ SCH ×4 (08:00→20:51)
--- NOTE | 2017-06-30 09:27 | RADRPT ---
EXAM DATE/TIME: 06/30/2017 08:47 [facility] COMPARISON: CTA BRAIN W 3D RECON, June 16, 2017, 18:13. CT BRAIN W/O CONTRAST, Octobe r 2016, 5:46. INDICATIONS : Follow up for stroke. RADIATION DOSE: 56.35 CTDIvol (mGy) MEDICAL HISTORY : Stroke. SURGICAL HISTORY : None. ENCOUNTER: Subsequent ACUITY: 2 weeks PAIN SCALE: Non-responsive LOCATION: cranial TECHNIQUE: Multiple contiguous axial images were obtained of the head. Using automated exposure control and adjustment of the mA and/or kV according to patient size, radiation dose was kept as low as reasonably achievable to obtain optimal diagnostic quality images. DICOM format image data is av ailable electronically for review and comparison. FINDINGS: CEREBRUM: Evolving infarct is seen involving the significant portion of the left sylvian region without hemorrh age. Mild edema is evident. Old infarct is seen in the right occipital region There is mild atrophy Posterior fossa is unremarkable. CONCLUSION: Evolving infarct left sylvian region minimal increase in mass effect and no hemorrhag e. This involves the large portion of the left MCA territory in spite of the findings on the CTA bra in. Brian Gallardo MD FACR on June 30, 2017 at 9:23 Board Certified Radiologist. This report was verified electronically.
[2017-06-30] MEDS: ARTIFICIAL TEARS OPTH SOLN 15 ML BTL EACH EYE SCH ×3 (09:35→17:22)
[2017-06-30] MEDS: levETIRAcetam 1000 MG INJ 100 ML IV SCH ×2 (09:35→19:32)
[2017-06-30] MEDS: DOCUSATE SODIUM 50 MG/SENNA 8.6 MG TAB PO SCH ×2 (09:36→19:37)
[2017-06-30] MEDS: MODAFINIL 200 MG TAB PO SCH (09:36)
[2017-06-30] MEDS: SODIUM CHLORIDE 0.9% FLUSH 5 ML FLUSH IV FLUSH SCH ×2 (09:36→19:37)
--- NOTE | 2017-06-30 10:17 | HHI.HCPN ---
Reason for visit a. To assist with evaluation and management of symptoms including: dyspnea, encephalopathy, pain b. To assist medical decision maker(s) with: better understanding of current medical conditions; weighing benefits/burdens of medical treatment options; making medical treatment decisions. . Subjective/Interval History Patient remains intubated, mechanically ventilated, sedated on propofol. Patient does not respond to noxious stimuli, remains encephalopathic. Persistent leukocytosis, chest CXR from 06/29 with persistent infiltrates. Head CT today 06/30 revealed increase in mass effect. . Family/friend interactions Telephone conference with patient's son Naman, updated on clinical status and confirmed planned withdrawal of artificial life support on Tuesday 07/03. Advance Directives Living Will: Never completed Health Care Surrogate: Never completed Durable Power of [employer] Lead: Never completed Objective Vital Signs Date Time Temp Pulse Resp B/P (MAP) Pulse Ox O2 Delivery O2 Flow Rate FiO2 06/30/17 10:00 74 06/30/17 08:00 55 06/30/17 08:00 69 06/30/17 07:41 99 55 06/30/17 06:08 79 131/73 06/30/17 06:00 79 06/30/17 04:00 60 06/30/17 04:00 99.6 94 40 173/73 (106) 96 06/30/17 04:00 94 06/30/17 03:19 96 55 06/30/17 02:00 66 06/30/17 00:00 60 06/30/17 00:00 98.7 69 27 124/64 (84) 97 06/30/17 00:00 69 06/29/17 23:42 96 55 06/29/17 22:00 68 06/29/17 20:00 70 06/29/17 20:00 60 06/29/17 20:00 99.9 70 27 106/56 (73) 97 06/29/17 19:35 99 55 06/29/17 18:10 76 101/50 06/29/17 18:00 77 06/29/17 16:30 81 99/56 06/29/17 16:02 100 60 06/29/17 16:00 60 06/29/17 16:00 100.0 83 32 91/54 (66) 27 06/29/17 16:00 83 06/29/17 15:45 90 93/53 06/29/17 15:00 93 167/78 06/29/17 14:00 90 06/29/17 12:56 87 154/74 06/29/17 12:00 99.2 90 32 152/75 (100) 100 06/29/17 12:00 90 06/29/17 12:00 75 06/29/17 11:51 100 70 06/29/17 11:30 81 152/78 06/29/17 11:15 75 06/29/17 11:00 84 156/77 Intake & Output 06/30/17 06/30/17 07:00 19:00 Intake Total 1771 ml Output Total 650 ml Balance 1121 ml Intake IV Total 1000 ml Tube Feeding 651 ml Other 120 ml Output Urine Total 650 ml Stool Total 0 ml Tube Feeding Residual Discard 0 ml Physical Exam CONSTITUTIONAL/GENERAL: This is an elderly male patient, intubated, mechanically ventilated. TUBES/LINES/DRAINS: ETT, OGT, CVL RIJ, soft wrist restraints, abebe catheter SKIN: No jaundice, rashes, or lesions. No wounds seen anteriorly. Skin temperature warm, dry. Not diaphoretic. CARDIOVASCULAR: Regular rate and rhythm, without murmurs, gallops, or rubs. No JVD. Peripheral pulses symmetric. RESPIRATORY/CHEST: Symmetric, mechanically ventilated. Coarse rhonchi, bibasilar crackles, breath sounds equal bilaterally. Tachypneic. GASTROINTESTINAL: Abdomen soft, nondistended. Bowel sounds present. GENITOURINARY: Without palpable bladder distension. Abebe catheter in place. MUSCULOSKELETAL: Extremities without clubbing, cyanosis, or edema. No mottling or clubbing. NEUROLOGICAL: Sedated. Does not withdraw to noxious stimuli. PSYCHIATRIC: Unable to assess secondary to clinical condition. . Diagnostic Tests Laboratory Laboratory Tests Test 06/28/17 03:11 06/30/17 04:15 Random Vancomycin Level 19.2 COMMENT White Blood Count 16.8 TH/MM3 (4.0-11.0) Red Blood Count 4.15 MIL/MM3 (4.50-5.90) Hemoglobin 10.2 GM/DL (13.0-17.0) Hematocrit 32.6 % (39.0-51.0) Mean Corpuscular Volume 78.4 FL (80.0-100.0) Mean Corpuscular Hemoglobin 24.6 PG (27.0-34.0) Mean Corpuscular Hemoglobin Concent 31.4 % (32.0-36.0) Red Cell Distribution Width 14.4 % (11.6-17.2) Platelet Count 401 TH/MM3 (150-450) Mean Platelet Volume 9.3 FL (7.0-11.0) Neutrophils (%) (Auto) 77.5 % (16.0-70.0) Lymphocytes (%) (Auto) 14.0 % (9.0-44.0) Monocytes (%) (Auto) 5.9 % (0.0-8.0) Eosinophils (%) (Auto) 2.1 % (0.0-4.0) Basophils (%) (Auto) 0.5 % (0.0-2.0) Neutrophils # (Auto) 13.0 TH/MM3 (1.8-7.7) Lymphocytes # (Auto) 2.4 TH/MM3 (1.0-4.8) Monocytes # (Auto) 1.0 TH/MM3 (0-0.9) Eosinophils # (Auto) 0.4 TH/MM3 (0-0.4) Basophils # (Auto) 0.1 TH/MM3 (0-0.2) CBC Comment DIFF FINAL Differential Comment Blood Urea Nitrogen 13 MG/DL (7-18) Creatinine 1.10 MG/DL (0.60-1.30) Random Glucose 151 MG/DL (74-106) Calcium Level 8.1 MG/DL (8.5-10.1) Sodium Level 153 MEQ/L (136-145) Potassium Level 3.6 MEQ/L (3.5-5.1) Chloride Level 119 MEQ/L (98-107) Carbon Dioxide Level 27.9 MEQ/L (21.0-32.0) Anion Gap 6 MEQ/L (5-15) Estimat Glomerular Filtration Rate 82 ML/MIN (>89) Vancomycin Level Trough 14.8 MCG/ML (5.0-10.0) . Result Diagram: 06/30/17 0415 06/30/17 0415 Microbiology Microbiology Date/Time Source Procedure Growth Status 06/29/17 12:19 Sputum Endotracheal Gram Stain - Final Resulted 06/29/17 12:19 Sputum Endotracheal Sputum Culture Pending Resulted Procedures 06/16/17 - endotracheal intubation. 06/16/17 - RIJ central line placement. Assessment and Plan Disease Oriented Problem List: (1) CVA (cerebral vascular accident) (2) Hypertension (3) Polysubstance abuse (4) Seizure Symptom Scale: (1) Encephalopathy 0-10 Scale: Unable to quantify (2) Dyspnea 0-10 Scale: Unable to quantify (3) Pain 0-10 Scale: Unable to quantify Pertinent Non-Medical Issues Psychosocial: Patient is , has one adult son Naman Thompson. Patient is a of the [email or web address]. Per previous records: 05/04/2010: Patient was living in [place], [facility]. Patient has a long standing history of polysubstance abuse. Spiritual: Pentecostalism. Legal: None known. Ethical issues impacting care: None known. Important Contacts Naman Thompson (son, HCP) , email:[email or web address]. Jeronimosobia Alo Lewis (brother):[phone] Kashif Thompson(brother): [phone] Liset Alo (sister): [phone] Shawna Lin (friend) [phone] Chandra Prajapati (step father) [phone] Prognosis Patient admitted for large MCA stroke, unfortunately he was not a candidate for TPA due to prolonged time duration before presentation to the ED. The patient experienced tonic-clonic seizures during the ED course and was intubated for airway protection. Patient has a history of a previous CVA, seizures, polysubstance abuse, and hepatitis C. Patient is at an ongoing risk for complications and setbacks secondary to current clinical status and past medical history. Poor prognosis. . Code Status: Alternative Code (Intubation only) Plan * Legal decision maker: Patient does not have the capacity to make his own health care decisions. It is unclear at this time if he will regain the capacity to make his own health care decisions. Per [place] statutes health care decision making would fall to the patient's son Naman Thompson , email:[email or web address]. Naman has agreed to serve as HCP for his father Mr. Thompson. * Discussed case with bedside RN. * CODE STATUS: Alternative code. * GOALS: Comfort focused. Planning withdrawal for Tuesday 07/03 when all family is available. * SYMPTOM MANAGEMENT: * --pain: Patient at ongoing risk for pain secondary to intubation, mechanical ventilation, and bedbound status. Sedated on propofol and fentanyl. No recommendations at this time, further recommendations pending hospital course. * --dyspnea: Patient is intubated and mechanically ventilated, duonebs q 2hr PRN ordered. Requiring increased O2 to 50%, tachypneic to 30 bpm. * --encephalopathy: Secondary to recent MCA ischemic stroke with hemorrhagic conversion, history of previous CVA, history of polysubstance abuse. No recommendations at this time. * Palliative care will continue to follow during hospital course as condition evolves, to assist patient/family/decision-maker with understanding of medical conditions, weighing benefit/burdens of treatment options, for clarification of goals of treatment. Additionally will assist with symptoms of palliative concern. . Attestation To help prompt me to consider important information that might be impacting today's encounter and assessment, information from prior notes written by myself or my colleagues may have been "brought forward" into today's note. My signature on this note, however, is an attestation that I personally performed the exam, history, and/or decision-making noted today, and, unless otherwise indicated, the interactions with patient, family, and staff as well as the review of records all occurred today. I also attest that the listed assessment and stated plan reflect my best clinical judgment today based on the combination of historical information, prior notes, and today's exam/ interactions. When time spent is documented, it refers only to time spent today by the signer, or if indicated, combined time spent today by collaborating physician/nurse practitioner. Ellyn Mercado Jun 30, 2017 10:17
[2017-06-30] MEDS: HALOPERIDOL LACTATE 5 MG/ML AMP IV PRN ×2 (11:06→19:32)
[2017-06-30] MEDS: fentaNYL 2,500 MCG/NS 250 ML IV PRN (13:15)
--- NOTE | 2017-06-30 13:55 | HHI.NSPN ---
Note Status Status: Progress Note Interval History Interval History Mr. Thompson is a 66 year old male who presented to [place] 06/16/17 with gaze deficits, and was found to have a large left MCA ischemic stroke. He was evaluated by Dr. Powell and patient was not a candidate for TPA. He is intubated and sedated on fentanyl and Diprivan. He was placed on heparin drip and started on aspirin therapy. A CT Brain 06/21/17 shows hemorrhagic conversion within the ischemic bed with mild mass effect but no significant midline shift. He is on hypertonic saline. A neurosurgical evaluation was requested. 06/24: f/u CT Brain completed this morning, remains intubated and sedated. 06/25: Pt sedated and intubated. Pupils remain pinpoint. No changes clinically. 06/26: Patient not opening eyes. Pupils pinpoint. Patient on Levophed drip. Patient sedated on fentanyl. Withdraws lower extremities to pain. 06/27: Pt not opening eyes. Not following commands. Pt sedated on Fentanyl and diprivan drips. On Levophed drip. Pupils pinpoint. No withdrawal this morning with sedation. 06/28: The patient is comatose this morning. He is sedated with propofol and has fentanyl infusing for pain control. A norepinephrine drip is also infusing. He is intubated and mechanically ventilated. There is no response to stimulation. 06/29: sedated on Diprivan, remains intubated. EEG 06/29 reports intermittent sharp activities 06/30: off sedation yesterday, patient was reported to have opened eyes, withdraw to right side side. f/u CT Head this morning completed. otherwise stable overnight. Labs, Micro, & Vital Signs Results Date Time Temp Pulse Resp B/P (MAP) Pulse Ox O2 Delivery O2 Flow Rate FiO2 06/30/17 11:20 99 55 06/30/17 10:00 74 06/30/17 08:45 100 100 06/30/17 08:00 55 06/30/17 08:00 69 06/30/17 08:00 99.5 70 26 110/60 (77) 100 06/30/17 07:41 99 55 06/30/17 06:08 79 131/73 06/30/17 06:00 79 06/30/17 04:00 60 06/30/17 04:00 99.6 94 40 173/73 (106) 96 06/30/17 04:00 94 06/30/17 03:19 96 55 06/30/17 02:00 66 06/30/17 00:00 60 06/30/17 00:00 98.7 69 27 124/64 (84) 97 06/30/17 00:00 69 06/29/17 23:42 96 55 06/29/17 22:00 68 06/29/17 20:00 70 06/29/17 20:00 60 06/29/17 20:00 99.9 70 27 106/56 (73) 97 06/29/17 19:35 99 55 06/29/17 18:10 76 101/50 06/29/17 18:00 77 06/29/17 16:30 81 99/56 06/29/17 16:02 100 60 06/29/17 16:00 60 06/29/17 16:00 100.0 83 32 91/54 (66) 27 06/29/17 16:00 83 06/29/17 15:45 90 93/53 06/29/17 15:00 93 167/78 06/29/17 14:00 90 07/01/17 07:00 Intake Total 700 ml Balance 700 ml Constitutional Vital Signs Date Time Temp Pulse Resp B/P (MAP) Pulse Ox O2 Delivery O2 Flow Rate FiO2 06/30/17 11:20 99 55 06/30/17 10:00 74 06/30/17 08:45 100 100 06/30/17 08:00 55 06/30/17 08:00 69 06/30/17 08:00 99.5 70 26 110/60 (77) 100 06/30/17 07:41 99 55 06/30/17 06:08 79 131/73 06/30/17 06:00 79 06/30/17 04:00 60 06/30/17 04:00 99.6 94 40 173/73 (106) 96 06/30/17 04:00 94 06/30/17 03:19 96 55 06/30/17 02:00 66 06/30/17 00:00 60 06/30/17 00:00 98.7 69 27 124/64 (84) 97 06/30/17 00:00 69 06/29/17 23:42 96 55 06/29/17 22:00 68 06/29/17 20:00 70 06/29/17 20:00 60 06/29/17 20:00 99.9 70 27 106/56 (73) 97 06/29/17 19:35 99 55 06/29/17 18:10 76 101/50 06/29/17 18:00 77 06/29/17 16:30 81 99/56 06/29/17 16:02 100 60 06/29/17 16:00 60 06/29/17 16:00 100.0 83 32 91/54 (66) 27 06/29/17 16:00 83 06/29/17 15:45 90 93/53 06/29/17 15:00 93 167/78 06/29/17 14:00 90 07/01/17 07:00 Intake Total 700 ml Balance 700 ml Review of Systems ROS Limitations: Intubated, Altered Mental Status Physical Exam Mr. Thompson is intubated, mechanically ventilated, and sedated on diprivan. No current seizure like activities noted. Cranial Nerves: Pupils pinpoint bilaterally. Mild left conjugate gaze. Cervical Spine: His neck is soft, supple, without nuchal rigidity. Motor: not following commands for testing, very minimal withdrawal left toes to noxious stimuli Reflexes: Deep tendon reflexes are trace throughout. Plantars silent bilaterally. Sensory: currently minimal withdrawal to left toes, otherwise no significant response to pain x 4 Cerebellar: cannot assess due to the patient's neurological condition Medications Current Medications Current Medications Medications (Trade) Dose Ordered Sig/[place] Route PRN Reason Start Time Stop Time Status Last Admin Dose Admin Acetaminophen (Tylenol) 650 mg Q6H PRN PO PAIN 1-10 AND/OR FEVER >101F 06/16/17 20:15 06/29/17 04:55 Artificial Tears (Tears Naturale Opth Soln) 1 drop TID EACH EYE 06/17/17 09:00 06/30/17 13:18 Ondansetron HCl (Zofran Inj) 4 mg Q6H PRN IV PUSH NAUSEA OR VOMITING 06/16/17 20:15 Albuterol/ Ipratropium (Duoneb Neb) 1 ampule Q2HR NEB PRN INH WHEEZING 06/16/17 20:15 06/27/17 10:41 Miscellaneous Information 1 Q361D XX 06/16/17 20:15 Chlorhexidine Gluconate (Chlorhexidine 2% Cloth) Taper DAILY@04 TOP 06/17/17 04:00 06/13/18 03:59 06/26/17 02:21 Chlorhexidine Gluconate (Chlorhexidine 2% Cloth) 3 pack UNSCH PRN TOP HYGIENIC CARE 06/16/17 20:15 Senna/Docusate Sodium (Cheryl-Colace) 1 tab BID PO 06/16/17 21:00 06/30/17 09:36 Magnesium Hydroxide (Milk Of Magnesia Liq) 30 ml Q12H PRN PO MILD - MODERATE CONSTIPATION 06/16/17 20:15 Sennosides (Senokot) 17.2 mg Q12H PRN PO MODERATE - SEVERE CONSTIPATION 06/16/17 20:15 Bisacodyl (Dulcolax Supp) 10 mg DAILY PRN RECTAL SEVERE CONSITIPATION 06/16/17 20:15 Lactulose (Lactulose Liq) 30 ml DAILY PRN PO SEVERE CONSITIPATION 06/16/17 20:15 Propofol 100 ml @ 2.106 mls/ hr TITRATE PRN IV SEDATION 06/16/17 21:00 06/30/17 11:06 Levetriacetam 100 ml @ 400 mls/hr Q12HR IV 06/17/17 09:00 06/30/17 09:35 Potassium Chloride 100 ml @ 50 mls/hr Q2H PRN IV For Potassium 2.8 - 3.2 mEq/L 06/16/17 23:15 Potassium Chloride 100 ml @ 50 mls/hr Q2H PRN IV For Potassium 2.8 - 3.2 mEq/L 06/16/17 23:15 Potassium Bicarb/ Potassium Chloride (K-Lyte Cl Eff) 50 meq UNSCH PRN PO For Potassium 3.3 - 3.5 mEq/L 06/16/17 23:15 Potassium Chloride 100 ml @ 25 mls/hr UNSCH PRN IV For Potassium 3.3 - 3.5 mEq/L 06/16/17 23:15 06/24/17 05:13 Potassium Chloride 100 ml @ 50 mls/hr Q2H PRN IV For Potassium 3.3 - 3.5 mEq/L 06/16/17 23:15 Magnesium Sulfate 4 gm/Sodium Chloride 100 ml @ 50 mls/hr UNSCH PRN IV For Magnesium 0.9 - 1.1 mg/dL 06/16/17 23:15 Magnesium Oxide (Mag-Ox) 800 mg UNSCH PRN PO For Magnesium 1.2 - 1.6 mg/dL 06/16/17 23:15 Magnesium Sulfate 2 gm/Sodium Chloride 100 ml @ 50 mls/hr UNSCH PRN IV For Magnesium 1.2 - 1.6 mg/dL 06/16/17 23:15 Potassium Phosphate (K-Phos) 2,000 mg Q4H PRN PO For Phosphorus < 2.5 mg/dL 06/16/17 23:15 Sodium Phosphate 30 mmol/Sodium Chloride 250 ml @ 42 mls/hr UNSCH PRN IV For Phosphorus < 2.5 mg/dL 06/16/17 23:15 06/17/17 14:51 Potassium Phosphate (K-Phos) 2,000 mg UNSCH PRN PO/TUBE SEE LABEL COMMENTS 06/16/17 23:15 Potassium Phosphate 30 mmol/ Sodium Chloride 260 ml @ 42 mls/hr UNSCH PRN IV SEE LABEL COMMENTS 06/16/17 23:15 Fentanyl Citrate 250 ml @ 5 mls/hr TITRATE PRN IV Sedation 06/17/17 12:15 06/29/17 22:54 IV Flush (NS Flush) 2 ml BID IV FLUSH 06/17/17 21:00 06/30/17 09:36 IV Flush (NS Flush) 2 ml UNSCH PRN IV FLUSH FLUSH AFTER USING IV ACCESS 06/17/17 19:00 Insulin Aspart (NovoLOG SUPPLEMENTAL SCALE) 1 ACHS SQ 06/17/17 21:00 06/29/17 22:59 Dextrose (D50w (Syr) Inj) 50 ml UNSCH PRN IV PUSH HYPOGLYCEMIA-SEE COMMENTS 06/17/17 19:00 Glucagon (Glucagon Inj) 1 mg UNSCH PRN OTHER HYPOGLYCEMIA-SEE COMMENTS 06/17/17 19:00 Haloperidol Lactate (Haldol Inj) 5 mg Q4H PRN IV agitation 06/20/17 10:30 06/30/17 11:06 Modafinil (Provigil) 200 mg DAILY PO 06/20/17 11:00 06/30/17 09:36 Piperacillin Sod/ Tazobactam Sod 100 ml @ 200 mls/hr Q6H IV 06/21/17 09:00 06/30/17 09:36 Pharmacy Profile Note 0 ml @ 0 mls/hr UNSCH OTHER 06/21/17 08:15 Norepinephrine Bitartrate 4 mg/ Sodium Chloride 250 ml @ 7.5 mls/hr TITRATE PRN IV Blood pressure management 06/23/17 17:15 06/30/17 06:08 Terbutaline Sulfate (Brethine Inj) 1 mg UNSCH PRN SQ For Extravasation 06/23/17 17:15 Hydralazine HCl (Apresoline Inj) 20 mg Q4H PRN IV PUSH SBP greater than 150mm Hg 06/23/17 18:00 Fosphenytoin Sodium (Cerebyx Inj) 100 mgpe Q6HR IV 06/26/17 00:00 06/30/17 12:00 Vancomycin HCl 1500 mg/Sodium Chloride 515 ml @ 250 mls/hr Q18H IV 06/28/17 16:00 06/30/17 06:07 Medical Decision Making MDM Remarks 66 year old male with large left ischemic stroke with hemorrhagic conversion on CT Brain 06/21, f/u CT Head 06/24 with improved hemorrhage, minimal midline shift CT Brain 06/30 with evolving large left MCA stroke, no hemorrhage seen, mild mass effect Seizure, EEG 06/29 reports with intermittent sharp activities may be epileptic Plan Plan Remarks cont critical care, cont sedation weaning as tolerated, follow up neuro examination cont current AEDs, defer mgt sz to Neurology-following follow up CT Head reviewed, cont nonop management, observe for now Kathie Crespo Jun 30, 2017 13:55
--- NOTE | 2017-06-30 15:09 | HHI.CCPN ---
Subjective Remarks/Hospital Course 06/16: 66-year-old unfortunate gentleman with a history of polysubstance abuse, presents here with altered mental status. When paramedics arrived, they found the patient to be obtunded with a GCS of 11. Friends who are at the patient's residence stated that they last saw him at 3:30. The patient arrived at roughly 5 PM. Patient was made a stroke alert as he was still in the window. Patient was unable to give any history regarding his visits secondary to his altered mental status. Patient had a left sided gaze with spasticity to his right upper extremity and clonus of his right lower shimmy. The CT of the head showed acute/subacute CVA at the left MCA territory and decision and not to administer TPA was made. While in the emergency department patient developed tonic-clonic seizures and was intubated by me for an airway protection. 06/17: Remains sedated, orally intubated on mechanical ventilation. 06/18: Remains sedated, orally intubated on mechanical ventilation. 06/19: no improvements. remains encephalopathic. intubated and mechanically ventilated. 06/20: no improvements in severe encephalopathy. 2 brothers at bedside yesterday and I had a long discussion about his poor prognosis and likely devastating persistent deficits. family stated "that's no way to live" but then stated "we don't believe in DNR or anything like that." They are likely pursuing aggressive medical management. 06/21: Remains encephalopathic off sedation, orally intubated on mechanical ventilation. Developed fevers over the weekend. Ordered pancultures and chest x-ray today which revealed significant bilateral pneumonia. 06/22: Remains encephalopathic off sedation, orally intubated on mechanical ventilation. 06/23: Remains encephalopathic on holding sedation, orally intubated on mechanical ventilation. CT head done yesterday showed some hemorrhagic conversion hence aspirin was stopped. Neurosurgery consulted today in view of some mass effect noted on head CT. Patient was started on 3% saline. Has been tolerating tube feeds. 06/24: Remains encephalopathic, orally intubated on mechanical ventilation. Remains on 3% saline. Tolerating tube feeds. 06/25: Osmolality acceptable. Diffuse lung infiltrates are infectious in etiology though some signs of venous congestion. No improvement in neurological condition. 06/26: Serum well concentrated. No neurological improvement. 06/27: Osmolality fine, hold 3% saline. No improvement. 06/28: Requiring increased FiO2. 06/29: Tachypnea mid 40s, appears to be neurologically driven. Increased Ti to 1.40. No improvement; at best minimal withdrawal of left leg. 06/30: Negative pressure pulmonary edema from excessive inspiratory effort. Severe neurological injury. Objective Vital Signs Date Time Temp Pulse Resp B/P (MAP) Pulse Ox O2 Delivery O2 Flow Rate FiO2 06/30/17 14:00 63 06/30/17 12:00 99.3 31 108/57 (74) 99 06/30/17 12:00 55 Intake and Output 06/30/17 06/30/17 07/01/17 08:00 16:00 00:00 Intake Total 1221 ml 1050 ml Output Total 650 ml Balance 571 ml 1050 ml Result Diagram: 06/30/17 0415 06/30/17 0415 Imaging Last [address] 06/24/17 0000 Signed Impressions: Service Date/Time: June 05:46 - CONCLUSION: Evolving left anterior circulation stroke. Polo Mathur MD Last 48 hours Impressions Chest X-Ray 06/21/17 0000 Signed Impressions: Service Date/Time: Wednesday, June 21, 2017 09:07 - CONCLUSION: Decreased airspace disease both lungs. Brian Gallardo MD FACR Last Impressions Head CT 06/17/17 1000 Signed Impressions: Service Date/Time: June 10:46 - CONCLUSION: Evolving left MCA and DAIN stroke as described Polo Mathur MD Neck CTA 06/16/17 1819 Signed Impressions: Service Date/Time: Friday, June 16, 2017 18:11 - CONCLUSION: No significant stenosis is seen. Polo Pérez MD Head CTA 06/16/17 3219 Signed Impressions: Service Date/Time: Friday, June 16, 2017 18:13 - CONCLUSION: No area of occlusion is seen. There appears to be hyperperfusion in the left middle cerebral artery territory. There is a subacute area of infarction seen on the recent CT examination. Polo Pérez MD Chest X-Ray 06/16/17 0000 Signed Impressions: Service Date/Time: Friday, June 16, 2017 23:32 - CONCLUSION: Mild bibasilar consolidation and small effusions. Line and tube positions as above. No pneumothorax. Polo Sosa MD Objective Remarks GENERAL: Elderly appearing gentleman sedated and intubated SKIN: Warm and dry. HEAD: Normocephalic.Left sided gaze EYES: No scleral icterus. No injection or drainage. NECK: trachea midline. Orally intubated. CARDIOVASCULAR: Regular rate and rhythm. Neck veins are full. RESPIRATORY: Mechanical ventilation. Breath sounds equal bilaterally. Scattered rhonchi persist, no wheezing. Weak cough. GASTROINTESTINAL: Abdomen soft, non-tender, nondistended. BS active. MUSCULOSKELETAL: No cyanosis, or edema. NEURO EXAM: Pupils 2mm, equal, reacting to light. RASS -4, w/d to pain on left. right contracted. minor cough and gag only. Tachypnea, non-physiological. A/P Assessment and Plan Assessment: 66yM with massive Left MCA and DAIN infarct with some hemorrhagic conversion and associated severe encephalopathy and deficits, along with acute hypoxic and hypercarbic respiratory failure. Poor prognosis. palliative care following. Acute Hypoxic and Hypercarbic Respiratory failure on mechanical ventilation Pneumonia Sepsis UTI - No weaning until neurologically improved - Palliative care consult - Most likely will need a trach and peg if family requests aggressive management - Pancultures ordered and started empiric Zosyn and vancomycin IV on 06/21 Acute Left MCA and DAIN CVA - Left MCA and DAIN territory - Extremely poor prognosis - Not a candidate for TPA - Aspirin and Plavix -hold in v/o hemorrhagic areas per radiology on CT Head done on 06/21. - Neurology following. Neurosurgery consulted. Started on 3% saline 06/23 for mass effect seen on head CT. Follow serial sodium -Follow up head CT per neurosurgery and neurology. Hypertension - Hydralazine when necessary to keep SBP less than 150 Peptic ulcer disease/GERD - IV Pepcid Alcohol and polysubstance abuse - Thiamine folate and multivitamins - Monitor for withdrawal History of Hepatitis C positive - Supportive care Seizure - Keppra, Fosphenytoin -Follow up EEG DVT GI prophylaxis - Teds SCDs - Subcutaneous heparin - IV Pepcid Condition remains critical. Palliative care following to assist with deciding goals of therapy. Overall impression: Devastating stroke. Systemic infection. Poor gas exchange. Congested. Prognosis poor. Unstable respiratory status today. Walter Rodriguez MD Jun 30, 2017 15:09
[2017-06-30] MEDS: ACETAMINOPHEN 325 MG TAB PO PRN (23:58)
[2017-07-01] VITALS (18 sets, daily range): BP systolic 119–156; BP diastolic 26–79; PULSE 64–98; RESP 26–30; TEMP 98.9–101.9; O2SAT 96–100
[2017-07-01] MEDS: fentaNYL 2,500 MCG/NS 250 ML IV PRN ×2 (00:49→12:29)
[2017-07-01] MEDS: CHLORHEXIDINE GLUCONATE 2 % 1 PACK (2 CLOTHS) TOP SCH (04:00)
[2017-07-01] MEDS: PIPERACIL-TAZO 4.5 GM PREMIX 100 ML IV SCH ×4 (04:08→22:09)
[2017-07-01] MEDS: PROPOFOL 1000 MG/100 ML INJ 100 ML IV PRN ×5 (04:09→23:41)
[2017-07-01] MEDS: NOREPINEPHRINE INJ 4 MG in SODIUM CHLOR 0.9% 250 ML INJ 246 ML IV PRN ×3 (04:10→20:50)
[2017-07-01 05:23] LABS: BICARBONATE 26.6 MEQ/L (21.0-32.0); POTASSIUM 3.7 MEQ/L (3.5-5.1)
[2017-07-01] MEDS: FOSPHENYTOIN SODIUM 100 MG PE/2 ML VIAL IV SCH ×4 (05:35→23:28)
[2017-07-01] MEDS: INSULIN ASPART SUPPLEMENTAL SCALE SQ SCH ×4 (08:00→21:00)
[2017-07-01] MEDS: ARTIFICIAL TEARS OPTH SOLN 15 ML BTL EACH EYE SCH ×3 (08:55→17:07)
[2017-07-01] MEDS: MODAFINIL 200 MG TAB PO SCH (08:56)
[2017-07-01] MEDS: DOCUSATE SODIUM 50 MG/SENNA 8.6 MG TAB PO SCH ×2 (08:56→22:09)
[2017-07-01] MEDS: levETIRAcetam 1000 MG INJ 100 ML IV SCH ×2 (08:56→22:09)
[2017-07-01] MEDS: SODIUM CHLORIDE 0.9% FLUSH 5 ML FLUSH IV FLUSH SCH ×2 (08:56→21:00)
--- NOTE | 2017-07-01 10:09 | HHI.CCPN ---
Subjective Remarks/Hospital Course 06/16: 66-year-old unfortunate gentleman with a history of polysubstance abuse, presents here with altered mental status. When paramedics arrived, they found the patient to be obtunded with a GCS of 11. Friends who are at the patient's residence stated that they last saw him at 3:30. The patient arrived at roughly 5 PM. Patient was made a stroke alert as he was still in the window. Patient was unable to give any history regarding his visits secondary to his altered mental status. Patient had a left sided gaze with spasticity to his right upper extremity and clonus of his right lower shimmy. The CT of the head showed acute/subacute CVA at the left MCA territory and decision and not to administer TPA was made. While in the emergency department patient developed tonic-clonic seizures and was intubated by me for an airway protection. 06/17: Remains sedated, orally intubated on mechanical ventilation. 06/18: Remains sedated, orally intubated on mechanical ventilation. 06/19: no improvements. remains encephalopathic. intubated and mechanically ventilated. 06/20: no improvements in severe encephalopathy. 2 brothers at bedside yesterday and I had a long discussion about his poor prognosis and likely devastating persistent deficits. family stated "that's no way to live" but then stated "we don't believe in DNR or anything like that." They are likely pursuing aggressive medical management. 06/21: Remains encephalopathic off sedation, orally intubated on mechanical ventilation. Developed fevers over the weekend. Ordered pancultures and chest x-ray today which revealed significant bilateral pneumonia. 06/22: Remains encephalopathic off sedation, orally intubated on mechanical ventilation. 06/23: Remains encephalopathic on holding sedation, orally intubated on mechanical ventilation. CT head done yesterday showed some hemorrhagic conversion hence aspirin was stopped. Neurosurgery consulted today in view of some mass effect noted on head CT. Patient was started on 3% saline. Has been tolerating tube feeds. 06/24: Remains encephalopathic, orally intubated on mechanical ventilation. Remains on 3% saline. Tolerating tube feeds. 06/25: Osmolality acceptable. Diffuse lung infiltrates are infectious in etiology though some signs of venous congestion. No improvement in neurological condition. 06/26: Serum well concentrated. No neurological improvement. 06/27: Osmolality fine, hold 3% saline. No improvement. 06/28: Requiring increased FiO2. 06/29: Tachypnea mid 40s, appears to be neurologically driven. Increased Ti to 1.40. No improvement; at best minimal withdrawal of left leg. 06/30: Negative pressure pulmonary edema from excessive inspiratory effort. Severe neurological injury. 07/01: Large A-aO2 gradient persists. Family ostensibly arriving Wednesday for withdrawal. Exhibits B & C are signed. Objective Vital Signs Date Time Temp Pulse Resp B/P (MAP) Pulse Ox O2 Delivery O2 Flow Rate FiO2 07/01/17 08:23 100 60 07/01/17 06:00 68 07/01/17 04:10 146/70 07/01/17 04:00 100.0 27 Intake and Output 07/01/17 07/01/17 07/02/17 08:00 16:00 00:00 Intake Total 1441 ml Output Total 475 ml Balance 966 ml Result Diagram: 06/30/17 0415 07/01/17 0415 Imaging Last [address] 06/24/17 0000 Signed Impressions: Service Date/Time: June 05:46 - CONCLUSION: Evolving left anterior circulation stroke. Polo Mathur MD Last 48 hours Impressions Chest X-Ray 06/21/17 0000 Signed Impressions: Service Date/Time: Wednesday, June 21, 2017 09:07 - CONCLUSION: Decreased airspace disease both lungs. Brian Gallardo MD FACR Last Impressions Head CT 06/17/17 1000 Signed Impressions: Service Date/Time: June 10:46 - CONCLUSION: Evolving left MCA and DAIN stroke as described Polo Mathur MD Neck CTA 06/16/17 1819 Signed Impressions: Service Date/Time: Friday, June 16, 2017 18:11 - CONCLUSION: No significant stenosis is seen. Polo Pérez MD Head CTA 06/16/17 1019 Signed Impressions: Service Date/Time: Friday, June 16, 2017 18:13 - CONCLUSION: No area of occlusion is seen. There appears to be hyperperfusion in the left middle cerebral artery territory. There is a subacute area of infarction seen on the recent CT examination. Polo Pérez MD Chest X-Ray 06/16/17 0000 Signed Impressions: Service Date/Time: Friday, June 16, 2017 23:32 - CONCLUSION: Mild bibasilar consolidation and small effusions. Line and tube positions as above. No pneumothorax. Polo Sosa MD Objective Remarks GENERAL: Elderly appearing gentleman sedated and intubated SKIN: Warm and dry. HEAD: Normocephalic.Left sided gaze EYES: No scleral icterus. No injection or drainage. NECK: trachea midline. Orally intubated. CARDIOVASCULAR: Regular rate and rhythm. Neck veins are full. RESPIRATORY: Mechanical ventilation. Breath sounds equal bilaterally. Scattered rhonchi persist, no wheezing. Weak cough. GASTROINTESTINAL: Abdomen soft, non-tender, nondistended. BS active. MUSCULOSKELETAL: No cyanosis, or edema. NEURO EXAM: Pupils 2mm, equal, reacting to light. RASS -4, w/d to pain on left. right contracted. minor cough and gag only. Tachypnea, non-physiological. A/P Assessment and Plan Assessment: 66yM with massive Left MCA and DAIN infarct with some hemorrhagic conversion and associated severe encephalopathy and deficits, along with acute hypoxic and hypercarbic respiratory failure. Poor prognosis. palliative care following. Acute Hypoxic and Hypercarbic Respiratory failure on mechanical ventilation Pneumonia Sepsis UTI - No weaning until neurologically improved - Palliative care consult - Most likely will need a trach and peg if family requests aggressive management - Pancultures ordered and started empiric Zosyn and vancomycin IV on 06/21 Acute Left MCA and DAIN CVA - Left MCA and DAIN territory - Extremely poor prognosis - Not a candidate for TPA - Aspirin and Plavix -hold in v/o hemorrhagic areas per radiology on CT Head done on 06/21. - Neurology following. Neurosurgery consulted. Started on 3% saline 06/23 for mass effect seen on head CT. Follow serial sodium -Follow up head CT per neurosurgery and neurology. Hypertension - Hydralazine when necessary to keep SBP less than 150 Peptic ulcer disease/GERD - IV Pepcid Alcohol and polysubstance abuse - Thiamine folate and multivitamins - Monitor for withdrawal History of Hepatitis C positive - Supportive care Seizure - Keppra, Fosphenytoin -Follow up EEG DVT GI prophylaxis - Teds SCDs - Subcutaneous heparin - IV Pepcid Condition remains critical. Palliative care following to assist with deciding goals of therapy. Overall impression: Devastating stroke. Systemic infection. Poor gas exchange. Congested. Prognosis poor. Unstable respiratory status today. Walter Rodriguez MD Jul 01, 2017 10:09
--- NOTE | 2017-07-01 16:29 | HHI.NSPN ---
Note Status Status: Progress Note Interval History Interval History Mr. Thompson is a 66 year old male who presented to [place] 06/16/17 with gaze deficits, and was found to have a large left MCA ischemic stroke. He was evaluated by Dr. Powell and patient was not a candidate for TPA. He is intubated and sedated on fentanyl and Diprivan. He was placed on heparin drip and started on aspirin therapy. A CT Brain 06/21/17 shows hemorrhagic conversion within the ischemic bed with mild mass effect but no significant midline shift. He is on hypertonic saline. A neurosurgical evaluation was requested. 06/24: f/u CT Brain completed this morning, remains intubated and sedated. 06/25: Pt sedated and intubated. Pupils remain pinpoint. No changes clinically. 06/26: Patient not opening eyes. Pupils pinpoint. Patient on Levophed drip. Patient sedated on fentanyl. Withdraws lower extremities to pain. 06/27: Pt not opening eyes. Not following commands. Pt sedated on Fentanyl and diprivan drips. On Levophed drip. Pupils pinpoint. No withdrawal this morning with sedation. 06/28: The patient is comatose this morning. He is sedated with propofol and has fentanyl infusing for pain control. A norepinephrine drip is also infusing. He is intubated and mechanically ventilated. There is no response to stimulation. 06/29: sedated on Diprivan, remains intubated. EEG 06/29 reports intermittent sharp activities 06/30: off sedation yesterday, patient was reported to have opened eyes, withdraw to right side side. f/u CT Head this morning completed. otherwise stable overnight. 07/01: no changes to neuro checks. intubated and sedated for blood pressure control Labs, Micro, & Vital Signs Results Date Time Temp Pulse Resp B/P (MAP) Pulse Ox O2 Delivery O2 Flow Rate FiO2 07/01/17 15:18 69 120/66 07/01/17 15:00 96 70 07/01/17 14:00 68 07/01/17 12:00 60 07/01/17 12:00 99.2 72 27 119/67 (84) 100 07/01/17 12:00 98 07/01/17 11:05 98 100 07/01/17 10:00 92 07/01/17 08:23 100 60 07/01/17 08:00 60 07/01/17 08:00 94 07/01/17 08:00 99.7 68 29 156/79 (104) 100 07/01/17 06:00 68 07/01/17 04:19 97 60 07/01/17 04:10 69 146/70 07/01/17 04:00 60 07/01/17 04:00 70 07/01/17 04:00 100.0 70 27 146/70 (95) 97 07/01/17 02:00 71 07/01/17 00:59 97 60 07/01/17 00:00 60 07/01/17 00:00 76 07/01/17 00:00 101.9 76 30 127/70 (89) 97 06/30/17 22:00 83 06/30/17 21:40 88 150/77 06/30/17 20:21 93 60 06/30/17 20:00 99.8 103 33 130/68 (88) 92 06/30/17 20:00 103 06/30/17 20:00 60 06/30/17 18:00 65 07/02/17 07:00 Intake Total 781 ml Output Total 0 ml Balance 781 ml Constitutional Vital Signs Date Time Temp Pulse Resp B/P (MAP) Pulse Ox O2 Delivery O2 Flow Rate FiO2 07/01/17 15:18 69 120/66 07/01/17 15:00 96 70 07/01/17 14:00 68 07/01/17 12:00 60 07/01/17 12:00 99.2 72 27 119/67 (84) 100 07/01/17 12:00 98 07/01/17 11:05 98 100 07/01/17 10:00 92 07/01/17 08:23 100 60 07/01/17 08:00 60 07/01/17 08:00 94 07/01/17 08:00 99.7 68 29 156/79 (104) 100 07/01/17 06:00 68 07/01/17 04:19 97 60 07/01/17 04:10 69 146/70 07/01/17 04:00 60 07/01/17 04:00 70 07/01/17 04:00 100.0 70 27 146/70 (95) 97 07/01/17 02:00 71 07/01/17 00:59 97 60 07/01/17 00:00 60 07/01/17 00:00 76 07/01/17 00:00 101.9 76 30 127/70 (89) 97 06/30/17 22:00 83 06/30/17 21:40 88 150/77 06/30/17 20:21 93 60 06/30/17 20:00 99.8 103 33 130/68 (88) 92 06/30/17 20:00 103 06/30/17 20:00 60 06/30/17 18:00 65 07/02/17 07:00 Intake Total 781 ml Output Total 0 ml Balance 781 ml Review of Systems ROS Limitations: Intubated Physical Exam Mr. Thompson is intubated, mechanically ventilated, and sedated on Diprivan. No current seizure like activities noted. Cranial Nerves: Pupils pinpoint bilaterally. Mild left conjugate gaze. Cervical Spine: His neck is soft, supple, without nuchal rigidity. Motor: not following commands for testing, very minimal withdrawal left toes to noxious stimuli Reflexes: Deep tendon reflexes are trace throughout. Plantars silent bilaterally. Sensory: currently minimal withdrawal to left toes, otherwise no significant response to pain x 4 Cerebellar: cannot assess due to the patient's neurological condition Medications Current Medications Current Medications Medications (Trade) Dose Ordered Sig/[place] Route PRN Reason Start Time Stop Time Status Last Admin Dose Admin Acetaminophen (Tylenol) 650 mg Q6H PRN PO PAIN 1-10 AND/OR FEVER >101F 06/16/17 20:15 06/30/17 23:58 Artificial Tears (Tears Naturale Opth Soln) 1 drop TID EACH EYE 06/17/17 09:00 07/01/17 13:00 Ondansetron HCl (Zofran Inj) 4 mg Q6H PRN IV PUSH NAUSEA OR VOMITING 06/16/17 20:15 Albuterol/ Ipratropium (Duoneb Neb) 1 ampule Q2HR NEB PRN INH WHEEZING 06/16/17 20:15 06/27/17 10:41 Miscellaneous Information 1 Q361D XX 06/16/17 20:15 Chlorhexidine Gluconate (Chlorhexidine 2% Cloth) Taper DAILY@04 TOP 06/17/17 04:00 06/13/18 03:59 06/26/17 02:21 Chlorhexidine Gluconate (Chlorhexidine 2% Cloth) 3 pack UNSCH PRN TOP HYGIENIC CARE 06/16/17 20:15 Senna/Docusate Sodium (Cheryl-Colace) 1 tab BID PO 06/16/17 21:00 07/01/17 08:56 Magnesium Hydroxide (Milk Of Magnesia Liq) 30 ml Q12H PRN PO MILD - MODERATE CONSTIPATION 06/16/17 20:15 Sennosides (Senokot) 17.2 mg Q12H PRN PO MODERATE - SEVERE CONSTIPATION 06/16/17 20:15 Bisacodyl (Dulcolax Supp) 10 mg DAILY PRN RECTAL SEVERE CONSITIPATION 06/16/17 20:15 Lactulose (Lactulose Liq) 30 ml DAILY PRN PO SEVERE CONSITIPATION 06/16/17 20:15 Propofol 100 ml @ 2.106 mls/ hr TITRATE PRN IV SEDATION 06/16/17 21:00 07/01/17 15:18 Levetriacetam 100 ml @ 400 mls/hr Q12HR IV 06/17/17 09:00 07/01/17 08:56 Potassium Chloride 100 ml @ 50 mls/hr Q2H PRN IV For Potassium 2.8 - 3.2 mEq/L 06/16/17 23:15 Potassium Chloride 100 ml @ 50 mls/hr Q2H PRN IV For Potassium 2.8 - 3.2 mEq/L 06/16/17 23:15 Potassium Bicarb/ Potassium Chloride (K-Lyte Cl Eff) 50 meq UNSCH PRN PO For Potassium 3.3 - 3.5 mEq/L 06/16/17 23:15 Potassium Chloride 100 ml @ 25 mls/hr UNSCH PRN IV For Potassium 3.3 - 3.5 mEq/L 06/16/17 23:15 06/24/17 05:13 Potassium Chloride 100 ml @ 50 mls/hr Q2H PRN IV For Potassium 3.3 - 3.5 mEq/L 06/16/17 23:15 Magnesium Sulfate 4 gm/Sodium Chloride 100 ml @ 50 mls/hr UNSCH PRN IV For Magnesium 0.9 - 1.1 mg/dL 06/16/17 23:15 Magnesium Oxide (Mag-Ox) 800 mg UNSCH PRN PO For Magnesium 1.2 - 1.6 mg/dL 06/16/17 23:15 Magnesium Sulfate 2 gm/Sodium Chloride 100 ml @ 50 mls/hr UNSCH PRN IV For Magnesium 1.2 - 1.6 mg/dL 06/16/17 23:15 Potassium Phosphate (K-Phos) 2,000 mg Q4H PRN PO For Phosphorus < 2.5 mg/dL 06/16/17 23:15 Sodium Phosphate 30 mmol/Sodium Chloride 250 ml @ 42 mls/hr UNSCH PRN IV For Phosphorus < 2.5 mg/dL 06/16/17 23:15 06/17/17 14:51 Potassium Phosphate (K-Phos) 2,000 mg UNSCH PRN PO/TUBE SEE LABEL COMMENTS 06/16/17 23:15 Potassium Phosphate 30 mmol/ Sodium Chloride 260 ml @ 42 mls/hr UNSCH PRN IV SEE LABEL COMMENTS 06/16/17 23:15 Fentanyl Citrate 250 ml @ 5 mls/hr TITRATE PRN IV Sedation 06/17/17 12:15 07/01/17 12:29 IV Flush (NS Flush) 2 ml BID IV FLUSH 06/17/17 21:00 07/01/17 08:56 IV Flush (NS Flush) 2 ml UNSCH PRN IV FLUSH FLUSH AFTER USING IV ACCESS 06/17/17 19:00 Insulin Aspart (NovoLOG SUPPLEMENTAL SCALE) 1 ACHS SQ 06/17/17 21:00 07/01/17 08:00 Dextrose (D50w (Syr) Inj) 50 ml UNSCH PRN IV PUSH HYPOGLYCEMIA-SEE COMMENTS 06/17/17 19:00 Glucagon (Glucagon Inj) 1 mg UNSCH PRN OTHER HYPOGLYCEMIA-SEE COMMENTS 06/17/17 19:00 Haloperidol Lactate (Haldol Inj) 5 mg Q4H PRN IV agitation 06/20/17 10:30 06/30/17 19:32 Modafinil (Provigil) 200 mg DAILY PO 06/20/17 11:00 07/01/17 08:56 Piperacillin Sod/ Tazobactam Sod 100 ml @ 200 mls/hr Q6H IV 06/21/17 09:00 07/01/17 14:06 Norepinephrine Bitartrate 4 mg/ Sodium Chloride 250 ml @ 7.5 mls/hr TITRATE PRN IV Blood pressure management 06/23/17 17:15 07/01/17 15:18 Terbutaline Sulfate (Brethine Inj) 1 mg UNSCH PRN SQ For Extravasation 06/23/17 17:15 Hydralazine HCl (Apresoline Inj) 20 mg Q4H PRN IV PUSH SBP greater than 150mm Hg 06/23/17 18:00 Fosphenytoin Sodium (Cerebyx Inj) 100 mgpe Q6HR IV 06/26/17 00:00 07/01/17 12:13 Medical Decision Making MDM Remarks 66 year old male with large left ischemic stroke with hemorrhagic conversion on CT Brain 06/21, f/u CT Head 06/24 with improved hemorrhage, minimal midline shift CT Brain 06/30 with evolving large left MCA stroke, no hemorrhage seen, mild mass effect Seizure, EEG 06/29 reports with intermittent sharp activities may be epileptic Plan Plan Remarks cont critical care management cont sedation weaning as tolerated, cont follow up neuro examination- no significant improvement cont current AEDs, per Neurology-following Kathie Crespo Jul 01, 2017 16:29
[2017-07-01] MEDS ORDERED: MIDAZOLAM HCL 5 MG/ML VIAL (1 ML) ONE (23:40)
[2017-07-01] MEDS ORDERED: MIDAZOLAM HCL 5 MG/ML VIAL (1 ML) IV ONE (23:59)
[2017-07-02] VITALS (19 sets, daily range): BP systolic 107–147; BP diastolic 59–80; PULSE 64–92; RESP 26–39; TEMP 98.3–100.6; O2SAT 90–98
[2017-07-02] MEDS: fentaNYL 2,500 MCG/NS 250 ML IV PRN ×2 (00:34→10:42)
[2017-07-02] MEDS: PROPOFOL 1000 MG/100 ML INJ 100 ML IV PRN ×5 (03:09→21:21)
[2017-07-02] MEDS: PIPERACIL-TAZO 4.5 GM PREMIX 100 ML IV SCH ×4 (03:10→21:21)
[2017-07-02] MEDS: CHLORHEXIDINE GLUCONATE 2 % 1 PACK (2 CLOTHS) TOP SCH (04:00)
[2017-07-02] MEDS: NOREPINEPHRINE INJ 4 MG in SODIUM CHLOR 0.9% 250 ML INJ 246 ML IV PRN ×2 (04:14→22:45)
[2017-07-02] MEDS: FOSPHENYTOIN SODIUM 100 MG PE/2 ML VIAL IV SCH ×3 (06:00→16:54)
[2017-07-02] MEDS: RESP: ALBUTEROL 2.5 MG/IPRATROPIUM 0.5 MG NEB (PRN) INH ×2 (07:54→18:04)
[2017-07-02] MEDS: ARTIFICIAL TEARS OPTH SOLN 15 ML BTL EACH EYE SCH ×3 (08:29→16:54)
[2017-07-02] MEDS: INSULIN ASPART SUPPLEMENTAL SCALE SQ SCH ×4 (08:29→21:00)
[2017-07-02] MEDS: MODAFINIL 200 MG TAB PO SCH (08:30)
[2017-07-02] MEDS: SODIUM CHLORIDE 0.9% FLUSH 5 ML FLUSH IV FLUSH SCH ×2 (08:30→21:00)
[2017-07-02] MEDS: DOCUSATE SODIUM 50 MG/SENNA 8.6 MG TAB PO SCH ×2 (08:30→21:21)
[2017-07-02] MEDS: levETIRAcetam 1000 MG INJ 100 ML IV SCH ×2 (08:30→21:20)
--- NOTE | 2017-07-02 10:00 | HHI.NSPN ---
Note Status Status: Progress Note Interval History Interval History Mr. Thompson is a 66 year old male who presented to [place] 06/16/17 with gaze deficits, and was found to have a large left MCA ischemic stroke. He was evaluated by Dr. Powell and patient was not a candidate for TPA. He is intubated and sedated on fentanyl and Diprivan. He was placed on heparin drip and started on aspirin therapy. A CT Brain 06/21/17 shows hemorrhagic conversion within the ischemic bed with mild mass effect but no significant midline shift. He is on hypertonic saline. A neurosurgical evaluation was requested. 06/24: f/u CT Brain completed this morning, remains intubated and sedated. 06/25: Pt sedated and intubated. Pupils remain pinpoint. No changes clinically. 06/26: Patient not opening eyes. Pupils pinpoint. Patient on Levophed drip. Patient sedated on fentanyl. Withdraws lower extremities to pain. 06/27: Pt not opening eyes. Not following commands. Pt sedated on Fentanyl and diprivan drips. On Levophed drip. Pupils pinpoint. No withdrawal this morning with sedation. 06/28: The patient is comatose this morning. He is sedated with propofol and has fentanyl infusing for pain control. A norepinephrine drip is also infusing. He is intubated and mechanically ventilated. There is no response to stimulation. 06/29: sedated on Diprivan, remains intubated. EEG 06/29 reports intermittent sharp activities 06/30: off sedation yesterday, patient was reported to have opened eyes, withdraw to right side side. f/u CT Head this morning completed. otherwise stable overnight. 07/01: no changes to neuro checks. intubated and sedated due to uncontrolled blood pressure. 07/02: no improvement to neuro examination, family decided withdrawal Wednesday Labs, Micro, & Vital Signs Results Date Time Temp Pulse Resp B/P (MAP) Pulse Ox O2 Delivery O2 Flow Rate FiO2 07/02/17 07:44 95 65 07/02/17 06:00 66 07/02/17 04:14 67 128/71 07/02/17 04:04 94 70 07/02/17 04:00 70 07/02/17 04:00 99.1 76 26 128/71 (90) 94 07/02/17 04:00 76 07/02/17 02:45 69 115/65 07/02/17 02:00 68 07/02/17 01:04 96 70 07/02/17 01:00 77 110/65 07/02/17 00:45 92 113/59 07/02/17 00:00 92 07/02/17 00:00 70 07/02/17 00:00 99.2 92 26 124/67 (86) 98 07/01/17 22:59 79 119/60 07/01/17 22:16 87 159/71 07/01/17 22:00 89 07/01/17 21:45 70 07/01/17 21:45 80 155/58 07/01/17 21:30 64 142/69 07/01/17 21:00 64 132/66 07/01/17 20:50 64 138/67 07/01/17 20:04 100 60 07/01/17 20:00 99.5 65 26 121/68 (85) 97 07/01/17 20:00 65 07/01/17 20:00 60 07/01/17 18:00 64 07/01/17 16:00 60 07/01/17 16:00 66 07/01/17 16:00 98.9 66 29 126/26 (59) 98 07/01/17 15:18 69 120/66 07/01/17 15:00 96 70 07/01/17 14:00 68 07/01/17 12:00 60 07/01/17 12:00 99.2 72 27 119/67 (84) 100 07/01/17 12:00 98 07/01/17 11:05 98 100 07/01/17 10:00 92 07/03/17 07:00 Output Total 0 ml Balance 0 ml Constitutional Vital Signs Date Time Temp Pulse Resp B/P (MAP) Pulse Ox O2 Delivery O2 Flow Rate FiO2 07/02/17 07:44 95 65 07/02/17 06:00 66 07/02/17 04:14 67 128/71 07/02/17 04:04 94 70 07/02/17 04:00 70 10/20/17 04:00 99.1 76 26 128/71 (90) 94 07/02/17 04:00 76 07/02/17 02:45 69 115/65 07/02/17 02:00 68 07/02/17 01:04 96 70 07/02/17 01:00 77 110/65 07/02/17 00:45 92 113/59 07/02/17 00:00 92 07/02/17 00:00 70 07/02/17 00:00 99.2 92 26 124/67 (86) 98 07/01/17 22:59 79 119/60 07/01/17 22:16 87 159/71 07/01/17 22:00 89 07/01/17 21:45 70 07/01/17 21:45 80 155/58 07/01/17 21:30 64 142/69 07/01/17 21:00 64 132/66 07/01/17 20:50 64 138/67 07/01/17 20:04 100 60 07/01/17 20:00 99.5 65 26 121/68 (85) 97 07/01/17 20:00 65 07/01/17 20:00 60 07/01/17 18:00 64 07/01/17 16:00 60 07/01/17 16:00 66 07/01/17 16:00 98.9 66 29 126/26 (59) 98 07/01/17 15:18 69 120/66 07/01/17 15:00 96 70 07/01/17 14:00 68 07/01/17 12:00 60 07/01/17 12:00 99.2 72 27 119/67 (84) 100 07/01/17 12:00 98 07/01/17 11:05 98 100 07/01/17 10:00 92 07/03/17 07:00 Output Total 0 ml Balance 0 ml Physical Exam Mr. Thompson is intubated, mechanically ventilated, and sedated on Diprivan for blood pressure control. No current seizure like activities noted. Cranial Nerves: Pupils pinpoint bilaterally. Mild left conjugate gaze. Cervical Spine: His neck is soft, supple, without nuchal rigidity. Motor: not following commands for testing, very minimal withdrawal left toes to noxious stimuli Reflexes: Deep tendon reflexes are trace throughout. Plantars silent bilaterally. Sensory: currently minimal withdrawal to left toes, otherwise no significant response to pain x 4 Cerebellar: cannot assess due to the patient's neurological condition Medications Current Medications Current Medications Medications (Trade) Dose Ordered Sig/[place] Route PRN Reason Start Time Stop Time Status Last Admin Dose Admin Acetaminophen (Tylenol) 650 mg Q6H PRN PO PAIN 1-10 AND/OR FEVER >101F 06/16/17 20:15 06/30/17 23:58 Artificial Tears (Tears Naturale Opth Soln) 1 drop TID EACH EYE 06/17/17 09:00 07/02/17 08:29 Ondansetron HCl (Zofran Inj) 4 mg Q6H PRN IV PUSH NAUSEA OR VOMITING 06/16/17 20:15 Albuterol/ Ipratropium (Duoneb Neb) 1 ampule Q2HR NEB PRN INH WHEEZING 06/16/17 20:15 07/02/17 07:54 Miscellaneous Information 1 Q361D XX 06/16/17 20:15 Chlorhexidine Gluconate (Chlorhexidine 2% Cloth) Taper DAILY@04 TOP 06/17/17 04:00 06/13/18 03:59 06/26/17 02:21 Chlorhexidine Gluconate (Chlorhexidine 2% Cloth) 3 pack UNSCH PRN TOP HYGIENIC CARE 06/16/17 20:15 Senna/Docusate Sodium (Cheryl-Colace) 1 tab BID PO 06/16/17 21:00 07/02/17 08:30 Magnesium Hydroxide (Milk Of Magnesia Liq) 30 ml Q12H PRN PO MILD - MODERATE CONSTIPATION 06/16/17 20:15 Sennosides (Senokot) 17.2 mg Q12H PRN PO MODERATE - SEVERE CONSTIPATION 06/16/17 20:15 Bisacodyl (Dulcolax Supp) 10 mg DAILY PRN RECTAL SEVERE CONSITIPATION 06/16/17 20:15 Lactulose (Lactulose Liq) 30 ml DAILY PRN PO SEVERE CONSITIPATION 06/16/17 20:15 Propofol 100 ml @ 2.106 mls/ hr TITRATE PRN IV SEDATION 06/16/17 21:00 07/02/17 06:57 Levetriacetam 100 ml @ 400 mls/hr Q12HR IV 06/17/17 09:00 07/02/17 08:30 Potassium Chloride 100 ml @ 50 mls/hr Q2H PRN IV For Potassium 2.8 - 3.2 mEq/L 06/16/17 23:15 Potassium Chloride 100 ml @ 50 mls/hr Q2H PRN IV For Potassium 2.8 - 3.2 mEq/L 06/16/17 23:15 Potassium Bicarb/ Potassium Chloride (K-Lyte Cl Eff) 50 meq UNSCH PRN PO For Potassium 3.3 - 3.5 mEq/L 06/16/17 23:15 Potassium Chloride 100 ml @ 25 mls/hr UNSCH PRN IV For Potassium 3.3 - 3.5 mEq/L 06/16/17 23:15 06/24/17 05:13 Potassium Chloride 100 ml @ 50 mls/hr Q2H PRN IV For Potassium 3.3 - 3.5 mEq/L 06/16/17 23:15 Magnesium Sulfate 4 gm/Sodium Chloride 100 ml @ 50 mls/hr UNSCH PRN IV For Magnesium 0.9 - 1.1 mg/dL 06/16/17 23:15 Magnesium Oxide (Mag-Ox) 800 mg UNSCH PRN PO For Magnesium 1.2 - 1.6 mg/dL 06/16/17 23:15 Magnesium Sulfate 2 gm/Sodium Chloride 100 ml @ 50 mls/hr UNSCH PRN IV For Magnesium 1.2 - 1.6 mg/dL 06/16/17 23:15 Potassium Phosphate (K-Phos) 2,000 mg Q4H PRN PO For Phosphorus < 2.5 mg/dL 06/16/17 23:15 Sodium Phosphate 30 mmol/Sodium Chloride 250 ml @ 42 mls/hr UNSCH PRN IV For Phosphorus < 2.5 mg/dL 06/16/17 23:15 06/17/17 14:51 Potassium Phosphate (K-Phos) 2,000 mg UNSCH PRN PO/TUBE SEE LABEL COMMENTS 06/16/17 23:15 Potassium Phosphate 30 mmol/ Sodium Chloride 260 ml @ 42 mls/hr UNSCH PRN IV SEE LABEL COMMENTS 06/16/17 23:15 Fentanyl Citrate 250 ml @ 5 mls/hr TITRATE PRN IV Sedation 06/17/17 12:15 07/02/17 00:34 IV Flush (NS Flush) 2 ml BID IV FLUSH 06/17/17 21:00 07/02/17 08:30 IV Flush (NS Flush) 2 ml UNSCH PRN IV FLUSH FLUSH AFTER USING IV ACCESS 06/17/17 19:00 Insulin Aspart (NovoLOG SUPPLEMENTAL SCALE) 1 ACHS SQ 06/17/17 21:00 07/02/17 08:29 Dextrose (D50w (Syr) Inj) 50 ml UNSCH PRN IV PUSH HYPOGLYCEMIA-SEE COMMENTS 06/17/17 19:00 Glucagon (Glucagon Inj) 1 mg UNSCH PRN OTHER HYPOGLYCEMIA-SEE COMMENTS 06/17/17 19:00 Haloperidol Lactate (Haldol Inj) 5 mg Q4H PRN IV agitation 06/20/17 10:30 06/30/17 19:32 Modafinil (Provigil) 200 mg DAILY PO 06/20/17 11:00 07/02/17 08:30 Piperacillin Sod/ Tazobactam Sod 100 ml @ 200 mls/hr Q6H IV 06/21/17 09:00 07/02/17 08:30 Norepinephrine Bitartrate 4 mg/ Sodium Chloride 250 ml @ 7.5 mls/hr TITRATE PRN IV Blood pressure management 06/23/17 17:15 07/02/17 04:14 Terbutaline Sulfate (Brethine Inj) 1 mg UNSCH PRN SQ For Extravasation 06/23/17 17:15 Hydralazine HCl (Apresoline Inj) 20 mg Q4H PRN IV PUSH SBP greater than 150mm Hg 06/23/17 18:00 Fosphenytoin Sodium (Cerebyx Inj) 100 mgpe Q6HR IV 06/26/17 00:00 07/02/17 06:00 Medical Decision Making MDM Remarks 66 year old male with large left ischemic stroke with hemorrhagic conversion on CT Brain 06/21, f/u CT Head 06/24 with improved hemorrhage, minimal midline shift CT Brain 06/30 with evolving large left MCA stroke, no hemorrhage seen, mild mass effect Seizure, EEG 06/29 reports with intermittent sharp activities may be epileptic Plan Plan Remarks cont critical care serial neuro checks no changes to neuro examination palliative care following will sign off, call prn Kathie Crespo Jul 02, 2017 10:00
--- NOTE | 2017-07-02 10:13 | HHI.HCPN ---
Reason for visit a. To assist with evaluation and management of symptoms including: dyspnea, encephalopathy, pain b. To assist medical decision maker(s) with: better understanding of current medical conditions; weighing benefits/burdens of medical treatment options; making medical treatment decisions. . Subjective/Interval History Patient remains intubated, mechanically ventilated, sedated on propofol for ventilator synchrony. Patient does not respond to noxious stimuli. No new laboratory data or imaging available. . Family/friend interactions Telephone conversation with patient's brother Layla Prajapati, provided update on patient's clinical status, he has confirmed that the family is still planning to move forward with withdrawal of artificial life support tomorrow Wednesday. . Advance Directives Living Will: Never completed Health Care Surrogate: Never completed Durable Power of Ship Purser: Never completed Objective Vital Signs Date Time Temp Pulse Resp B/P (MAP) Pulse Ox O2 Delivery O2 Flow Rate FiO2 07/02/17 08:00 65 07/02/17 08:00 98.3 67 29 147/80 (102) 94 07/02/17 07:44 95 65 07/02/17 06:00 66 07/02/17 04:14 67 128/71 07/02/17 04:04 94 70 07/02/17 04:00 70 07/02/17 04:00 99.1 76 26 128/71 (90) 94 07/02/17 04:00 76 07/02/17 02:45 69 115/65 07/02/17 02:00 68 07/02/17 01:04 96 70 07/02/17 01:00 77 110/65 07/02/17 00:45 92 113/59 07/02/17 00:00 92 07/02/17 00:00 70 07/02/17 00:00 99.2 92 26 124/67 (86) 98 07/01/17 22:59 79 119/60 07/01/17 22:16 87 159/71 07/01/17 22:00 89 07/01/17 21:45 70 07/01/17 21:45 80 155/58 07/01/17 21:30 64 142/69 07/01/17 21:00 64 132/66 07/01/17 20:50 64 138/67 07/01/17 20:04 100 60 07/01/17 20:00 99.5 65 26 121/68 (85) 97 07/01/17 20:00 65 07/01/17 20:00 60 07/01/17 18:00 64 07/01/17 16:00 60 07/01/17 16:00 66 07/01/17 16:00 98.9 66 29 126/26 (59) 98 07/01/17 15:18 69 120/66 07/01/17 15:00 96 70 07/01/17 14:00 68 07/01/17 12:00 60 07/01/17 12:00 99.2 72 27 119/67 (84) 100 07/01/17 12:00 98 07/01/17 11:05 98 100 Intake & Output 07/02/17 07/02/17 07:00 19:00 Intake Total 1332 ml Output Total 1000 ml 0 ml Balance 332 ml 0 ml IV Total 550 ml Tube Feeding 782 ml Output Urine Total 1000 ml Tube Feeding Residual Discard 0 ml 0 ml # Bowel Movements 0 . Physical Exam CONSTITUTIONAL/GENERAL: This is an elderly male patient, intubated, mechanically ventilated. TUBES/LINES/DRAINS: ETT, OGT, CVL RIJ, soft wrist restraints, abebe catheter SKIN: No jaundice, rashes, or lesions. No wounds seen anteriorly. Skin temperature warm, dry. Edema +2 BUE and BLE. Not diaphoretic. CARDIOVASCULAR: Regular rate and rhythm, without murmurs, gallops, or rubs. No JVD. Peripheral pulses symmetric. RESPIRATORY/CHEST: Symmetric, mechanically ventilated. Coarse rhonchi, bibasilar crackles, breath sounds equal bilaterally. GASTROINTESTINAL: Abdomen soft, nondistended. Bowel sounds present. GENITOURINARY: Without palpable bladder distension. Abebe catheter in place. MUSCULOSKELETAL: Extremities without clubbing, cyanosis, or edema. No mottling or clubbing. NEUROLOGICAL: Sedated. Does not withdraw to noxious stimuli. PSYCHIATRIC: Unable to assess secondary to clinical condition. . Diagnostic Tests Laboratory Laboratory Tests Test 06/30/17 04:15 07/01/17 04:15 White Blood Count 16.8 TH/MM3 (4.0-11.0) Red Blood Count 4.15 MIL/MM3 (4.50-5.90) Hemoglobin 10.2 GM/DL (13.0-17.0) Hematocrit 32.6 % (39.0-51.0) Mean Corpuscular Volume 78.4 FL (80.0-100.0) Mean Corpuscular Hemoglobin 24.6 PG (27.0-34.0) Mean Corpuscular Hemoglobin Concent 31.4 % (32.0-36.0) Red Cell Distribution Width 14.4 % (11.6-17.2) Platelet Count 401 TH/MM3 (150-450) Mean Platelet Volume 9.3 FL (7.0-11.0) Neutrophils (%) (Auto) 77.5 % (16.0-70.0) Lymphocytes (%) (Auto) 14.0 % (9.0-44.0) Monocytes (%) (Auto) 5.9 % (0.0-8.0) Eosinophils (%) (Auto) 2.1 % (0.0-4.0) Basophils (%) (Auto) 0.5 % (0.0-2.0) Neutrophils # (Auto) 13.0 TH/MM3 (1.8-7.7) Lymphocytes # (Auto) 2.4 TH/MM3 (1.0-4.8) Monocytes # (Auto) 1.0 TH/MM3 (0-0.9) Eosinophils # (Auto) 0.4 TH/MM3 (0-0.4) Basophils # (Auto) 0.1 TH/MM3 (0-0.2) CBC Comment DIFF FINAL Differential Comment Blood Urea Nitrogen 13 MG/DL (7-18) 13 MG/DL (7-18) Creatinine 1.10 MG/DL (0.60-1.30) 1.10 MG/DL (0.60-1.30) Random Glucose 151 MG/DL (74-106) 139 MG/DL (74-106) Calcium Level 8.1 MG/DL (8.5-10.1) 7.7 MG/DL (8.5-10.1) Sodium Level 153 MEQ/L (136-145) 151 MEQ/L (136-145) Potassium Level 3.6 MEQ/L (3.5-5.1) 3.7 MEQ/L (3.5-5.1) Chloride Level 119 MEQ/L (98-107) 118 MEQ/L (98-107) Carbon Dioxide Level 27.9 MEQ/L (21.0-32.0) 26.6 MEQ/L (21.0-32.0) Anion Gap 6 MEQ/L (5-15) 6 MEQ/L (5-15) Estimat Glomerular Filtration Rate 82 ML/MIN (>89) 82 ML/MIN (>89) Vancomycin Level Trough 14.8 MCG/ML (5.0-10.0) Result Diagram: 06/30/17 0415 07/01/17 0415 Microbiology Microbiology Date/Time Source Procedure Growth Status 06/29/17 12:19 Sputum Endotracheal Gram Stain - Final Complete 06/29/17 12:19 Sputum Culture - Final Pseudomonas Aeruginosa Complete Imaging Last [address] 06/30/17 0800 Signed Impressions: Service Date/Time: Wednesday, June 30, 2017 08:47 - CONCLUSION: Evolving infarct left sylvian region minimal increase in mass effect and no hemorrhage. This involves the large portion of the left MCA territory in spite of the findings on the CTA brain. Brian Gallardo MD FACR Procedures 06/16/17 - endotracheal intubation. 06/16/17 - RIJ central line placement. Assessment and Plan Disease Oriented Problem List: (1) CVA (cerebral vascular accident) (2) Hypertension (3) Polysubstance abuse (4) Seizure Symptom Scale: (1) Encephalopathy 0-10 Scale: Unable to quantify (2) Dyspnea 0-10 Scale: Unable to quantify (3) Pain 0-10 Scale: Unable to quantify Pertinent Non-Medical Issues Psychosocial: Patient is , has one adult son Naman Thompson. Patient is a of the [employer]. Per previous records: 05/04/2010: Patient was living in [place], [facility]. Patient has a long standing history of polysubstance abuse. Spiritual: Restorationist. Legal: None known. Ethical issues impacting care: None known. Important Contacts Naman Thompson (son, HCP) , email:[email or web address]. Chandra Prajapati Jr (brother):[phone] Kashif Thompson(brother): [phone] Liset Prajapati (sister): [phone] Shawna Lin (friend) [phone] Chandra Prajapati (step father) [phone] Prognosis Patient admitted for large MCA stroke, unfortunately he was not a candidate for TPA due to prolonged time duration before presentation to the ED. The patient experienced tonic-clonic seizures during the ED course and was intubated for airway protection. Patient has a history of a previous CVA, seizures, polysubstance abuse, and hepatitis C. Patient is at an ongoing risk for complications and setbacks secondary to current clinical status and past medical history. Poor prognosis. . Code Status: Alternative Code (Intubation only) Plan * Legal decision maker: Patient does not have the capacity to make his own health care decisions. It is unclear at this time if he will regain the capacity to make his own health care decisions. Per [place] statutes health care decision making would fall to the patient's son Naman Thompson [phone], email:[email or web address]. Naman has agreed to serve as HCP for his father Mr. Thompson. * CODE STATUS: Alternative code. * GOALS: Comfort focused. Planning withdrawal for Tuesday 07/03 when all family is available. Telephone conversation with patient's brother Layla Prajapati, provided update on patient's clinical status, he has confirmed that the family is still planning to move forward with withdrawal of artificial life support tomorrow Wednesday07/02/17. * Exhibit C signed and on the chart. Awaiting son's arrival tomorrow to complete and sign Exhibit B. . * SYMPTOM MANAGEMENT: * --pain: Patient at ongoing risk for pain secondary to intubation, mechanical ventilation, and bedbound status. Sedated on propofol and fentanyl. No recommendations at this time, further recommendations pending hospital course. * --dyspnea: Patient is intubated and mechanically ventilated, duonebs q 2hr PRN ordered. Requiring increased O2 to 50%, tachypneic to 30 bpm. * --encephalopathy: Secondary to recent MCA ischemic stroke with hemorrhagic conversion, history of previous CVA, history of polysubstance abuse. No recommendations at this time. * Palliative care will continue to follow during hospital course as condition evolves, to assist patient/family/decision-maker with understanding of medical conditions, weighing benefit/burdens of treatment options, for clarification of goals of treatment. Additionally will assist with symptoms of palliative concern. . Attestation To help prompt me to consider important information that might be impacting today's encounter and assessment, information from prior notes written by myself or my colleagues may have been "brought forward" into today's note. My signature on this note, however, is an attestation that I personally performed the exam, history, and/or decision-making noted today, and, unless otherwise indicated, the interactions with patient, family, and staff as well as the review of records all occurred today. I also attest that the listed assessment and stated plan reflect my best clinical judgment today based on the combination of historical information, prior notes, and today's exam/ interactions. When time spent is documented, it refers only to time spent today by the signer, or if indicated, combined time spent today by collaborating physician/nurse practitioner. Ellyn Mercado Jul 02, 2017 10:13
--- NOTE | 2017-07-02 11:35 | HHI.CCPN ---
Subjective Remarks/Hospital Course 06/16: 66-year-old unfortunate gentleman with a history of polysubstance abuse, presents here with altered mental status. When paramedics arrived, they found the patient to be obtunded with a GCS of 11. Friends who are at the patient's residence stated that they last saw him at 3:30. The patient arrived at roughly 5 PM. Patient was made a stroke alert as he was still in the window. Patient was unable to give any history regarding his visits secondary to his altered mental status. Patient had a left sided gaze with spasticity to his right upper extremity and clonus of his right lower shimmy. The CT of the head showed acute/subacute CVA at the left MCA territory and decision and not to administer TPA was made. While in the emergency department patient developed tonic-clonic seizures and was intubated by me for an airway protection. 06/17: Remains sedated, orally intubated on mechanical ventilation. 06/18: Remains sedated, orally intubated on mechanical ventilation. 06/19: no improvements. remains encephalopathic. intubated and mechanically ventilated. 06/20: no improvements in severe encephalopathy. 2 brothers at bedside yesterday and I had a long discussion about his poor prognosis and likely devastating persistent deficits. family stated "that's no way to live" but then stated "we don't believe in DNR or anything like that." They are likely pursuing aggressive medical management. 06/21: Remains encephalopathic off sedation, orally intubated on mechanical ventilation. Developed fevers over the weekend. Ordered pancultures and chest x-ray today which revealed significant bilateral pneumonia. 06/22: Remains encephalopathic off sedation, orally intubated on mechanical ventilation. 06/23: Remains encephalopathic on holding sedation, orally intubated on mechanical ventilation. CT head done yesterday showed some hemorrhagic conversion hence aspirin was stopped. Neurosurgery consulted today in view of some mass effect noted on head CT. Patient was started on 3% saline. Has been tolerating tube feeds. 06/24: Remains encephalopathic, orally intubated on mechanical ventilation. Remains on 3% saline. Tolerating tube feeds. 06/25: Osmolality acceptable. Diffuse lung infiltrates are infectious in etiology though some signs of venous congestion. No improvement in neurological condition. 06/26: Serum well concentrated. No neurological improvement. 06/27: Osmolality fine, hold 3% saline. No improvement. 06/28: Requiring increased FiO2. 06/29: Tachypnea mid 40s, appears to be neurologically driven. Increased Ti to 1.40. No improvement; at best minimal withdrawal of left leg. 06/30: Negative pressure pulmonary edema from excessive inspiratory effort. Severe neurological injury. 07/01: Large A-aO2 gradient persists. Family ostensibly arriving Wednesday for withdrawal. Exhibits B & C are signed. 07/02: Remains encephalopathic, orally intubated on mechanical ventilation. Objective Vital Signs Date Time Temp Pulse Resp B/P (MAP) Pulse Ox O2 Delivery O2 Flow Rate FiO2 07/02/17 11:22 93 65 07/02/17 10:00 74 07/02/17 08:00 98.3 29 147/80 (102) Intake and Output 07/02/17 07/02/17 07/02/17 07:59 15:59 23:59 Intake Total 1232 ml Output Total 1000 ml 0 ml Balance 232 ml 0 ml Result Diagram: 06/30/17 0415 07/01/17 0415 Other Results Microbiology Date/Time Source Procedure Growth Status 06/29/17 12:19 Sputum Endotracheal Gram Stain - Final Complete 06/29/17 12:19 Sputum Culture - Final Pseudomonas Aeruginosa Complete Imaging Last [address] 06/24/17 0000 Signed Impressions: Service Date/Time: June 05:46 - CONCLUSION: Evolving left anterior circulation stroke. Polo Mathur MD Last 48 hours Impressions Chest X-Ray 06/21/17 0000 Signed Impressions: Service Date/Time: Wednesday, June 21, 2017 09:07 - CONCLUSION: Decreased airspace disease both lungs. Brian Gallardo MD FACR Last Impressions Head CT 06/17/17 1000 Signed Impressions: Service Date/Time: June 10:46 - CONCLUSION: Evolving left MCA and DAIN stroke as described Polo Mathur MD Neck CTA 06/16/179 Signed Impressions: Service Date/Time: Friday, June 16, 2017 18:11 - CONCLUSION: No significant stenosis is seen. Polo Pérez MD Head CTA 06/16/17 7368 Signed Impressions: Service Date/Time: Friday, June 16, 2017 18:13 - CONCLUSION: No area of occlusion is seen. There appears to be hyperperfusion in the left middle cerebral artery territory. There is a subacute area of infarction seen on the recent CT examination. Polo Pérez MD Chest X-Ray 06/16/17 0000 Signed Impressions: Service Date/Time: Friday, June 16, 2017 23:32 - CONCLUSION: Mild bibasilar consolidation and small effusions. Line and tube positions as above. No pneumothorax. Polo Sosa MD Objective Remarks GENERAL: Elderly appearing gentleman sedated and intubated SKIN: Warm and dry. HEAD: Normocephalic.Left sided gaze EYES: No scleral icterus. No injection or drainage. NECK: trachea midline. Orally intubated. CARDIOVASCULAR: Regular rate and rhythm. Neck veins are full. RESPIRATORY: Mechanical ventilation. Breath sounds equal bilaterally. Scattered rhonchi persist, no wheezing. Weak cough. GASTROINTESTINAL: Abdomen soft, non-tender, nondistended. BS active. MUSCULOSKELETAL: No cyanosis, or edema. NEURO EXAM: Pupils 2mm, equal, reacting to light. RASS -4, w/d to pain on left. right contracted. minor cough and gag only. Tachypnea, non-physiological. A/P Assessment and Plan Assessment: 66yM with massive Left MCA and DAIN infarct with some hemorrhagic conversion and associated severe encephalopathy and deficits, along with acute hypoxic and hypercarbic respiratory failure. Poor prognosis. palliative care following. Acute Hypoxic and Hypercarbic Respiratory failure on mechanical ventilation Pneumonia Sepsis UTI - No weaning until neurologically improved - Palliative care consulted and following - Most likely will need a trach and peg if family requests aggressive management - Pancultures ordered and started empiric Zosyn and vancomycin IV on 06/21 Acute Left MCA and DAIN CVA - Left MCA and DAIN territory - Extremely poor prognosis - Not a candidate for TPA - Aspirin and Plavix -hold in v/o hemorrhagic areas per radiology on CT Head done on 06/21. - Neurology following. Neurosurgery consulted. Started on 3% saline 06/23 for mass effect seen on head CT. Follow serial sodium -Follow up head CT per neurosurgery and neurology. Hypertension - Hydralazine when necessary to keep SBP less than 150 Peptic ulcer disease/GERD - IV Pepcid Alcohol and polysubstance abuse - Thiamine folate and multivitamins - Monitor for withdrawal History of Hepatitis C positive - Supportive care Seizure - Keppra, Fosphenytoin -Follow up EEG DVT GI prophylaxis - Teds SCDs - Subcutaneous heparin - IV Pepcid Condition remains critical. Palliative care following to assist with deciding goals of therapy. Family planning possible de-escalation of therapy on 07/03/17 Overall impression: Devastating stroke. Systemic infection. Poor gas exchange. Congested. Prognosis poor. Unstable respiratory status. Dewey Cartwright MD Jul 02, 2017 11:35
--- NOTE | 2017-07-02 14:52 | HHI.PR ---
Subjective Subjective Comments Patient intubated on vent. Allergies: Coded Allergies: No Known Allergies (Verified , 03/22/15) Review of Systems All other ROS: Unable to obtain Exam I&O / VS 07/02/17 07/02/17 07/03/17 15:00 23:00 07:00 Intake Total 750 ml Output Total 0 ml Balance 750 ml IV Total 750 ml Tube Feeding Residual Discard 0 ml Vital Signs Date Time Temp Pulse Resp B/P (MAP) Pulse Ox O2 Delivery O2 Flow Rate FiO2 07/02/17 14:00 79 07/02/17 12:00 99.0 81 30 143/77 (99) 94 07/02/17 12:00 81 07/02/17 12:00 70 07/02/17 11:22 93 65 07/02/17 10:00 74 07/02/17 08:00 64 07/02/17 08:00 65 07/02/17 08:00 98.3 67 29 147/80 (102) 94 07/02/17 07:44 95 65 07/02/17 06:00 66 07/02/17 04:14 67 128/71 07/02/17 04:04 94 70 07/02/17 04:00 70 07/02/17 04:00 99.1 76 26 128/71 (90) 94 07/02/17 04:00 76 07/02/17 02:45 69 115/65 07/02/17 02:00 68 07/02/17 01:04 96 70 07/02/17 01:00 77 110/65 07/02/17 00:45 92 113/59 07/02/17 00:00 92 07/02/17 00:00 70 07/02/17 00:00 99.2 92 26 124/67 (86) 98 07/01/17 22:59 79 119/60 07/01/17 22:16 87 159/71 07/01/17 22:00 89 07/01/17 21:45 70 07/01/17 21:45 80 155/58 07/01/17 21:30 64 142/69 07/01/17 21:00 64 132/66 07/01/17 20:50 64 138/67 07/01/17 20:04 100 60 07/01/17 20:00 99.5 65 26 121/68 (85) 97 07/01/17 20:00 65 07/01/17 20:00 60 07/01/17 18:00 64 07/01/17 16:00 60 07/01/17 16:00 66 07/01/17 16:00 98.9 66 29 126/26 (59) 98 07/01/17 15:18 69 120/66 07/01/17 15:00 96 70 General: Intubated Cardiovascular: Normal rate Musculoskeletal: ROM (Grossly within normal limits), Other (SCD's in place) Neurologic: Pupils (Pinpoint bilaterally) Objective Micro and Labs Date/Time Source Procedure Growth Status 06/22/17 08:53 Blood Peripheral Aerobic Blood Culture - Final Bacillus Species Not Anthracis Staph Sp Coagulase Negative Complete 06/22/17 08:53 Blood Peripheral Anaerobic Blood Culture - Final NO GROWTH IN 5 DAYS Complete 06/29/17 12:19 Sputum Endotracheal Gram Stain - Final Complete 06/29/17 12:19 Sputum Culture - Final Pseudomonas Aeruginosa Complete 06/21/17 11:00 Urine Catheterized Urine Urine Culture - Final Providencia Rettgeri Enterococcus Faecalis Complete Assessment and Plan Diagnosis: (1) CVA (cerebral vascular accident) ICD Codes: I63.9 - Cerebral infarction, unspecified Assessment 1. Left MCA/DAIN infarct currently intubated on vent 2. Hypertension 3. PUD 4. GERD/Hiatal Hernia 5. Chronic back pain 6. Polysubstance abuse 7. Hepatitis C positive 8. History of previous CVA Plan 1. Palliative care note indicates that family is planning to withdraw care . Discontinue rehabilitation services. Hayley Mullen MD Jul 02, 2017 14:52
[2017-07-03] VITALS (11 sets, daily range): BP systolic 103–137; BP diastolic 56–68; PULSE 77–98; RESP 22–38; TEMP 98.9–99.9; O2SAT 84–96
[2017-07-03] MEDS: PROPOFOL 1000 MG/100 ML INJ 100 ML IV PRN ×3 (00:27→06:39)
[2017-07-03] MEDS: FOSPHENYTOIN SODIUM 100 MG PE/2 ML VIAL IV SCH ×3 (00:37→12:27)
[2017-07-03] MEDS: PIPERACIL-TAZO 4.5 GM PREMIX 100 ML IV SCH ×2 (02:21→09:33)
[2017-07-03] MEDS: fentaNYL 2,500 MCG/NS 250 ML IV PRN (02:25)
[2017-07-03] MEDS: CHLORHEXIDINE GLUCONATE 2 % 1 PACK (2 CLOTHS) TOP SCH (04:00)
[2017-07-03] MEDS: NOREPINEPHRINE INJ 4 MG in SODIUM CHLOR 0.9% 250 ML INJ 246 ML IV PRN (06:35)
[2017-07-03] MEDS: INSULIN ASPART SUPPLEMENTAL SCALE SQ SCH (08:00)
[2017-07-03] MEDS: SODIUM CHLORIDE 0.9% FLUSH 5 ML FLUSH IV FLUSH SCH (09:00)
[2017-07-03] MEDS: ARTIFICIAL TEARS OPTH SOLN 15 ML BTL EACH EYE SCH (09:31)
--- NOTE | 2017-07-03 09:31 | HHI.CCPN ---
Subjective Remarks/Hospital Course 06/16: 66-year-old unfortunate gentleman with a history of polysubstance abuse, presents here with altered mental status. When paramedics arrived, they found the patient to be obtunded with a GCS of 11. Friends who are at the patient's residence stated that they last saw him at 3:30. The patient arrived at roughly 5 PM. Patient was made a stroke alert as he was still in the window. Patient was unable to give any history regarding his visits secondary to his altered mental status. Patient had a left sided gaze with spasticity to his right upper extremity and clonus of his right lower shimmy. The CT of the head showed acute/subacute CVA at the left MCA territory and decision and not to administer TPA was made. While in the emergency department patient developed tonic-clonic seizures and was intubated by me for an airway protection. 06/17: Remains sedated, orally intubated on mechanical ventilation. 06/18: Remains sedated, orally intubated on mechanical ventilation. 06/19: no improvements. remains encephalopathic. intubated and mechanically ventilated. 06/20: no improvements in severe encephalopathy. 2 brothers at bedside yesterday and I had a long discussion about his poor prognosis and likely devastating persistent deficits. family stated "that's no way to live" but then stated "we don't believe in DNR or anything like that." They are likely pursuing aggressive medical management. 06/21: Remains encephalopathic off sedation, orally intubated on mechanical ventilation. Developed fevers over the weekend. Ordered pancultures and chest x-ray today which revealed significant bilateral pneumonia. 06/22: Remains encephalopathic off sedation, orally intubated on mechanical ventilation. 06/23: Remains encephalopathic on holding sedation, orally intubated on mechanical ventilation. CT head done yesterday showed some hemorrhagic conversion hence aspirin was stopped. Neurosurgery consulted today in view of some mass effect noted on head CT. Patient was started on 3% saline. Has been tolerating tube feeds. 06/24: Remains encephalopathic, orally intubated on mechanical ventilation. Remains on 3% saline. Tolerating tube feeds. 06/25: Osmolality acceptable. Diffuse lung infiltrates are infectious in etiology though some signs of venous congestion. No improvement in neurological condition. 06/26: Serum well concentrated. No neurological improvement. 06/27: Osmolality fine, hold 3% saline. No improvement. 06/28: Requiring increased FiO2. 06/29: Tachypnea mid 40s, appears to be neurologically driven. Increased Ti to 1.40. No improvement; at best minimal withdrawal of left leg. 06/30: Negative pressure pulmonary edema from excessive inspiratory effort. Severe neurological injury. 07/01: Large A-aO2 gradient persists. Family ostensibly arriving Wednesday for withdrawal. Exhibits B & C are signed. 07/02: Remains encephalopathic, orally intubated on mechanical ventilation. 07/03: Remains encephalopathic, orally intubated on mechanical ventilation. Objective Vital Signs Date Time Temp Pulse Resp B/P (MAP) Pulse Ox O2 Delivery O2 Flow Rate FiO2 07/03/17 07:44 92 80 07/03/17 06:35 86 108/60 07/03/17 04:00 99.6 37 Intake and Output 07/03/17 07/03/17 07/04/17 08:00 16:00 00:00 Intake Total 1686 ml Output Total 1000 ml Balance 686 ml Result Diagram: 06/30/17 0415 07/01/17 0415 Imaging Last [address] 06/24/17 0000 Signed Impressions: Service Date/Time: June 05:46 - CONCLUSION: Evolving left anterior circulation stroke. Polo Mathur MD Last 48 hours Impressions Chest X-Ray 06/21/17 0000 Signed Impressions: Service Date/Time: Wednesday, June 21, 2017 09:07 - CONCLUSION: Decreased airspace disease both lungs. Brian Gallardo MD FACR Last Impressions Head CT 06/17/17 1000 Signed Impressions: Service Date/Time: June 10:46 - CONCLUSION: Evolving left MCA and DAIN stroke as described Polo Mathur MD Neck CTA 06/16/17 1819 Signed Impressions: Service Date/Time: Friday, June 16, 2017 18:11 - CONCLUSION: No significant stenosis is seen. Polo Pérez MD Head CTA 06/16/17 2409 Signed Impressions: Service Date/Time: Friday, June 16, 2017 18:13 - CONCLUSION: No area of occlusion is seen. There appears to be hyperperfusion in the left middle cerebral artery territory. There is a subacute area of infarction seen on the recent CT examination. Polo Pérez MD Chest X-Ray 06/16/17 0000 Signed Impressions: Service Date/Time: Friday, June 16, 2017 23:32 - CONCLUSION: Mild bibasilar consolidation and small effusions. Line and tube positions as above. No pneumothorax. Polo Sosa MD Objective Remarks GENERAL: Elderly appearing gentleman sedated and intubated SKIN: Warm and dry. HEAD: Normocephalic.Left sided gaze EYES: No scleral icterus. No injection or drainage. NECK: trachea midline. Orally intubated. CARDIOVASCULAR: Regular rate and rhythm. Neck veins are full. RESPIRATORY: Mechanical ventilation. Breath sounds equal bilaterally. Scattered rhonchi persist, no wheezing. Weak cough. GASTROINTESTINAL: Abdomen soft, non-tender, nondistended. BS active. MUSCULOSKELETAL: No cyanosis, or edema. NEURO EXAM: Pupils 2mm, equal, reacting to light. RASS -4, w/d to pain on left. right contracted. minor cough and gag only. Tachypnea, non-physiological. A/P Assessment and Plan Assessment: 66yM with massive Left MCA and DAIN infarct with some hemorrhagic conversion and associated severe encephalopathy and deficits, along with acute hypoxic and hypercarbic respiratory failure. Poor prognosis. palliative care following. Acute Hypoxic and Hypercarbic Respiratory failure on mechanical ventilation Pneumonia Sepsis UTI - No weaning until neurologically improved - Palliative care consulted and following - Most likely will need a trach and peg if family requests aggressive management - Pancultures ordered and started empiric Zosyn and vancomycin IV on 06/21 Acute Left MCA and DAIN CVA - Left MCA and DAIN territory - Extremely poor prognosis - Not a candidate for TPA - Aspirin and Plavix -hold in v/o hemorrhagic areas per radiology on CT Head done on 06/21. - Neurology following. Neurosurgery consulted. Started on 3% saline 06/23 for mass effect seen on head CT. Follow serial sodium -Follow up head CT per neurosurgery and neurology. Hypertension - Hydralazine when necessary to keep SBP less than 150 Peptic ulcer disease/GERD - IV Pepcid Alcohol and polysubstance abuse - Thiamine folate and multivitamins - Monitor for withdrawal History of Hepatitis C positive - Supportive care Seizure - Keppra, Fosphenytoin -Follow up EEG DVT GI prophylaxis - Teds SCDs - Subcutaneous heparin - IV Pepcid Condition remains critical. Palliative care following to assist with deciding goals of therapy. Family planning possible de-escalation of therapy on 07/03/17 Overall impression: Devastating stroke. Systemic infection. Poor gas exchange. Congested. Prognosis poor. Unstable respiratory status. Dewey Cartwright MD Jul 03, 2017 09:31
[2017-07-03] MEDS: levETIRAcetam 1000 MG INJ 100 ML IV SCH (09:32)
[2017-07-03] MEDS: MODAFINIL 200 MG TAB PO SCH (09:33)
[2017-07-03] MEDS: DOCUSATE SODIUM 50 MG/SENNA 8.6 MG TAB PO SCH (09:33)
[2017-07-03] MEDS ORDERED: HYOSCYAMINE 0.5 MG/ML AMP IV PUSH ONE (11:00)
[2017-07-03] MEDS ORDERED: LORazepam 2 MG/ML VIAL IV PUSH ONE ×2 (11:00→11:15)
[2017-07-03] MEDS ORDERED: HYDROmorphone HCL PF 2 MG/ML VIAL IV PUSH ONE (11:00)
[2017-07-03] MEDS ORDERED: MORPHINE SULFATE 8 MG/ML INJ IV PUSH ONE (11:00)
[2017-07-03] MEDS ORDERED: MORPHINE SULFATE 4 MG/ML INJ IV PUSH ONE (11:15)
[2017-07-03] MEDS ORDERED: FUROSEMIDE 20 MG/2 ML VIAL IV PUSH PRN (11:30)
[2017-07-03] MEDS ORDERED: ACETAMINOPHEN 650 MG SUPP RECTAL PRN (11:30)
[2017-07-03] MEDS ORDERED: LORazepam 2 MG/ML VIAL IV PUSH PRN ×3 (11:30)
[2017-07-03] MEDS ORDERED: BISACODYL 10 MG SUPP RECTAL PRN (11:30)
[2017-07-03] MEDS ORDERED: MORPHINE SULFATE 8 MG/ML INJ IV PUSH PRN (11:30)
[2017-07-03] MEDS ORDERED: HYOSCYAMINE 0.5 MG/ML AMP IV PUSH PRN (11:30)
[2017-07-03] MEDS ORDERED: MORPHINE SULFATE 4 MG/ML INJ IV PUSH PRN (11:30)
[2017-07-03] MEDS ORDERED: LORazepam 2 MG/ML VIAL IV PUSH SCH (12:00)
[2017-07-03] MEDS ORDERED: MORPHINE SULFATE 4 MG/ML INJ IV PUSH SCH (12:00)
--- NOTE | 2017-07-03 14:45 | HHI.NSPN ---
Note Status Status: Progress Note Interval History Diagnosis Hemorrhagic infarction Interval History Mr. Thompson is a 66 year old male who presented to [place] 06/16/17 with gaze deficits, and was found to have a large left MCA ischemic stroke. He was evaluated by Dr. Powell and patient was not a candidate for TPA. He is intubated and sedated on fentanyl and Diprivan. He was placed on heparin drip and started on aspirin therapy. A CT Brain 06/21/17 shows hemorrhagic conversion within the ischemic bed with mild mass effect but no significant midline shift. He is on hypertonic saline. A neurosurgical evaluation was requested. 06/24: f/u CT Brain completed this morning, remains intubated and sedated. 06/25: Pt sedated and intubated. Pupils remain pinpoint. No changes clinically. 06/26: Patient not opening eyes. Pupils pinpoint. Patient on Levophed drip. Patient sedated on fentanyl. Withdraws lower extremities to pain. 06/27: Pt not opening eyes. Not following commands. Pt sedated on Fentanyl and diprivan drips. On Levophed drip. Pupils pinpoint. No withdrawal this morning with sedation. 06/28: The patient is comatose this morning. He is sedated with propofol and has fentanyl infusing for pain control. A norepinephrine drip is also infusing. He is intubated and mechanically ventilated. There is no response to stimulation. 06/29: sedated on Diprivan, remains intubated. EEG 06/29 reports intermittent sharp activities 06/30: off sedation yesterday, patient was reported to have opened eyes, withdraw to right side side. f/u CT Head this morning completed. otherwise stable overnight. 07/01: no changes to neuro checks. intubated and sedated due to uncontrolled blood pressure. 07/02: no improvement to neuro examination, family decided withdrawal Tuesday 07/03. Remains encephalopathic, orally intubated on mechanical ventilation. [facility] Labs, Micro, & Vital Signs Results Date Time Temp Pulse Resp B/P (MAP) Pulse Ox O2 Delivery O2 Flow Rate FiO2 07/03/17 12:27 84 Room Air 21 07/03/17 12:00 98 103/56 (72) 07/03/17 12:00 98 07/03/17 10:00 84 07/03/17 08:00 80 07/03/17 08:00 99.9 88 22 137/66 (89) 94 07/03/17 08:00 89 07/03/17 07:44 92 80 07/03/17 06:35 86 108/60 07/03/17 06:00 89 07/03/17 04:25 95 70 07/03/17 04:00 99.6 89 37 131/68 (89) 96 07/03/17 04:00 70 07/03/17 04:00 89 07/03/17 02:00 77 07/03/17 00:11 96 75 07/03/17 00:00 80 07/03/17 00:00 75 07/03/17 00:00 98.9 80 38 120/59 (79) 93 07/02/17 23:40 75 07/02/17 22:45 96 133/67 07/02/17 22:01 90 100 07/02/17 22:00 100 07/02/17 22:00 81 07/02/17 20:00 77 07/02/17 20:00 99.4 74 34 124/69 (87) 93 07/02/17 20:00 75 07/02/17 18:08 94 75 07/02/17 18:00 73 07/02/17 16:00 100.6 74 39 107/59 (75) 96 07/02/17 16:00 81 07/02/17 16:00 75 07/02/17 15:50 96 75 Constitutional Vital Signs Date Time Temp Pulse Resp B/P (MAP) Pulse Ox O2 Delivery O2 Flow Rate FiO2 07/03/17 12:27 84 Room Air 21 07/03/17 12:00 98 103/56 (72) 07/03/17 12:00 98 07/03/17 10:00 84 07/03/17 08:00 80 07/03/17 08:00 99.9 88 22 137/66 (89) 94 07/03/17 08:00 89 07/03/17 07:44 92 80 07/03/17 06:35 86 108/60 07/03/17 06:00 89 07/03/17 04:25 95 70 07/03/17 04:00 99.6 89 37 131/68 (89) 96 07/03/17 04:00 70 07/03/17 04:00 89 07/03/17 02:00 77 07/03/17 00:11 96 75 07/03/17 00:00 80 07/03/17 00:00 75 07/03/17 00:00 98.9 80 38 120/59 (79) 93 07/02/17 23:40 75 07/02/17 22:45 96 133/67 07/02/17 22:01 90 100 07/02/17 22:00 100 07/02/17 22:00 81 07/02/17 20:00 77 07/02/17 20:00 99.4 74 34 124/69 (87) 93 07/02/17 20:00 75 07/02/17 18:08 94 75 07/02/17 18:00 73 07/02/17 16:00 100.6 74 39 107/59 (75) 96 07/02/17 16:00 81 07/02/17 16:00 75 07/02/17 15:50 96 75 Physical Exam Mr. Thompson is intubated, mechanically ventilated, and sedated on Diprivan for blood pressure control. No current seizure like activities noted. Cranial Nerves: Pupils pinpoint bilaterally. Mild left conjugate gaze. Cervical Spine: His neck is soft, supple, without nuchal rigidity. Motor: not following commands for testing, very minimal withdrawal left toes to noxious stimuli Reflexes: Deep tendon reflexes are trace throughout. Plantars silent bilaterally. Sensory: currently minimal withdrawal to left toes, otherwise no significant response to pain x 4 Cerebellar: cannot assess due to the patient's neurological condition Medications Current Medications Current Medications Sodium Chloride 1,000 ml @ 70 mls/hr [id number] ONCE IV Last administered on 06/16 18:56; Start 06/16/17 at 17:59; Stop 06/16/17 at 20:14; Status DC Iohexol (Omnipaque 350 Inj) 89 ml STK-MED ONCE IVCONTRAST Last administered on 06/16/17 17:50; Start 06/16/17 at 17:50; Stop 06/16/17 at 18:42; Status DC Sodium Chloride 1,000 ml @ 84 mls/hr [id number] IV Last administered on 22:31; Start 06/16/17 at 21:00; Stop 06/22/17 at 12:07; Status DC Sodium Chloride (NS Flush) 2 ml UNSCH PRN IV FLUSH FLUSH AFTER USING IV ACCESS Last administered on 06/19/17 10:02; Start 06/16/17 at 20:15; Stop 06/21/17 at 08:22; Status DC Sodium Chloride (NS Flush) 2 ml BID IV FLUSH Last administered on 06/20/17 22: 20; Start 06/16/17 at 21:00; Stop 06/21/17 at 08:22; Status DC Acetaminophen (Tylenol) 650 mg Q6H PRN PO PAIN 1-10 AND/OR FEVER >101F Last administered on 06/30/17 23:58; Start 06/16/17 at 20:15; Stop 07/03/17 at 14: 39; Status DC Morphine Sulfate (Morphine Inj) 2 mg Q2H PRN IV PUSH PAIN SCALE 6 TO 10; Start 06/16/17 at 20:15; Stop 06/20/17 at 10:29; Status DC Midazolam HCl (Versed Inj) 2 mg Q1H PRN IV PUSH SEDATION Last administered on 06/16/17 21:51; Start 06/16/17 at 20:15; Stop 06/20/17 at 10:29; Status DC Artificial Tears (Tears Naturale Opth Soln) 1 drop TID EACH EYE Last administered on 07/03/17 09:31; Start 06/17/17 at 09:00; Stop 07/03/17 at 10: 48; Status DC Ondansetron HCl (Zofran Inj) 4 mg Q6H PRN IV PUSH NAUSEA OR VOMITING; Start at 20:15; Stop 07/03/17 at 14:39; Status DC Albuterol/ Ipratropium (Duoneb Neb) 1 ampule Q6HR NEB INH Last administered on 06/20/17 08:29; Start 06/16/17 at 22:00; Stop 06/20/17 at 10:29; Status DC Albuterol/ Ipratropium (Duoneb Neb) 1 ampule Q2HR NEB PRN INH WHEEZING Last administered on 07/02/17 18:04; Start 06/16/17 at 20:15; Stop 07/03/17 at 10: 48; Status DC Heparin Sodium (Porcine) (Heparin Inj) 5,000 units Q8H SQ Last administered on 06/23/17 04:12; Start 06/16/17 at 21:00; Stop 06/23/17 at 09:21; Status DC Miscellaneous Information 1 [id number] XX ; Start 06/16/17 at 20:15; Stop 07/03/17 at 14:39; Status DC Chlorhexidine Gluconate (Chlorhexidine 2% Cloth) Taper DAILY@04 TOP Last administered on 06/26/17 02:21; Start 06/17/17 at 04:00; Stop 07/03/17 at 14: 39; Status DC Chlorhexidine Gluconate (Chlorhexidine 2% Cloth) 3 pack UNSCH PRN TOP HYGIENIC CARE; Start 06/16/17 at 20:15; Stop 07/03/17 at 14:39; Status DC Senna/Docusate Sodium (Cheryl-Colace) 1 tab BID PO Last administered on 09:33; Start 06/16/17 at 21:00; Stop 07/03/17 at 10:48; Status DC Magnesium Hydroxide (Milk Of Magnesia Liq) 30 ml Q12H PRN PO MILD - MODERATE CONSTIPATION; Start 06/16/17 at 20:15; Stop 07/03/17 at 14:39; Status DC Sennosides (Senokot) 17.2 mg Q12H PRN PO MODERATE - SEVERE CONSTIPATION; Start 06/16/17 at 20:15; Stop 07/03/17 at 14:39; Status DC Bisacodyl (Dulcolax Supp) 10 mg DAILY PRN RECTAL SEVERE CONSITIPATION; Start 06/16/17 at 20:15; Stop 07/03/17 at 10:48; Status DC Lactulose (Lactulose Liq) 30 ml DAILY PRN PO SEVERE CONSITIPATION; Start at 20:15; Stop 07/03/17 at 10:48; Status DC Propofol 100 ml @ As Directed STK-MED ONCE .ROUTE ; Start 06/16/17 at 20:10; Stop 06/16/17 at 20:11; Status DC Midazolam HCl (Versed Inj) 5 mg STK-MED ONCE .ROUTE ; Start 06/16/17 at 20:11; Stop 06/16/17 at 20:12; Status DC Fentanyl Citrate (fentaNYL INJ) 100 mcg STK-MED ONCE .ROUTE ; Start 06/16/17 at 20:12; Stop 06/16/17 at 20:13; Status DC Rocuronium Tripp (Zemuron Inj) 50 mg STK-MED ONCE .ROUTE Last administered on 06/16/17 21:51; Start 06/16/17 at 20:34; Stop 06/16/17 at 20:35; Status DC Propofol 100 ml @ 2.106 mls/ hr TITRATE PRN IV SEDATION Last administered on 07/03/17 06:39; Start 06/16/17 at 21:00; Stop 07/03/17 at 10:48; Status DC Levetriacetam 100 ml @ 400 mls/hr BOLUS ONCE IV Last administered on 22:15; Start 06/16/17 at 21:30; Stop 06/16/17 at 21:44; Status DC Levetriacetam 100 ml @ 400 mls/hr Q12HR IV Last administered on 07/03/17 09: 32; Start 06/17/17 at 09:00; Stop 07/03/17 at 14:39; Status DC Potassium Chloride 100 ml @ 50 mls/hr Q2H PRN IV For Potassium 2.8 - 3.2 mEq/L ; Start 06/16/17 at 23:15; Stop 07/03/17 at 10:48; Status DC Potassium Chloride 100 ml @ 50 mls/hr Q2H PRN IV For Potassium 2.8 - 3.2 mEq/L ; Start 06/16/17 at 23:15; Stop 07/03/17 at 10:48; Status DC Potassium Bicarb/ Potassium Chloride (K-Lyte Cl Eff) 50 meq UNSCH PRN PO For Potassium 3.3 - 3.5 mEq/L; Start 06/16/17 at 23:15; Stop 07/03/17 at 10:48; Status DC Potassium Chloride 100 ml @ 25 mls/hr UNSCH PRN IV For Potassium 3.3 - 3.5 mEq /L Last administered on 06/24/17t 05:13; Start 06/16/17 at 23:15; Stop at 10:48; Status DC Potassium Chloride 100 ml @ 50 mls/hr Q2H PRN IV For Potassium 3.3 - 3.5 mEq/L ; Start 06/16/17 at 23:15; Stop 07/03/17 at 10:48; Status DC Magnesium Sulfate 4 gm/Sodium Chloride 100 ml @ 50 mls/hr UNSCH PRN IV For Magnesium 0.9 - 1.1 mg/dL; Start 06/16/17 at 23:15; Stop 07/03/17 at 10:48; Status DC Magnesium Oxide (Mag-Ox) 800 mg UNSCH PRN PO For Magnesium 1.2 - 1.6 mg/dL; Start 06/16/17 at 23:15; Stop 07/03/17 at 10:48; Status DC Magnesium Sulfate 2 gm/Sodium Chloride 100 ml @ 50 mls/hr UNSCH PRN IV For Magnesium 1.2 - 1.6 mg/dL; Start 06/16/17 at 23:15; Stop 07/03/17 at 10:48; Status DC Potassium Phosphate (K-Phos) 2,000 mg Q4H PRN PO For Phosphorus < 2.5 mg/dL; Start 06/16/17 at 23:15; Stop 07/03/17 at 10:48; Status DC Sodium Phosphate 30 mmol/Sodium Chloride 250 ml @ 42 mls/hr UNSCH PRN IV For Phosphorus < 2.5 mg/dL Last administered on 06/17/17t 14:51; Start 06/16/17 at 23:15; Stop 07/03/17 at 10:48; Status DC Potassium Phosphate (K-Phos) 2,000 mg UNSCH PRN PO/TUBE SEE LABEL COMMENTS; Start 06/16/17 at 23:15; Stop 07/03/17 at 10:48; Status DC Potassium Phosphate 30 mmol/ Sodium Chloride 260 ml @ 42 mls/hr UNSCH PRN IV SEE LABEL COMMENTS; Start 06/16/17 at 23:15; Stop 07/03/17 at 10:48; Status DC Multivitamins 10 ml/Thiamine HCl 100 mg/Folic Acid 1 mg/Sodium Chloride 511.2 ml @ 125 mls/hr ONCE ONCE IV Last administered on 06/17/17 07:42; Start 06/17/17 at 07:45; Stop 06/17/17 at 11:50; Status DC Fentanyl Citrate 250 ml @ 5 mls/hr TITRATE PRN IV Sedation Last administered on 07/03/17 02:25; Start 06/17/17 at 12:15; Stop 07/03/17 at 14:39; Status DC Fentanyl Citrate (fentaNYL INJ) 100 mcg ONCE ONCE IV PUSH Last administered on 06/17/17 12:13; Start 06/17/17 at 12:15; Stop 06/17/17 at 12:16; Status DC IV Flush (NS Flush) 2 ml BID IV FLUSH Last administered on 07/03/17 09:00; Start 06/17/17 at 21:00; Stop 07/03/17 at 14:39; Status DC IV Flush (NS Flush) 2 ml UNSCH PRN IV FLUSH FLUSH AFTER USING IV ACCESS; Start 06/17/17 at 19:00; Stop 07/03/17 at 14:39; Status DC Aspirin (Aspirin Supp) 300 mg DAILY RECTAL Last administered on 06/22/17 09: 19; Start 06/17/17 at 19:00; Stop 06/22/17 at 14:32; Status DC Insulin Aspart (NovoLOG SUPPLEMENTAL SCALE) 1 ACHS SQ Last administered on 08:00; Start 06/17/17 at 21:00; Stop 07/03/17 at 10:48; Status DC Dextrose (D50w (Syr) Inj) 50 ml UNSCH PRN IV PUSH HYPOGLYCEMIA-SEE COMMENTS; Start 06/17/17 at 19:00; Stop 07/03/17 at 10:48; Status DC Glucagon (Glucagon Inj) 1 mg UNSCH PRN OTHER HYPOGLYCEMIA-SEE COMMENTS; Start 06/17/17 at 19:00; Stop 07/03/17 at 10:48; Status DC Albuterol/ Ipratropium (Duoneb Neb) 1 ampule Q6HR NEB INH Last administered on 06/24/17 15:36; Start 06/20/17 at 16:00; Stop 06/24/17 at 15:59; Status DC Haloperidol Lactate (Haldol Inj) 5 mg Q4H PRN IV agitation Last administered on 06/30/17 19:32; Start 06/20/17 at 10:30; Stop 07/03/17 at 10:48; Status DC Modafinil (Provigil) 200 mg DAILY PO Last administered on 07/03/17 09:33; Start 06/20/17 at 11:00; Stop 07/03/17 at 10:48; Status DC Piperacillin Sod/ Tazobactam Sod 100 ml @ 200 mls/hr Q6H IV Last administered on 07/03/17 09:33; Start 06/21/17 at 09:00; Stop 07/03/17 at 10:48; Status DC Vancomycin HCl 1100 mg/Sodium Chloride 261 ml @ 250 mls/hr Q12H IV ; Start 06/21/17 at 08:15; Stop 06/21/17 at 08:23; Status DC Pharmacy Profile Note 0 ml @ 0 mls/hr UNSCH OTHER ; Start 06/21/17 at 08:15; Stop 06/30/17 at 15:11; Status DC Vancomycin HCl 1000 mg/Sodium Chloride 250 ml @ 250 mls/hr Q12H IV Last administered on 06/22/17 22:02; Start 06/21/17 at 10:00; Stop 06/23/17 at 09: 34; Status DC Miscellaneous Information SPECIFIC LAB TO BE ... ONCE ONCE .XX ; Start 06/29 at 21:45; Stop 06/22/17 at 21:46; Status DC Sodium Chloride 1,000 ml @ 84 mls/hr [id number] IV Last administered on 00:10; Start 06/22/17 at 12:00; Stop 06/23/17 at 15:51; Status DC Lorazepam (Ativan Inj) 1 mg NOW ONCE IV ; Start 06/23/17 at 09:30; Stop 06/23 at 09:31; Status DC Fosphenytoin Sodium 1000 mgpe/ Sodium Chloride 70 ml @ 140 mls/hr NOW ONCE IV Last administered on 06/23/17 10:18; Start 06/23/17 at 09:30; Stop at 09:59; Status DC Sodium Chloride 500 ml @ 20 mls/hr ONCE ONCE IV Last administered on 10:14; Start 06/23/17 at 09:30; Stop 06/24/17 at 10:29; Status DC Fosphenytoin Sodium (Cerebyx Inj) 100 mgpe Q8H IV Last administered on 17:14; Start 06/23/17 at 18:00; Stop 06/25/17 at 19:29; Status DC Vancomycin HCl 1750 mg/Sodium Chloride 517.5 ml @ 250 mls/hr Q12H IV ; Start 06/23/17 at 10:00; Stop 06/23/17 at 10:00; Status DC Miscellaneous Information SPECIFIC LAB TO BE DRAWN:VANCOMYCIN TROUGH DATE TO... ONCE ONCE .XX Last administered on 06/25/17 09:45; Start 06/25/17 at 09:45 ; Stop 06/25/17 at 09:46; Status DC Vancomycin HCl 1500 mg/Sodium Chloride 515 ml @ 250 mls/hr Q12H IV Last administered on 06/27/17 10:15; Start 06/23/17 at 10:00; Stop 06/28/17 at 13 :08; Status DC Norepinephrine Bitartrate 4 mg/ Sodium Chloride 250 ml @ 7.5 mls/hr TITRATE PRN IV Blood pressure management Last administered on 07/03/17 06:35; Start 06/23/17 at 17:15; Stop 07/03/17 at 10:48; Status DC Terbutaline Sulfate (Brethine Inj) 1 mg UNSCH PRN SQ For Extravasation; Start 06/23/17 at 17:15; Stop 07/03/17 at 10:48; Status DC Norepinephrine Bitartrate (Levophed Inj) 4 mg STK-MED ONCE .ROUTE Last administered on 06/23/17 17:14; Start 06/23/17 at 17:14; Stop 06/23/17 at 17 :15; Status DC Hydralazine HCl (Apresoline Inj) 20 mg Q4H PRN IV PUSH SBP greater than 150mm Hg; Start 06/23/17 at 18:00; Stop 07/03/17 at 14:39; Status DC Sodium Chloride 500 ml @ 20 mls/hr ONCE ONCE IV Last administered on 18:37; Start 06/24/17 at 18:30; Stop 06/25/17 at 17:45; Status DC Furosemide (Lasix Inj) 80 mg ONCE STAT IV PUSH Last administered on 18:36; Start 06/24/17 at 18:08; Stop 06/24/17 at 18:27; Status DC Miscellaneous Information SPECIFIC LAB TO BE CONNOR... ONCE ONCE .XX ; Start at 21:45; Stop 06/26/17 at 21:46; Status DC Sodium Chloride 500 ml @ 10 mls/hr ONCE ONCE IV Last administered on 18:00; Start 06/25/17 at 18:00; Stop 06/27/17 at 15:09; Status DC Fosphenytoin Sodium (Cerebyx Inj) 100 mgpe Q6HR IV Last administered on 12:27; Start 06/26/17 at 00:00; Stop 07/03/17 at 14:39; Status DC Miscellaneous Information SPECIFIC LAB TO BE CONNOR... ONCE ONCE .XX Last administered on 06/27/17 09:45; Start 06/27/17 at 09:45; Stop 06/27/17 at 09 :46; Status DC Vancomycin HCl 1500 mg/Sodium Chloride 515 ml @ 250 mls/hr Q18H IV Last administered on 06/30/17 06:07; Start 06/28/17 at 16:00; Stop 06/30/17 at 15 :11; Status DC Miscellaneous Information SPECIFIC LAB TO BE DRAWN:VANCOMY... ONCE ONCE .XX Last administered on 06/30/17 03:45; Start 06/30/17 at 03:45; Stop 06/30/17 at 03:46; Status DC Sodium Bicarbonate (Sodium Bicarbonate 8.4% Inj) 50 meq STK-MED ONCE .ROUTE ; Start 06/28/17 at 19:48; Stop 06/28/17 at 19:49; Status DC Sodium Bicarbonate (Sodium Bicarbonate 8.4% Inj) 50 meq STK-MED ONCE .ROUTE ; Start 06/28/17 at 19:49; Stop 06/28/17 at 19:50; Status DC Midazolam HCl (Versed Inj) 5 mg ONCE ONCE IV Last administered on 07/01/17 23:42; Start 07/01/17 at 23:59; Stop 07/02/17 at 00:00; Status DC Midazolam HCl (Versed Inj) 5 mg STK-MED ONCE .ROUTE ; Start 07/01/17 at 23:40; Stop 07/01/17 at 23:41; Status DC Morphine Sulfate (Morphine Inj) 6 mg ONCE ONCE IV PUSH Last administered on 11:31; Start 07/03/17 at 11:00; Stop 07/03/17 at 11:07; Status DC Hydromorphone HCl (Dilaudid Pf Inj) 1 mg ONCE ONCE IV PUSH Last administered on 07/03/17 11:30; Start 07/03/17 at 11:00; Stop 07/03/17 at 11:07; Status DC Lorazepam (Ativan Inj) 8 mg ONCE ONCE IV PUSH Last administered on 07/03/17 11:32; Start 07/03/17 at 11:00; Stop 07/03/17 at 11:07; Status DC Hyoscyamine Sulfate (Levsin Inj) 0.25 mg ONCE ONCE IV PUSH Last administered on 07/03/17 11:31; Start 07/03/17 at 11:00; Stop 07/03/17 at 11:07; Status DC Morphine Sulfate (Morphine Inj) 4 mg ONCE ONCE IV PUSH Last administered on 12:27; Start 07/03/17 at 11:15; Stop 07/03/17 at 11:16; Status DC Lorazepam (Ativan Inj) 4 mg ONCE ONCE IV PUSH Last administered on 07/03/17 12:26; Start 07/03/17 at 11:15; Stop 07/03/17 at 11:16; Status DC Morphine Sulfate (Morphine Inj) 4 mg Q4HR IV PUSH Last administered on 12:28; Start 07/03/17 at 12:00; Stop 07/03/17 at 14:39; Status DC Morphine Sulfate (Morphine Inj) 4 mg Q30M PRN IV PUSH SEE LABEL COMMENTS; Start 07/03/17 at 11:30; Stop 07/03/17 at 14:39; Status DC Morphine Sulfate (Morphine Inj) 6 mg Q30M PRN IV PUSH SEE LABEL COMMENTS; Start 07/03/17 at 11:30; Stop 07/03/17 at 14:39; Status DC Lorazepam (Ativan Inj) 2 mg Q2HR IV PUSH Last administered on 07/03/17t 12:27 ; Start 07/03/17 at 12:00; Stop 07/03/17 at 14:39; Status DC Lorazepam (Ativan Inj) 1 mg Q1H PRN IV PUSH SEE LABEL COMMENTS; Start at 11:30; Stop 07/03/17 at 14:39; Status DC Lorazepam (Ativan Inj) 2 mg Q1H PRN IV PUSH SEE LABEL COMMENTS; Start at 11:30; Stop 07/03/17 at 14:39; Status DC Lorazepam (Ativan Inj) 2 mg Q15M PRN IV PUSH SEIZURES; Start 07/03/17 at 11:30 ; Stop 07/03/17 at 14:39; Status DC Hyoscyamine Sulfate (Levsin Inj) 0.25 mg Q4H PRN IV PUSH SECRETIONS; Start at 11:30; Stop 07/03/17 at 14:39; Status DC Acetaminophen (Tylenol Supp) 650 mg Q4H PRN RECTAL FEVER; Start 07/03/17 at 11 :30; Stop 07/03/17 at 14:39; Status DC Furosemide (Lasix Inj) 20 mg Q6H PRN IV PUSH Pulmonary Congestion; Start 07/03 at 11:30; Stop 07/03/17 at 14:39; Status DC Bisacodyl (Dulcolax Supp) 10 mg DAILY PRN RECTAL CONSTIPATION; Start 07/03/17 at 11:30; Stop 07/03/17 at 14:39; Status DC Medical Decision Making [facility] Remarks Last [address] 06/24/17 0000 Signed Impressions: Service Date/Time: June 05:46 - CONCLUSION: Evolving left anterior circulation stroke. Polo Mathur MD Chest X-Ray 06/24/17 0000 Signed Impressions: Service Date/Time: June 13:53 - CONCLUSION: Extensive and progressing airspace disease both lungs. Ruperto Casillas MD Plan Plan Remarks 66 year old male with large left ischemic stroke with hemorrhagic conversion on CT Brain 06/21, f/u CT Head 06/24 with improved hemorrhage, minimal midline shift CT Brain 06/30 with evolving large left MCA stroke, no hemorrhage seen, mild mass effect Seizure, EEG 06/29 reports with intermittent sharp activities may be epileptic Attending Statement serial neuro checks unchanged Withdrawal of life support today Defer to palliative care will sign off Julian Charles MD Jul 03, 2017 14:45
== END 2017-07-03 14:39 | disposition expired | DRG 64 ==
LOC: NEPC 17:49 → NEDA 19:28 → NEDH 23:38 → HIMN 06-17 01:20 → N03B 06-23 16:08
PROVIDERS: ADMIT Internal Medicine Critical Care Medicine; ATTEND Internal Medicine Critical Care Medicine
PROC: 5A1955Z Respiratory Ventilation, Greater than 96 Consecutive Hours (ICD-10-PCS; principal; 2017-06-16)
PROC: 0BH17EZ Insertion of Endotracheal Airway into Trachea, Via Natural or Artificial Opening (ICD-10-PCS; 2017-06-16)
PROC: 02HV33Z Insertion of Infusion Device into Superior Vena Cava, Percutaneous Approach (ICD-10-PCS; 2017-06-16)
PROC: B543ZZA Ultrasonography of Right Jugular Veins, Guidance (ICD-10-PCS; 2017-06-16)
DX: I63.412 Cerebral infarction due to embolism of left middle cerebral artery (principal); J96.01 Acute respiratory failure with hypoxia; Z51.5 Encounter for palliative care; I61.9 Nontraumatic intracerebral hemorrhage, unspecified; J18.9 Pneumonia, unspecified organism; A41.9 Sepsis, unspecified organism; G93.40 Encephalopathy, unspecified; J81.1 Chronic pulmonary edema; J96.02 Acute respiratory failure with hypercapnia; G40.89 Other seizures; N39.0 Urinary tract infection, site not specified; G81.11 Spastic hemiplegia affecting right dominant side; F14.20 Cocaine dependence, uncomplicated; K70.9 Alcoholic liver disease, unspecified; F19.10 Other psychoactive substance abuse, uncomplicated; R40.2420 Glasgow coma scale score 9-12, unspecified time; I10 Essential (primary) hypertension; K21.9 Gastro-esophageal reflux disease without esophagitis; K27.9 Peptic ulcer, site unspecified, unspecified as acute or chronic, without hemorrhage or perforation; I63.529 Cerebral infarction due to unspecified occlusion or stenosis of unspecified anterior cerebral artery; R29.725 NIHSS score 25; G89.29 Other chronic pain; M54.9 Dorsalgia, unspecified; F10.10 Alcohol abuse, uncomplicated; F17.210 Nicotine dependence, cigarettes, uncomplicated; B19.20 Unspecified viral hepatitis C without hepatic coma; Z66 Do not resuscitate; Z86.73 Personal history of transient ischemic attack (TIA), and cerebral infarction without residual deficits
CPT/HCPCS: 36600; 70450; 70496; 70498; 71010; 80048; 80053; 80061; 80185; 80202; 80307; 81001; 82435; 82550; 82552; 82565; 82805; 82947; 82948; 83036; 83735; 84100; 84132; 84155; 84295; 84484; 84520; 85025; 85027; 85384; 85610; 85730; 86403; 86850; 86900; 86901; 87040; 87070; 87077; 87086; 87147; 87186; 87205; 87449; 87641; 93005; 93306; 94003; 94640; 94664; 95819; 96360; J1170; J1630; J1644; J1815; J1940; J1953; J1980; J2060; J2250; J2270; J2543; J3010; J3370; J3411; J3480; J7030; J7040; J7050; P9612; Q2009; Q9967